=== PATIENT | male | born 1985 | race African-American/Black ===

== ENCOUNTER 2017-05-02 17:33 | Inpatient (IN) | payer BC, OTHER ==
--- NOTE | 2017-05-02 18:07 | PDOC ---
History of Present Illness - History of Present Illness Initial Comments: 05/02/17 19:04 Patient is a 31 year old male with significant medical hx of RA who is presenting to the ED with headache since 3 PM today. The patient complains of constant headache described as a pressure that's localized to the top of his head and is non-radiating. Patient rates his pain 8/10 in severity. He endorses some mild associated blurry vision and notes that his blood pressure was unusually high today but denies any history of high blood pressure. Denies any nausea, vomiting, diarrhea, abdominal pain, weakness, or dizziness. <Annie Nichols - Last Filed: 05/02/17 21:06> <Tray Ritter - Last Filed: 05/03/17 01:46> - General Chief Complaint: Blood Pressure Problem Stated Complaint: Blood Pressure Problem Time Seen by Provider: 05/02/17 18:05 Past History <Annie Nichols - Last Filed: 05/02/17 21:06> - Past Medical History Anemia: Yes Asthma: No Cancer: No Cardiac Disorders: No CVA: No COPD: No CHF: No Dementia: No Diabetes: No GI Disorders: No Disorders: No HTN: No Hypercholesterolemia: No Liver Disease: No Suicide Attempt (Hx): No Seizures: No Thyroid Disease: No Other medical history: RHEM ARTHRITIS - Surgical History Orthopedic Surgery: Yes - Psycho/Social/Smoking Cessation Hx Anxiety: No Suicidal Ideation: No Smoking Status: No Smoking History: Never smoked Have you smoked in the past 12 months: No Number of Cigarettes Smoked Daily: 0 Cigars Per Day: 0 Hx Alcohol Use: No Drug/Substance Use Hx: No Substance Use Type: None Hx Substance Use Treatment: No <Tray Ritter - Last Filed: 05/03/17 01:46> - Past Medical History Allergies/Adverse Reactions: Allergies Allergy/AdvReac Type Severity Reaction Status Date / Time No Known Allergies Allergy Verified 05/02/17 17:40 Home Medications: Ambulatory Orders Acetaminophen [Tylenol] 1,000 mg PO BID 05/02/17 Prednisone [Deltasone -] 5 mg PO BID 05/02/17 Review of Systems - Review of Systems Comments:: 05/02/17 19:19 CONSTITUTIONAL: No fever, no chills, no fatigue EYES: Mild blurry vision ENT: No ear pain, no sore throat CARDIOVASCULAR: High blood pressure. No chest pain, no palpitations RESPIRATORY: No cough, no SOB GI: No abdominal pain, no nausea, no vomiting, no constipation, no diarrhea GENITOURINARY: No dysuria, no frequency, no hematuria MUSKULOSKELETAL: No backpain, no joint pain, no myalgias SKIN: No rash NEURO: Headache <Annie Nichols - Last Filed: 05/02/17 21:06> *Physical Exam - Vital Signs Last Vital Signs Temp Pulse Resp BP Pulse Ox 98.1 F 96 H 20 165/119 98 05/02/17 17:37 05/02/17 17:37 05/02/17 17:37 05/02/17 18:22 05/02/17 17:37 <Annie Nichols - Last Filed: 05/02/17 21:06> - Vital Signs Last Vital Signs Temp Pulse Resp BP Pulse Ox 98.1 F 96 H 20 168/123 98 05/02/17 17:37 05/02/17 17:37 05/02/17 17:37 05/02/17 17:37 05/02/17 17:37 - Physical Exam Comments: 05/02/17 19:10 EXAMINATION CONSTITUTIONAL: Awake and alert; well-nourished; in no apparent distress HEAD: Normocephalic; atraumatic EYES: PERRL; EOM intact; no photophobia; no nystagmus; ENMT: External appears normal; normal oropharynx NECK: Supple; non-tender; no cervical lymphadenopathy; no carotid bruits CARD: Normal S1, S2; no murmurs, rubs, or gallops RESP: Normal chest excursion with respiration; breath sounds clear and equal bilaterally; no wheezes, rhonchi, or rales ABD: Soft, non-distended; non-tender; no palpable organomegaly, no palpable hernias EXT: Normal ROM in all four extremities; + ulnar deviation and flexion is noted at the wrist joints bilaterally as well as MCP joints bilaterally; non-tender to palpation; distal pulses intact SKIN: Warm, dry, no rash NEURO: Cranial nerves II through XII are grossly intact; motor is 5 of 54; ( left hand labeling specialist is weaker than the right; abduction of digits of the left hand is also noted to be weaker than the right); gait is stable. <Tray Ritter - Last Filed: 05/03/17 01:46> Heart Score/ECG Review #1 05/02/17 21:10 Normal sinus rhythm at 79 bpm with sinus arrhythmia Normal ECG <Annie Nichols - Last Filed: 05/02/17 21:06> ED Treatment Course - LABORATORY CBC & Chemistry Diagram: 05/02/17 19:02 05/02/17 19:02 - RADIOLOGY Radiograph Interpretation: 05/02/17 21:[address] Impression: No CT evidence of acute intracranial pathology. Findings are noted involving the partially imaged upper cervical spine as discussed. Cervical spine CT evaluation is suggested. Reported By: Joel Bullard MD <Annie Nichols - Last Filed: 05/02/17 21:06> - LABORATORY CBC & Chemistry Diagram: 05/02/17 19:02 05/02/17 19:02 <Tray Ritter - Last Filed: 05/03/17 01:46> Medical Decision Making - Medical Decision Making 05/02/17 19:12 Patient is a 31-year-old male with history of rheumatoid arthritis, on prednisone presents to the ER with atraumatic apical headache and significantly elevated blood pressure. On initial evaluation, no meningeal signs are noted. Patient has notable weakness of the left hand labeling specialist which reports is chronic in nature. I suspect hypertensive emergency at this time. Will obtain CT head to rule out intracerebral hemorrhage. We will administer IV labetalol. Likely admission. 05/02/17 19:24 after administration of 20 and then 40 mg of labetalol, patient's blood pressure remains 170/130. We'll administer 80 mg of labetalol IV push. If no significant improvement in the blood pressure, will initiate labetalol drip. 05/02/17 21:25 CT of head shows no evidence of acute intracranial pathology. Accidentally noted is the atlantoaxial subluxation with basilar invagination with cervical canal narrowing. Patient's blood pressure has not responded to boluses of labetalol. 200 mg of labetalol was administered by mouth. Will initiate a labetalol drip at 2 mg an hour. I do not suspect subarachnoid hemorrhage at this time given the a CT obtained within the 6 hours of presentation (CT has sensitivity approaching 100% subarachnoid blood when obtained within 6 hours of onset of pain) 05/02/17 21:57 Patient reassessed. Patient reports improvement in level of her his headache. On repeat evaluation, no meningeal signs are noted again. Blood pressure is noted to be 148/98. Will continue with a labetalol drip at this point. 05/02/17 22:59 Patient's symptom-free. Blood pressure is noted to be 138/88. Will decrease labetalol drip to 1 mg/m. Will admit to telemetry for hypertensive emergency. 05/03/17 01:46 Patient's blood pressure has stabilized off labetalol drip. Last measurement is noted to be 123/86. Patient's drug screen is noted to be positive for opioids and MDMA. Will continue with telemetry admission is planned. <Tray Ritter - Last Filed: 05/03/17 01:46> *DC/Admit/Observation/Transfer - Attestations Scribe Attestion: 05/02/17 19:22 Documentation prepared by Annie Nichols, acting as medical certification specialist for Tray Ritter MD. <Annie Nichols - Last Filed: 05/02/17 21:06> - Discharge Dispostion Admit: Yes <Tray Ritter - Last Filed: 05/03/17 01:46> Diagnosis at time of Disposition: Hypertensive emergency Headache Qualifiers: Headache type: unspecified Headache chronicity pattern: acute headache Intractability: not intractable Qualified Code(s): R51 - Headache - Referrals
[2017-05-02] MEDS ORDERED: METOCLOPRAMIDE HCL INJECTION 10 MG/2 ML VIAL IVPB ONE (18:22)
[2017-05-02] MEDS ORDERED: LABETALOL HCL 5 MG/1 ML (100MG/20 ML VIAL) IVPUSH ONE ×3 (18:23→20:10)
[2017-05-02] MEDS ORDERED: METOCLOPRAMIDE HCL INJECTION 10 MG/2 ML VIAL ONE (18:52)
[2017-05-02] MEDS ORDERED: LABETALOL HCL 5 MG/1 ML (200MG/40ML VIAL) IVPB ONE (18:52)
[2017-05-02 19:11] LABS: MCHC 32.4 g/dl (32.0-35.9); MEAN CELL VOLUME 67.9 fl (80-96); MEAN PLT VOLUME 8.6 fl (7.5-11.1); RDW 24.1 % (11.9-15.9)
[2017-05-02 19:57] LABS: INR 1.06 (0.82-1.09); PROTHROMBIN TIME (PATIENT) 11.7 SEC (9.98-11.88)
[2017-05-02 19:58] LABS: ALBUMIN 3.5 g/dl (3.4-5.0); ANION GAP 8 (8-16); CALCIUM 8.8 mg/dL (8.5-10.1); CO2 24 mmol/L (21-32); CREATININE 0.9 mg/dL (0.7-1.3); GLUCOSE,RANDOM 84 mg/dL (74-106); SGOT/AST 44 U/L (15-37); SGPT/ALT 31 U/L (12-78)
[2017-05-02 20:02] LABS: ALK PHOS 74 U/L (45-117); BILIRUBIN,TOTAL 0.7 mg/dL (0.2-1.0); TOT PROT 8.3 g/dl (6.4-8.2); TROPONIN I < 0.02 ng/ml (0.00-0.05)
[2017-05-02] MEDS ORDERED: LABETALOL HCL 200 MG TABLET (FP) PO ONE (20:10)
[2017-05-02] MEDS ORDERED: LABETALOL HCL 100 MG TABLET (FP) ONE (20:11)
[2017-05-02] MEDS ORDERED: LABETALOL HCL INJECTION 1,000 MG in DEXTROSE 5%-WATER - 800 ML IV SCH (20:30)
[2017-05-02] MEDS ORDERED: morphine CARPU-JECT 4 MG/1 ML DISP.SYRIN IVPUSH ONE (20:33)
[2017-05-02] MEDS ORDERED: morphine CARPU-JECT 4 MG/1 ML DISP.SYRIN ONE (20:41)
[2017-05-02 20:53] LABS: PLATELET COUNT 189 K/MM3 (134-434)
[2017-05-02 20:55] LABS: HYPOCHROMIA 1+; PLATELET ESTIMATE ADEQUATE (NORMAL)
[2017-05-02 20:56] LABS: ANISOCYTOSIS 3+; MICROCYTOSIS 1+; POIKILOCYTOSIS 2+; TARGET CELLS 2+; TEAR DROP CELLS 1+
[2017-05-03 00:58] LABS: URINE APPEARANCE CLEAR; URINE BILIRUBIN NEGATIVE (NEGATIVE); URINE BLOOD 1+ (NEGATIVE); URINE COLOR LTYELLOW; URINE GLUCOSE (UA) NEGATIVE (NEGATIVE); URINE KETONE NEGATIVE (NEGATIVE); URINE LEUK ESTERASE NEGATIVE (NEGATIVE); URINE NITRITE NEGATIVE (NEGATIVE); URINE UROBILINOGEN NEGATIVE mg/dL (0.2-1.0)
[2017-05-03 01:09] LABS: URINE MARIJUANA THC NEGATIVE ng/ml (CUTOFF=50)
[2017-05-03 01:32] LABS: URINE PROTEIN 2+ (NEGATIVE)
[2017-05-03 01:35] LABS: URINE RBC <1 /hpf (0-3); URINE WBC 1 /hpf (3-5)
[2017-05-03 03:02] VITALS: BMI 29.9
[2017-05-03 06:07] LABS: BASOPHIL 0.9 % (0-2.0); MCH 22.4 pg (25.7-33.7); MCHC 32.9 g/dl (32.0-35.9); MEAN CELL VOLUME 68.1 fl (80-96); MEAN PLT VOLUME 8.6 fl (7.5-11.1); NEUTROPHILS 63.7 % (42.8-82.8); PLATELET COUNT 138 K/MM3 (134-434); RDW 23.6 % (11.9-15.9); WHITE BLOOD COUNT 6.7 K/mm3 (4.0-10.0)
[2017-05-03 06:40] LABS: ALBUMIN 2.9 g/dl (3.4-5.0); ANION GAP 7 (8-16); CALCIUM 8.1 mg/dL (8.5-10.1); CO2 27 mmol/L (21-32); GLUCOSE,RANDOM 81 mg/dL (74-106)
[2017-05-03 06:44] LABS: ALK PHOS 55 U/L (45-117); BILIRUBIN,TOTAL 0.8 mg/dL (0.2-1.0); CHOLESTEROL 216 mg/dL (50-200); CREATININE 0.8 mg/dL (0.7-1.3); LDL CHOLESTEROL (ONLY SJRH) 102 mg/dL (5-100); SGOT/AST 32 U/L (15-37); SGPT/ALT 24 U/L (12-78); TROPONIN I < 0.02 ng/ml (0.00-0.05)
--- NOTE | 2017-05-03 09:20 | PN ---
Progress Note (short form) - Note Progress Note: NEUROSURGERY CONSULT DICTATED Pt with long-standing RA and basilar impression presented to ED with headache and dizziness yesterday afternoon. "Pressure" on the top of his head and is non- radiating. Patient rates his pain 8/10. He endorses some mild associated blurry vision and notes that his blood pressure was in the 160s's but denies history of Htn. No diplopia, sz. Chronic (over 5 year) B hand weakness L > R. Denies any neck pain or Lhermitte's sign. NO ataxia or bowel/bladder control issues. H/ o MRSA L upper arm wound previously. 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
[2017-05-03] MEDS: predniSONE 20 MG TABLET (UD) PO SCH (09:43)
[2017-05-03] MEDS: HEPARIN NA (PORCINE) 5,000 UNITS/ML 1ML VIAL SQ SCH ×2 (09:43→22:57)
--- NOTE | 2017-05-03 11:40 | HP ---
Admitting History and Physical - Primary Care Physician PCP: Mateus Lopez - Admission Chief Complaint: headaches History of Present Illness: Patient is a 31 year old male with significant medical hx of RA who is presented to the ED with headache since 3 PM yesterday. He explains it as the worst headache of his life and it was a constant headache described as a pressure that's localized to the top of his head and is non-radiating. Patient rated his pain 8/10 in severity. His associated symptoms were some mild associated blurry vision and blood pressure was unusually high today but denies any history of high blood pressure. Denies any nausea, vomiting, diarrhea, abdominal pain, weakness, or dizziness. History Source: Patient Limitations to Obtaining History: No Limitations - Advance Directives Advance Directives: Yes: Health Care Proxy - Smoking History Smoking history: Never smoked Have you smoked in the past 12 months: No Aproximately how many cigarettes per day: 0 - Alcohol/Substance Use Hx Alcohol Use: No Home Medications - Allergies Allergies/Adverse Reactions: Allergies Allergy/AdvReac Type Severity Reaction Status Date / Time No Known Allergies Allergy Verified 05/02/17 17:40 - Home Medications Home Medications: Ambulatory Orders Acetaminophen [Tylenol] 1,000 mg PO BID 05/02/17 Prednisone [Deltasone -] 5 mg PO BID 05/02/17 Review of Systems - Review of Systems Constitutional: reports: Malaise Eyes: reports: No Symptoms HENT: reports: No Symptoms Neck: reports: Decreased ROM, Stiffness Cardiovascular: reports: No Symptoms Respiratory: reports: No Symptoms Gastrointestinal: reports: No Symptoms Genitourinary: reports: No Symptoms Breasts: reports: No Symptoms Reported Musculoskeletal: reports: No Symptoms Integumentary: reports: No Symptoms Neurological: reports: Headache Endocrine: reports: No Symptoms Hematology/Lymphatic: reports: No Symptoms Psychiatric: reports: No Symptoms Physical Examination Vital Signs: Vital Signs Temperature 97.8 F 05/03/17 10:00 Pulse Rate 70 05/03/17 10:00 Respiratory Rate 18 05/03/17 10:00 Blood Pressure 118/79 05/03/17 10:00 O2 Sat by Pulse Oximetry (%) 100 05/03/17 08:00 Constitutional: Yes: Well Nourished, No Distress, Calm Cardiovascular: Yes: Regular Rate and Rhythm Respiratory: Yes: Regular Gastrointestinal: Yes: Normal Bowel Sounds Edema: No Peripheral Pulses WNL: Yes Neurological: Yes: Alert, Oriented, Other (no complains of headache at this time ) Psychiatric: Yes: Alert, Oriented Labs: CBC, BMP 05/03/17 05:05 05/03/17 05:05 Imaging - Results Cat Scan: Report Reviewed Problem List - Problems (1) Headache Assessment/Plan: -CT head was negative for any acute pathology -CT cervical spine showed craniocervical junction spinal canal stenosis. -seen by Neurosurgery -prednisone increased to 20 mg, he usually take 5 mg po daily for RA Code(s): R51 - HEADACHE Qualifiers: Headache type: unspecified Headache chronicity pattern: acute headache Intractability: not intractable Qualified Code(s): R51 - Headache (2) Hypertensive emergency Assessment/Plan: -better now -to be seen by cardiology -likely secondary to acute pain Code(s): I16.1 - HYPERTENSIVE EMERGENCY (3) Arthritis, rheumatoid Assessment/Plan: chronic, sees Dr Moffett outpatient Code(s): M06.9 - RHEUMATOID ARTHRITIS, UNSPECIFIED (4) Positive urine drug screen Assessment/Plan: Although patient denies use of any illicit drugs, his urine toxicology was positive for opiates and ecstacy. -would repeat urine toxicology -psych consult Code(s): R82.5 - ELEVATED URINE LEVELS OF DRUG/MEDS/BIOL SUBST Assessment/Plan -Neurosurgery consult -pain management -increased steroids -repeat urine toxicology to confirm,patient denies any usage of illicit drugs -cardiology consult -psych consult
--- NOTE | 2017-05-03 15:13 | CON.CARD ---
Consult Consult Specialty:: cardiology Referred by:: michelle Reason for Consultation:: htn - History of Present Illness Chief Complaint: htn History of Present Illness: 31 year old male with h/o RA s/p knee and hip surgery in past who presents with htn and headache/lightheaded. As per patient, was at work when felt lightheaded and vision felt off/mild blurriness with a headache. Checked bp and elevated 160s so came to ER. Required multiple doses of labetalol IV and than IV drip to come down but has been normal off drip now. Symptoms resolved. Denies ever having these symptoms prior. No chest pain, sob, or palpitations. Good exercise level as per patient. Reports bp was elevated at last doctor's visit but unclear range. Also started on new RA medicine last month. No n/v/d. No fevers. No sweats. No weight loss. - History Source History Provided By: Patient, Medical Record - Alcohol/Substance Use Hx Alcohol Use: No - Smoking History Smoking history: Never smoked Have you smoked in the past 12 months: No Aproximately how many cigarettes per day: 0 Home Medications - Allergies Allergies/Adverse Reactions: Allergies Allergy/AdvReac Type Severity Reaction Status Date / Time No Known Allergies Allergy Verified 05/02/17 17:40 - Home Medications Home Medications: Ambulatory Orders Acetaminophen [Tylenol] 1,000 mg PO BID 05/02/17 Prednisone [Deltasone -] 5 mg PO BID 05/02/17 Vital Signs: Vital Signs Temperature 97.8 F 05/03/17 14:00 Pulse Rate 82 05/03/17 14:00 Respiratory Rate 16 05/03/17 14:00 Blood Pressure 123/85 05/03/17 14:00 O2 Sat by Pulse Oximetry (%) 100 05/03/17 08:00 Constitutional: Yes: No Distress Neck: Yes: Supple Respiratory: Yes: CTA Bilaterally Gastrointestinal: Yes: Normal Bowel Sounds, Soft Cardiovascular: Yes: Regular Rate and Rhythm JVD: No Carotid Bruit: No Heart Sounds: Yes: S1, S2 Murmur: No: Systolic Murmur Edema: No - Other Data Labs, Other Data: CBC, BMP 05/03/17 05:05 05/03/17 05:05 INR, PTT INR 1.06 (0.82-1.09) 05/02/17 19:02 Troponin, BNP 05/03/17 05:05 Troponin I < 0.02 Troponin, BNP 05/03/17 05:05 Troponin I < 0.02 Imaging - Results Chest X-ray: Report Reviewed EKG: Image Reviewed Problem List - Problems (1) Hypertensive emergency Code(s): I16.1 - HYPERTENSIVE EMERGENCY Assessment/Plan 31 year old male with h/o RA s/p knee and hip surgery in past who presents with htn and headache/lightheaded. As per patient, was at work when felt lightheaded and vision felt off/mild blurriness with a headache. Checked bp and elevated 160s so came to ER. Required multiple doses of labetalol IV and than IV drip to come down but has been normal off drip now. Symptoms resolved. Denies ever having these symptoms prior. No chest pain, sob, or palpitations. Good exercise level as per patient. Reports bp was elevated at last doctor's visit but unclear range. Also started on new RA medicine last month. No n/v/d. No fevers. No sweats. No weight loss. 1) HTN Likely with underlying htn as reports his bp was elevated at his rheumatologists office and also on echocardiogram with mild LVH. EKG with lateral T wave changes. LVEF normal on echo with no significant valve disease. -BP has been normal today off labetalol drip. Would continue to monitor on tele and bp for 24 hours. Trend labs Find out what other RA medication was that was new and if causes htn. Patients Urine tox came back as MDMA which can cause htn and these symptoms but patient swears never drinks or does any drugs. 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 Will continue to monitor
--- NOTE | 2017-05-03 16:30 | EKG ---
Test Reason : Blood Pressure : / mmHG Vent. Rate : 080 BPM Atrial Rate : 080 BPM P-R Int : 134 ms QRS Dur : 086 ms QT Int : 362 ms P-R-T Axes : 054 024 -12 degrees QTc Int : 417 ms NORMAL SINUS RHYTHM T WAVE ABNORMALITY, CONSIDER LATERAL ISCHEMIA ABNORMAL ECG WHEN COMPARED WITH ECG OF 02-MAY-2017 18:23, NO SIGNIFICANT CHANGE WAS FOUND Confirmed by DIVYA BOX, STORM ([id number]) on 05/03/2017 4:30:22 PM Referred By: ANNEMARIE CROWLEY Confirmed By:STORM STOKES MD
--- NOTE | 2017-05-03 16:33 | EKG ---
Test Reason : Blood Pressure : / mmHG Vent. Rate : 079 BPM Atrial Rate : 079 BPM P-R Int : 140 ms QRS Dur : 082 ms QT Int : 360 ms P-R-T Axes : 052 012 -07 degrees QTc Int : 412 ms NORMAL SINUS RHYTHM WITH SINUS ARRHYTHMIA NORMAL ECG WHEN COMPARED WITH ECG OF 13-JUN-2013 09:07, NON-SPECIFIC CHANGE IN ST SEGMENT IN INFERIOR LEADS Confirmed by DIVYA BOX, STORM ([id number]) on 05/03/2017 4:32:54 PM Referred By: Confirmed By:STORM STOKES MD
--- NOTE | 2017-05-03 18:18 | CONS ---
DATE OF CONSULTATION: 05/03/2017 CHIEF COMPLAINT: Hypertension and headache/dizziness. HISTORY OF PRESENT ILLNESS: The patient is a 31-year-old right hand male with a history of rheumatoid arthritis diagnosed several years ago, who had complained yesterday afternoon of dizziness and headache. He had felt some pressure on the top of his head which was nonradiating. Pain was rated 8 on a 1-10 scale. He had some blurry vision which is no longer present. He had blood pressure initially in the 160s, which is higher than the usual blood pressure. He denies any diplopia, ataxia, neck pain, or bowel/bladder dysfunction. He has had chronic bilateral hand weakness for many years, left greater than right. He had MRI of the cervical spine back in 2012, at which point basilar impression was noted. PAST MEDICAL HISTORY: Significant for rheumatoid arthritis, left arm skin infection with MRSA. CURRENT MEDICATIONS: Include prednisone, Deltasone 20 mg daily. ALLERGIES: No known drug allergies. FAMILY HISTORY: Noncontributory. SOCIAL HISTORY: He only drinks alcohol socially. He does not smoke. He lives at home. REVIEW OF SYSTEMS: Otherwise negative for other cardiovascular, pulmonary, gastrointestinal, genitourinary, endocrinologic, neurologic, or psychological problems except for the above. PHYSICAL EXAMINATION: Vital signs: Temperature is 97.9, blood pressure 123/86. 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 Upon emergency room evaluation, his systolic blood pressure is in the 160s and diastolic was 120s. O2 saturation 100% on room air. HEENT: Normocephalic, atraumatic, anicteric. Neck: Supple. Cervical spine flexion is 45 degrees and extension is 40 degrees , lateral rotation is 50 degrees in each direction. There is no neck tenderness or nuchal rigidity. Coronary: Regular rhythm. Lungs: Clear bilaterally. Abdomen: Benign. Extremities: Healed left upper arm scar from prior infection, but there are no signs of current infection. Neurologic: He is awake, alert, oriented x4. Cranial nerves examination intact 2-12. There is no nystagmus. Motor examination shows 5/5 strength except the right hand, which is 3 to 4 minus, and left hand which is 2 to 3, weakness is predominantly involving intrinsic muscles of the hand. Proximal upper extremity strength is 4 +. Left proximal lower extremity is 4+/5. Deep tendon reflexes are hyporeflexive throughout. Sensory examination is intact to light touch, vibratory sensation, and proprioception. LABORATORY EXAMINATION: Shows a white blood cell count of 6700, hemoglobin 11.1, and platelet count is 138,000. INR is 1.06. Serum sodium is 139, potassium 3.8 , BUN and creatinine are 12 and 0.8, respectively. Troponin is less than 0.02. Toxicology is positive for opiates and MDMA. Repeat screening is pending. CT scan of the head showed no hydrocephalus or bleed. There is no fracture. There is no acute stroke. There is basilar impression of the dens extending into the cranial fossa. There is moderate to mild compromise of craniocervical junction. CT scan of the cervical spine demonstrated basilar impression, likely secondary to rheumatoid arthritis. The odontoid process is hypoplastic, and there is fusion of the atlantooccipital joint as well as atlantoaxial joints. This has not changed since the neck CT scan from May 2013. The MRI from 2012 was also reviewed of the cervical spine. There is basilar impression and moderate spinal stenosis. There is no edema of the spinal cord at the time. IMPRESSION: 1. 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 2. Chronic cervical myelopathy likely secondary to cranial cervical stenosis, but no clinical progression over these past 5 years. 3. Hypertension. RECOMMENDATION: The patient presents with hypertensive episodes. His blood pressure is better this morning. He has minimal headache and has minimal dizziness. His upper extremity deficit in the hands are mostly chronic, as he has no ataxia or sphincter dysfunction. He has had craniocervical junction stenosis for many years. His neurological symptoms have not progressed at all. The value of the posterior cranial cervical decompression and possible fusion with instrumentation was discussed with the patient. It will be an extensive procedure with significant surgical and medical risks. The pros and cons of treatment approaches including observation was discussed, and the patient feels that since his condition has not changed at all , he does not want to consider any surgical intervention. That is a reasonable decision. Unfortunately, steroid use for his osteoarthritis can potentially exacerbate his hypertension and cause other medical issues such as cardiac problems, diabetes, and osteoporosis. His current hypertensive episode may be related to other pharmacological use, and those issues should be investigated and remedied per the medical team. I reviewed the above with the patient at bedside today. All questions are answered. No neurosurgical intervention is recommended at this time given the above. GISELLA LYNCH M.D. ANGIE/[id number] MTDD
[2017-05-03] MEDS: ACETAMINOPHEN 325 MG TABLET (FP) PO PRN (22:58)
--- NOTE | 2017-05-04 07:03 | PN ---
Progress Note (short form) - Note Progress Note: NEUROSURGERY No H/A. No neck pain or Lhermitte's sign. No ataxia or bowel/bladder control issues. H/o MRSA L upper arm wound previously. PE: AF, VSS, BP 146/95; mildly hypertensive Sitting up in bed HEENT- NC/AT; Neck- supple; flexion 45 degrees, extension 40 degrees; Cor- RR; Lungs- CTA B; Abd- benign; Ext- no sign of DVT NEURO- A/A/Ox4 CN- intact II- XII; Motor- L hand 2-3, R hand 3-4-; prox L LE 4+; Sensation- intact LT/vibration/proprioception; DTR- hyporeflexic, no LTS Head CT- craniocervical misalignment, no bleed, stroke or fx noted C spine CT- basilar impression with moderate canal stenosis at cranio-cervical junction, not much changed considering old MRI from 2013; autofusion at craniocervical junction and C1-2 Tox screen result d/w pt; pt reminded that some recreational drugs such as cocaine and others could cause htn and other significant medical problems RA with basilar impression and chronic stable chronic myelopathy Pt's neurological condition has remained the same for at least 5 years Pros and cons of treatment approaches discussed previously; all questions answered Can consider posterior cranio-cervical decompression and fusion with instrumentation but benefit is unclear given chronic stable symptomatology, and potential surgery and anesthetic risks are high Pt not interested in surgery presently
[2017-05-04 08:07] LABS: ECSTACY (MDMA) Negative (Cutoff=500)
[2017-05-04] MEDS: HEPARIN NA (PORCINE) 5,000 UNITS/ML 1ML VIAL SQ SCH ×2 (10:07→22:23)
[2017-05-04] MEDS: predniSONE 20 MG TABLET (UD) PO SCH (10:08)
--- NOTE | 2017-05-04 11:53 | PN ---
Progress Note, Physician Chief Complaint: awake alert cristin headache - Current Medication List Current Medications: Active Medications Acetaminophen (Tylenol -) 650 mg PO Q4H PRN PRN Reason: FEVER OR PAIN Last Admin: 05/03/17 22:58 Dose: 650 mg Heparin Sodium (Porcine) (Heparin -) 5,000 unit SQ BID [facility] Last Admin: 05/04/17 10:07 Dose: 5,000 unit Prednisone (Deltasone -) 20 mg PO DAILY [facility] Last Admin: 05/04/17 10:08 Dose: 20 mg - Objective Vital Signs: Vital Signs Temperature 98.1 F 05/04/17 06:00 Pulse Rate 58 L 05/04/17 06:00 Respiratory Rate 18 05/04/17 06:00 Blood Pressure 146/95 05/04/17 06:00 O2 Sat by Pulse Oximetry (%) 100 05/03/17 21:00 Constitutional: Yes: Mild Distress Eyes: Yes: WNL HENT: Yes: WNL Neck: Yes: WNL Cardiovascular: Yes: WNL Respiratory: Yes: WNL Gastrointestinal: Yes: WNL Genitourinary: Yes: WNL Musculoskeletal: Yes: WNL Extremities: Yes: WNL Edema: No Peripheral Pulses WNL: Yes Integumentary: Yes: WNL Wound/Incision: Yes: Clean/Dry Neurological: Yes: WNL ...Motor Strength: WNL Psychiatric: Yes: WNL Labs: CBC, BMP 05/03/17 05:05 05/03/17 05:05 INR, PTT INR 1.06 (0.82-1.09) 05/02/17 19:02 Problem List - Problems (1) Headache Code(s): R51 - HEADACHE Qualifiers: Headache type: unspecified Headache chronicity pattern: acute headache Intractability: not intractable Qualified Code(s): R51 - Headache (2) Hypertensive emergency Code(s): I16.1 - HYPERTENSIVE EMERGENCY (3) Positive urine drug screen Code(s): R82.5 - ELEVATED URINE LEVELS OF DRUG/MEDS/BIOL SUBST (4) Arthritis, rheumatoid Code(s): M06.9 - RHEUMATOID ARTHRITIS, UNSPECIFIED Assessment/Plan norvasc 2.5mg now decrease bp slowly substance abuse discussed, to avoid illicit drugs neuro surgery and cardiology eval appreciated
[2017-05-04] MEDS ORDERED: amLODIPine BESYLATE 2.5 MG TABLET (FP) PO SCH (12:00)
--- NOTE | 2017-05-04 13:59 | PN ---
Progress Note, Physician Chief Complaint: Patient with no complaints Tele: sinus with no events History of Present Illness: 31 year old male with h/o RA s/p knee and hip surgery in past who presents with htn and headache/lightheaded. As per patient, was at work when felt lightheaded and vision felt off/mild blurriness with a headache. Checked bp and elevated 160s so came to ER. Required multiple doses of labetalol IV and than IV drip to come down but has been normal off drip now. Symptoms resolved. Denies ever having these symptoms prior. No chest pain, sob, or palpitations. Good exercise level as per patient. Reports bp was elevated at last doctor's visit but unclear range. Also started on new RA medicine last month. No n/v/d. No fevers. No sweats. No weight loss. - Current Medication List Current Medications: Active Medications Acetaminophen (Tylenol -) 650 mg PO Q4H PRN PRN Reason: FEVER OR PAIN Last Admin: 05/03/17 22:58 Dose: 650 mg Amlodipine Besylate (Norvasc -) 2.5 mg PO DAILY [facility] Heparin Sodium (Porcine) (Heparin -) 5,000 unit SQ BID [facility] Last Admin: 05/04/17 10:07 Dose: 5,000 unit Prednisone (Deltasone -) 20 mg PO DAILY [facility] Last Admin: 05/04/17 10:08 Dose: 20 mg - Objective Vital Signs: Vital Signs Temperature 97.8 F 05/04/17 10:00 Pulse Rate 82 05/04/17 10:00 Respiratory Rate 18 05/04/17 10:00 Blood Pressure 139/94 05/04/17 10:00 O2 Sat by Pulse Oximetry (%) 100 05/03/17 21:00 Constitutional: Yes: No Distress Neck: Yes: Supple Cardiovascular: Yes: Regular Rate and Rhythm, S1, S2. No: JVD, Murmur Respiratory: Yes: CTA Bilaterally Gastrointestinal: Yes: Normal Bowel Sounds, Soft Edema: No Labs: CBC, BMP 05/03/17 05:05 05/03/17 05:05 INR, PTT INR 1.06 (0.82-1.09) 05/02/17 19:02 Problem List - Problems (1) Hypertensive emergency Code(s): I16.1 - HYPERTENSIVE EMERGENCY Assessment/Plan 31 year old male with h/o RA s/p knee and hip surgery in past who presents with htn and headache/lightheaded. As per patient, was at work when felt lightheaded and vision felt off/mild blurriness with a headache. Checked bp and elevated 160s so came to ER. Required multiple doses of labetalol IV and than IV drip to come down but has been normal off drip now. Symptoms resolved. Denies ever having these symptoms prior. No chest pain, sob, or palpitations. Good exercise level as per patient. Reports bp was elevated at last doctor's visit but unclear range. Also started on new RA medicine last month. No n/v/d. No fevers. No sweats. No weight loss. 1) HTN Likely with underlying htn as reports his bp was elevated at his rheumatologists office and also on echocardiogram with mild LVH. Diastolic pressures have been in 90s. Agree with starting amlodipine and uptitrating as needed EKG with lateral T wave changes. LVEF normal on echo with no significant valve disease. -Repeat urine toxicology negative for mdma. -Would have patient follow up as an outpatient with cardiology. 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 [phone]. No cardiac symptoms on exertion but given lateral T wave changes on one of his ekg would consider outpatient exercise treadmill stress echocardiogram. Discussed at length dietary changes to make and some lifestyle changes. 2) HLD Discussed dietary changes Follow up as outpatient Will sign off at this time. Please call back with any questions or clinical changes.
[2017-05-04] MEDS: ACETAMINOPHEN 325 MG TABLET (FP) PO PRN (22:22)
--- NOTE | 2017-05-05 09:30 | PN ---
Progress Note (short form) - Note Progress Note: NEUROSURGERY No H/A. No neck pain, or bowel/bladder control issues. 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
--- NOTE | 2017-05-05 09:50 | DS ---
Physical Examination Vital Signs: Vital Signs Temperature 97.9 F 05/05/17 05:00 Pulse Rate 67 05/05/17 05:00 Respiratory Rate 18 05/05/17 05:00 Blood Pressure 155/98 05/05/17 05:00 O2 Sat by Pulse Oximetry (%) 98 05/04/17 21:00 Cardiovascular: Yes: Regular Rate and Rhythm Respiratory: Yes: Regular, CTA Bilaterally Gastrointestinal: Yes: Normal Bowel Sounds, Soft Discharge Summary Reason For Visit: HYPERTENSIVE EMERGENCY Current Active Problems Headache (Acute) Hypertensive emergency (Acute) Positive urine drug screen (Acute) Hospital Course: Patient is a 31 year old male with significant medical hx of RA who is presented to the ED with headache since 3 PM yesterday. He explains it as the worst headache of his life and it was a constant headache described as a pressure that's localized to the top of his head and is non-radiating. Patient rated his pain 8/10 in severity. His associated symptoms were some mild associated blurry vision and blood pressure was unusually high today but denies any history of high blood pressure. Denies any nausea, vomiting, diarrhea, abdominal pain, weakness, or dizziness. - Problems (1) Headache Assessment/Plan: -CT head was negative for any acute pathology -CT cervical spine showed craniocervical junction spinal canal stenosis. -seen by Neurosurgery-NO SURGICAL INTERVENTION -prednisone increased to 20 mg, he usually take 5 mg po daily for RA Code(s): R51 - HEADACHE Qualifiers: Headache type: unspecified Headache chronicity pattern: acute headache Intractability: not intractable Qualified Code(s): R51 - Headache (2) Hypertensive emergency Assessment/Plan: -better now -seen by cardiology -likely secondary to acute pain Code(s): I16.1 - HYPERTENSIVE EMERGENCY (3) Arthritis, rheumatoid Assessment/Plan: chronic, sees Dr Estrada outpatient Code(s): M06.9 - RHEUMATOID ARTHRITIS, UNSPECIFIED (4) Positive urine drug screen Assessment/Plan: Although patient denies use of any illicit drugs, his urine toxicology was positive for opiates and ecstacy. 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 and C1-2 RA with basilar impression and chronic stable chronic myelopathy Pt's neurological condition has remained the same for at least 5 years Pros and cons of treatment approaches for basilar impression discussed and pt opts for observation BP control regimen Will sign off from neurosurgical standpoint, reconsult PRN Condition: Improved - Instructions Referrals: Deacon Zavala MD [Primary Care Provider] - 1 Week Disposition: HOME - Home Medications Comprehensive Discharge Medication List: Ambulatory Orders Acetaminophen [Tylenol] 1,000 mg PO BID 05/02/17 Prednisone [Deltasone -] 5 mg PO BID 05/02/17 Amlodipine Besylate [Norvasc -] 5 mg PO DAILY #30 tablet 05/05/17 Metoprolol Tartrate [Lopressor -] 25 mg PO DAILY #30 tablet 05/05/17
[2017-05-05] MEDS ORDERED: amLODIPine BESYLATE 2.5 MG TABLET (FP) PO SCH ×2 (10:00→17:33)
[2017-05-05 10:14] LABS: BASOPHIL 2.7 % (0-2.0); MCH 22.7 pg (25.7-33.7); MCHC 33.5 g/dl (32.0-35.9); MEAN CELL VOLUME 67.7 fl (80-96); MEAN PLT VOLUME 8.4 fl (7.5-11.1); NEUTROPHILS 42.3 % (42.8-82.8); PLATELET COUNT 156 K/MM3 (134-434); RDW 23.4 % (11.9-15.9); WHITE BLOOD COUNT 4.7 K/mm3 (4.0-10.0)
[2017-05-05 10:15] LABS: ALBUMIN 3.2 g/dl (3.4-5.0); ANION GAP 6 (8-16); BILIRUBIN,TOTAL 0.7 mg/dL (0.2-1.0); CALCIUM 8.7 mg/dL (8.5-10.1); CO2 27 mmol/L (21-32); CREATININE 0.9 mg/dL (0.7-1.3); GLUCOSE,RANDOM 81 mg/dL (74-106); SGOT/AST 32 U/L (15-37); SGPT/ALT 29 U/L (12-78); TOT PROT 7.9 g/dl (6.4-8.2)
[2017-05-05] MEDS: predniSONE 20 MG TABLET (UD) PO SCH (10:32)
[2017-05-05] MEDS: HEPARIN NA (PORCINE) 5,000 UNITS/ML 1ML VIAL SQ SCH ×2 (10:32→21:24)
[2017-05-05 10:33] LABS: MICROCYTOSIS 1+
[2017-05-05] MEDS: METOPROLOL TARTRATE 25 MG TABLET (FP) PO SCH (10:33)
[2017-05-05 10:34] LABS: ANISOCYTOSIS 2+
[2017-05-05 10:36] LABS: ALK PHOS 61 U/L (45-117)
[2017-05-05 10:37] LABS: FREE T4 0.93 ng/dl (0.76-1.16)
[2017-05-05 10:41] LABS: FERRITIN 861.7 ng/ml (16.4-293.9)
[2017-05-05] MEDS ORDERED: amLODIPine BESYLATE 5 MG TABLET (FP) PO ONE (17:33)
[2017-05-06 07:12] LABS: SERUM IRON 74 ug/dL (38-169); TOTAL IRON BINDING CAPACITY 295 ug/dL (250-450); UIBC 221 ug/dL (111-343)
--- NOTE | 2017-05-06 09:54 | DS ---
Physical Examination Vital Signs: Vital Signs Temperature 98.0 F 05/06/17 06:00 Pulse Rate 62 05/06/17 06:00 Respiratory Rate 18 05/06/17 06:00 Blood Pressure 132/82 05/06/17 06:00 O2 Sat by Pulse Oximetry (%) 98 05/05/17 21:00 Findings/Remarks: no cp or sob no headche Cardiovascular: Yes: Regular Rate and Rhythm Respiratory: Yes: Regular, CTA Bilaterally Labs: CBC, BMP 05/05/17 09:25 05/05/17 09:25 Discharge Summary Reason For Visit: HYPERTENSIVE EMERGENCY Current Active Problems Headache (Acute) Hypertensive emergency (Acute) Positive urine drug screen (Acute) Hospital Course: Patient is a 31 year old male with significant medical hx of RA who is presented to the ED with headache since 3 PM yesterday. He explains it as the worst headache of his life and it was a constant headache described as a pressure that's localized to the top of his head and is non-radiating. Patient rated his pain 8/10 in severity. His associated symptoms were some mild associated blurry vision and blood pressure was unusually high today but denies any history of high blood pressure. Denies any nausea, vomiting, diarrhea, abdominal pain, weakness, or dizziness. - Problems (1) Headache Assessment/Plan: -CT head was negative for any acute pathology -CT cervical spine showed craniocervical junction spinal canal stenosis. -seen by Neurosurgery-NO SURGICAL INTERVENTION -prednisone increased to 20 mg, he usually take 5 mg po daily for RA Code(s): R51 - HEADACHE Qualifiers: Headache type: unspecified Headache chronicity pattern: acute headache Intractability: not intractable Qualified Code(s): R51 - Headache (2) Hypertensive emergency Assessment/Plan: -better now -seen by cardiology -likely secondary to acute pain Code(s): I16.1 - HYPERTENSIVE EMERGENCY (3) Arthritis, rheumatoid Assessment/Plan: chronic, sees Dr Estrada outpatient Code(s): M06.9 - RHEUMATOID ARTHRITIS, UNSPECIFIED (4) Positive urine drug screen Assessment/Plan: Although patient denies use of any illicit drugs, his urine toxicology was positive for opiates and ecstacy. 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 and C1-2 RA with basilar impression and chronic stable chronic myelopathy Pt's neurological condition has remained the same for at least 5 years Pros and cons of treatment approaches for basilar impression discussed and pt opts for observation BP control regimen Will sign off from neurosurgical standpoint, reconsult PRN Condition: Improved Condition: Improved - Instructions Referrals: Deacon Zavala MD [Primary Care Provider] - 1 Week Disposition: HOME - Home Medications Comprehensive Discharge Medication List: Ambulatory Orders Acetaminophen [Tylenol] 1,000 mg PO BID 05/02/17 Prednisone [Deltasone -] 5 mg PO BID 05/02/17 Metoprolol Tartrate [Lopressor -] 25 mg PO DAILY #30 tablet 05/05/17 Amlodipine Besylate [Norvasc -] 10 mg PO DAILY #30 tablet 05/06/17
[2017-05-06] MEDS: METOPROLOL TARTRATE 25 MG TABLET (FP) PO SCH (10:06)
[2017-05-06] MEDS: predniSONE 20 MG TABLET (UD) PO SCH (10:07)
[2017-05-06] MEDS: HEPARIN NA (PORCINE) 5,000 UNITS/ML 1ML VIAL SQ SCH (10:07)
[2017-05-06 12:18] VITALS: BP 145/99; PULSE 65; TEMP 98.7
== END 2017-05-06 12:38 | disposition home or self-care (01) | DRG 305 ==
LOC: JER 17:33 → JERBED 23:37 → J2W 05-03 02:19 → J4S 05-03 20:35
PROVIDERS: ADMIT Family Medicine; ATTEND Family Medicine
DX: I16.1 Hypertensive emergency (principal); G95.9 Disease of spinal cord, unspecified; I10 Essential (primary) hypertension; M06.9 Rheumatoid arthritis, unspecified; R82.5 Elevated urine levels of drugs, medicaments and biological substances; D64.9 Anemia, unspecified; M48.02 Spinal stenosis, cervical region; H53.8 Other visual disturbances
CPT/HCPCS: 36415; 70450-TC; 71010-TC; 72125-TC; 80053; 80061; 80307; 81003; 81015; 82550; 82553; 82607; 82728; 83540; 83550; 83721; 84439; 84443; 84484; 85025; 85610; 93005; 93010; 93306-TC; 99283-25; J1644

== ENCOUNTER 2017-08-04 12:37 | Emergency (ER) | payer BC ==
[2017-08-04 12:46] VITALS: BMI 29.6
[2017-08-04] MEDS ORDERED: traMADol HCL 50 MG TABLET PO ONE (12:51)
[2017-08-04] MEDS ORDERED: KETOROLAC TROMETHAMINE 60 MG/2 ML VIAL IM ONE (12:51)
--- NOTE | 2017-08-04 12:58 | PDOC ---
History of Present Illness - General Chief Complaint: Pain, Acute Stated Complaint: KNEE PAIN Time Seen by Provider: 08/04/17 12:47 History Source: Patient - History of Present Illness Occurred: reports: this morning Lower Extremity Pain Location: right: knee Past History - Past Medical History Allergies/Adverse Reactions: Allergies Allergy/AdvReac Type Severity Reaction Status Date / Time No Known Allergies Allergy Verified 05/02/17 17:40 Home Medications: Ambulatory Orders Acetaminophen [Tylenol] 1,000 mg PO BID 05/02/17 Prednisone [Deltasone -] 5 mg PO BID 05/02/17 Metoprolol Tartrate [Lopressor -] 25 mg PO DAILY #30 tablet 05/05/17 Amlodipine Besylate [Norvasc -] 10 mg PO DAILY #30 tablet 05/06/17 Oxycodone HCl/Acetaminophen [Percocet 5-325 mg Tablet] 1 tab PO Q4H #20 tablet MDD 6mg 08/04/17 Anemia: Yes Asthma: No Cancer: No Cardiac Disorders: No CVA: No COPD: No CHF: No Dementia: No Diabetes: No GI Disorders: No Disorders: No HTN: Yes Hypercholesterolemia: No Liver Disease: No Seizures: No Thyroid Disease: No - Surgical History Orthopedic Surgery: Yes (bilateral total knee replacements, bilateral total hip replacements) - Suicide/Smoking/Psychosocial Hx Smoking Status: No Smoking History: Never smoked Have you smoked in the past 12 months: No Number of Cigarettes Smoked Daily: 0 Cigars Per Day: 0 Information on smoking cessation initiated: No Hx Alcohol Use: No Drug/Substance Use Hx: No Substance Use Type: None Hx Substance Use Treatment: No Review of Systems - Review of Systems Constitutional: No: Chills, Fever Musculoskeletal: Yes: Joint Pain. No: Joint Swelling Integumentary: No: Erythema *Physical Exam - Vital Signs Last Vital Signs Temp Pulse Resp BP Pulse Ox 98.5 F 82 18 177/126 99 08/04/17 12:42 08/04/17 12:42 08/04/17 12:42 08/04/17 12:42 08/04/17 12:42 - Physical Exam Comments: 08/04/17 12:56 Patient lying on stretcher w/ knee in slightly flexed position General Appearance: Yes: Appropriately Dressed. No: Apparent Distress HEENT: positive: Normal Voice Neck: positive: Supple Respiratory/Chest: negative: Respiratory Distress Extremity: positive: Other (lying w/ R knee in slightly flexed position w/ diffuse ttp, no swelling, erythema or warmth, increased pain w/ ROM which is limited) Integumentary: positive: Dry, Warm Neurologic: positive: Fully Oriented, Alert, Normal Mood/Affect ED Treatment Course - RADIOLOGY Radiology Studies Ordered: Category Date Time Status KNEE 2 POS-RIGHT [RAD] Stat Radiology 08/04/17 12:51 Ordered Medical Decision Making - Medical Decision Making 08/04/17 12:53 Patient is a 31-year-old male with significant history of RA on prednisone and tylenol, status post bilateral total knee replacement, here with right knee pain. Patient states while getting up from a sitting position this morning he felt right knee "lock up" on him. Since then has been unable to bend or extend his knee without significant pain. Has not been able to bear weight. No recent trauma. States since his surgery and prior to this, he has not had any knee issues. Denies any joint swelling, redness, fever or chills. No history of septic joint in the past See exam Atraumatic R knee pain S/p TKR remotely w/ no issues since H/o RA on steroids No h/o septic joint Exam remarkable for diffuse ttp to anterior knee w/ no sig swelling and no red, hot joint -pain control -XR check hardware 08/04/17 14:32 XR negative for acute pathology. Patient better with meds and able to put more weight on right lower extremity. Dash applied in ED and patient discharged with set of crutches and pain control. To follow-up with his family medicine chair and orthopedist 08/04/17 14:43 *DC/Admit/Observation/Transfer Diagnosis at time of Disposition: Knee pain, right Qualifiers: Chronicity: acute Qualified Code(s): M25.561 - Pain in right knee - Discharge Dispostion Disposition: HOME Condition at time of disposition: Improved - Prescriptions Prescriptions: Oxycodone HCl/Acetaminophen [Percocet 5-325 mg Tablet] 1 tab PO Q4H #20 tablet MDD 6mg - Referrals Referrals: Deacon Zavala MD [Primary Care Provider] - - Patient Instructions Printed Discharge Instructions: DI for Knee Pain Additional Instructions: Take medication as directed and follow up with your family medicine chair and your orthopedist
[2017-08-04] MEDS ORDERED: traMADol HCL 50 MG TABLET ONE (13:07)
[2017-08-04] MEDS ORDERED: KETOROLAC TROMETHAMINE 60 MG/2 ML VIAL ONE (13:07)
[2017-08-04] MEDS ORDERED: morphine CARPU-JECT 4 MG/1 ML DISP.SYRIN IM ONE (14:07)
[2017-08-04] MEDS ORDERED: morphine CARPU-JECT 2 MG/1 ML DISP.SYRIN ONE (14:12)
[2017-08-04 14:46] VITALS: BP 152/102; PULSE 84; TEMP 98.7
== END 2017-08-04 15:12 | disposition home or self-care (01) ==
LOC: JER 12:37
PROC: 3E0233Z Introduction of Anti-inflammatory into Muscle, Percutaneous Approach (ICD-10-PCS; principal; 2017-08-04)
PROC: 3E023NZ Introduction of Analgesics, Hypnotics, Sedatives into Muscle, Percutaneous Approach (ICD-10-PCS; 2017-08-04)
DX: M25.561 Pain in right knee (principal); I10 Essential (primary) hypertension; M06.9 Rheumatoid arthritis, unspecified; Z96.653 Presence of artificial knee joint, bilateral; Z96.643 Presence of artificial hip joint, bilateral
CPT/HCPCS: 73560-TC-RT; 99283-25

== ENCOUNTER 2018-03-02 11:55 | Emergency (ER) | payer BC, OTHER ==
[2018-03-02 12:00] VITALS: PULSE 98; TEMP 98.8; BMI 31.0
--- NOTE | 2018-03-02 12:14 | PDOC ---
History of Present Illness - History of Present Illness Initial Comments: 03/02/18 13:00 32 yo M with h/o HTN, RA and BL total knee replacement who p/w abdominal pain. Patient reports dull, intermittent, crampy lower abdominal pain beginnning yesterday evening ( 1200) after PO intake of "soup." No identifiable triggers or alleviators. One episode of non biliary, non bloody emesis this AM following PO intake of water ( 0700) AM. Normal stool this AM. No BPR. PO Prednisone and Tylenol this AM for RA complaints. Robitussin yesterday evening for cough. Denies F/C, N/V, CP, SOB, diarrhea, constipation, urinary complaints, hematuria, weakness, lightheadedness, sensory changes. PMHx: as noted above. HTN on Metoprolol. Denies h/o abdominal procedures, or abdominal trauma. Denies h/o endoscopy or colonoscopy. ROS: as noted above SHx: Denies tobacco, Etoh, or IVDA. Denies recent traveling, sick contacts, or new pets. Allergies: NKDA <Lavelle Thornton - Last Filed: 03/02/18 14:31> <Ashley Florentino - Last Filed: 03/02/18 15:27> - General Chief Complaint: Pain Stated Complaint: ABDOMINAL PAIN Time Seen by Provider: 03/02/18 12:12 Past History - Past Medical History Anemia: Yes Asthma: No Cancer: No Cardiac Disorders: No CVA: No COPD: No CHF: No Dementia: No Diabetes: No GI Disorders: No Disorders: No HTN: Yes Hypercholesterolemia: No Liver Disease: No Seizures: No Thyroid Disease: No Other medical history: rheumatiod arthritis - Surgical History Orthopedic Surgery: Yes (bilateral total knee replacements, bilateral total hip replacements) - Suicide/Smoking/Psychosocial Hx Smoking Status: No Smoking History: Never smoked Have you smoked in the past 12 months: No Number of Cigarettes Smoked Daily: 0 Cigars Per Day: 0 Hx Alcohol Use: No Drug/Substance Use Hx: No Substance Use Type: None Hx Substance Use Treatment: No <Lavelle Thornton - Last Filed: 03/02/18 14:31> <Ashley Florentino - Last Filed: 03/02/18 15:27> - Past Medical History Allergies/Adverse Reactions: Allergies Allergy/AdvReac Type Severity Reaction Status Date / Time No Known Allergies Allergy Verified 03/02/18 11:59 Home Medications: Ambulatory Orders Acetaminophen [Tylenol] 500 mg PO BID 05/02/17 predniSONE [Deltasone -] 5 mg PO BID 05/02/17 Metoprolol Tartrate [Lopressor -] 25 mg PO DAILY #30 tablet 05/05/17 Amlodipine Besylate [Norvasc -] 10 mg PO DAILY #30 tablet 05/06/17 Review of Systems - Review of Systems Comments:: 03/02/18 12:14 GENERAL/CONSTITUTIONAL: No fever or chills. No weakness. HEAD, EYES, EARS, NOSE AND THROAT: No change in vision. No ear pain or discharge. No sore throat. CARDIOVASCULAR: No chest pain or shortness of breath RESPIRATORY: No cough, wheezing, or hemoptysis. GASTROINTESTINAL: + nausea, vomiting, and abdominal pain. No diarrhea or constipation. GENITOURINARY: No dysuria, frequency, or change in urination. MUSCULOSKELETAL: + joint and muscle swelling or pain. No neck or back pain. SKIN: No rash NEUROLOGIC: No headache, vertigo, loss of consciousness, or change in strength/ sensation. ENDOCRINE: No increased thirst. No abnormal weight change HEMATOLOGIC/LYMPHATIC: No anemia, easy bleeding, or history of blood clots. ALLERGIC/IMMUNOLOGIC: No hives or skin allergy. <Lavelle Thornton - Last Filed: 03/02/18 14:31> *Physical Exam - Vital Signs Last Vital Signs Temp Pulse Resp BP Pulse Ox 98.8 F 98 H 18 154/111 100 03/02/18 11:57 03/02/18 11:57 03/02/18 11:57 03/02/18 11:57 03/02/18 11:57 - Physical Exam Comments: 03/02/18 12:14 GENERAL: Awake, alert, and fully oriented, in no acute distress HEAD: No signs of trauma, normocephalic, atraumatic EYES: PERRLA, EOMI, sclera anicteric, conjunctiva clear ENT: Hearing grossly normal, nares patent, oropharynx clear without exudates. Moist mucosa NECK: Normal ROM, supple, no lymphadenopathy, JVD, or masses LUNGS: No distress, speaks full sentences, clear to auscultation bilaterally HEART: Regular rate and rhythm, normal S1 and S2, no murmurs, rubs or gallops, peripheral pulses normal and equal bilaterally. ABDOMEN: Soft, nontender, normoactive bowel sounds. No guarding, no rebound. No masses. Neg CVA ttp. EXTREMITIES : Normal inspection, Normal range of motion, no edema. No clubbing or cyanosis. SKIN: Warm, Dry, normal turgor, no rashes or lesions noted <Paul Thorntonson - Last Filed: 03/02/18 14:31> - Vital Signs Last Vital Signs Temp Pulse Resp BP Pulse Ox 98.8 F 98 H 18 145/109 100 03/02/18 11:57 03/02/18 11:57 03/02/18 11:57 03/02/18 12:52 03/02/18 11:57 <Ashley Florentino - Last Filed: 03/02/18 15:27> Procedures - Bedside Ultrasound Other: renal ultrasound see att note for impression <Ashley Florentino - Last Filed: 03/02/18 15:27> ED Treatment Course - LABORATORY CBC & Chemistry Diagram: 03/02/18 13:10 03/02/18 13:10 <Paul Thorntonson - Last Filed: 03/02/18 14:31> - LABORATORY CBC & Chemistry Diagram: 03/02/18 13:10 03/02/18 13:10 - ADDITIONAL ORDERS Additional order review: Laboratory Results 03/02/18 03/02/18 03/02/18 13:27 13:10 13:10 Sodium 138 Potassium 3.6 Chloride 106 Carbon Dioxide 27 Anion Gap 5 L BUN 15 Creatinine 1.0 Creat Clearance w eGFR > 60 Random Glucose 90 Calcium 8.2 L Total Bilirubin 0.5 D AST 31 ALT 24 Alkaline Phosphatase 57 Total Protein 7.8 Albumin 2.9 L Lipase 96 Cancelled Urine Color Ltyellow Urine Appearance Clear Urine pH 6.0 Ur Specific Wells 1.008 Urine Protein 3+ H Urine Glucose (UA) Negative Urine Ketones Negative Urine Blood Negative Urine Nitrite Negative Urine Bilirubin Negative Urine Urobilinogen Negative Ur Leukocyte Esterase Negative Urine WBC (Auto) 1 Urine RBC (Auto) 3 03/02/18 13:10 RBC 5.26 MCV 66.3 L MCHC 33.9 RDW 22.5 H MPV 8.3 Neutrophils % 79.0 D Lymphocytes % 7.4 L D Monocytes % 12.4 H Eosinophils % 0.3 Basophils % 0.9 - Medications Given in the ED: ED Medications Discontinued Medications Generic Name Dose Route Start Last Admin Trade Name Hailey PRN Reason Stop Dose Admin Al Hydroxide/Mg Hydroxide 30 ml 03/02/18 13:23 03/02/18 13:40 Mylanta Oral Suspension - PO 03/02/18 13:24 30 ml ONCE ONE Administration Amlodipine Besylate 10 mg 03/02/18 13:28 03/02/18 13:40 Norvasc - PO 03/02/18 13:29 10 mg ONCE ONE Administration Metoprolol Succinate 25 mg 03/02/18 13:28 03/02/18 13:40 Toprol Xl - PO 03/02/18 13:29 25 mg ONCE ONE Administration Ondansetron HCl 4 mg 03/02/18 13:23 03/02/18 13:40 Zofran - PO 03/02/18 13:24 4 mg ONCE ONE Administration Ranitidine HCl 150 mg 03/02/18 13:23 03/02/18 13:40 Zantac - PO 03/02/18 13:24 150 mg ONCE ONE Administration <Ashley Florentino - Last Filed: 03/02/18 15:27> Medical Decision Making - Medical Decision Making 03/02/18 13:26 32 yo M with h/o HTN, RA and BL total knee replacement who p/w abdominal pain, and vomiting. VSS, AF, A&Ox3. Will consider cystitis, gastroenteritis, and nephrolithiasis. No abdominal ttp on PE. Low suspicion of diverticulitis, appendicitis, colitis. ED Course: CBC, CMP, UA, Urine Cx. Maloox, Pepcid, Zofran Amlodipine 10 mg , Metoprolol 25 mg 03/02/18 13:52 UA: Negative CBC,CMP: Unremarkable 03/02/18 14:01 Patient tolerating PO medication and fluid intake. Currently with no complaints. Stable for d/c with return precautions. Advised to f/u with PMD. 03/02/18 14:31 Bedside U/S with no evidence of hydro, obx., stones. <Lavelle Thornton - Last Filed: 03/02/18 14:31> *DC/Admit/Observation/Transfer - Attestations Physician Attestion: 05/19/18 12:14 I attest to the information provided in this note. <Lavelle Thornton - Last Filed: 03/02/18 14:31> <Ashley Florentino - Last Filed: 03/02/18 15:27> Diagnosis at time of Disposition: Abdominal pain Qualifiers: Abdominal location: generalized Qualified Code(s): R10.84 - Generalized abdominal pain - Discharge Dispostion Condition at time of disposition: Stable - Referrals Referrals: Deacon Zavala MD [Primary Care Provider] - Mark Pringle MD [Staff Physician] - - Patient Instructions Printed Discharge Instructions: DI for Abdominal Pain-Adult Additional Instructions: Please return to the emergency department with any new or worsening symptoms or concerns. Please follow up with your primary care physician within 72 hours. Please follow up with GI within one week. - Post Discharge Activity
[2018-03-02 13:15] VITALS: BP 145/109
[2018-03-02] MEDS ORDERED: ONDANSETRON 4 MG TABLET PO ONE (13:23)
[2018-03-02] MEDS ORDERED: RANITIDINE HCL 150 MG TABLET (FP) PO ONE (13:23)
[2018-03-02] MEDS ORDERED: MAG HYDROX/AL HYDROX/SIMETH 30 ML UNIT-DOSE CUP PO ONE (13:23)
[2018-03-02 13:24] LABS: BASO % 0.9 % (0-2.0); EOS % 0.3 % (0-4.5); HEMATOCRIT 34.9 % (35.4-49); HEMOGLOBIN 11.8 GM/dL (11.7-16.9); LYMPH % 7.4 % (8-40); MCH 22.5 pg (25.7-33.7); MCHC 33.9 g/dl (32.0-35.9); MEAN CELL VOLUME 66.3 fl (80-96); MEAN PLT VOLUME 8.3 fl (7.5-11.1); MONO % 12.4 % (3.8-10.2); PLATELET COUNT 263 K/MM3 (134-434); RBC 5.26 M/mm3 (4.00-5.60); RDW 22.5 % (11.9-15.9); WHITE BLOOD COUNT 9.5 K/mm3 (4.0-10.0)
[2018-03-02] MEDS ORDERED: metoPROLOL SUCCINATE 25 MG TAB.SR.24H (FP) PO ONE (13:28)
[2018-03-02] MEDS ORDERED: amLODIPine BESYLATE 10 MG TABLET (FP) PO ONE (13:28)
[2018-03-02] MEDS ORDERED: RANITIDINE HCL 150 MG TABLET (FP) ONE (13:31)
[2018-03-02] MEDS ORDERED: ONDANSETRON *ODT* 4 MG TABLET ONE (13:32)
[2018-03-02] MEDS ORDERED: MAG HYDROX/AL HYDROX/SIMETH 30 ML UNIT-DOSE CUP ONE (13:32)
[2018-03-02] MEDS ORDERED: amLODIPine BESYLATE 5 MG TABLET (FP) ONE (13:32)
[2018-03-02 13:39] LABS: URINE APPEARANCE CLEAR; URINE BILIRUBIN NEGATIVE (<2.0 mg/dL); URINE COLOR LTYELLOW; URINE GLUCOSE (UA) NEGATIVE (NEGATIVE); URINE KETONE NEGATIVE (NEGATIVE); URINE LEUK ESTERASE NEGATIVE (NEGATIVE); URINE NITRITE NEGATIVE (NEGATIVE); URINE UROBILINOGEN NEGATIVE mg/dL (0.2-1.0)
[2018-03-02 13:40] LABS: URINE PROTEIN 3+ (NEGATIVE)
[2018-03-02 13:41] LABS: ADD RBC MORPHOLOGY YES
[2018-03-02 13:52] LABS: ALBUMIN 2.9 g/dl (3.4-5.0); ANION GAP 5 (8-16); BILIRUBIN,TOTAL 0.5 mg/dL (0.2-1.0); BLOOD UREA NITROGEN 15 mg/dL (7-18); CALCIUM 8.2 mg/dL (8.5-10.1); CHLORIDE 106 mmol/L (98-107); CO2 27 mmol/L (21-32); GLUCOSE,RANDOM 90 mg/dL (74-106); POTASSIUM 3.6 mmol/L (3.5-5.1); SODIUM 138 mmol/L (136-145)
[2018-03-02 13:54] LABS: ALK PHOS 57 U/L (45-117); SGOT/AST 31 U/L (15-37); SGPT/ALT 24 U/L (12-78); TOT PROT 7.8 g/dl (6.4-8.2)
[2018-03-02 14:07] LABS: LIPASE 96 U/L (73-393)
--- NOTE | 2018-03-02 14:35 | PDOC ---
Attending Attestation - Resident Resident Name: Lavelle Thornton - HPI HPI: 03/02/18 14:37 The patient is a 32 year old male, with a significant past medical history of HTN, RA and BL total knee replacement, who presents to the emergency department complaining of abdominal pain and cough. He describes her abdominal pain as intermittent in nature, ranging from mild to moderate, without radiation or modifying factors. He notes having normal bowel movements. He also notes taking Prednisone and Tylenol this morning, as well as Robitussin yesterday for a cough. The patient denies chest pain, shortness of breath, headache or dizziness. Denies fever, chills, nausea, vomiting, diarrhea and constipation. Denies dysuria, frequency, urgency and hematuria. Allergies: None Past surgical history: bilateral total knee replacements, bilateral total hip replacements Social History: Denies tobacco, Etoh, or IVDA. Denies recent traveling, sick contacts, or new pets. - Physicial Exam PE: 03/02/18 14:37 GENERAL: Awake, alert, and fully oriented, in no acute distress HEAD: No signs of trauma EYES: PERRLA, EOMI, sclera anicteric, conjunctiva clear ENT: Auricles normal inspection, nares patent. Moist mucosa NECK: Normal ROM, supple, no JVD, or masses LUNGS: Breath sounds equal, clear to auscultation bilaterally. No wheezes, and no crackles HEART: Regular rate and rhythm, normal S1 and S2, no murmurs, rubs or gallops ABDOMEN: Soft, nontender, normoactive bowel sounds. No guarding, no rebound. No masses EXTREMITIES: Normal range of motion, no edema. No clubbing or cyanosis. No cords, erythema, or tenderness NEUROLOGICAL: Alert and oriented x 3. Moves all extremities. Face is symmetric. SKIN: Warm, Dry, normal turgor, no rashes or lesions noted. <Carlos Hoyos - Last Filed: 03/02/18 14:51> - ED Attending Attestation I have performed the following: I have examined & evaluated the patient, The case was reviewed & discussed with the resident, I agree w/resident's findings & plan, Exceptions are as noted - Medical Decision Making 03/02/18 15:28 differential renal colic, uti pyelo, constipation. abd exam nontender. plan bedside renal us. focused Renal indication abd pain bilateral kidneys scanned in two planes saggital and transvers. no hydronephrosis noted. bladder nondistended. impression: normal renal us. pt exam nontender. states no longer having pain. ua negative. labs unremarkable. dc home. recommend gi followup told to retur for recurrent or worsening sxs. <Ashley Florentino - Last Filed: 03/02/18 15:30>
[2018-03-02 15:03] LABS: ANISOCYTOSIS 3+; TARGET CELLS 1+
[2018-03-02 15:04] LABS: PLATELET ESTIMATE ADEQUATE
== END 2018-03-02 14:54 | disposition home or self-care (01) ==
LOC: JER 11:55
DX: R10.84 Generalized abdominal pain (principal); I10 Essential (primary) hypertension; M06.9 Rheumatoid arthritis, unspecified; Z86.2 Personal history of diseases of the blood and blood-forming organs and certain disorders involving the immune mechanism; Z96.653 Presence of artificial knee joint, bilateral
CPT/HCPCS: 36415; 80053; 81003; 81015; 83690; 85025; 87086; 99282-25

== ENCOUNTER 2020-07-09 06:14 | Inpatient (IN) | payer BC, OTHER ==
[2020-07-09] MEDS ORDERED: ACETAMINOPHEN 325 MG TABLET (FP) PO ONE (06:49)
[2020-07-09] MEDS ORDERED: amLODIPine BESYLATE 10 MG TABLET (FP) PO ONE (06:49)
[2020-07-09] MEDS ORDERED: METOPROLOL TARTRATE 25 MG TABLET (FP) PO ONE (06:49)
[2020-07-09] MEDS ORDERED: METOPROLOL TARTRATE 25 MG TABLET (FP) ONE (06:51)
[2020-07-09] MEDS ORDERED: ACETAMINOPHEN 325 MG TABLET (FP) ONE (06:51)
[2020-07-09] MEDS ORDERED: amLODIPine BESYLATE 5 MG TABLET (FP) ONE (06:52)
--- NOTE | 2020-07-09 07:33 | PDOC ---
History of Present Illness - General Chief Complaint: Pain, Acute Stated Complaint: PAIN Time Seen by Provider: 07/09/20 07:15 History Source: Patient Exam Limitations: No Limitations - History of Present Illness Initial Comments: 07/09/20 07:50 34 y.o. M PMHx HTN (not taking home meds), RA (5mg prednisone BID), b/l total knee replacement presenting due to b/l flank pain. Patient stated he was getting into bed around 1am when he began to experience a a sharp stabbing pain in his b/l flanks 10/10 intensity and radiating to the hips. Patient also admits to upper abdominal pain. He has not taken anything to relieve the symptoms. Patient denies headache, fever, chills, SOB, chest pain, N/V/D, dysuria or foul smelling urine. PCP: Sally PMHx: HTN, RA Meds: In Chart Allergies: NKDA Dispo: Admission to ICU due to Hypertensive Emergency 07/09/20 15:47 Is this a multiple visit Asthma Patient?: No Timing/Duration: 4-6 hours Severity: moderate Associated Symptoms: reports: other (flank pain) Aspirin Received prior to arrival: Yes: no aspirin today Beta Ngoc Contraindications(Core Measure): Yes: Not Prescribed Beta Ngoc Given by EMS(Core Measure): No Beta Ngoc Taken at Home(Core Measure): No Beta Ngoc Not Indicated at this Time(Core Measure): No Past History - Travel History Traveled outside of the country in the last 30 days: No Close contact w/someone who was outside of country & ill: No - Medical History Allergies/Adverse Reactions: Allergies Allergy/AdvReac Type Severity Reaction Status Date / Time No Known Allergies Allergy Verified 07/09/20 06:37 Home Medications: Ambulatory Orders Acetaminophen [Tylenol] 500 mg PO BID 05/02/17 predniSONE [Deltasone -] 5 mg PO BID 05/02/17 Amlodipine Besylate [Norvasc -] 10 mg PO DAILY #30 tablet 05/06/17 Metoprolol Succinate 25 mg PO DAILY 07/09/20 Anemia: Yes Asthma: No Cancer: No Cardiac Disorders: No CVA: No COPD: No CHF: No Dementia: No Diabetes: No GI Disorders: No Disorders: No HTN: Yes Hypercholesterolemia: No Liver Disease: No Seizures: No Thyroid Disease: No - Surgical History Orthopedic Surgery: Yes (bilateral total knee replacements, bilateral total hip replacements) - Psycho-Social/Smoking History Smoking Status: No Smoking History: Never smoked Have you smoked in the past 12 months: No Number of Cigarettes Smoked Daily: 0 Cigars Per Day: 0 Information on smoking cessation initiated: No - Substance Abuse Hx (Audit-C & DAST Scrn) How often the patient has a drink containing alcohol: Never Score: In Men: 4 or > Positive; In Women: 3 or > Positive: 0 Screen Result (Pos requires Nsg. Audit-10AR): Negative In the last yr the pt used illegal drug/Rx for NonMed reason: No Score: Yes response is considered Positive: 0 Screen Result (Positive result requires Nsg. DAST-10): Negative Review of Systems - Review of Systems Able to Perform ROS?: Yes Is the patient limited [place] proficient: No Constitutional: No: Chills, Fever HEENTM: No: Blurred Vision, Double Vision Respiratory: No: Cough, Shortness of Breath Cardiac (ROS): No: Chest Pain, Lightheadedness ABD/GI: No: Constipated, Diarrhea, Nausea, Vomiting : Yes: Flank Pain (b/l). No: Burning, Dysuria Musculoskeletal: Yes: Back Pain. No: Joint Pain, Muscle Pain, Muscle Weakness Neurological: No: Headache, Numbness, Dizziness Hematologic/Lymphatic: No: Easy Bleeding, Easy Bruising *Physical Exam - Vital Signs Last Vital Signs Temp Pulse Resp BP Pulse Ox 98.2 F 109 H 20 189/133 H 100 07/09/20 06:37 07/09/20 06:37 07/09/20 06:37 07/09/20 06:37 07/09/20 06:37 - Physical Exam General Appearance: Yes: Nourished, Appropriately Dressed, Apparent Distress Respiratory/Chest: positive: Normal Breath Sounds, Wheezing. negative: Chest Tender, Accessory Muscle Use, Crackles, Dullness Cardiovascular: positive: Regular Rhythm, Regular Rate. negative: JVD, Murmur, Tachycardia Gastrointestinal/Abdominal: positive: Normal Bowel Sounds, Tender (RUQ, LUQ), Soft, Distended, Tenderness. negative: Rebound, Mass Musculoskeletal: positive: CVA Tenderness, CVA Tenderness (R), CVA Tenderness (L) Extremity: positive: Pedal Edema, Swelling. negative: Tender, Calf Tenderness Integumentary: positive: Normal Color, Dry, Warm Neurologic: positive: Fully Oriented, Alert, Normal Mood/Affect, Normal Response. negative: Facial Droop ED Treatment Course - LABORATORY CBC & Chemistry Diagram: 07/09/20 07:52 07/09/20 07:52 - Medications Given in the ED: ED Medications Discontinued Medications Generic Name Dose Route Start Last Admin Trade Name Hailey PRN Reason Stop Dose Admin Acetaminophen 975 mg 07/09/20 06:49 07/09/20 06:55 Tylenol - PO 07/09/20 06:50 975 mg ONCE ONE Administration Amlodipine Besylate 10 mg 07/09/20 06:49 07/09/20 06:55 Norvasc - PO 07/09/20 06:50 10 mg ONCE ONE Administration Metoprolol Tartrate 25 mg 07/09/20 06:49 07/09/20 06:55 Lopressor - PO 07/09/20 06:50 25 mg ONCE ONE Administration Medical Decision Making - Medical Decision Making 07/09/20 07:58 34 y.o. M PMHx HTN , RA b/l total knee replacement presenting due to b/l flank pain. DDx: Hypertensive urgency/emergency, UTI, Pyelonephritis, nephrolithiasis, biliary colic, cholecystitis, SBO, Lumbar vertebral fracture Labs: WBC 13.2, Hgb 11.4, Hct 33.5, MCV 67.3, Trops 0.13, Cr 1.6, BNP 3000 UA: 4+ Protein EKG: Sinus tachy, Qtc 444ms, LVH, Possible inf lateral ischemia CXR: Lungs clear, heart enlarged, no acute chest pathology Consult: Dr. Hernandez (recommends continuation of home meds and 0.25mg/min labetalol drip) Given 10mg Amlodipine, 25mg Metoprolol, 975 mg tylenol, 324mg aspirin, Morphine 4mg, 0.25 mg/min labetalol drip started in ED CT w/ contrast: Aware patients Cr 1.6, aware of necessary precautions and risks associated, patient will be hydrated after procedure. Dispo: Admission to ICU due to Hypertensive Emergency 07/09/20 10:42 Discharge - Discharge Information Problems reviewed: Yes Clinical Impression/Diagnosis: Elevated troponin Hypertension Qualifiers: Hypertension type: unspecified Qualified Code(s): I10 - Essential (primary) hypertension Condition: Stable - Admission Yes - Follow up/Referral - Patient Discharge Instructions - Post Discharge Activity
[2020-07-09 08:16] LABS: BASO % 0.3 % (0-2.0); EOS % 0.3 % (0-4.5); HEMATOCRIT 33.5 % (35.4-49); HEMOGLOBIN 11.4 GM/dL (11.7-16.9); LYMPH % 3.4 % (8-40); MCH 22.8 pg (25.7-33.7); MEAN CELL VOLUME 67.3 fl (80-96); MEAN PLT VOLUME 8.4 fl (7.5-11.1); MONO % 25.4 % (3.8-10.2); NEUT % 70.6 % (42.8-82.8); PLATELET COUNT 218 K/MM3 (134-434); RBC 4.98 M/mm3 (4.00-5.60); RDW 23.3 % (11.9-15.9); WHITE BLOOD COUNT 13.1 K/mm3 (4.0-10.0)
[2020-07-09 08:17] LABS: EPI CELLS 17 /uL (0-25.1); HYALINE CASTS 3 /uL (0-3.1); URINE APPEARANCE CLEAR; URINE BACTERIA 4 /uL (0-1359); URINE BILIRUBIN NEGATIVE (NEGATIVE); URINE COLOR YELLOW; URINE GLUCOSE (UA) NEGATIVE (NEGATIVE); URINE KETONE NEGATIVE (NEGATIVE); URINE LEUK ESTERASE NEGATIVE (NEGATIVE); URINE NITRITE NEGATIVE (NEGATIVE); URINE PROTEIN 4+ (NEGATIVE); URINE RBC 37 /uL (0-23.9); URINE UROBILINOGEN 0.2 mg/dL (0.2-1.0); URINE WBC 14 /uL (0-25.8)
[2020-07-09 08:20] LABS: INR 0.96 (0.83-1.09); PROTHROMBIN TIME (PATIENT) 11.3 SEC (9.7-13.0)
[2020-07-09] MEDS ORDERED: ASPIRIN 81 MG CHEWABLE TABLETS PO ONE (09:03)
[2020-07-09] MEDS ORDERED: LABETALOL HCL 5 MG/1 ML (100MG/20 ML VIAL) IVPUSH ONE (09:06)
[2020-07-09 09:08] LABS: BILIRUBIN,TOTAL 0.5 mg/dL (0.2-1); BLOOD UREA NITROGEN 28.2 mg/dL (7-18); CALCIUM 8.5 mg/dL (8.5-10.1); CREATININE 1.6 mg/dL (0.55-1.3); N-TERMINAL BNP 3900.4 pg/ml (5-125); POTASSIUM 4.2 mmol/L (3.5-5.1); TOT PROT 7.1 g/dl (6.4-8.2)
[2020-07-09] MEDS ORDERED: LABETALOL HCL 5 MG/1 ML (200MG/40ML VIAL) IVPB ONE (09:13)
[2020-07-09] MEDS ORDERED: ASPIRIN 81 MG CHEWABLE TABLETS ONE (09:13)
--- NOTE | 2020-07-09 09:15 | PDOC ---
Attending Attestation - Resident Resident Name: Joel Guerrier - ED Attending Attestation I have performed the following: I have examined & evaluated the patient, The case was reviewed & discussed with the resident, I agree w/resident's findings & plan, Exceptions are as noted - HPI HPI: 07/09/20 09:09 34 yo M PMHx HTN (not taking home meds), RA (5mg prednisone BID), b/l total knee replacement p/w back pain since overnight when he was trying to go to bed. States pain is bilateral. No numbness or weakness in extremities. Denies any preceding trauma. Also states LEs have been more swollen than usual. Denies urinary/fecal retention or incontinence. Initially stated he was short of breath but then clarified that sometimes when he takes a deep breath he gets the back pain and upper abdominal pain but that he doesn't really have SOB. - Physicial Exam PE: 07/09/20 09:12 General: non-toxic appearing Chest: CTAB, good air entry, no wheezes rales or rhonchi CVS: + s1 s2, RRR Back: no midline tenderness Extremities: 2+ LE pitting edema, warm and well perfused, dorsiflexion/plantarflexion 5/5 b/l - Medical Decision Making 07/09/20 09:15 34 yo M with back pain, neurologically intact and no midline tenderness to suggest clinically significant fracture however as patient is on prednisone will get xray L+S spine to r/o compression fx. Also very hypertensive with increased LE swelling, possible CHF exacerbation. EKG with new TWIs I and aVL with significantly elevated BP despite being given home BP meds. Plan: -labs -cxr -cardiology consult for EKG changes and possible CHF -xray L+S spine -pain control as needed -admit tele This clinical encounter is taking place during a federal and state health care emergency attributable to the novel [place] Virus pandemic. The [employer] of the Department of Health and Human Services has declared, pursuant to the Public Health Service Act 319F-3 (42 U.S.C. 247d-6d), that a covered persons activities related to medical countermeasures against COVID-19 will be immune from liability under Federal and State law. 07/09/20 10:06 Pt. seen by cardiology. Recommends labetolol drip and CTA r/o dissection and admission to ICU. Discharge - Discharge Information Problems reviewed: Yes Clinical Impression/Diagnosis: Elevated troponin Hypertension Qualifiers: Hypertension type: unspecified Qualified Code(s): I10 - Essential (primary) hypertension - Follow up/Referral - Patient Discharge Instructions - Post Discharge Activity
[2020-07-09] MEDS ORDERED: morphine CARPU-JECT 4 MG/1 ML DISP.SYRIN IVPUSH ONE (09:20)
[2020-07-09] MEDS ORDERED: morphine SULFATE 4 MG/ML VIAL ONE ×2 (09:22→14:20)
[2020-07-09] MEDS ORDERED: LABETALOL HCL INJECTION 1,000 MG in SODIUM CHLORIDE 800 ML IV SCH (10:00)
--- NOTE | 2020-07-09 10:01 | CON.CARD ---
Consult Consult Specialty:: Cardiology Referred by:: Dr. Valente Reason for Consultation:: HTN - History of Present Illness Chief Complaint: Uncontrolled HTN, chest and back pain History of Present Illness: 34 M PMH RA and chronic HTN, noncompliant with BP meds presents to ER with sudden onset of mid back and chest pain this AM getting out of bed. In ER, BP found to be markedly elevated. He describes the pain as "10/10". No SOB, palps, edema. Denies smoking, prior cardiac hx. ECG: NSR with LVH and secondary nonspecific T wave changes in I, avL, V5 and V5 may be secondary to repol. In ER, he is alert and oriented. BP at bedside 170/130 - History Source History Provided By: Patient Limitations to Obtaining History: No Limitations - Past Medical History [employer]: No: Alzheimer's, CVA, Dementia, Migraine, Multiple Sclerosis, Peripheral Neuropathy, Parkinson's, Seizure, Syncope, TIA, Vertigo, Other Cardio/Vascular: Yes: HTN Gastrointestinal: No: Ascites, Cancer, Constipation, Crohn's Disease, Diverticulitis, Diverticulosis, Esophageal Varices, Gastritis, GERD, GI Bleed, Hemorrhoids, Hiatal Hernia, Inflamatory Bowel Disease, Irritable Bowel Disease, Pancreatitis, Peptic Ulcer Disease, Ulcerative Colitis, Other Hepatobiliary: No: Cirrhosis, Cholelithiasis, Cholecystitis, Choledocholithiasis, Hepatitis A, Hepatitis B, Hepatitis C, Other Renal/: No: Renal Failure, Renal Inusuff, BPH, Cancer, Hematuria, Hemodia lysis, Neurogenic Bladder, Renal Calculi, UTI, Other Heme/Onc: No: Anemia, B12 Deficiency, Bleeding Disorder, Cancer, Current Chemotherapy, Current Radiation Therapy, Hemochromatosis, Hypercoaguable State, Myeloproliferative Synd, Sickle Cell Disease, Sickle Cell Trait, Thro mbocytopenia, Other Infectious Disease: No: AIDS, C-Diff, Herpes Zoster, HIV, MRSA, STD's, Tuberculosis, VREF, Other Psych: No: Addictions, Anxiety, Bipolar, Depression, Panic, Psychosis, Schizophrenia, Other Musculoskeletal: No: Bursitis, Chronic low back pain, Hemiparesis, Hemiplegia, Osteoarthritis, Paraplegia, Other Rheumatology: Yes: Rheumatoid Arthritis ENT: No: Allergic Rhinitis, Sinusitis, Other Endocrine: No: [place]'s Disease, [place]'s Disease, Diabetes Insipidus, Diabetes Mellitus, Hyperparathyroidism, Hyperthyroidism, Hypothyroidism, Osteopenia, SIADH, Other Dermatology: No: Basal Cell, Cellulitis, Eczema, Melanoma, Psoriasis, Squamous Cell, Other - Alcohol/Substance Use Hx Alcohol Use: No History of Substance Use: reports: None - Smoking History Smoking history: Never smoked Have you smoked in the past 12 months: No Aproximately how many cigarettes per day: 0 - Social History History of Recent Travel: No Home Medications - Allergies Allergies/Adverse Reactions: Allergies Allergy/AdvReac Type Severity Reaction Status Date / Time No Known Allergies Allergy Verified 07/09/20 06:37 - Home Medications Home Medications: Ambulatory Orders Acetaminophen [Tylenol] 500 mg PO BID 05/02/17 predniSONE [Deltasone -] 5 mg PO BID 05/02/17 Metoprolol Tartrate [Lopressor -] 25 mg PO DAILY #30 tablet 05/05/17 Amlodipine Besylate [Norvasc -] 10 mg PO DAILY #30 tablet 05/06/17 Family Medical History Family History: Unremarkable (denies early hx CAD or SCD; no hx of aortic aneurysm or dissection) Review of Systems Findings/Remarks: see HPI - Review of Systems Constitutional: reports: No Symptoms Eyes: reports: No Symptoms HENT: reports: No Symptoms Neck: reports: No Symptoms Cardiovascular: reports: Chest Pain Respiratory: reports: No Symptoms Gastrointestinal: reports: No Symptoms Genitourinary: reports: No Symptoms Breasts: reports: No Symptoms Reported Musculoskeletal: reports: Back Pain Integumentary: reports: No Symptoms Neurological: reports: No Symptoms Endocrine: reports: No Symptoms Hematology/Lymphatic: reports: No Symptoms Psychiatric: reports: No Symptoms - Risk Factors Known Risk Factors: Yes: Hypertension Vital Signs: Vital Signs Temperature 98.2 F 07/09/20 06:37 Pulse Rate 109 H 07/09/20 06:37 Respiratory Rate 20 07/09/20 06:37 Blood Pressure 189/133 H 07/09/20 06:37 O2 Sat by Pulse Oximetry (%) 100 07/09/20 06:37 Constitutional: Yes: No Distress, Calm Eyes: Yes: Conjunctiva Clear, EOM Intact HENT: Yes: Atraumatic, Normocephalic Neck: Yes: Supple, Trachea Midline Respiratory: Yes: CTA Bilaterally (no rales or wheezing) Gastrointestinal: Yes: Soft (mildly distended. No tenderness. Prominent aortic pulsation.) Cardiovascular: Yes: Regular Rate and Rhythm JVD: No Carotid Bruit: No PMI: Non-Displaced Heart Sounds: Yes: S1, S2 (rrr, no murmurs/rubs), S4 Edema: No Peripheral Pulses WNL: Yes Integumentary: Yes: WNL Neurological: Yes: WNL, Alert, Oriented ...Motor Strength: WNL Psychiatric: Yes: WNL - Other Data Labs, Other Data: CBC, BMP 07/09/20 07:52 07/09/20 07:52 INR, PTT INR 0.96 (0.83-1.09) 07/09/20 07:52 Troponin, BNP 07/09/20 07/09/20 07:52 07:52 Troponin I 0.13 H B-Natriuretic Peptide 3900.4 H Troponin, BNP 07/09/20 07/09/20 07:52 07:52 Troponin I 0.13 H B-Natriuretic Peptide 3900.4 H Laboratory Tests 07/09/20 07/09/20 07/09/20 07:52 07:52 07:52 WBC 13.1 H Hgb 11.4 L Plt Count 218 INR 0.96 Sodium Potassium BUN Creatinine Creatine Kinase 102 Troponin I 0.13 H B-Natriuretic Peptide Urine Color Urine Appearance Urine pH Urine Protein Urine Glucose (UA) Urine Ketones Urine Blood Urine Nitrite Urine Bilirubin Urine Urobilinogen Ur Leukocyte Esterase Urine Casts (Auto) U Epithel Cells (Auto) Urine Bacteria (Auto) 07/09/20 07/09/20 07:52 07:52 WBC Hgb Plt Count INR Sodium 140 Potassium 4.2 BUN 28.2 H Creatinine 1.6 H Creatine Kinase Troponin I B-Natriuretic Peptide 3900.4 H Urine Color Yellow Urine Appearance Clear Urine pH 6.0 Urine Protein 4+ H Urine Glucose (UA) Negative Urine Ketones Negative Urine Blood Trace Urine Nitrite Negative Urine Bilirubin Negative Urine Urobilinogen 0.2 Ur Leukocyte Esterase Negative Urine Casts (Auto) 3 U Epithel Cells (Auto) 17 Urine Bacteria (Auto) 4 Echo: Pending Ejection Fraction %: LVEF > or = 40 % Imaging - Results Chest X-ray: Image Reviewed EKG: Image Reviewed Assessment/Plan IMP/PLAN: Hypertensive urgency, 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 Pt seen urgently and examined in ER after being called for uncontrolled HTN. Given sudden onset of back and chest pain, in setting of severe uncontrolled HTN, I have recommended starting a Labetalol drip and have discussed parameters of blood pressure lowering with ER attending and resident. 2. Have recommended a stat CTA C/A/P to r/o dissection. Benefits of diagnosing acute aortic pathology in this setting far outweigh the small risk of renal insufficiency. 3. Admit to ICU 4. Suspect the low level equivocal TnI is due to demand ischemia in setting of increased afterload. Prior ECGs are similar. Would cycle cardiac enzymes q4H and monitor patient on tele in ICU. Echo after CT scan. Labetalol gtts, as above.
--- NOTE | 2020-07-09 10:34 | EKG ---
Test Reason : Blood Pressure : / mmHG Vent. Rate : 104 BPM Atrial Rate : 104 BPM P-R Int : 128 ms QRS Dur : 074 ms QT Int : 338 ms P-R-T Axes : 045 011 165 degrees QTc Int : 444 ms SINUS TACHYCARDIA VOLTAGE CRITERIA FOR LEFT VENTRICULAR HYPERTROPHY NONSPECIFIC ST AND T WAVE ABNORMALITY ABNORMAL ECG Confirmed by DELVIS MOURA MD ([id number]) on 07/09/2020 10:34:11 AM Referred By: Confirmed By:DELVIS MOURA MD
[2020-07-09 10:57] LABS: ANISOCYTOSIS 2+; MACROCYTOSIS 0; PLATELET ESTIMATE NORMAL; TARGET CELLS 3+; TEAR DROP CELLS 1+
[2020-07-09] MEDS ORDERED: LACTATED RINGERS SOLUTION 1000 ML INFUS.BAG IV ONE (11:21)
[2020-07-09 12:22] LABS: METHADONE, UR NEGATIVE ng/ml (CUTOFF=300); PHENCYCLIDINE,URINE NEGATIVE ng/ml (CUTOFF=25)
[2020-07-09 12:23] LABS: COCAINE, UR NEGATIVE ng/ml (CUTOFF=300); OPIATES, URI NEGATIVE ng/ml (CUTOFF=300); URINE AMPHETAMINES NEGATIVE ng/ml (CUTOFF=500); URINE BARBITURATES NEGATIVE ng/ml (CUTOFF=200); URINE BENZODIAZEPINES NEGATIVE ng/ml (CUTOFF=200)
--- NOTE | 2020-07-09 13:00 | CONSULT ---
Consultation: REQUESTING PROVIDER: CONSULT REQUEST: We have been asked to medically evaluate this patient for (specify). HISTORY OF PRESENT ILLNESS: 34 yo male with PMH of HTN and RA (prednisone) presents with back pain. Pt state the pain started today, 07/24, radiates to the flanks, worse with inspiration, non-exertional . He was found to be hypertensive in the ED at 200s/100s. He is intermittently compliant with his BP meds and has not taken them recently. He denies fevers, chills, cp, sob, nvd, dysuria, hematuria, frequency. No recent illnesses. No recent hospitalization. REVIEW OF SYSTEMS: CONSTITUTIONAL: Absent: fever, chills, diaphoresis, generalized weakness, malaise, loss of appetite, weight change HEENT: Absent: rhinorrhea, nasal congestion, throat pain, throat swelling, difficulty swallowing, mouth swelling, ear pain, eye pain, visual changes CARDIOVASCULAR: Absent: chest pain, syncope, palpitations, irregular heart rate, lightheadedness, peripheral edema RESPIRATORY: Absent: cough, shortness of breath, dyspnea with exertion, orthopnea, wheezing, stridor, hemoptysis GASTROINTESTINAL: abdominal pain Absent: , abdominal distension, nausea, vomiting, diarrhea, constipation, melena, hematochezia GENITOURINARY: Absent: dysuria, frequency, urgency, hesitancy, hematuria, flank pain, genital pain MUSCULOSKELETAL: back pain, joint paint Absent: myalgia, arthralgia, joint swelling, neck pain SKIN: Absent: rash, itching, pallor HEMATOLOGIC/IMMUNOLOGIC: Absent: easy bleeding, easy bruising, lymphadenopathy, frequent infections ENDOCRINE: Absent: unexplained weight gain, unexplained weight loss, heat intolerance, cold intolerance NEUROLOGIC: Absent: headache, focal weakness or paresthesias, dizziness, unsteady gait, seizure, mental status changes, bladder or bowel incontinence PSYCHIATRIC: Absent: anxiety, depression, suicidal or homicidal ideation, hallucinations. PHYSICAL EXAMINATION Vital Signs - 24 hr 07/09/20 07/09/20 07/09/20 06:37 10:11 12:01 Temperature 98.2 F 98.9 F Pulse Rate 109 H 92 H Pulse Rate [ 98 H Apical] Respiratory 20 19 Rate Blood Pressure 189/133 H 170/118 H Blood Pressure 178/112 H [Right Arm] O2 Sat by Pulse 100 100 Oximetry (%) 07/09/20 07/09/20 12:09 12:33 Temperature 98.8 F Pulse Rate 92 H 94 H Pulse Rate [ Apical] Respiratory 14 14 Rate Blood Pressure 170/118 H 175/113 H Blood Pressure [Right Arm] O2 Sat by Pulse 99 99 Oximetry (%) GENERAL: Awake, alert, and fully oriented, in acute distress. HEAD: Normal with no signs of trauma. EYES: Pupils equal, round and reactive to light, extraocular movements intact, sclera anicteric, conjunctiva clear. No lid lag. EARS, NOSE, THROAT: Ears normal, nares patent, oropharynx clear without exudates. Moist mucous membranes. NECK: Normal range of motion, supple without lymphadenopathy, JVD, or masses. LUNGS: Breath sounds equal, clear to auscultation bilaterally. No wheezes, and no crackles. No accessory muscle use. HEART: Regular rate and rhythm, normal S1 and S2 without murmur, rub or gallop. ABDOMEN: Soft, nontender, not distended, normoactive bowel sounds, no guarding, no rebound, no masses. No hepatomegaly or splenomegaly. MUSCULOSKELETAL: Pain with back flexion/extension and rotation. No bony deformi ties or tenderness. No CVA tenderness. UPPER EXTREMITIES: 2+ pulses, warm, well-perfused. No cyanosis. No clubbing. Cap refill <2 seconds. No peripheral edema. LOWER EXTREMITIES: 2+ pulses, warm, well-perfused. No calf tenderness. No peripheral edema. NEUROLOGICAL: Cranial nerves II-XII intact. Normal speech. Normal gait. PSYCHIATRIC: Cooperative. Good eye contact. Appropriate mood and affect. SKIN: Warm, dry, normal turgor, no rashes or lesions noted. Laboratory Results - last 24 hr 07/09/20 07/09/20 07/09/20 07:52 07:52 07:52 WBC 13.1 H RBC 4.98 Hgb 11.4 L Hct 33.5 L MCV 67.3 L MCH 22.8 L MCHC 34.0 RDW 23.3 H Plt Count 218 MPV 8.4 Absolute Neuts (auto) 9.2 H Neutrophils % 70.6 Neutrophils % (Manual) 84.6 H Band Neutrophils % 1.1 Lymphocytes % 3.4 L D Lymphocytes % (Manual) 3.3 L Monocytes % 25.4 H D Monocytes % (Manual) 9 Eosinophils % 0.3 Eosinophils % (Manual) 0.0 Basophils % 0.3 Basophils % (Manual) 1.1 Myelocytes % (Man) 0 Promyelocytes % (Man) 0 Blast Cells % (Manual) 0 Nucleated RBC % 4 H Metamyelocytes 0 Hypochromia 2+ Platelet Estimate Normal Polychromasia 1+ Poikilocytosis 2+ Anisocytosis 2+ Microcytosis 1+ Macrocytosis 0 Spherocytes 2+ Target Cells 3+ Tear Drop Cells 1+ PT with INR 11.30 INR 0.96 PTT (Actin FS) 30.0 Sodium Potassium Chloride Carbon Dioxide Anion Gap BUN Creatinine Est GFR (CKD-EPI)AfAm Est GFR (CKD-EPI)NonAf Random Glucose Calcium Total Bilirubin AST ALT Alkaline Phosphatase Creatine Kinase 102 Troponin I 0.13 H B-Natriuretic Peptide Total Protein Albumin Lipase Urine Color Urine Appearance Urine pH Ur Specific [place]elf[place] Urine Protein Urine Glucose (UA) Urine Ketones Urine Blood Urine Nitrite Urine Bilirubin Urine Urobilinogen Ur Leukocyte Esterase Urine WBC (Auto) Urine RBC (Auto) Urine Casts (Auto) U Epithel Cells (Auto) Urine Bacteria (Auto) Opiates Screen Methadone Screen Barbiturate Screen Phencyclidine Screen Ur Amphetamines Screen MDMA (Ecstasy) Screen Benzodiazepines Screen Cocaine Screen U Marijuana (THC) Screen 07/09/20 07/09/20 07/09/20 07:52 07:52 12:00 WBC RBC Hgb Hct MCV MCH MCHC RDW Plt Count MPV Absolute Neuts (auto) Neutrophils % Neutrophils % (Manual) Band Neutrophils % Lymphocytes % Lymphocytes % (Manual) Monocytes % Monocytes % (Manual) Eosinophils % Eosinophils % (Manual) Basophils % Basophils % (Manual) Myelocytes % (Man) Promyelocytes % (Man) Blast Cells % (Manual) Nucleated RBC % Metamyelocytes Hypochromia Platelet Estimate Polychromasia Poikilocytosis Anisocytosis Microcytosis Macrocytosis Spherocytes Target Cells Tear Drop Cells PT with INR INR PTT (Actin FS) Sodium 140 Potassium 4.2 Chloride 108 H Carbon Dioxide 25 Anion Gap 8 BUN 28.2 H Creatinine 1.6 H Est GFR (CKD-EPI)AfAm 63.30 Est GFR (CKD-EPI)NonAf 54.61 Random Glucose 128 H Calcium 8.5 Total Bilirubin 0.5 AST 29 ALT 36 Alkaline Phosphatase 100 Creatine Kinase Troponin I B-Natriuretic Peptide 3900.4 H Total Protein 7.1 Albumin 3.0 L Lipase 159 Urine Color Yellow Urine Appearance Clear Urine pH 6.0 Ur Specific [place] 1.015 Urine Protein 4+ H Urine Glucose (UA) Negative Urine Ketones Negative Urine Blood Trace Urine Nitrite Negative Urine Bilirubin Negative Urine Urobilinogen 0.2 Ur Leukocyte Esterase Negative Urine WBC (Auto) 14 Urine RBC (Auto) 37 Urine Casts (Auto) 3 U Epithel Cells (Auto) 17 Urine Bacteria (Auto) 4 Opiates Screen Negative Methadone Screen Negative Barbiturate Screen Negative Phencyclidine Screen Negative Ur Amphetamines Screen Negative MDMA (Ecstasy) Screen Negative Benzodiazepines Screen Negative Cocaine Screen Negative U Marijuana (THC) Screen Negative Active Medications Generic Name Dose Route Start Last Admin Trade Name Freq PRN Reason Stop Dose Admin Amlodipine Besylate 10 mg 07/10/20 10:00 Norvasc - PO DAILY [facility] Chlorhexidine Gluconate 1 applic 07/09/20 22:00 Hibiclens For Decolonization - TP HS [facility] Heparin Sodium (Porcine) 5,000 unit 07/09/20 12:15 Heparin - SQ Q8H-IV [facility] Labetalol HCl 1,000 mg/ Sodium 1,000 mls @ 15 mls/hr 07/09/20 10:00 07/09/20 12:01 Chloride IV 0.25 mg/min TITR [facility] 15 mls/hr Administration 0.25 MG/MIN Metoprolol Succinate 25 mg 07/10/20 10:00 Toprol Xl - PO DAILY [facility] Mupirocin 1 applic 07/09/20 12:15 Bactroban Ointment (For Decolonization) - NS 07/14/20 12:14 BID [facility] Prednisone 5 mg 07/09/20 22:00 Deltasone - PO BID [facility] ASSESSMENT/PLAN: 34 yo male with PMH of RA presents with back pain and hypertension and put on a Labetolol drip #Neuro - Back Pain -Tylenol 1000mg PO Q6H PRN -Lidoderm patch TP Q12H on/off -Morphine 4mg IV Q6H PRN #CV -Hx of HTN - HTN Emergency - BRADLEY - Troponin #1 (0.13), #2 (0.15) #3 (0.14) - EKG: T wave inversion - Aspirin 324 - Elevated BNP -Goal BP- 150s - Metoprolol XR 25mg PO daily (home dose) - Amlodipine 10mg PO daily (home dose) - Labetalol (Discussed with Dr. Hernandez) -CTA CAP neg for aortic aneurysm/dissection -Utox w/o evidence of sympathomimetic use -Elevated BNP (EF 50-55%) #PULM -COVID swab pending -R basilar atelectasis noted on CT w/o infiltrate #GI -Sodium limited Diet -Docusate 100mg PO BID -Pepcid 20mg BID -Cholelithiasis noted on CTA -Pt w/o RUQ pain, no transaminitis Fat containing ventral incisional and RIH noted # - BRADLEY (Cre 1.6) - 2L Fluid #HEME - Fever (101, resolved) - WBC 13.1, repeat 7.6 - Hb 11.1, repeat 10.0 - Noted, no indication for transfusion at this time #DVT Ppx -Heparin 5000u SQ TID #MSK RA -Continue home Prednisone 5mg PO BID Dispo -Pt to be admitted to ICU for HTN Emergency Visit type - Emergency Visit Emergency Visit: Yes ED Registration Date: 07/09/20 Care time: The patient presented to the Emergency Department on the above date and was hospitalized for further evaluation of their emergent condition. - New Patient This patient is new to me today: Yes Date on this admission: 07/10/20 - Critical Care Critical Care patient: No ATTENDING PHYSICIAN STATEMENT I saw and evaluated the patient. I reviewed the resident's note and discussed the case with the resident. I agree with the resident's findings and plan as documented. SUBJECTIVE: OBJECTIVE: ASSESSMENT AND PLAN:
--- NOTE | 2020-07-09 13:18 | PN ---
Teaching Attending Note Name of Resident: Tyrone Carrillo ATTENDING PHYSICIAN STATEMENT I saw and evaluated the patient. I reviewed the resident's note and discussed the case with the resident. I agree with the resident's findings and plan as documented. SUBJECTIVE: 34 M, RA and chronic HTN. Noncompliant with BP meds. Admitted via the ER due to sudden onset of mid back and chest pain this AM when he was getting out of bed. In ER, BP found to be markedly elevated: 200/110. Started on IV Labetolol drip with improvement in BP. He describes the pain as 10/10. No travel history or sick contacts. No known exposure to COVID19. Intake & Output 07/06/20 07/07/20 07/08/20 07/09/20 23:59 23:59 23:59 23:59 Weight 205 lb 7.533 oz Last Vital Signs Temp Pulse Resp BP Pulse Ox 98.8 F 96 H 14 173/120 H 99 07/09/20 12:09 07/09/20 13:07 07/09/20 12:33 07/09/20 13:07 07/09/20 12:33 Active Medications Amlodipine Besylate (Norvasc -) 10 mg PO DAILY [facility] Chlorhexidine Gluconate (Hibiclens For Decolonization -) 1 applic TP HS [facility] Heparin Sodium (Porcine) (Heparin -) 5,000 unit SQ Q8H-IV [facility] Labetalol HCl 1,000 mg/ Sodium (Chloride) 1,000 mls @ 15 mls/hr IV TITR [facility] Last Infusion: 07/09/20 13:07 Dose: 0.5 mg/min, 30 mls/hr Documented by: Metoprolol Succinate (Toprol Xl -) 25 mg PO DAILY [facility] Mupirocin (Bactroban Ointment (For Decolonization) -) 1 applic NS BID [facility] Stop: 07/14/20 12:14 Prednisone (Deltasone -) 5 mg PO BID [facility] Constitutional: Yes: No Distress, Calm Eyes: Yes: Conjunctiva Clear, EOM Intact HENT: Yes: Atraumatic, Normocephalic Neck: Yes: Supple, Trachea Midline Respiratory: Yes: CTA Bilaterally Gastrointestinal: Yes: Soft (mildly distended. No tenderness) Cardiovascular: Yes: Regular Rate and Rhythm JVD: No Carotid Bruit: No PMI: Non-Displaced Heart Sounds: Yes: S1, S2 (rrr, no murmurs/rubs), S4 Edema: No Peripheral Pulses WNL: Yes Integumentary: Yes: WNL Neurological: Yes: WNL, Alert, Oriented ...Motor Strength: WNL Psychiatric: Yes: WNL - Other Data Labs, Other Data: CBC, BMP 07/09/20 07:52 07/09/20 07:52 INR, PTT INR 0.96 (0.83-1.09) 07/09/20 07:52 Troponin, BNP 07/09/20 07/09/20 07:52 07:52 Troponin I 0.13 H B-Natriuretic Peptide 3900.4 H Troponin, BNP 07/09/20 07/09/20 07:52 07:52 Troponin I 0.13 H B-Natriuretic Peptide 3900.4 H Laboratory Tests 07/09/20 07/09/20 07/09/20 07:52 07:52 07:52 WBC 13.1 H Hgb 11.4 L Plt Count 218 INR 0.96 Sodium Potassium BUN Creatinine Creatine Kinase 102 Troponin I 0.13 H B-Natriuretic Peptide Urine Color Urine Appearance Urine pH Urine Protein Urine Glucose (UA) Urine Ketones Urine Blood Urine Nitrite Urine Bilirubin Urine Urobilinogen Ur Leukocyte Esterase Urine Casts (Auto) U Epithel Cells (Auto) Urine Bacteria (Auto) 07/09/20 07/09/20 07:52 07:52 WBC Hgb Plt Count INR Sodium 140 Potassium 4.2 BUN 28.2 H Creatinine 1.6 H Creatine Kinase Troponin I B-Natriuretic Peptide 3900.4 H Urine Color Yellow Urine Appearance Clear Urine pH 6.0 Urine Protein 4+ H Urine Glucose (UA) Negative Urine Ketones Negative Urine Blood Trace Urine Nitrite Negative Urine Bilirubin Negative Urine Urobilinogen 0.2 Ur Leukocyte Esterase Negative Urine Casts (Auto) 3 U Epithel Cells (Auto) 17 Urine Bacteria (Auto) 4 Imaging - Results Chest X-ray: Image Reviewed EKG: Image Reviewed Assessment/Plan IMP/PLAN: Hypertensive urgency Hypertensive heart disease secondary to chronic hypertension Aortic dissection ruled out by CT Rheumatoid arthritis, chronic Non-compliance R/O OSAS IV Labetalol drip has been initiated. Restart home anti-hypertensive agents Follow I & O Cardiology evaluation noted Follow CE VTE prophylaxis No smoking Requires ICU monitoring for IV Labetalol monitoring Dr Lopez Critical care time spent in reviewing chart, evaluating patient and formulating plan - 36 minutes.
--- NOTE | 2020-07-09 13:37 | ECHO ---
Version: 1 Name: OSCAR DONAHUE Exam: Adult Echocardiogram Study Date: 07/09/2020, 12:40 PM Age: 34 Years MMode/2D Measurements & Calculations IVSd: 1.68 cm LVIDs: 3.4 cm LVIDd: 4.7 cm LVPWd: 1.59 cm LAV (MOD-bp): 98.0 ml ACS: 2.00 cm Ao root diam: 4.2 cm LVOT diam: 2.02 cm LA dimension: 3.2 cm Doppler Measurements & Calculations MV E max kamar: 131.4 cm/sec Med E/e': 16.2 MV A max kamar: 71.8 cm/sec Med Peak E' Kamar: 8.1 cm/sec MV E/A: 1.83 Lat E/e': 16.2 Lat Peak E' Kamar: 8.1 cm/sec MR max P.0 mmHg Ao max P.6 mmHg WILY(I,D): 3.2 cm Ao mean P.7 mmHg LV V1 mean: 88.3 cm/sec Ao V2 max: 128.6 cm/sec LV V1 mean P.4 mmHg AI P1/2t: 321.9 msec PI end-d kamar: 153.4 cm/sec TR max kamar: 240.3 cm/sec TR max P.2 mmHg Left Ventricle There is moderate concentric left ventricular hypertrophy. Left ventricular systolic function is low normal. Ejection Fraction = 50-55%. The transmitral spectral Doppler flow pattern is suggestive of pseudonormalization. Right Ventricle The right ventricle is normal in size and function. Atria The left atrium is borderline dilated. Right atrial size is normal. Mitral Valve The mitral valve is normal in structure and function. There is no mitral valve stenosis. There is mi ld mitral regurgitation. Tricuspid Valve The tricuspid valve is normal in structure and function. There is mild tricuspid regurgitation. Righ t ventricular systolic pressure is normal. Aortic Valve The aortic valve opens well. Aortic valve leaflet morphology not well seen. No hemodynamically signi ficant valvular aortic stenosis. Moderate aortic regurgitation. Pulmonic Valve The pulmonic valve is not well seen, but is grossly normal. There is no pulmonic valvular stenosis. Trace pulmonic valvular regurgitation. Great Vessels The aortic root is normal size. Normal aortic arch, descending and ascending aorta. Pericardium/Pleura There is no pericardial effusion. Summary Statements There is moderate concentric left ventricular hypertrophy. Left ventricular systolic function is low normal. Ejection Fraction = 50-55%. The right ventricle is normal in size and function. There is mild mitral regurgitation. There is mild tricuspid regurgitation. Right ventricular systolic pressure is normal. Moderate aortic regurgitation. The aortic root is normal size. There is no pericardial effusion. MD Elizabeth *Mary 07/09/2020, 1:36 PM Ordering Physician: Glenn Moura Referring Physician: GLENN MOURA Performed By: Sivan Medrano
[2020-07-09] MEDS ORDERED: predniSONE 5 MG TABLET (UD) PO ONE ×2 (14:00→15:30)
[2020-07-09] MEDS ORDERED: morphine CARPU-JECT 4 MG/1 ML DISP.SYRIN IVPUSH PRN (14:04)
[2020-07-09] MEDS ORDERED: IBUPROFEN 400 MG TABLET (FP) PO PRN (14:04)
[2020-07-09] MEDS ORDERED: LIDOCAINE 5% TOPICAL PATCH TP ONE (14:17)
[2020-07-09] MEDS: HEPARIN NA (PORCINE) 5,000 UNITS/ML 1ML VIAL SQ SCH ×2 (14:22→18:29)
[2020-07-09] MEDS: FAMOTIDINE 20 MG TABLET PO SCH (15:19)
[2020-07-09] MEDS: ACETAMINOPHEN 500 MG TABLET (FP) PO PRN (15:19)
[2020-07-09] MEDS ORDERED: CYCLOBENZAPRINE HCL 10 MG TABLET (FP) PO ONE (16:24)
[2020-07-09] MEDS: oxyCODONE HCL 5 MG TABLET PO PRN (16:51)
[2020-07-09] MEDS: MUPIROCIN 2% TOPICAL OINTMENT FOR DECOLONIZATION NS SCH ×2 (16:56→22:59)
[2020-07-09] MEDS: morphine SULFATE 4 MG/ML VIAL IVPUSH PRN (22:00)
[2020-07-09] MEDS ORDERED: ACETAMINOPHEN 1000 MG/100 ML VIAL (NON FORMULARY) IVPB ONE (22:13)
[2020-07-09] MEDS ORDERED: HALOPERIDOL LACTATE 5 MG/ML ONE (22:35)
[2020-07-09] MEDS ORDERED: SODIUM CHLORIDE 1,000 ML IV STA (22:42)
[2020-07-09] MEDS: LIDOCAINE PATCH REMOVAL MC SCH (23:00)
[2020-07-09] MEDS: predniSONE 5 MG TABLET (UD) PO SCH (23:00)
[2020-07-09] MEDS: CHLORHEXIDINE GLUCONATE 4% CLEANSER FOR DECOLONIZATION TP SCH (23:00)
[2020-07-09 23:48] LABS: HEMATOCRIT 29.7 % (35.4-49); MCHC 33.7 g/dl (32.0-35.9); MEAN CELL VOLUME 68.2 fl (80-96); MEAN PLT VOLUME 8.3 fl (7.5-11.1); PLATELET COUNT 124 K/MM3 (134-434); RBC 4.35 M/mm3 (4.00-5.60); RDW 23.1 % (11.9-15.9); WHITE BLOOD COUNT 7.6 K/mm3 (4.0-10.0)
[2020-07-10 00:30] LABS: ERYTHROCYTE SEDIMENTATION RATE 24 mm/hr (0-10)
[2020-07-10 00:34] LABS: ALBUMIN 2.4 g/dl (3.4-5.0); BILIRUBIN,TOTAL 0.6 mg/dL (0.2-1); BLOOD UREA NITROGEN 24.2 mg/dL (7-18); CALCIUM 7.9 mg/dL (8.5-10.1); CREATININE 1.3 mg/dL (0.55-1.3); POTASSIUM 4.3 mmol/L (3.5-5.1); TOT PROT 5.9 g/dl (6.4-8.2)
[2020-07-10] MEDS ORDERED: RAPID SEQUENCE INTUBATION KIT NR ONE (00:42)
[2020-07-10] MEDS: morphine SULFATE 4 MG/ML VIAL IVPUSH PRN ×2 (03:45→13:19)
[2020-07-10] MEDS: HEPARIN NA (PORCINE) 5,000 UNITS/ML 1ML VIAL SQ SCH ×3 (03:46→17:22)
[2020-07-10] MEDS ORDERED: methylPREDNISolone NA SUCC 1000 MG/8 ML VIAL IVPB ONE (04:00)
[2020-07-10] MEDS ORDERED: PT OWN MED DRAWER 7, Y5N ONE ×2 (06:17→21:28)
[2020-07-10 06:35] LABS: HEMATOCRIT 30.5 % (35.4-49); HEMOGLOBIN 10.1 GM/dL (11.7-16.9); MCH 22.3 pg (25.7-33.7); MCHC 33.1 g/dl (32.0-35.9); MEAN CELL VOLUME 67.3 fl (80-96); MEAN PLT VOLUME 8.2 fl (7.5-11.1); PLATELET COUNT 99 K/MM3 (134-434); RBC 4.52 M/mm3 (4.00-5.60); WHITE BLOOD COUNT 10.5 K/mm3 (4.0-10.0)
--- NOTE | 2020-07-10 06:37 | PN ---
Progress Note, Physician Chief Complaint: FEBRILE overnight Cultured TELE: sinus tach Patient reports improved back pain. Denies CP/SOB/palps Platelet count down Creatinine improved. History of Present Illness: 34 M PMH RA and chronic HTN, noncompliant with BP meds presented to ER with sudden onset of mid back and chest pain yest AM getting out of bed. In ER, BP found to be markedly elevated. He described the pain as "10/10". No SOB, palps, edema. Denies smoking, prior cardiac hx. CTA c/a/p negative for dissection, atelectasis noted. Overnight spike fever. Was cultured. Remains in ICU. COVID NEGATIVE x1 BP much improved with Labetalol gtts, now being transitioned to PO by Critical Care team - Current Medication List Current Medications: Active Medications Acetaminophen (Tylenol -) 1,000 mg PO Q6H PRN PRN Reason: PAIN LEVEL 1-5 Last Admin: 07/09/20 15:19 Dose: 1,000 mg Documented by: Amlodipine Besylate (Norvasc -) 10 mg PO DAILY [facility] Chlorhexidine Gluconate (Hibiclens For Decolonization -) 1 applic TP HS [facility] Last Admin: 07/09/20 23:00 Dose: 1 applic Documented by: Docusate Sodium (Colace -) 100 mg PO BID PRN PRN Reason: CONSTIPATION Famotidine (Pepcid -) 20 mg PO DAILY [facility] Last Admin: 07/09/20 15:19 Dose: 20 mg Documented by: Heparin Sodium (Porcine) (Heparin -) 5,000 unit SQ Q8H-IV [facility] Last Admin: 07/10/20 03:46 Dose: 5,000 unit Documented by: Labetalol HCl 1,000 mg/ Sodium (Chloride) 1,000 mls @ 15 mls/hr IV TITR [facility] Last Infusion: 07/09/20 13:07 Dose: 0.5 mg/min, 30 mls/hr Documented by: Metoprolol Succinate (Toprol Xl -) 25 mg PO DAILY [facility] Miscellaneous (Lidoderm Patch Removal) 1 each MC DAILY@2200 [facility] Last Admin: 07/09/20 23:00 Dose: 1 each Documented by: Morphine Sulfate (Morphine Sulfate) 4 mg IVPUSH Q4H PRN PRN Reason: PAIN LEVEL 6-10 Mupirocin (Bactroban Ointment (For Decolonization) -) 1 applic NS BID [facility] Stop: 07/14/20 13:59 Last Admin: 07/09/20 22:59 Dose: 1 applic Documented by: Oxycodone HCl (Roxicodone -) 5 mg PO Q6H PRN PRN Reason: PAIN LEVEL 6-10 Last Admin: 07/09/20 16:51 Dose: 5 mg Documented by: Prednisone (Deltasone -) 5 mg PO BID [facility] Last Admin: 07/09/20 23:00 Dose: Not Given Documented by: - Objective Vital Signs: Vital Signs Temperature 99.5 F 07/10/20 01:00 Pulse Rate 113 H 07/10/20 03:00 Respiratory Rate 33 H 07/10/20 03:00 Blood Pressure 155/107 H 07/10/20 03:00 O2 Sat by Pulse Oximetry (%) 95 07/10/20 01:00 Constitutional: Yes: No Distress Eyes: Yes: Conjunctiva Clear, EOM Intact HENT: Yes: Atraumatic Neck: Yes: Trachea Midline Cardiovascular: Yes: Regular Rate and Rhythm Respiratory: Yes: Other (clear anteriorly and laterally, no rales or wheezing.) Gastrointestinal: Yes: Soft (No rebound or guarding) Edema: No Peripheral Pulses WNL: Yes Neurological: Yes: Alert, Oriented ...Motor Strength: WNL Psychiatric: Yes: WNL Labs: INR, PTT INR 0.96 (0.83-1.09) 07/09/20 07:52 Microbiology 07/09/20 07:52 Urine - Urine Clean Catch Urine Culture - Final NO GROWTH OBTAINED Laboratory Tests 07/09/20 07/09/20 07/10/20 09:36 12:00 06:10 WBC 10.5 H Hgb 10.1 L Plt Count 99 L D Opiates Screen Negative Methadone Screen Negative Barbiturate Screen Negative Phencyclidine Screen Negative Ur Amphetamines Screen Negative MDMA (Ecstasy) Screen Negative Benzodiazepines Screen Negative Cocaine Screen Negative U Marijuana (THC) Screen Negative COVID-19 (PRANEETH) Not detected Laboratory Tests 07/09/20 07/09/20 07/09/20 07:52 15:00 20:00 WBC Hgb Plt Count 218 Sodium Potassium BUN Creatinine Calcium Phosphorus Magnesium Total Bilirubin AST ALT Alkaline Phosphatase Troponin I 0.15 H 0.14 H C-Reactive Protein Total Protein Albumin 07/09/20 07/09/20 07/10/20 23:20 23:20 06:10 WBC 10.5 H Hgb 10.1 L Plt Count 124 L D 99 L D Sodium Potassium BUN 24.2 H Creatinine 1.3 Calcium Phosphorus Magnesium Total Bilirubin AST ALT Alkaline Phosphatase Troponin I 0.14 H C-Reactive Protein 5.5 H Total Protein Albumin 07/10/20 06:10 WBC Hgb Plt Count Sodium 138 Potassium 4.7 BUN 25.2 H Creatinine 1.5 H Calcium 7.9 L Phosphorus 3.7 Magnesium 1.5 L Total Bilirubin 0.9 AST 63 H ALT 39 Alkaline Phosphatase 235 H Troponin I C-Reactive Protein Total Protein 6.2 L Albumin 2.4 L Assessment/Plan IMP/PLAN: Hypertensive urgency, hypertensive heart disease secondary to chronic hypertension Sudden onset of severe back pain and upper chest pain, CTA C/A/P Negative for aortic dissection Rheumatoid arthritis, chronic Fever Thrombocytopenia Equivocal TnIs CKD Elevated BNP 1. Hypertensive urgency: -BP improved with Labetalol gtts, now with new fever and BP down to low 100s this AM -D/C Labetalol drip -PO meds started by Critical care team: hold for SBP < 100mmHg 2. Sudden back pain/chest pain: -CTA negative for dissection -Seems improved this AM 3. Fever: unclear source -Cultured last night -?CAP (atelectasis seen on CT) vs COVID PNA (initial swab negative) -Defer empiric abx to Critical Care Team -?RA flare? -BP running low 100s recently, d/c Labetalol gtts for now and trend BP -Continue ICU monitoring 4. Thrombocytopenia: may be seen in early sepsis -Cultures/ possible empiric abx, as per Critical care -May also be seen in flares of autoimmune diseases 5. Equivocal TnIs: -flat trend, not c/w ACS -Likely demand ischemia in setting of hypertensive urgency -Continue telemetry -Echo 07/09 with LVH, EF 50-55% and moderate AR 6. CKD: -Creatinine improved from admission. 7. Elevated BNP: -Possible acute on chronic diastolic CHF in setting of hypertension and extra volume received -CXR with increased vascular/interstitial markings may represent volume vs atypical or viral infection -decision to diurese is now complicated by new fever/ softer BPs -Would suppl O2/ avoid additional IVF fluid unless needed for BP support -May require diuresis if BP allows. -Continue ICU monitoring Critical Care Time: 44 minutes spent in review chart/tele/labs/exam and formulating assessment and plan
[2020-07-10] MEDS: ACETAMINOPHEN 500 MG TABLET (FP) PO PRN ×2 (06:45→21:55)
[2020-07-10 07:35] LABS: ALBUMIN 2.4 g/dl (3.4-5.0); BILIRUBIN,TOTAL 0.9 mg/dL (0.2-1); BLOOD UREA NITROGEN 25.2 mg/dL (7-18); CALCIUM 7.9 mg/dL (8.5-10.1); CREATININE 1.5 mg/dL (0.55-1.3); MAGNESIUM 1.5 mg/dL (1.8-2.4); N-TERMINAL BNP 4335.1 pg/ml (5-125); PHOSPHOROUS 3.7 mg/dL (2.5-4.9); POTASSIUM 4.7 mmol/L (3.5-5.1); TOT PROT 6.2 g/dl (6.4-8.2)
[2020-07-10] MEDS ORDERED: SODIUM CHLORIDE 500 ML IV STA (07:35)
[2020-07-10] MEDS ORDERED: MAGNESIUM SULF 50% (8.12 MEQ/2 ML-1 GM VIAL) IVPB ONE ×2 (07:55→08:23)
[2020-07-10] MEDS ORDERED: MAGNESIUM 1GM/D5W - 1 GM/100 ML IVPB IVPB ONE ×2 (08:15→08:30)
--- NOTE | 2020-07-10 08:36 | HP ---
Admitting History and Physical - Primary Care Physician PCP: Deacon Zavala - Admission Chief Complaint: Bilateral lower back pain History of Present Illness: Patient is a 34 y/o male with past medical history of HTN, RA, and bilateral knee surgery. He presented to [facility] ER with complaints of acute onset lower back pain. The pain woke him up from his sleep and described as sharp and 8/10. Incidentally in ER noted with BP 200s/100s. Patient was evaluated by Cardiology and admitted to ICU for Hypertensive Emergency. Chest/Abdominal CTA neg for dissection. He was started on Labetolol drip for BP control. 07/10/20 on exam noted to be febrile tmax 103.2F, received Tylenol IVPB. Tachypneic, but denies chest pain, SOB, palpitations. Urine collected for UA/CS, blood cultures collected, and CXR done with results pending. Noted with Leukocytosis WBC 10.5. BP on exam controlled with tachycardia HR 110s. 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: No: Alzheimer's, CVA, Dementia, Migraine, Multiple Sclerosis, Peripheral Neuropathy, Parkinson's, Seizure, Syncope, TIA, Vertigo, Other Cardiovascular: Yes: HTN Gastrointestinal: No: Ascites, Cancer, Constipation, Crohn's Disease, Diverticulitis, Diverticulosis, Esophageal Varices, Gastritis, GERD, GI Bleed, Hemorrhoids, Hiatal Hernia, Inflamatory Bowel Disease, Irritable Bowel Disease, Pancreatitis, Peptic Ulcer Disease, Ulcerative Colitis, Other Hepatobiliary: No: Cirrhosis, Cholelithiasis, Cholecystitis, Choledocholithiasis, Hepatitis A, Hepatitis B, Hepatitis C, Other Renal/: No: Renal Failure, Renal Inusuff, BPH, Cancer, Hematuria, Hemo dialysis, Neurogenic Bladder, Renal Calculi, UTI, Other Heme/Onc: No: Anemia, B12 Deficiency, Bleeding Disorder, Cancer, Current Chemotherapy, Current Radiation Therapy, Hemochromatosis, Hypercoaguable State, Myeloproliferative Synd, Sickle Cell Disease, Sickle Cell Trait, T hrombocytopenia, Other Infectious Disease: No: AIDS, C-Diff, Herpes Zoster, HIV, MRSA, STD's, Tuberculosis, VREF, Other Psych: No: Addictions, Anxiety, Bipolar, Depression, Panic, Psychosis, Schizophrenia, Other Musculoskeletal: No: Bursitis, Chronic low back pain, Hemiparesis, Hemiplegia, Osteoarthritis, Paraplegia, Other Rheumatology: Yes: Rheumatoid Arthritis ENT: No: Allergic Rhinitis, Sinusitis, Other Endocrine: No: Newdale's Disease, Giselle's Disease, Diabetes Insipidus, Diabetes Mellitus, Hyperparathyroidism, Hyperthyroidism, Hypothyroidism, Osteopenia, SIADH, Other Dermatology: No: Basal Cell, Cellulitis, Eczema, Melanoma, Psoriasis, Squamous Cell, Other - Smoking History Smoking history: Never smoked Have you smoked in the past 12 months: No Aproximately how many cigarettes per day: 0 - Alcohol/Substance Use Hx Alcohol Use: No History of Substance Use: reports: None - Social History Usual Living Arrangement: Yes: With Spouse History of Recent Travel: No Home Medications - Allergies Allergies/Adverse Reactions: Allergies Allergy/AdvReac Type Severity Reaction Status Date / Time No Known Allergies Allergy Verified 07/09/20 06:37 - Home Medications Home Medications: Ambulatory Orders Acetaminophen [Tylenol] 500 mg PO BID 05/02/17 predniSONE [Deltasone -] 5 mg PO BID 05/02/17 Amlodipine Besylate [Norvasc -] 10 mg PO DAILY #30 tablet 05/06/17 Metoprolol Succinate 25 mg PO DAILY 07/09/20 Family Medical History Family History: Unremarkable (denies early hx CAD or SCD; no hx of aortic aneurysm or dissection) Review of Systems - Review of Systems Constitutional: reports: Fever Eyes: reports: No Symptoms HENT: reports: No Symptoms Neck: reports: No Symptoms Cardiovascular: reports: No Symptoms Respiratory: reports: No Symptoms Gastrointestinal: reports: No Symptoms Genitourinary: reports: No Symptoms Breasts: reports: No Symptoms Reported Musculoskeletal: reports: No Symptoms Integumentary: reports: No Symptoms Neurological: reports: No Symptoms Endocrine: reports: No Symptoms Hematology/Lymphatic: reports: No Symptoms Physical Examination Vital Signs: Vital Signs Temperature 103.2 F H 07/10/20 06:00 Pulse Rate 120 H 07/10/20 07:00 Respiratory Rate 42 H 07/10/20 07:00 Blood Pressure 130/90 07/10/20 07:00 O2 Sat by Pulse Oximetry (%) 92 L 07/10/20 07:00 Constitutional: Yes: Well Nourished, Mild Distress Eyes: Yes: Conjunctiva Clear HENT: Yes: Atraumatic Cardiovascular: Yes: Tachycardia Respiratory: Yes: CTA Bilaterally, On Nasal O2, Tachypnea Gastrointestinal: Yes: Normal Bowel Sounds, Soft Musculoskeletal: Yes: Muscle Weakness Extremities: Yes: WNL Edema: No Integumentary: Yes: WNL Neurological: Yes: Alert, Oriented Psychiatric: Yes: Alert, Oriented Labs: CBC, BMP 07/10/20 06:10 07/10/20 06:10 Problem List - Problems (1) Elevated troponin Assessment/Plan: Cardiology on board Trop 0.13, 0.15, 0.14, 0.14 Cardiac monitoring Echo shows EF 50-55%, LV systolic function low normal, moderate concentric LVH Code(s): R79.89 - OTHER SPECIFIED ABNORMAL FINDINGS OF BLOOD CHEMISTRY (2) Arthritis, rheumatoid Assessment/Plan: Prednisone 5mg BID Pain control as ordered Code(s): M06.9 - RHEUMATOID ARTHRITIS, UNSPECIFIED (3) Hypertensive emergency Assessment/Plan: Cardiology on board Labetolol drip Troponin elevated-likely to demand ischemia Chest/Abdomen CTA shows no dissection Code(s): I16.1 - HYPERTENSIVE EMERGENCY (4) Fever Assessment/Plan: Tylenol prn for temp >100F ID consult placed UA/CS, Blood cultures, CXR ordered to r/o fever source Code(s): R50.9 - FEVER, UNSPECIFIED Assessment/Plan see problem list DVT ppx
[2020-07-10 08:50] LABS: ALLENS TEST POSITIVE; ARTERIAL BLD GAS O2 SATURATION 94.8 mmHg (95-98); ARTERIAL BLOOD GAS BASE EXCESS -2.3 mmol/L (-2-2); ARTERIAL BLOOD GAS PO2 73.6 mmHg (80-100); ARTERIAL BLOOD GAS pH 7.392 (7.350-7.450)
--- NOTE | 2020-07-10 09:20 | PN ---
Physical Exam: SUBJECTIVE: Patient seen and examined at bedside. Pt found to be febrile overnight at 103. Per nurse, found to be tachypneic, then falls asleep. Remains tachycardic. He is arousable upon verbal stimuli and cooperative. Pt endorses no complaints, back pain improved. OBJECTIVE: Vital Signs Period Temp Pulse Resp BP Sys/Mcgraw Pulse Ox Last 24 Hr 98.6 F-103.2 F 88-124 2-42 109-178/71-121 92-100 GENERAL: Awake and alert. Oriented to person. (Confused with time and place) HEENT: AT/NC. EOMI. MMM. NECK: Supple. No nuchal rigidity. LUNGS: CTA B/L. No wheezes/rales noted. Tachpneic. HEART: Tachycardic. No murmurs noted. ABDOMEN: Soft, NT/ND. Neg Fuentes's sign. Normoactive BS. EXTREMITIES: 2+ pulses, warm, well-perfused, no edema. NEUROLOGICAL: Follows commands. Neg Kernig/Brudzinski sign. MSK: Multiple joint abnormalities seen on b/l fingers, no pain to palpation/redness. Good passive ROM throughout b/l u/l extremities. SKIN: Warm, dry, normal turgor, no rashes or lesions noted. Well-healed vertical surgical scars on b/l knees. CBCD WBC 10.5 K/mm3 (4.0-10.0) H 07/10/20 06:10 RBC 4.52 M/mm3 (4.00-5.60) 07/10/20 06:10 Hgb 10.1 GM/dL (11.7-16.9) L 07/10/20 06:10 Hct 30.5 % (35.4-49) L 07/10/20 06:10 MCV 67.3 fl (80-96) L 07/10/20 06:10 MCHC 33.1 g/dl (32.0-35.9) 07/10/20 06:10 RDW 23.0 % (11.9-15.9) H 07/10/20 06:10 Plt Count 99 K/MM3 (134-434) L D 07/10/20 06:10 MPV 8.2 fl (7.5-11.1) 07/10/20 06:10 CMP Sodium 138 mmol/L (136-145) 07/10/20 06:10 Potassium 4.7 mmol/L (3.5-5.1) 07/10/20 06:10 Chloride 109 mmol/L (98-107) H 07/10/20 06:10 Carbon Dioxide 21 mmol/L (21-32) 07/10/20 06:10 Anion Gap 8 MMOL/L (8-16) 07/10/20 06:10 BUN 25.2 mg/dL (7-18) H 07/10/20 06:10 Creatinine 1.5 mg/dL (0.55-1.3) H 07/10/20 06:10 Calcium 7.9 mg/dL (8.5-10.1) L 07/10/20 06:10 Total Bilirubin 0.9 mg/dL (0.2-1) 07/10/20 06:10 AST 63 U/L (15-37) H 07/10/20 06:10 ALT 39 U/L (13-61) 07/10/20 06:10 Alkaline Phosphatase 235 U/L (45-117) H 07/10/20 06:10 Total Protein 6.2 g/dl (6.4-8.2) L 07/10/20 06:10 Albumin 2.4 g/dl (3.4-5.0) L 07/10/20 06:10 Active Medications Generic Name Dose Route Start Last Admin Trade Name Freq PRN Reason Stop Dose Admin Acetaminophen 1,000 mg 07/09/20 14:04 07/10/20 06:45 Tylenol - PO 1,000 mg Q6H PRN Administration PAIN LEVEL 1-5 Amlodipine Besylate 10 mg 07/10/20 10:00 Norvasc - PO DAILY [facility] Chlorhexidine Gluconate 1 applic 07/09/20 22:00 07/09/20 23:00 Hibiclens For Decolonization - TP 1 applic HS [facility] Administration Docusate Sodium 100 mg 07/09/20 14:50 Colace - PO BID PRN CONSTIPATION Famotidine 20 mg 07/09/20 14:15 07/09/20 15:19 Pepcid - PO 20 mg DAILY [facility] Administration Heparin Sodium (Porcine) 5,000 unit 07/09/20 12:15 07/10/20 03:46 Heparin - SQ 5,000 unit Q8H-IV [facility] Administration Labetalol HCl 1,000 mg/ Sodium 1,000 mls @ 15 mls/hr 07/09/20 10:00 07/10/20 09:03 Chloride IV 0.2 mg/min TITR [facility] 12 mls/hr Infusion 0.25 MG/MIN Magnesium Sulfate/Dextrose 1 gm in 100 mls @ 100 mls/hr 07/10/20 08:15 07/10/20 09:07 Magnesium 1gm/D5w - IVPB 07/10/20 09:14 100 mls/hr ONCE ONE Administration Metoprolol Succinate 25 mg 07/10/20 10:00 Toprol Xl - PO DAILY [facility] Miscellaneous 1 each 07/09/20 22:00 07/09/20 23:00 Lidoderm Patch Removal MC 1 each DAILY@2200 [facility] Administration Morphine Sulfate 4 mg 07/09/20 14:31 07/10/20 03:45 Morphine Sulfate IVPUSH 4 mg Q4H PRN Administration PAIN LEVEL 6-10 Mupirocin 1 applic 07/09/20 14:00 07/09/20 22:59 Bactroban Ointment (For Decolonization) - NS 07/14/20 13:59 1 applic BID [facility] Administration Oxycodone HCl 5 mg 07/09/20 16:24 07/09/20 16:51 Roxicodone - PO 5 mg Q6H PRN Administration PAIN LEVEL 6-10 Prednisone 5 mg 07/09/20 22:00 07/09/20 23:00 Deltasone - PO Not Given BID [facility]: * CTA C/A/P: No evid of gastric or AAA or dissection. R basilar atelectasis, no acute chest pathology. Cholelithiasis. Fat-containing umbilical and R inguinal hernia. No acute pathology within abd/pel. * Echo: Mod LVH, LVSF low nl, EF 50-55%, mild MR/TR, RVSP nl, mod AR, no pericardial effusion. ASSESSMENT/PLAN: 34 yo male with PMH of RA presents with back pain and hypertension admitted for hypertensive urgency, currently on Labetolol gtt. Neuro #Lower back pain; Pain controlled. -Tylenol 1000mg PO Q6H PRN -Lidoderm patch TP Q12H -Morphine 4mg IV Q4H PRN CV #Hypertensive Urgency #Hypertensive heart disease secondary to chronic hypertension #R/O Aortic dissection; negative per CTA chest. #Elevated Troponins; peaked. -ECG: NSR with LVH and secondary nonspecific T wave changes in I, avL, V5 and V5 may be secondary to repol. -Goal BP- 150s -Cardiology following; per recs, titrate Labetalol gtt. Goal BP systolic <150. -CTA C/A/P neg for aortic aneurysm/dissection -Utox w/o evidence of sympathomimetic use -Elevated BNP (EF 50-55%) Cont home meds: Metoprolol XR 25mg PO daily, Amlodipine 10mg PO daily (home dose) PULM #Hypoxia #R/O CATRACHITO -R basilar atelectasis noted on CT w/o infiltrate -COVID neg -Pt is hypoxic on RA requiring 3L to maintain SpO2 >92% GI #Elevated AST/Alk Phos #Cholelithiasis, +on CT -Clinically, pt has no abdominal complaints. -Docusate 100mg PO BID -Pepcid 20mg BID -Given elevated AST and increasing Alk Phos, will order abdominal u/s to r/o out abd source of infection ID #Fever, unknown origin. Temp 103.2 -Clinically, patient has no symptomatic complaints to suggest possible source of infection. No meningeal signs, no skin lesions, no pain. CTA C/A/P neg, CXR today neg. WBC mildly increased although pt was given steroids during admission. -BCx pending; UA/UCx neg -ID consulted -Will hold off on IV abx for now and wait for cultures & abd u/s Nephro #BRADLEY; likely 2/2 hypertensive nephropathy in setting of uncontrolled HTN -Cr 1.5 today -cont IV hydration Rheum #Rheumatoid Arthritis -Pt was given Methylprednisolone 1 gm x1 dose due to concern for flare since he was found to be febrile overnight Continue home med: Prednisone 5 mg PO BID Prophylaxis DVT: SQH GI: Pepcid FEN -IVf -recheck lytes in AM (Mg repleted today) -Sodium-controlled diet Dispo -ICU monitoring; pt still on labetolol gtt Visit type - Emergency Visit Emergency Visit: Yes ED Registration Date: 07/09/20 Care time: The patient presented to the Emergency Department on the above date and was hospitalized for further evaluation of their emergent condition. - New Patient This patient is new to me today: Yes Date on this admission: 07/10/20 - Critical Care Critical Care patient: Yes Total Critical Care Time (in minutes): 36 Critical Care Statement: The care of this patient involved high complexity decision making to prevent further life threatening deterioration of the patient's condition and/or to evaluate & treat vital organ system(s) failure or risk of failure. - Discharge Referral Referred to [facility] No ATTENDING PHYSICIAN STATEMENT I saw and evaluated the patient. I reviewed the resident's note and discussed the case with the resident. I agree with the resident's findings and plan as documented. SUBJECTIVE: OBJECTIVE: ASSESSMENT AND PLAN:
[2020-07-10] MEDS: FAMOTIDINE 20 MG TABLET PO SCH (09:43)
[2020-07-10] MEDS: metoPROLOL SUCCINATE 25 MG TAB.SR.24H (FP) PO SCH (09:43)
[2020-07-10] MEDS: MUPIROCIN 2% TOPICAL OINTMENT FOR DECOLONIZATION NS SCH ×2 (10:00→21:32)
[2020-07-10] MEDS: predniSONE 5 MG TABLET (UD) PO SCH ×2 (10:10→21:33)
--- NOTE | 2020-07-10 10:33 | PN ---
Teaching Attending Note Name of Resident: Steffany Greco ATTENDING PHYSICIAN STATEMENT I saw and evaluated the patient. I reviewed the resident's note and discussed the case with the resident. I agree with the resident's findings and plan as documented. SUBJECTIVE: Pt seen and examined in the ICU. Remains on labetalol gtt. Hypoxic on room air, febrile to 103.2 overnight. Tachypneic but denies shortness of breath. OBJECTIVE: Vital Signs Period Temp Pulse Resp BP Sys/Mcgraw Pulse Ox Last 24 Hr 98.6 F-103.2 F 88-124 2-42 109-175/71-121 92-99 Intake & Output 07/07/20 07/08/20 07/09/20 07/10/20 23:59 23:59 23:59 23:59 Intake Total 2135 690 Output Total 1600 940 Balance 535 -250 Weight 93.2 kg Gen: tachypneic at rest Heart: tachycardic, regular, split S2 Lung: decreased breath sounds at the bases Abd: soft, nontender Ext: no edema CBC, BMP 07/10/20 06:10 07/10/20 06:10 Active Medications Acetaminophen (Tylenol -) 1,000 mg PO Q6H PRN PRN Reason: PAIN LEVEL 1-5 Last Admin: 07/10/20 06:45 Dose: 1,000 mg Documented by: Amlodipine Besylate (Norvasc -) 10 mg PO DAILY [facility] Chlorhexidine Gluconate (Hibiclens For Decolonization -) 1 applic TP HS [facility] Last Admin: 07/09/20 23:00 Dose: 1 applic Documented by: Docusate Sodium (Colace -) 100 mg PO BID PRN PRN Reason: CONSTIPATION Famotidine (Pepcid -) 20 mg PO DAILY [facility] Last Admin: 07/10/20 09:43 Dose: 20 mg Documented by: Heparin Sodium (Porcine) (Heparin -) 5,000 unit SQ Q8H-IV [facility] Last Admin: 07/10/20 09:43 Dose: 5,000 unit Documented by: Metoprolol Succinate (Toprol Xl -) 25 mg PO DAILY [facility] Last Admin: 07/10/20 09:43 Dose: 25 mg Documented by: Miscellaneous (Lidoderm Patch Removal) 1 each MC DAILY@2200 [facility] Last Admin: 07/09/20 23:00 Dose: 1 each Documented by: Morphine Sulfate (Morphine Sulfate) 4 mg IVPUSH Q4H PRN PRN Reason: PAIN LEVEL 6-10 Last Admin: 07/10/20 03:45 Dose: 4 mg Documented by: Mupirocin (Bactroban Ointment (For Decolonization) -) 1 applic NS BID [facility] Stop: 07/14/20 13:59 Last Admin: 07/09/20 22:59 Dose: 1 applic Documented by: Oxycodone HCl (Roxicodone -) 5 mg PO Q6H PRN PRN Reason: PAIN LEVEL 6-10 Last Admin: 07/09/20 16:51 Dose: 5 mg Documented by: Prednisone (Deltasone -) 5 mg PO BID [facility] Last Admin: 07/09/20 23:00 Dose: Not Given Documented by: ASSESSMENT AND PLAN: Hypertensive Urgency Fever of unclear etiology Sepsis Acute Kidney Injury +Troponins likely Demand Ischemia Thrombocytopenia Rheumatoid Arthritis Anemia - BP control, titrate off labetalol gtt - f/u cultures - abdominal ultrasound - O2 to keep SpO2 >90% - monitor urine output, creatinine - continue ICU monitoring
[2020-07-10] MEDS: amLODIPine BESYLATE 10 MG TABLET (FP) PO SCH (11:01)
--- NOTE | 2020-07-10 12:11 | PN ---
Progress Note (short form) - Note Progress Note: ID CONSULT DICTATED HYPERTENSIVE CRISIS HIGH GRADE FEVER ? SOURCE ? VASCULITIC FLARE ? SEPSIS AWAIT C/S EMPIRIC CEFTRIAXONE/VANCOMYCIN RHEUMATOLOLOGY EVALUATION
[2020-07-10] MEDS ORDERED: DEXTROSE 5%-WATER 100 ML IVPB ONE (12:32)
[2020-07-10] MEDS: CEFTRIAXONE 2 GM in DEXTROSE 5%-WATER 100 ML IVPB SCH (12:35)
[2020-07-10] MEDS: VANCOMYCIN 1 GRAM (PRE-DOCKED) 1,000 MG/250 ML BAG IVPB SCH (12:39)
[2020-07-10] MEDS ORDERED: METOPROLOL TARTRATE 5 MG/5 ML VIAL ONE (14:56)
[2020-07-10] MEDS ORDERED: METOPROLOL TARTRATE 5 MG/5 ML VIAL IVPUSH ONE (15:00)
[2020-07-10] MEDS ORDERED: LABETALOL HCL INJECTION 1,000 MG in SODIUM CHLORIDE 800 ML IV SCH (15:30)
--- NOTE | 2020-07-10 18:24 | CONS ---
INFECTIOUS DISEASE CONSULTATION DATE OF CONSULTATION: DATE OF DICTATION: 07/10/2020 The patient is a 34-year-old male with a history of rheumatoid arthritis on prednisone 10 mg daily, who is evaluated for high-grade fever. He was admitted to the hospital with bilateral flank and back pain. In the emergency room, he was noted to be in hypertensive crisis with a markedly elevated blood pressure. He was admitted to the intensive care unit. His course was complicated by fever to 103.2. The patient at the present time has no focal complaints. He denies any recent febrile illness. Denies any ill contacts. Has been living at home. No contact with any patients with coronavirus. He is COVID-19 PCR negative. He denies any chest pain, shortness of breath, cough, or sputum production and no vomiting or diarrhea. No dysuria or hematuria. Patient has a long history of rheumatoid arthritis affecting mainly his hands, knees, and hips. He had been under the care of Dr. Alexandre. He reports that he has been on prednisone 10 mg daily and has not been on anti-TNF inhibitors. PAST MEDICAL HISTORY: Positive for rheumatoid arthritis, hypertension. PAST SURGICAL HISTORY: Status post bilateral total knee replacements. ALLERGIES: No known allergies. MEDICATIONS: Include cyclobenzaprine, heparin, amlodipine, labetalol, metoprolol, Tylenol, aspirin, oxycodone, prednisone. SOCIAL HISTORY: He resides in the community. He is a nonsmoker, nondrinker. SYSTEMS REVIEW: Neurologic: No loss of consciousness, seizure activity, focal weakness. Cardiac: Negative chest pain or palpitations. Respiratory: Negative cough or sputum production. Gastrointestinal: Negative vomiting or diarrhea. Genitourinary: Negative for urinary tract infection. LABORATORY DATA: White count 10.5; neutrophils 84, bands 1, lymphocytes 3, monocytes 24; hematocrit 30.5; platelet count 99. Creatinine 1.5. Urinalysis: White cells 14. COVID-19 PCR negative. Cultures pending. CAT scan of the chest shows right lower lobe atelectasis and cholelithiasis. Chest x-ray shows some increased markings bilaterally. PHYSICAL EXAMINATION: General: He is awake and alert. He is not acutely toxic appearing. Vital Signs: Temperature 100.4, T-max 103.2; blood pressure 125/93; pulse 103, regular; respirations per minute. HEENT: Sclerae are anicteric. Heart: Sounds S1, S2. Lungs: Clear. Abdomen: Soft and nontender. Extremities: Negative for edema. There is some deformity present of the hands bilaterally. No knee or hip swelling present. IMPRESSION: 1. Hypertensive crisis. 2. High-grade fever, unclear source. 3. Thrombocytopenia. 4. Rheumatoid arthritis. Source of high-grade fever not clear. May represent vasculitic flare. Sepsis possibility, though less likely. Await culture results. Empiric antibiotic coverage with vancomycin and ceftriaxone. Rheumatology evaluation. Thank you for the kind referral. DELVIS JONES M.D. [id number]
[2020-07-10] MEDS: LIDOCAINE PATCH REMOVAL MC SCH (21:33)
[2020-07-10] MEDS: CHLORHEXIDINE GLUCONATE 4% CLEANSER FOR DECOLONIZATION TP SCH (21:33)
[2020-07-11] MEDS: VANCOMYCIN 1 GRAM (PRE-DOCKED) 1,000 MG/250 ML BAG IVPB SCH ×2 (01:55→13:00)
[2020-07-11] MEDS: HEPARIN NA (PORCINE) 5,000 UNITS/ML 1ML VIAL SQ SCH ×3 (02:00→17:23)
[2020-07-11 06:55] LABS: BASO % 0.4 % (0-2.0); EOS % 0.3 % (0-4.5); HEMATOCRIT 29.3 % (35.4-49); HEMOGLOBIN 9.7 GM/dL (11.7-16.9); LYMPH % 1.6 % (8-40); MCH 22.2 pg (25.7-33.7); MCHC 33.2 g/dl (32.0-35.9); MEAN CELL VOLUME 66.8 fl (80-96); MEAN PLT VOLUME 8.5 fl (7.5-11.1); MONO % 7.9 % (3.8-10.2); NEUT % 89.8 % (42.8-82.8); PLATELET COUNT 95 K/MM3 (134-434); RBC 4.39 M/mm3 (4.00-5.60); RDW 23.5 % (11.9-15.9); WHITE BLOOD COUNT 14.1 K/mm3 (4.0-10.0)
--- NOTE | 2020-07-11 07:07 | PN ---
Progress Note, Physician Chief Complaint: still febrile intermittently TELE: Sinus, sinus tach Denies CP/SOB/palps/headache/cough More alert this morning. Head CT no acute pathology. History of Present Illness: 34 M PMH RA and chronic HTN, noncompliant with BP meds presented to ER with sudden onset of mid back and chest pain yest AM getting out of bed. In ER, BP found to be markedly elevated. He described the pain as "10/10". CTA c/a/p negative for dissection, atelectasis noted. Course c/b by high fevers. Was cultured, seen by ID and started on abx Rheum consulted Remains in ICU. COVID NEGATIVE Blood cultures remain NGTD - Current Medication List Current Medications: Active Medications Acetaminophen (Tylenol -) 1,000 mg PO Q6H PRN PRN Reason: PAIN LEVEL 1-5 Last Admin: 07/10/20 21:55 Dose: 1,000 mg Documented by: Amlodipine Besylate (Norvasc -) 10 mg PO DAILY [facility] Last Admin: 07/10/20 11:01 Dose: 10 mg Documented by: Chlorhexidine Gluconate (Hibiclens For Decolonization -) 1 applic TP HS [facility] Last Admin: 07/10/20 21:33 Dose: 1 applic Documented by: Docusate Sodium (Colace -) 100 mg PO BID PRN PRN Reason: CONSTIPATION Famotidine (Pepcid -) 20 mg PO DAILY [facility] Last Admin: 07/10/20 09:43 Dose: 20 mg Documented by: Heparin Sodium (Porcine) (Heparin -) 5,000 unit SQ Q8H-IV [facility] Last Admin: 07/11/20 02:00 Dose: 5,000 unit Documented by: Ceftriaxone Sodium 2 gm/ (Dextrose) 100 mls @ 200 mls/hr IVPB DAILY [facility]; Protocol Last Admin: 07/10/20 12:35 Dose: 200 mls/hr Documented by: Vancomycin HCl (Vancomycin (Pre-Docked)) 1,000 mg in 250 mls @ 166.667 mls/hr IVPB BID@0100,1300 [facility]; Protocol Last Admin: 07/11/20 01:55 Dose: 166.667 mls/hr Documented by: Labetalol HCl 1,000 mg/ Sodium (Chloride) 1,000 mls @ 30 mls/hr IV TITR [facility]; Protocol Last Titration: 07/11/20 03:30 Dose: 0.5 mg/min, 30 mls/hr Documented by: Metoprolol Succinate (Toprol Xl -) 25 mg PO DAILY [facility] Last Admin: 07/10/20 09:43 Dose: 25 mg Documented by: Miscellaneous (Lidoderm Patch Removal) 1 each MC DAILY@2200 [facility] Last Admin: 07/10/20 21:33 Dose: 1 each Documented by: Morphine Sulfate (Morphine Sulfate) 4 mg IVPUSH Q4H PRN PRN Reason: PAIN LEVEL 6-10 Last Admin: 07/10/20 13:19 Dose: 4 mg Documented by: Mupirocin (Bactroban Ointment (For Decolonization) -) 1 applic NS BID [facility] Stop: 07/14/20 13:59 Last Admin: 07/10/20 21:32 Dose: 1 applic Documented by: Oxycodone HCl (Roxicodone -) 5 mg PO Q6H PRN PRN Reason: PAIN LEVEL 6-10 Last Admin: 07/09/20 16:51 Dose: 5 mg Documented by: Prednisone (Deltasone -) 5 mg PO BID [facility] Last Admin: 07/10/20 21:33 Dose: 5 mg Documented by: - Objective Vital Signs: Vital Signs Temperature 98.4 F 07/11/20 04:00 Pulse Rate 85 07/11/20 05:00 Respiratory Rate 23 H 07/11/20 05:00 Blood Pressure 142/100 07/11/20 05:00 O2 Sat by Pulse Oximetry (%) 100 07/11/20 05:00 Constitutional: Yes: No Distress, Calm Eyes: Yes: Conjunctiva Clear, EOM Intact HENT: Yes: Atraumatic, Normocephalic Neck: Yes: Supple, Trachea Midline Cardiovascular: Yes: Regular Rate and Rhythm Respiratory: Yes: CTA Bilaterally Gastrointestinal: Yes: Soft (nt) Edema: No Peripheral Pulses WNL: Yes Neurological: Yes: Alert, Oriented ...Motor Strength: WNL Labs: CBC, BMP 07/11/20 06:05 INR, PTT INR 0.96 (0.83-1.09) 07/09/20 07:52 Microbiology 07/09/20 07:52 Urine - Urine Clean Catch Urine Culture - Final NO GROWTH OBTAINED 07/09/20 23:20 Blood - Peripheral Venous Blood Culture - Preliminary NO GROWTH OBTAINED AFTER 24 HOURS, INCUBATION TO CONTINUE FOR 4 DAYS. 07/09/20 23:20 Blood - Peripheral Venous Blood Culture - Preliminary NO GROWTH OBTAINED AFTER 24 HOURS, INCUBATION TO CONTINUE FOR 4 DAYS. Laboratory Tests 07/11/20 07/11/20 06:05 06:05 WBC 14.1 H Hgb 9.7 L Hct 29.3 L Plt Count 95 L Sodium 140 Potassium 4.2 BUN 28.9 H Creatinine 1.6 H Calcium 8.3 L Phosphorus 5.1 H AST 43 H ALT 33 Alkaline Phosphatase 206 H - ....Imaging Cat Scan: Report Reviewed Ultrasound: Report Reviewed EKG: Image Reviewed Assessment/Plan IMP/PLAN: Hypertensive urgency, hypertensive heart disease secondary to chronic hypertension Sudden onset of severe back pain and upper chest pain, CTA C/A/P Negative for aortic dissection Rheumatoid arthritis, chronic Fever Thrombocytopenia Equivocal TnIs CKD Elevated BNP 1. Hypertensive urgency: -Was taken off Labetalol gtts yesterday AM for relative hypotension but required it again as developed severe spike in BP later in day -PO meds started by Critical care team: hold for SBP < 100mmHg 2. Sudden back pain/chest pain: -CTA negative for dissection -resolved. 3. Fever: unclear source -Cultures remain NGTD -?CAP (atelectasis seen on CT) vs COVID PNA (initial swab negative) -started on empiric abx by ID -?RA flare? -Rheum consulted -Continue ICU monitoring 4. Thrombocytopenia: may be seen in early sepsis and also be seen in flares of autoimmune diseases -Follow CBC -Rheum consulted. 5. Equivocal TnIs: -flat trend, not c/w ACS -Likely demand ischemia in setting of hypertensive urgency -Continue telemetry -Echo 07/09 with LVH, EF 50-55% and moderate AR 6. CKD: -Creatinine remains at baseline from admission with initial improvement and now back to 1.6 -Daily BMP 7. Elevated BNP: -Possible acute on chronic diastolic CHF in setting of hypertension and extra volume received -CXR with increased vascular/interstitial markings may represent volume vs atypical or viral infection -decision to diurese is now complicated by new fevers and possible sepsis picture -Would suppl O2/ avoid additional IVF fluid unless needed for BP support -May require diuresis if BP allows. -Continue ICU monitoring
[2020-07-11 07:16] LABS: ALBUMIN 2.1 g/dl (3.4-5.0); BILIRUBIN,TOTAL 0.5 mg/dL (0.2-1); BLOOD UREA NITROGEN 28.9 mg/dL (7-18); CALCIUM 8.3 mg/dL (8.5-10.1); CREATININE 1.6 mg/dL (0.55-1.3); MAGNESIUM 2.4 mg/dL (1.8-2.4); PHOSPHOROUS 5.1 mg/dL (2.5-4.9); POTASSIUM 4.2 mmol/L (3.5-5.1)
--- NOTE | 2020-07-11 08:05 | PN ---
Progress Note, Physician Chief Complaint: Hypertensive Emergency RA History of Present Illness: Previous notes and events reviewed awake and alert NAD patient denies any complaints of back pain HR controlled as per RN patient has period of confusion last night-patiently currently at baseline a&ox3 Labetolol drip for BP control afebrile-BC neg, UC, neg - Current Medication List Current Medications: Active Medications Acetaminophen (Tylenol -) 1,000 mg PO Q6H PRN PRN Reason: PAIN LEVEL 1-5 Last Admin: 07/10/20 21:55 Dose: 1,000 mg Documented by: Amlodipine Besylate (Norvasc -) 10 mg PO DAILY [facility] Last Admin: 07/10/20 11:01 Dose: 10 mg Documented by: Chlorhexidine Gluconate (Hibiclens For Decolonization -) 1 applic TP HS [facility] Last Admin: 07/10/20 21:33 Dose: 1 applic Documented by: Docusate Sodium (Colace -) 100 mg PO BID PRN PRN Reason: CONSTIPATION Famotidine (Pepcid -) 20 mg PO DAILY [facility] Last Admin: 07/10/20 09:43 Dose: 20 mg Documented by: Heparin Sodium (Porcine) (Heparin -) 5,000 unit SQ Q8H-IV [facility] Last Admin: 07/11/20 02:00 Dose: 5,000 unit Documented by: Ceftriaxone Sodium 2 gm/ (Dextrose) 100 mls @ 200 mls/hr IVPB DAILY [facility]; Protocol Last Admin: 07/10/20 12:35 Dose: 200 mls/hr Documented by: Vancomycin HCl (Vancomycin (Pre-Docked)) 1,000 mg in 250 mls @ 166.667 mls/hr IVPB BID@0100,1300 [facility]; Protocol Last Admin: 07/11/20 01:55 Dose: 166.667 mls/hr Documented by: Labetalol HCl 1,000 mg/ Sodium (Chloride) 1,000 mls @ 30 mls/hr IV TITR [facility]; Protocol Last Titration: 07/11/20 03:30 Dose: 0.5 mg/min, 30 mls/hr Documented by: Metoprolol Succinate (Toprol Xl -) 25 mg PO DAILY [facility] Last Admin: 07/10/20 09:43 Dose: 25 mg Documented by: Miscellaneous (Lidoderm Patch Removal) 1 each MC DAILY@2200 [facility] Last Admin: 07/10/20 21:33 Dose: 1 each Documented by: Morphine Sulfate (Morphine Sulfate) 4 mg IVPUSH Q4H PRN PRN Reason: PAIN LEVEL 6-10 Last Admin: 07/10/20 13:19 Dose: 4 mg Documented by: Mupirocin (Bactroban Ointment (For Decolonization) -) 1 applic NS BID [facility] Stop: 07/14/20 13:59 Last Admin: 07/10/20 21:32 Dose: 1 applic Documented by: Oxycodone HCl (Roxicodone -) 5 mg PO Q6H PRN PRN Reason: PAIN LEVEL 6-10 Last Admin: 07/09/20 16:51 Dose: 5 mg Documented by: Prednisone (Deltasone -) 5 mg PO BID [facility] Last Admin: 07/10/20 21:33 Dose: 5 mg Documented by: - Objective Vital Signs: Vital Signs Temperature 98.4 F 07/11/20 07:00 Pulse Rate 84 07/11/20 07:00 Respiratory Rate 26 H 07/11/20 07:00 Blood Pressure 140/100 07/11/20 07:00 O2 Sat by Pulse Oximetry (%) 95 07/11/20 07:00 Constitutional: Yes: No Distress, Calm Eyes: Yes: Conjunctiva Clear HENT: Yes: Atraumatic Cardiovascular: Yes: Regular Rate and Rhythm Respiratory: Yes: Regular, Diminished, On Nasal O2 Gastrointestinal: Yes: Normal Bowel Sounds, Soft, Other (nontender) Musculoskeletal: Yes: Muscle Weakness Extremities: Yes: WNL Edema: No Neurological: Yes: Alert, Oriented Psychiatric: Yes: Alert, Oriented Labs: CBC, BMP 07/11/20 06:05 07/11/20 06:05 INR, PTT INR 0.96 (0.83-1.09) 07/09/20 07:52 Microbiology 07/09/20 23:20 Blood - Peripheral Venous Blood Culture - Preliminary NO GROWTH OBTAINED AFTER 24 HOURS, INCUBATION TO CONTINUE FOR 4 DAYS. 07/09/20 23:20 Blood - Peripheral Venous Blood Culture - Preliminary NO GROWTH OBTAINED AFTER 24 HOURS, INCUBATION TO CONTINUE FOR 4 DAYS. 07/10/20 13:00 Urine For Antigen Detection Legionella Antigen - Final 07/10/20 13:00 Urine For Antigen Detection Streptococcus pneumoniae Antigen (M - Final 07/09/20 07:52 Urine - Urine Clean Catch Urine Culture - Final NO GROWTH OBTAINED Problem List - Problems (1) Elevated troponin Assessment/Plan: Cardiology on board Trop 0.13, 0.15, 0.14, 0.14 Cardiac monitoring Echo shows EF 50-55%, LV systolic function low normal, moderate concentric LVH Code(s): R79.89 - OTHER SPECIFIED ABNORMAL FINDINGS OF BLOOD CHEMISTRY (2) Arthritis, rheumatoid Assessment/Plan: Prednisone 5mg BID Pain control as ordered Rheumatology consult Code(s): M06.9 - RHEUMATOID ARTHRITIS, UNSPECIFIED (3) Hypertensive emergency Assessment/Plan: Cardiology on board Labetolol drip Troponin elevated-likely to demand ischemia Chest/Abdomen CTA shows no dissection Code(s): I16.1 - HYPERTENSIVE EMERGENCY (4) Fever Assessment/Plan: Tylenol prn for temp >100F ID on board UC neg BC neg Legionella neg CXR shows large heart, no acute disease Ceftriaxone, Vancomycin currently afebrile Code(s): R50.9 - FEVER, UNSPECIFIED (5) Confusion Assessment/Plan: Head CT scan Neurology consult neuro checks q6h Code(s): R41.0 - DISORIENTATION, UNSPECIFIED Assessment/Plan see problem list SCDs
[2020-07-11 09:33] LABS: ANISOCYTOSIS 3+; MACROCYTOSIS 0; PLATELET ESTIMATE DECREASED; TARGET CELLS 2+
--- NOTE | 2020-07-11 09:39 | PN ---
Teaching Attending Note Name of Resident: Bobby Armendariz ATTENDING PHYSICIAN STATEMENT I saw and evaluated the patient. I reviewed the resident's note and discussed the case with the resident. I agree with the resident's findings and plan as documented. SUBJECTIVE: Pt seen and examined in the ICU. Remains on labetalol gtt. Fever curve trending down. OBJECTIVE: Vital Signs Period Temp Pulse Resp BP Sys/Mcgraw Pulse Ox Last 24 Hr 98.2 F-100.4 F 84-130 23-40 125-170/92-120 92-100 Intake & Output 07/08/20 07/09/20 07/10/20 07/11/20 23:59 23:59 23:59 23:59 Intake Total 2135 1945 776 Output Total 1600 1990 650 Balance 535 -45 126 Weight 93.2 kg Gen: less tachypneic at rest Heart: tachycardic, regular, split S2 Lung: decreased breath sounds at the bases Abd: soft, nontender Ext: no edema CBC, BMP 07/11/20 06:05 07/11/20 06:05 Active Medications Acetaminophen (Tylenol -) 1,000 mg PO Q6H PRN PRN Reason: PAIN LEVEL 1-5 Last Admin: 07/10/20 21:55 Dose: 1,000 mg Documented by: Amlodipine Besylate (Norvasc -) 10 mg PO DAILY [facility] Last Admin: 07/10/20 11:01 Dose: 10 mg Documented by: Chlorhexidine Gluconate (Hibiclens For Decolonization -) 1 applic TP HS [facility] Last Admin: 07/10/20 21:33 Dose: 1 applic Documented by: Docusate Sodium (Colace -) 100 mg PO BID PRN PRN Reason: CONSTIPATION Famotidine (Pepcid -) 20 mg PO DAILY [facility] Last Admin: 07/10/20 09:43 Dose: 20 mg Documented by: Heparin Sodium (Porcine) (Heparin -) 5,000 unit SQ Q8H-IV [facility] Last Admin: 07/11/20 02:00 Dose: 5,000 unit Documented by: Ceftriaxone Sodium 2 gm/ (Dextrose) 100 mls @ 200 mls/hr IVPB DAILY [facility]; Protocol Last Admin: 07/10/20 12:35 Dose: 200 mls/hr Documented by: Vancomycin HCl (Vancomycin (Pre-Docked)) 1,000 mg in 250 mls @ 166.667 mls/hr IVPB BID@0100,1300 [facility]; Protocol Last Admin: 07/11/20 01:55 Dose: 166.667 mls/hr Documented by: Labetalol HCl 1,000 mg/ Sodium (Chloride) 1,000 mls @ 30 mls/hr IV TITR [facility]; Protocol Last Titration: 07/11/20 07:00 Dose: 0.5 mg/min, 30 mls/hr Documented by: Metoprolol Succinate (Toprol Xl -) 25 mg PO DAILY [facility] Last Admin: 07/10/20 09:43 Dose: 25 mg Documented by: Miscellaneous (Lidoderm Patch Removal) 1 each MC DAILY@2200 [facility] Last Admin: 07/10/20 21:33 Dose: 1 each Documented by: Morphine Sulfate (Morphine Sulfate) 4 mg IVPUSH Q4H PRN PRN Reason: PAIN LEVEL 6-10 Last Admin: 07/10/20 13:19 Dose: 4 mg Documented by: Mupirocin (Bactroban Ointment (For Decolonization) -) 1 applic NS BID [facility] Stop: 07/14/20 13:59 Last Admin: 07/10/20 21:32 Dose: 1 applic Documented by: Oxycodone HCl (Roxicodone -) 5 mg PO Q6H PRN PRN Reason: PAIN LEVEL 6-10 Last Admin: 07/09/20 16:51 Dose: 5 mg Documented by: Prednisone (Deltasone -) 5 mg PO BID [facility] Last Admin: 07/10/20 21:33 Dose: 5 mg Documented by: ASSESSMENT AND PLAN: Hypertensive Urgency Fever of unclear etiology Sepsis Acute Kidney Injury +Troponins likely Demand Ischemia Thrombocytopenia Rheumatoid Arthritis Anemia - continue empiric antibiotics - f/u cultures - titrate up PO BP meds - titrate off labetalol gtt - check EN, ESR, CRP - O2 to keep SpO2 >90% - monitor urine output, creatinine - can monitor on telemetry once off labetalol gtt
[2020-07-11] MEDS ORDERED: PT OWN MED DRAWER 7, Y5N ONE ×2 (09:49→20:53)
[2020-07-11] MEDS ORDERED: DEXTROSE 5%-WATER 100 ML IVPB ONE ×2 (09:50→09:51)
[2020-07-11] MEDS: CEFTRIAXONE 2 GM in DEXTROSE 5%-WATER 100 ML IVPB SCH (09:53)
[2020-07-11] MEDS: metoPROLOL SUCCINATE 25 MG TAB.SR.24H (FP) PO SCH (09:54)
[2020-07-11] MEDS: FAMOTIDINE 20 MG TABLET PO SCH (09:54)
[2020-07-11] MEDS: predniSONE 5 MG TABLET (UD) PO SCH ×2 (09:54→21:14)
--- NOTE | 2020-07-11 10:11 | PN ---
Physical Exam: SUBJECTIVE: Pt seen and examined in bed. He is no longer febrile, temp this am is 98.1F. Bp is stable. 120/81mmHg at time of exam. Labetalol IV stopped, now on 200mg PO tid Vital Signs Period Temp Pulse Resp BP Sys/Mcgraw Pulse Ox Last 24 Hr 98.2 F-100.1 F 84-130 23-40 125-170/93-120 92-100 REVIEW OF SYSTEMS CONSTITUTIONAL: Absent: fever, chills, diaphoresis HEENT: Absent: rhinorrhea, nasal congestion, throat pain CARDIOVASCULAR: Absent: chest pain, palpitations, irregular heart rate, peripheral edema RESPIRATORY: Absent: cough, shortness of breath GASTROINTESTINAL: Absent: abdominal pain, abdominal distension, nausea, vomiting, diarrhea, constipation, melena, hematochezia GENITOURINARY: Absent: dysuria, frequency, urgency, hematuria, MUSCULOSKELETAL: Absent: myalgia, arthralgia, joint swelling, back pain, neck pain SKIN: Absent: rash, itching, pallor HEMATOLOGIC/IMMUNOLOGIC: Absent: easy bleeding, easy bruising, lymphadenopathy, frequent infections NEUROLOGIC: Absent: headache, focal weakness or paresthesia PSYCHIATRIC: Absent: depression, suicidal or homicidal ideation, hallucinations. GENERAL: The patient is awake, alert, and fully oriented, in no acute distress. On O2 by nasal canula HEAD: Normal with no signs of trauma. EYES: PERRL, extraocular movements intact, sclera anicteric, conjunctiva clear. No ptosis. ENT: Ears normal, nares patent, oropharynx clear without exudates, moist mucous membranes. NECK: Trachea midline, full range of motion, supple. LUNGS: Mild decrease in BS at lung bases, clear to auscultation bilaterally, no wheezes, no crackles, no accessory muscle use. HEART: Regular rate and rhythm, S1, S2 without murmur, rub or gallop. Mild tachypneic HR: 91/m ABDOMEN: Soft, nontender, nondistended, normoactive bowel sounds, no guarding, no rebound, no hepatosplenomegaly, no masses. EXTREMITIES: 2+ pulses, warm, well-perfused, no edema. NEUROLOGICAL: AAOX3, Normal speech, PSYCH: Normal mood, normal affect. SKIN: Warm, dry, normal turgor, no rashes or lesions noted Laboratory Results - last 24 hr 07/11/20 07/11/20 06:05 06:05 WBC 14.1 H RBC 4.39 Hgb 9.7 L Hct 29.3 L MCV 66.8 L MCH 22.2 L MCHC 33.2 RDW 23.5 H Plt Count 95 L MPV 8.5 Absolute Neuts (auto) 12.7 H Neutrophils % 89.8 H D Neutrophils % (Manual) 93.9 H Band Neutrophils % 0.0 Lymphocytes % 1.6 L D Lymphocytes % (Manual) 2.0 L D Monocytes % 7.9 Monocytes % (Manual) 4 Eosinophils % 0.3 Eosinophils % (Manual) 0.0 Basophils % 0.4 Basophils % (Manual) 0.0 Myelocytes % (Man) 0 Promyelocytes % (Man) 0 Blast Cells % (Manual) 0 Nucleated RBC % 8 H Metamyelocytes 0 Hypochromia 0 Platelet Estimate Decreased Polychromasia 0 Poikilocytosis 2+ Anisocytosis 3+ Microcytosis 3+ Macrocytosis 0 Target Cells 2+ Sodium 140 Potassium 4.2 Chloride 109 H Carbon Dioxide 22 Anion Gap 8 BUN 28.9 H Creatinine 1.6 H Est GFR (CKD-EPI)AfAm 63.30 Est GFR (CKD-EPI)NonAf 54.61 Random Glucose 149 H Calcium 8.3 L Phosphorus 5.1 H Magnesium 2.4 Total Bilirubin 0.5 AST 43 H ALT 33 Alkaline Phosphatase 206 H Total Protein 6.0 L Albumin 2.1 L Active Medications Generic Name Dose Route Start Last Admin Trade Name Freq PRN Reason Stop Dose Admin Acetaminophen 1,000 mg 07/09/20 14:04 07/10/20 21:55 Tylenol - PO 1,000 mg Q6H PRN Administration PAIN LEVEL 1-5 Amlodipine Besylate 10 mg 07/10/20 10:00 07/10/20 11:01 Norvasc - PO 10 mg DAILY TANMAY Administration Chlorhexidine Gluconate 1 applic 07/09/20 22:00 07/10/20 21:33 Hibiclens For Decolonization - TP 1 applic HS TANMAY Administration Docusate Sodium 100 mg 07/09/20 14:50 Colace - PO BID PRN CONSTIPATION Famotidine 20 mg 07/09/20 14:15 07/11/20 09:54 Pepcid - PO 20 mg DAILY TANMAY Administration Heparin Sodium (Porcine) 5,000 unit 07/09/20 12:15 07/11/20 09:54 Heparin - SQ 5,000 unit Q8H-IV TANMAY Administration Ceftriaxone Sodium 2 gm/ 100 mls @ 200 mls/hr 07/10/20 12:15 07/11/20 09:53 Dextrose IVPB 200 mls/hr DAILY TANMAY Administration Protocol Vancomycin HCl 1,000 mg in 250 mls @ 166.667 mls/hr 07/10/20 13:00 07/11/20 01:55 Vancomycin (Pre-Docked) IVPB 166.667 mls/hr BID@0100,1300 TANMAY Administration Protocol Labetalol HCl 1,000 mg/ Sodium 1,000 mls @ 30 mls/hr 07/10/20 15:30 07/11/20 07:00 Chloride IV 0.5 mg/min TITR TANMAY 30 mls/hr Titration Protocol 0.5 MG/MIN Labetalol HCl 200 mg 07/11/20 10:00 Normodyne - PO TID [facility] Miscellaneous 1 each 07/09/20 22:00 07/10/20 21:33 Lidoderm Patch Removal MC 1 each DAILY@2200 TANMAY Administration Morphine Sulfate 4 mg 07/09/20 14:31 07/10/20 13:19 Morphine Sulfate IVPUSH 4 mg Q4H PRN Administration PAIN LEVEL 6-10 Mupirocin 1 applic 07/09/20 14:00 07/10/20 21:32 Bactroban Ointment (For Decolonization) - NS 07/14/20 13:59 1 applic BID TANMAY Administration Oxycodone HCl 5 mg 07/09/20 16:24 07/09/20 16:51 Roxicodone - PO 5 mg Q6H PRN Administration PAIN LEVEL 6-10 Prednisone 5 mg 07/09/20 22:00 07/11/20 09:54 Deltasone - PO 5 mg BID TANMAY Administration ASSESSMENT/PLAN: Neuro: AAOX3 RENAL: BRADLEY on CKD likely 2/2 HTN emergency or contrast induced or shelter Rheumatoid arthritis -Proteinuria likely 2/2 hypertension -Patient has been noncompliance with BP meds, worsening HTN effect on kidneys -BUN/Cr 28.9/1.6 -Ca 8.3. PO4 5.1. Urine pr 203. Pr/Cr: 4.1 -Nephrology consulted and recommendations below made. -Agree with plan to switch from iv to po labetalol -Continued monitoring of renal function urine protein and creat, urine sodium -Recommends Hep panel -Might need kidney biopsy to R/O membranous or focal segmental glomerulosclerosis -Avoid nephrotoxins and further drops in BP for now. Cardio HTNsive emergency with BRADLEY HTNsive resolved with transion from labetalol drip to labetalol PO Trop I: likely 2/2 demand ischaemia EKG: suggest SINUS TACHYCARDIA VOLTAGE CRITERIA FOR LEFT VENTRICULAR HYPERTROPHY NONSPECIFIC ST AND T WAVE ABNORMALITY Heme: #Anemia: 2/2 CKD -Hgb/Hct 07/11/2020: 9.7/29.3 -Thrombocytopenia ID -Fever of unknown origin resolving, temp now 98.1 -COVID negative -Ceftriaxone 1 gram -Repeat CBC Q8H: next ordered, F/U result -Continue empiric antibiotic Pulm -No complaints -Mild reduction in BS B/L -Keep SpO2 >90% GI No complaint. Patient on pepcid 20mg daily Immunology: Rheumatoid Arthritis on Rx: Prednisone 5mg bid Check EN, ESR, CRP, RF: Ordered. f/u pending result DVT PPX -Heparin 5000iu Q8H FEN: Monitor lytes and replete prn NPO DISPO Labetalol switched to 200mg PO tid Downgrade to Tele and continue to monitor BP Visit type - Emergency Visit Emergency Visit: No - New Patient This patient is new to me today: Yes Date on this admission: 07/11/20 - Critical Care Critical Care patient: Yes Total Critical Care Time (in minutes): 40 Critical Care Statement: The care of this patient involved high complexity decision making to prevent further life threatening deterioration of the patient's condition and/or to evaluate & treat vital organ system(s) failure or risk of failure. ATTENDING PHYSICIAN STATEMENT I saw and evaluated the patient. I reviewed the resident's note and discussed the case with the resident. I agree with the resident's findings and plan as documented. SUBJECTIVE: OBJECTIVE: ASSESSMENT AND PLAN:
--- NOTE | 2020-07-11 10:13 | CON.NEP ---
Consult Consult Specialty:: nephrology Reason for Consultation:: bradley - History of Present Illness History of Present Illness: Patient is a 34 y/o male with past medical history of HTN, RA, and bilateral knee surgery and hip surgery. he does not take nsaids but does take chronic p rednisone. He presented to [facility] ER with complaints of acute onset lower back pain. The pain woke him up from his sleep and described as sharp and 8/10. Also had some pleuritic chest pain. Incidentally in ER noted with BP 200s/100s. Patient was evaluated by Cardiology and admitted to ICU for Hypertensive Emergency. Chest/Abdominal CTA neg for dissection. He was started on Labetolol drip for BP control. Dr power is his primary but he has not seen him in over a year - Past Medical History BAKER BREAD: No: Alzheimer's, CVA, Dementia, Migraine, Multiple Sclerosis, Peripheral Neuropathy, Parkinson's, Seizure, Syncope, TIA, Vertigo, Other Cardio/Vascular: Yes: HTN Gastrointestinal: No: Ascites, Cancer, Constipation, Crohn's Disease, Diverticulitis, Diverticulosis, Esophageal Varices, Gastritis, GERD, GI Bleed, Hemorrhoids, Hiatal Hernia, Inflamatory Bowel Disease, Irritable Bowel Disease, Pancreatitis, Peptic Ulcer Disease, Ulcerative Colitis, Other Hepatobiliary: No: Cirrhosis, Cholelithiasis, Cholecystitis, Choledocholithiasis, Hepatitis A, Hepatitis B, Hepatitis C, Other Renal/: No: Renal Failure, Renal Inusuff, BPH, Cancer, Hematuria, Hemodialys is, Neurogenic Bladder, Renal Calculi, UTI, Other Infectious Disease: No: AIDS, C-Diff, Herpes Zoster, HIV, MRSA, STD's, Tuberculosis, VREF, Other Psych: No: Addictions, Anxiety, Bipolar, Depression, Panic, Psychosis, Schizophrenia, Other Musculoskeletal: No: Bursitis, Chronic low back pain, Hemiparesis, Hemiplegia, Osteoarthritis, Paraplegia, Other Rheumatology: Yes: Rheumatoid Arthritis ENT: No: Allergic Rhinitis, Sinusitis, Other Endocrine: No: Trevin's Disease, Giselle's Disease, Diabetes Insipidus, Diabetes Mellitus, Hyperparathyroidism, Hyperthyroidism, Hypothyroidism, Osteopenia, SIADH, Other Dermatology: No: Basal Cell, Cellulitis, Eczema, Melanoma, Psoriasis, Squamous Cell, Other - Past Surgical History Past Surgical History: Yes: Joint Replacement - Alcohol/Substance Use Hx Alcohol Use: No History of Substance Use: reports: None - Smoking History Smoking history: Never smoked Have you smoked in the past 12 months: No Aproximately how many cigarettes per day: 0 - Social History History of Recent Travel: No Home Medications - Allergies Allergies/Adverse Reactions: Allergies Allergy/AdvReac Type Severity Reaction Status Date / Time No Known Allergies Allergy Verified 07/09/20 06:37 - Home Medications Home Medications: Ambulatory Orders Acetaminophen [Tylenol] 500 mg PO BID 05/02/17 predniSONE [Deltasone -] 5 mg PO BID 05/02/17 Amlodipine Besylate [Norvasc -] 10 mg PO DAILY #30 tablet 05/06/17 Metoprolol Succinate 25 mg PO DAILY 07/09/20 Family Medical History Family History: Unremarkable (denies early hx CAD or SCD; no hx of aortic aneurysm or dissection) Review of Systems - Review of Systems Constitutional: reports: No Symptoms Eyes: reports: No Symptoms HENT: reports: No Symptoms Neck: reports: No Symptoms Cardiovascular: reports: Chest Pain Respiratory: reports: SOB Gastrointestinal: reports: No Symptoms Genitourinary: reports: No Symptoms Breasts: reports: No Symptoms Reported Musculoskeletal: reports: Joint Pain, Joint Swelling Integumentary: reports: No Symptoms Neurological: reports: No Symptoms Endocrine: reports: No Symptoms Hematology/Lymphatic: reports: No Symptoms Psychiatric: reports: No Symptoms Nephrology Consult - Height Height: 5 ft 8 in - Weight Weight: 205 lb 7.533 oz - BMI Body Mass Index (BMI): 31.2 - Lab Results CBC,BMP: CBC, BMP 07/11/20 06:05 07/11/20 06:05 Anion Gap: Anion Gap Anion Gap 8 MMOL/L (8-16) 07/11/20 06:05 - Imaging X-ray: Report Reviewed Cat Scan: Report Reviewed - Physical Examination Vital Signs: Vital Signs Temperature 98.4 F 07/11/20 07:00 Pulse Rate 85 07/11/20 08:00 Respiratory Rate 25 H 07/11/20 08:00 Blood Pressure 141/98 07/11/20 08:00 O2 Sat by Pulse Oximetry (%) 98 07/11/20 08:16 Constitutional: Yes: Well Nourished, No Distress, Calm Eyes: Yes: Conjunctiva Clear, EOM Intact HENT: Yes: Atraumatic, Normocephalic Neck: Yes: Supple, Trachea Midline Cardiovascular: Yes: Regular Rate and Rhythm Respiratory: Yes: Regular, CTA Bilaterally Gastrointestinal: Yes: Normal Bowel Sounds Musculoskeletal: Yes: WNL Extremities: Yes: Other (has thickening of his fingers and lateral displacement) Edema: No Integumentary: Yes: WNL Wound/Incision: Yes: Clean/Dry Neurological: Yes: Alert, Oriented Psychiatric: Yes: Alert, Oriented Assessment/Plan IMPRESSION BRADLEY on CKD- BRADLEY maybe from contrast, from lowering of BP or from uncontrolled BP itself Hypertensive emergency rheumatoid arthritis proteinuria may be due to hypertension vs meds for RA noncompliance with hypertension management PLAN agree with trying to switch from iv to po labetalol monitor renal function urine protein and creat urine sodium hep panel might need kidney biopsy- r/o membranous or fsgs avoid nephrotoxins and further drops in BP for now MV
[2020-07-11] MEDS: amLODIPine BESYLATE 10 MG TABLET (FP) PO SCH (10:29)
[2020-07-11] MEDS: MUPIROCIN 2% TOPICAL OINTMENT FOR DECOLONIZATION NS SCH ×2 (10:30→21:14)
[2020-07-11] MEDS: LABETALOL HCL 200 MG TABLET (FP) PO SCH ×3 (10:30→21:14)
--- NOTE | 2020-07-11 10:31 | CONSULT ---
Consult - text type - Consultation Consultation Note: Neurology - Admission Chief Complaint: Bilateral lower back pain History of Present Illness: Patient is a 34 y/o male with past medical history of HTN, RA, and bilateral knee surgery. He presented to [facility] ER with complaints of acute onset lower back pain on day of admission. The pain woke him up from his sleep and described as sharp and 8/10. Incidentally in ER noted with BP 200s/100s. Patient was evaluated by Cardiology and admitted to ICU for Hypertensive Emergency. Chest/Abdominal CTA indicated neg for dissection He was started on Labetolol drip for BP control. 07/10/20 on exam noted to be febrile tmax 103.2F, received Tylenol IVPB. Tachypneic, but denies chest pain, SOB, palpitations. Urine collected for UA/CS, blood cultures collected, and CXR done with results pending. Noted with Leukocytosis WBC 10.5. BP on exam controlled with tachycardia HR 110s. Echocardiogram indicates moderate concentric left ventircular hypertrophy, EF 50-55%; moderate aoritic regurgitation, no pericardia effusion. Head CT indicates no evidence of acute intracranial pathology. Lumbar/sacral CT shows intact vertebral bodies iwth patient SI joints, bilateral hip replacements, soft tissue calcifications and vertebral wedging seen in the lower thoracic spice. Discussed with SWITCH ENGINEER and patient BP improving and with improved mental status. Now able to tell me he's in the hospital, month, and year. Fatigued appearing. AMS possibly 2/2 hypertensive encephalopathy which is being treated with Labetolol drip in ICU. 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: Alzheimer's, CVA, Dementia, Migraine, Multiple Sclerosis, Peripheral Neuropathy, Parkinson's, Seizure, Syncope, TIA, Vertigo, Other Cardiovascular: Yes: HTN Gastrointestinal: No: Ascites, Cancer, Constipation, Crohn's Disease, Diverticulitis, Diverticulosis, Esophageal Varices, Gastritis, GERD, GI Bleed, Hemorrhoids, Hiatal Hernia, Inflamatory Bowel Disease, Irritable Bowel Disease, Pancreatitis, Peptic Ulcer Disease, Ulcerative Colitis, Other Hepatobiliary: No: Cirrhosis, Cholelithiasis, Cholecystitis, Choledocho lithiasis, Hepatitis A, Hepatitis B, Hepatitis C, Other Renal/: No: Renal Failure, Renal Inusuff, BPH, Cancer, Hematuria, Hemodialysis, Neurogenic Bladder, Renal Calculi, UTI, Other Heme/Onc: No: Anemia, B12 Deficiency, Bleeding Disorder, Cancer, Current Chemotherapy, Current Radiation Therapy, Hemochromatosis, Hypercoaguable State, Myeloproliferative Synd, Sickle Cell Disease, Sickle Cell Trait, Thrombocytopenia, Other Infectious Disease: No: AIDS, C-Diff, Herpes Zoster, HIV, MRSA, STD's, Tuberculosis, VREF, Other Psych: No: Addictions, Anxiety, Bipolar, Depression, Panic, Psychosis, Schizophrenia, Other Musculoskeletal: No: Bursitis, Chronic low back pain, Hemiparesis, Hemiplegia, Osteoarthritis, Paraplegia, Other Rheumatology: Yes: Rheumatoid Arthritis ENT: No: Allergic Rhinitis, Sinusitis, Other Endocrine: No: Trevin's Disease, Giselle's Disease, Diabetes Insipidus, Diabetes Mellitus, Hyperparathyroidism, Hyperthyroidism, Hypothyroidism, Osteopenia, SIADH, Other Dermatology: No: Basal Cell, Cellulitis, Eczema, Melanoma, Psoriasis, Squamous Cell, Other - Smoking History Smoking history: Never smoked Have you smoked in the past 12 months: No Aproximately how many cigarettes per day: 0 - Alcohol/Substance Use Hx Alcohol Use: No History of Substance Use: reports: None - Social History Usual Living Arrangement: Yes: With Spouse History of Recent Travel: No Family Medical History Family History: Unremarkable (denies early hx CAD or SCD; no hx of aortic aneurysm or dissection) Allergies Allergy/AdvReac Type Severity Reaction Status Date / Time No Known Allergies Allergy Verified 07/09/20 06:37 Ambulatory Orders Acetaminophen [Tylenol] 500 mg PO BID 05/02/17 predniSONE [Deltasone -] 5 mg PO BID 05/02/17 Amlodipine Besylate [Norvasc -] 10 mg PO DAILY #30 tablet 05/06/17 Metoprolol Succinate 25 mg PO DAILY 07/09/20 Active Medications Acetaminophen (Tylenol -) 1,000 mg PO Q6H PRN PRN Reason: PAIN LEVEL 1-5 Last Admin: 07/10/20 21:55 Dose: 1,000 mg Documented by: Amlodipine Besylate (Norvasc -) 10 mg PO DAILY [facility] Last Admin: 07/11/20 10:29 Dose: 10 mg Documented by: Chlorhexidine Gluconate (Hibiclens For Decolonization -) 1 applic TP HS [facility] Last Admin: 07/10/20 21:33 Dose: 1 applic Documented by: Docusate Sodium (Colace -) 100 mg PO BID PRN PRN Reason: CONSTIPATION Famotidine (Pepcid -) 20 mg PO DAILY [facility] Last Admin: 07/11/20 09:54 Dose: 20 mg Documented by: Heparin Sodium (Porcine) (Heparin -) 5,000 unit SQ Q8H-IV [facility] Last Admin: 07/11/20 09:54 Dose: 5,000 unit Documented by: Ceftriaxone Sodium 2 gm/ (Dextrose) 100 mls @ 200 mls/hr IVPB DAILY [facility]; Protoc ol Last Admin: 07/11/20 09:53 Dose: 200 mls/hr Documented by: Vancomycin HCl (Vancomycin (Pre-Docked)) 1,000 mg in 250 mls @ 166.667 mls/hr IVPB BID@0100,1300 [facility]; Protocol Last Admin: 07/11/20 01:55 Dose: 166.667 mls/hr Documented by: Labetalol HCl 1,000 mg/ Sodium (Chloride) 1,000 mls @ 30 mls/hr IV TITR [facility]; Protocol Last Titration: 07/11/20 10:00 Dose: 0 mg/min, 0 mls/hr Documented by: Labetalol HCl (Normodyne -) 200 mg PO TID [facility] Last Admin: 07/11/20 10:30 Dose: 200 mg Documented by: Miscellaneous (Lidoderm Patch Removal) 1 each MC DAILY@2200 [facility] Last Admin: 07/10/20 21:33 Dose: 1 each Documented by: Morphine Sulfate (Morphine Sulfate) 4 mg IVPUSH Q4H PRN PRN Reason: PAIN LEVEL 6-10 Last Admin: 07/10/20 13:19 Dose: 4 mg Documented by: Mupirocin (Bactroban Ointment (For Decolonization) -) 1 applic NS BID [facility] Stop: 07/14/20 13:59 Last Admin: 07/11/20 10:30 Dose: 1 applic Documented by: Oxycodone HCl (Roxicodone -) 5 mg PO Q6H PRN PRN Reason: PAIN LEVEL 6-10 Last Admin: 07/09/20 16:51 Dose: 5 mg Documented by: Prednisone (Deltasone -) 5 mg PO BID [facility] Last Admin: 07/11/20 09:54 Dose: 5 mg Documented by: REVIEW OF SYSTEMS: CONSTITUTIONAL: Absent: fever, chills, diaphoresis, generalized weakness, malaise, loss of appetite, weight change HEENT: Absent: rhinorrhea, nasal congestion, throat pain, throat swelling, difficulty swallowing, mouth swelling, ear pain, eye pain, visual changes CARDIOVASCULAR: Absent: chest pain, syncope, palpitations, irregular heart rate, lightheadedness, peripheral edema RESPIRATORY: Absent: cough, shortness of breath, dyspnea with exertion, orthopnea, wheezing, stridor, hemoptysis GASTROINTESTINAL: abdominal pain Absent: , abdominal distension, nausea, vomiting, diarrhea, constipation, melena, hematochezia GENITOURINARY: Absent: dysuria, frequency, urgency, hesitancy, hematuria, flank pain, genital pain MUSCULOSKELETAL: back pain, joint paint Absent: myalgia, arthralgia, joint swelling, neck pain SKIN: Absent: rash, itching, pallor HEMATOLOGIC/IMMUNOLOGIC: Absent: easy bleeding, easy bruising, lymphadenopathy, frequent infections ENDOCRINE: Absent: unexplained weight gain, unexplained weight loss, heat intolerance, cold intolerance NEUROLOGIC: Absent: headache, focal weakness or paresthesias, dizziness, unsteady gait, seizure, mental status changes, bladder or bowel incontinence PSYCHIATRIC: Absent: anxiety, depression, suicidal or homicidal ideation, hallucinations. PHYSICAL EXAMINATION Vital Signs Period Temp Pulse Resp BP Sys/Mcgraw Pulse Ox Last 24 Hr 98.2 F-100.1 F 84-130 23-40 125-170/93-120 92-100 GENERAL: Awake, alert, and fully oriented, in acute distress. HEAD: Normal with no signs of trauma. EYES: Pupils equal, round and reactive to light, extraocular movements intact, sclera anicteric, conjunctiva clear. No lid lag. EARS, NOSE, THROAT: Ears normal, nares patent, oropharynx clear without exudates. Moist mucous membranes. NECK: Normal range of motion, supple without lymphadenopathy, JVD, or masses. LUNGS: Breath sounds equal, clear to auscultation bilaterally. No wheezes, and no crackles. No accessory muscle use. HEART: Regular rate and rhythm, normal S1 and S2 without murmur, rub or gallop. ABDOMEN: Soft, nontender, not distended, normoactive bowel sounds, no guarding, no rebound, no masses. No hepatomegaly or splenomegaly. MUSCULOSKELETAL: Pain with back flexion/extension and rotation. No bony deformities or tenderness. No CVA tenderness. UPPER EXTREMITIES: 2+ pulses, warm, well-perfused. No cyanosis. No clubbing. Cap refill <2 seconds. No peripheral edema. LOWER EXTREMITIES: 2+ pulses, warm, well-perfused. No calf tenderness. No periph eral edema. NEUROLOGICAL: Cranial nerves II-XII intact. Normal speech. Normal gait. PSYCHIATRIC: Cooperative. Good eye contact. Appropriate mood and affect. SKIN: Warm, dry, normal turgor, no rashes or lesions noted. CBCD WBC 14.1 K/mm3 (4.0-10.0) H 07/11/20 06:05 RBC 4.39 M/mm3 (4.00-5.60) 07/11/20 06:05 Hgb 9.7 GM/dL (11.7-16.9) L 07/11/20 06:05 Hct 29.3 % (35.4-49) L 07/11/20 06:05 MCV 66.8 fl (80-96) L 07/11/20 06:05 MCHC 33.2 g/dl (32.0-35.9) 07/11/20 06:05 RDW 23.5 % (11.9-15.9) H 07/11/20 06:05 Plt Count 95 K/MM3 (134-434) L 07/11/20 06:05 MPV 8.5 fl (7.5-11.1) 07/11/20 06:05 CMP Sodium 140 mmol/L (136-145) 07/11/20 06:05 Potassium 4.2 mmol/L (3.5-5.1) 07/11/20 06:05 Chloride 109 mmol/L (98-107) H 07/11/20 06:05 Carbon Dioxide 22 mmol/L (21-32) 07/11/20 06:05 Anion Gap 8 MMOL/L (8-16) 07/11/20 06:05 BUN 28.9 mg/dL (7-18) H 07/11/20 06:05 Creatinine 1.6 mg/dL (0.55-1.3) H 07/11/20 06:05 Random Glucose 149 mg/dL (74-106) H 07/11/20 06:05 Calcium 8.3 mg/dL (8.5-10.1) L 07/11/20 06:05 Total Bilirubin 0.5 mg/dL (0.2-1) 07/11/20 06:05 AST 43 U/L (15-37) H 07/11/20 06:05 ALT 33 U/L (13-61) 07/11/20 06:05 Alkaline Phosphatase 206 U/L (45-117) H 07/11/20 06:05 Total Protein 6.0 g/dl (6.4-8.2) L 07/11/20 06:05 Albumin 2.1 g/dl (3.4-5.0) L 07/11/20 06:05 CARDIAC ENZYMES Creatine Kinase 102 U/L (26-308) 07/09/20 07:52 Troponin I 0.14 ng/ml (0.00-0.05) H 07/09/20 23:20 Plan/Assessment: Patient is a 34 y/o male with past medical history of HTN, RA, and bilateral knee surgery. He presented to [facility] ER with complaints of acute onset lower back pain on day of admission. The pain woke him up from his sleep and described as sharp and 8/10. Incidentally in ER noted with BP 200s/100s. Patient was evaluated by Cardiology and admitted to ICU for Hypertensive Emergency. Chest/Abdominal CTA indicated neg for dissection He was started on Labetolol drip for BP control. 07/10/20 on exam noted to be febrile tmax 103.2F, received Tylenol IVPB. Tachypneic, but denies chest pain, SOB, palpitations. Urine collected for UA/CS, blood cultures collected, and CXR done with results pending. Noted with Leukocytosis WBC 10.5. BP on exam controlled with tachycardia HR 110s. Echocardiogram indicates moderate concentric left ventircular hypertrophy, EF 50-55%; moderate aoritic regurgitation, no pericardia effusion. Head CT indicates no evidence of acute intracranial pathology. Lumbar/sacral CT shows intact vertebral bodies iwth patient SI joints, bilateral hip replacements, soft tissue calcifications and vertebral wedging seen in the lower thoracic spice. Discussed with SWITCH ENGINEER and patient BP improving and with improved mental status. Now able to tell me he's in the hospital, month, and year. Fatigued appearing. AMS possibly 2/2 hypertensive encephalopathy which is being treated with Labetolol drip in ICU. Conitinue to monitor mental status, gradual reductions in BP. Frequuent reorientation. Continued close monitoring in ICU. Critical care time 40 mins.
[2020-07-11 11:21] VITALS: BMI 31.1
[2020-07-11] MEDS: DOCUSATE SODIUM 100 MG CAPSULE (FP) PO PRN (19:10)
[2020-07-11] MEDS: CHLORHEXIDINE GLUCONATE 4% CLEANSER FOR DECOLONIZATION TP SCH (21:14)
[2020-07-11] MEDS: morphine SULFATE 4 MG/ML VIAL IVPUSH PRN (22:01)
--- NOTE | 2020-07-12 01:12 | CONSULT ---
Consult Consult Specialty:: Rheumatology - History of Present Illness History of Present Illness: 34 y/o male with past medical history of RA, craniocervical junction stenosis, HTN with previous episodes of uncontrolled BP, fci history of proteinuria and bilateral knee surgery, admitted with pleuritic chest pain radiated to the back and uncontrolled hypertension. HPI. The patient reports he woke up with severe pleuritic chest pain and shortness of breath. In the ER he was found to have a BP of 168/119 and was admitted to the ICU for management. Chest/Abdominal CTA was negative for diss ection. . He was started on Labetolol drip for BP control. On admission creatinine was 1.3 and today 1.6. Urinalysis with protein 4+. CT: right basal atelectasis, no acute pathology. RA. Seropositive rheumatoid arthritis since 1999. The patient has not been compliant with follow up outpatient and with medications. He was treated initially with Methotrexate and Humira for 1 year. I saw as hospital consult in 2012 and in my office in 2017. On the last visit I prescribed Leflunomide which he discontinued after a short period of time. 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 At the present time he is only on Prednisone 5 mg/d and Acetaminophen. He reports he has only mild joint pain in hands and no morning stiffness. Laboratory work-up from 04/23/17 revealed EN, rheumatoid factor and CCP positive at high levels. 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 On this admission Rheumatoid factor 584. X rays of hands (03/22/17) revealed both wrists with multiple erosions and narrowing of joints spaces with collapse of carpus. In the left hand all MCPs were subluxed and erosion in 2nd MCP. Narrowing of PIPs and DIPs with no erosions. In summary, the patient has severe joint damage related to rheumatoid arthritis. - History Source History Provided By: Patient, Medical Record - Past Medical History BUSINESS JOB TITLES: No: Alzheimer's, CVA, Dementia, Migraine, Multiple Sclerosis, Peripheral Neuropathy, Parkinson's, Seizure, Syncope, TIA, Vertigo, Other Cardio/Vascular: Yes: HTN Gastrointestinal: No: Ascites, Cancer, Constipation, Crohn's Disease, Diverticulitis, Diverticulosis, Esophageal Varices, Gastritis, GERD, GI Bleed, Hemorrhoids, Hiatal Hernia, Inflamatory Bowel Disease, Irritable Bowel Disease, Pancreatitis, Peptic Ulcer Disease, Ulcerative Colitis, Other Hepatobiliary: No: Cirrhosis, Cholelithiasis, Cholecystitis, Choledocholithiasis, Hepatitis A, Hepatitis B, Hepatitis C, Other Renal/: No: Renal Failure, Renal Inusuff, BPH, Cancer, Hematuria, Hemodialysi s, Neurogenic Bladder, Renal Calculi, UTI, Other Infectious Disease: No: AIDS, C-Diff, Herpes Zoster, HIV, MRSA, STD's, Tuberculosis, VREF, Other Psych: No: Addictions, Anxiety, Bipolar, Depression, Panic, Psychosis, Schizophrenia, Other Musculoskeletal: No: Bursitis, Chronic low back pain, Hemiparesis, Hemiplegia, Osteoarthritis, Paraplegia, Other Rheumatology: Yes: Rheumatoid Arthritis ENT: No: Allergic Rhinitis, Sinusitis, Other Endocrine: No: Trevin's Disease, [place]'s Disease, Diabetes Insipidus, Diabetes Mellitus, Hyperparathyroidism, Hyperthyroidism, Hypothyroidism, Osteopenia, SIADH, Other Dermatology: No: Basal Cell, Cellulitis, Eczema, Melanoma, Psoriasis, Squamous Cell, Other - Past Surgical History Past Surgical History: Yes: Joint Replacement - Alcohol/Substance Use Hx Alcohol Use: No History of Substance Use: reports: None - Smoking History Smoking history: Never smoked Have you smoked in the past 12 months: No Aproximately how many cigarettes per day: 0 - Social History History of Recent Travel: No Home Medications - Allergies Allergies/Adverse Reactions: Allergies Allergy/AdvReac Type Severity Reaction Status Date / Time No Known Allergies Allergy Verified 07/09/20 06:37 - Home Medications Home Medications: Ambulatory Orders Acetaminophen [Tylenol] 500 mg PO BID 05/02/17 predniSONE [Deltasone -] 5 mg PO BID 05/02/17 Amlodipine Besylate [Norvasc -] 10 mg PO DAILY #30 tablet 05/06/17 Metoprolol Succinate 25 mg PO DAILY 07/09/20 Family Medical History Family History: Unremarkable (denies early hx CAD or SCD; no hx of aortic aneurysm or dissection) Physical Exam Vital Signs: Vital Signs Temperature 99.3 F 07/11/20 20:00 Pulse Rate 99 H 07/11/20 20:00 Respiratory Rate 28 H 07/11/20 21:00 Blood Pressure 144/100 07/11/20 20:00 O2 Sat by Pulse Oximetry (%) 96 07/11/20 21:00 Constitutional: Yes: Mild Distress Eyes: Yes: WNL HENT: Yes: WNL Neck: Yes: WNL Cardiovascular: Yes: WNL Respiratory: Yes: WNL Musculoskeletal: Yes: Other (Swelling of wrist, MCP's and PIP's in both hands.) Labs: CBC, BMP 07/11/20 06:05 07/11/20 06:05 Problem List - Problems (1) Hypertension Assessment/Plan: Uncontrolled hypertension. Proteinuria and elevated creatinine probably secondary to hypertension. Code(s): I10 - ESSENTIAL (PRIMARY) HYPERTENSION Qualifiers: Hypertension type: unspecified Qualified Code(s): I10 - Essential (primary) hypertension (2) Arthritis, rheumatoid Assessment/Plan: Seropositive rheumatoid arthritis, very active with severe damage in multiple zay ints. The patient has not been compliant with medications and medical follow up for many years. I emphasized to the patient and his the importance of adequate treatment. He should be follow as outpatient. Code(s): M06.9 - RHEUMATOID ARTHRITIS, UNSPECIFIED
[2020-07-12] MEDS: VANCOMYCIN 1 GRAM (PRE-DOCKED) 1,000 MG/250 ML BAG IVPB SCH ×2 (02:07→14:13)
[2020-07-12] MEDS: HEPARIN NA (PORCINE) 5,000 UNITS/ML 1ML VIAL SQ SCH ×3 (02:08→17:58)
[2020-07-12] MEDS: LABETALOL HCL 200 MG TABLET (FP) PO SCH ×3 (06:36→21:41)
[2020-07-12 06:41] LABS: HEMATOCRIT 28.3 % (35.4-49); HEMOGLOBIN 9.3 GM/dL (11.7-16.9); MEAN CELL VOLUME 66.6 fl (80-96); MEAN PLT VOLUME 8.5 fl (7.5-11.1); PLATELET COUNT 117 K/MM3 (134-434); RBC 4.25 M/mm3 (4.00-5.60); RDW 23.5 % (11.9-15.9); WHITE BLOOD COUNT 13.8 K/mm3 (4.0-10.0)
[2020-07-12] MEDS ORDERED: MECLIZINE HCL 25 MG TABLET (FP) PO ONE (07:00)
[2020-07-12 07:15] LABS: ALBUMIN 2.1 g/dl (3.4-5.0); BILIRUBIN,TOTAL 0.6 mg/dL (0.2-1); BLOOD UREA NITROGEN 36.6 mg/dL (7-18); CALCIUM 8.6 mg/dL (8.5-10.1); CREATININE 1.6 mg/dL (0.55-1.3); POTASSIUM 4.9 mmol/L (3.5-5.1); TOT PROT 6.1 g/dl (6.4-8.2)
[2020-07-12] MEDS ORDERED: ONDANSETRON 4 MG/2 ML VIAL IVPUSH ONE (08:58)
[2020-07-12] MEDS ORDERED: LABETALOL HCL 5 MG/1 ML (100MG/20 ML VIAL) IVPUSH ONE (09:00)
--- NOTE | 2020-07-12 09:00 | PN ---
Progress Note (short form) - Note Progress Note: Neurology - Admission Chief Complaint: Bilateral lower back pain History of Present Illness: Patient is a 34 y/o male with past medical history of HTN, RA, and bilateral knee surgery. He presented to [facility] ER with complaints of acute onset lower back pain on day of admission. The pain woke him up from his sleep and described as sharp and 8/10. Incidentally in ER noted with BP 200s/100s. Patient was evaluated by Cardiology and admitted to ICU for Hypertensive Emergency. Chest/Abdominal CTA indicated neg for dissection He was started on Labetolol drip for BP control. 07/10/20 on exam noted to be febrile tmax 103.2F, received Tylenol IVPB. Tachypneic, but denies chest pain, SOB, palpitations. Urine collected for UA/CS, blood cultures collected, and CXR done with results pen ding. Noted with Leukocytosis WBC 10.5. BP on exam controlled with tachycardia HR 110s. Echocardiogram indicates moderate concentric left ventircular hypertrophy, EF 50-55%; moderate aoritic regurgitation, no pericardia effusion. Head CT indicates no evidence of acute intracranial pathology. Lumbar/sacral CT shows intact vertebral bodies iwth patient SI joints, bilateral hip replacements, soft tissue calcifications and vertebral wedging seen in the lower thoracic spice. AMS possibly 2/2 hypertensive encephalopathy which is being treated with Labetolol drip in ICU. This Am, atient seen with nurse at bedside and he is nauseous and vomiting along with dizziness, reportedly overnight with confusion. Advised ICU residents to obtain repeat noncontrast head CT confirm no significant structural abnormalities. His blood pressure was in the normotensive range. Active Medications Acetaminophen (Tylenol -) 1,000 mg PO Q6H PRN PRN Reason: PAIN LEVEL 1-5 Last Admin: 07/10/20 21:55 Dose: 1,000 mg Documented by: Amlodipine Besylate (Norvasc -) 10 mg PO DAILY [facility] Last Admin: 07/11/20 10:29 Dose: 10 mg Documented by: Chlorhexidine Gluconate (Hibiclens For Decolonization -) 1 applic TP HS [facility] Last Admin: 07/11/20 21:14 Dose: 1 applic Documented by: Docusate Sodium (Colace -) 100 mg PO BID PRN PRN Reason: CONSTIPATION Last Admin: 07/11/20 19:10 Dose: 100 mg Documented by: Famotidine (Pepcid -) 20 mg PO DAILY [facility] Last Admin: 07/11/20 09:54 Dose: 20 mg Documented by: Heparin Sodium (Porcine) (Heparin -) 5,000 unit SQ Q8H-IV [facility] Last Admin: 07/12/20 02:08 Dose: 5,000 unit Documented by: Ceftriaxone Sodium 2 gm/ (Dextrose) 100 mls @ 200 mls/hr IVPB DAILY [facility]; Protocol Last Admin: 07/11/20 09:53 Dose: 200 mls/hr Documented by: Vancomycin HCl (Vancomycin (Pre-Docked)) 1,000 mg in 250 mls @ 166.667 mls/hr IVPB BID@0100,1300 [facility]; Protocol Last Admin: 07/12/20 02:07 Dose: 166.667 mls/hr Documented by: Labetalol HCl (Normodyne -) 200 mg PO TID [facility] Last Admin: 07/12/20 06:36 Dose: 200 mg Documented by: Morphine Sulfate (Morphine Sulfate) 4 mg IVPUSH Q4H PRN PRN Reason: PAIN LEVEL 6-10 Last Admin: 07/11/20 22:01 Dose: 4 mg Documented by: Mupirocin (Bactroban Ointment (For Decolonization) -) 1 applic NS BID [facility] Stop: 07/14/20 13:59 Last Admin: 07/11/20 21:14 Dose: 1 applic Documented by: Ondansetron HCl (Zofran Injection) 4 mg IVPUSH ONCE ONE Stop: 07/12/20 08:59 Oxycodone HCl (Roxicodone -) 5 mg PO Q6H PRN PRN Reason: PAIN LEVEL 6-10 Last Admin: 07/09/20 16:51 Dose: 5 mg Documented by: Prednisone (Deltasone -) 5 mg PO BID [facility] Last Admin: 07/11/20 21:14 Dose: 5 mg Documented by: PHYSICAL EXAMINATION Vital Signs Period Temp Pulse Resp BP Sys/Mcgraw Pulse Ox Last 24 Hr 98.1 F-100 F 80-885 19-35 130-185/90-166 94-100 GENERAL: Awake, alert, and fully oriented, in acute distress. HEAD: Normal with no signs of trauma. EYES: Pupils equal, round and reactive to light, extraocular movements intact, sclera anicteric, conjunctiva clear. No lid lag. EARS, NOSE, THROAT: Ears normal, nares patent, oropharynx clear without exudates. Moist mucous membranes. NECK: Normal range of motion, supple without lymphadenopathy, JVD, or masses. LUNGS: Breath sounds equal, clear to auscultation bilaterally. No wheezes, and no crackles. No accessory muscle use. HEART: Regular rate and rhythm, normal S1 and S2 without murmur, rub or gallop. ABDOMEN: Soft, nontender, not distended, normoactive bowel sounds, no guarding, no rebound, no masses. No hepatomegaly or splenomegaly. MUSCULOSKELETAL: Pain with back flexion/extension and rotation. No bony deformities or tenderness. No CVA tenderness. UPPER EXTREMITIES: 2+ pulses, warm, well-perfused. No cyanosis. No clubbing. Cap refill <2 seconds. No peripheral edema. LOWER EXTREMITIES: 2+ pulses, warm, well-perfused. No calf tenderness. No peripheral edema. NEUROLOGICAL: Cranial nerves II-XII intact. Normal speech. Normal gait. PSYCHIATRIC: Cooperative. Good eye contact. Appropriate mood and affect. SKIN: Warm, dry, normal turgor, no rashes or lesions noted. CBCD WBC 13.8 K/mm3 (4.0-10.0) H 07/12/20 05:40 RBC 4.25 M/mm3 (4.00-5.60) 07/12/20 05:40 Hgb 9.3 GM/dL (11.7-16.9) L 07/12/20 05:40 Hct 28.3 % (35.4-49) L 07/12/20 05:40 MCV 66.6 fl (80-96) L 07/12/20 05:40 MCHC 33.0 g/dl (32.0-35.9) 07/12/20 05:40 RDW 23.5 % (11.9-15.9) H 07/12/20 05:40 Plt Count 117 K/MM3 (134-434) L D 07/12/20 05:40 MPV 8.5 fl (7.5-11.1) 07/12/20 05:40 CMP Sodium 139 mmol/L (136-145) 07/12/20 05:40 Potassium 4.9 mmol/L (3.5-5.1) 07/12/20 05:40 Chloride 110 mmol/L (98-107) H 07/12/20 05:40 Carbon Dioxide 23 mmol/L (21-32) 07/12/20 05:40 Anion Gap 7 MMOL/L (8-16) L 07/12/20 05:40 BUN 36.6 mg/dL (7-18) H 07/12/20 05:40 Creatinine 1.6 mg/dL (0.55-1.3) H 07/12/20 05:40 Random Glucose 101 mg/dL (74-106) 07/12/20 05:40 Calcium 8.6 mg/dL (8.5-10.1) 07/12/20 05:40 Total Bilirubin 0.6 mg/dL (0.2-1) 07/12/20 05:40 AST 27 U/L (15-37) 07/12/20 05:40 ALT 27 U/L (13-61) 07/12/20 05:40 Alkaline Phosphatase 166 U/L (45-117) H 07/12/20 05:40 Total Protein 6.1 g/dl (6.4-8.2) L 07/12/20 05:40 Albumin 2.1 g/dl (3.4-5.0) L 07/12/20 05:40 CARDIAC ENZYMES Creatine Kinase 102 U/L (26-308) 07/09/20 07:52 Troponin I 0.14 ng/ml (0.00-0.05) H 07/09/20 23:20 Plan/Assessment: Patient is a 34 y/o male with past medical history of HTN, RA, and bilateral knee surgery. He presented to [facility] ER with complaints of acute onset lower back pain on day of admission. The pain woke him up from his sleep and described as sharp and 8/10. Incidentally in ER noted with BP 200s/100s. Patient was evaluated by Cardiology and admitted to ICU for Hypertensive Emergency. Chest/Abdominal CTA indicated neg for dissection He was started on Labetolol drip for BP control. 07/10/20 on exam noted to be febrile tmax 103.2F, received Tylenol IVPB. Tachypneic, but denies chest pain, SOB, palpitations. Urine collected for UA/CS, blood cultures collected, and CXR done with results pending. Noted with Leukocytosis WBC 10.5. BP on exam controlled with tachycardia HR 110s. Echocardiogram indicates moderate concentric left ventircular hypertrophy, EF 50-55%; moderate aoritic regurgitation, no pericardia effusion. Head CT indicates no evidence of acute intracranial pathology. Lumbar/sacral CT shows intact vertebral bodies iwth patient SI joints, bilateral hip replacements, soft tissue calcifications and vertebral wedging seen in the lower thoracic spice. Discussed with TOLL SERVICE OBSERVER and patient BP improving and with improved mental status. Now able to tell me he's in the hospital, month, and year. Fatigued appearing still. AMS possibly 2/2 hypertensive encephalopathy which is being treated with Labetolol drip in ICU. This Am, atient seen with nurse at bedside and he is nauseous and vomiting along with dizziness, reportedly overnight with confusion. Advised ICU residents to obtain repeat noncontrast head CT confirm no significant structural abnormalities. His blood pressure was in the normotensive range. Conitinue to monitor mental status, gradual reductions in BP. Frequuent reorientation. Continue Meclezine. Continued close monitoring in ICU. Critical care time 35 mins.
[2020-07-12] MEDS ORDERED: DEXTROSE 5%-WATER 100 ML IVPB ONE (09:57)
[2020-07-12] MEDS ORDERED: PT OWN MED DRAWER 7, Y5N ONE ×2 (09:57→21:24)
[2020-07-12] MEDS: FAMOTIDINE 20 MG TABLET PO SCH (10:33)
[2020-07-12] MEDS: CEFTRIAXONE 2 GM in DEXTROSE 5%-WATER 100 ML IVPB SCH (10:33)
[2020-07-12] MEDS: MUPIROCIN 2% TOPICAL OINTMENT FOR DECOLONIZATION NS SCH ×2 (10:34→21:41)
[2020-07-12] MEDS: amLODIPine BESYLATE 10 MG TABLET (FP) PO SCH (10:34)
[2020-07-12] MEDS: predniSONE 5 MG TABLET (UD) PO SCH ×2 (10:34→21:41)
--- NOTE | 2020-07-12 10:52 | PN ---
Progress Note (short form) - Note Progress Note: NEUROSURGERY CONSULT DICTATED Chart reviewed Prior C spine MRI and recent head CT's reviewed H/o HTN, RA with basilar invagination, and hip/bilateral knee surgery. Came to [facility] ER with acute onset sharp lower back pain 05/24. Noted with BP 200s/100s and temp of 103. Non-compliant with meds and not on biologics by report. PE: AF, BP elevated most recently 134/92 Lethargic HEENT- NC/AT; Neck- supple; Cor- RR; lungs- CTA B; Abd- benign; Ext- no sign of DVT CN- grossly intact; Motor- at least 3/5 B UE/LE; Sensation- grossly intact LT; DTR- 2+, no LTS Covid negative WBC 13.8, CRP 15- to 8,5; ESR 69 Blood culture negative to date; urine culture negative Head CT (2): no acute bleed or fx, no large territorial infarcts, calcified dens retropulsed into canal with craniocervical junction stenosis Prior MRI C spine(2013): RA with small panus, retropulsed dens, mild stenosis cranio-cervical junction Prior CT C spine (2017): predentine interval of 6-7 mm, calcified dens; fused cranio-cervical junction and atlanto-axial junction Lumbar x-rays- no acute fx lumbar spine, mildly depressed vertebral heights lower T spine RA with documented basilar invagination Hypertensive encephalopathy Denies neck pain or extremity weakness/numbness nor B/B dysfunction Fever of unknown origin- defervesced since iv abx Given initial complaint of fever and LBP, and h/o RA would consider lumbar MRI with kenan to r/o inflammatory or infectious etiology D/w Dr Brown
--- NOTE | 2020-07-12 10:53 | PN ---
Teaching Attending Note Name of Resident: Andrew Bowles ATTENDING PHYSICIAN STATEMENT I saw and evaluated the patient. I reviewed the resident's note and discussed the case with the resident. I agree with the resident's findings and plan as documented. SUBJECTIVE: Pt seen and examined in the ICU. Off labetalol gtt. No further fevers. OBJECTIVE: Vital Signs Period Temp Pulse Resp BP Sys/Mcgraw Pulse Ox Last 24 Hr 98.1 F-99.3 F 73-885 19-35 130-185/90-166 94-100 Intake & Output 07/09/20 07/10/20 07/11/20 07/12/20 23:59 23:59 23:59 23:59 Intake Total 2135 1945 1196 450 Output Total 1600 1989 1150 1300 Balance 535 -45 46 -850 Weight 93.2 kg 92.986 kg Gen: less tachypneic at rest Heart: tachycardic, regular, split S2 Lung: decreased breath sounds at the bases Abd: soft, nontender Ext: no edema CBC, BMP 07/12/20 05:40 07/12/20 05:40 Active Medications Acetaminophen (Tylenol -) 1,000 mg PO Q6H PRN PRN Reason: PAIN LEVEL 1-5 Last Admin: 07/10/20 21:55 Dose: 1,000 mg Documented by: Amlodipine Besylate (Norvasc -) 10 mg PO DAILY [facility] Last Admin: 07/12/20 10:34 Dose: 10 mg Documented by: Chlorhexidine Gluconate (Hibiclens For Decolonization -) 1 applic TP HS [facility] Last Admin: 07/11/20 21:14 Dose: 1 applic Documented by: Docusate Sodium (Colace -) 100 mg PO BID PRN PRN Reason: CONSTIPATION Last Admin: 07/11/20 19:10 Dose: 100 mg Documented by: Famotidine (Pepcid -) 20 mg PO DAILY [facility] Last Admin: 07/12/20 10:33 Dose: 20 mg Documented by: Heparin Sodium (Porcine) (Heparin -) 5,000 unit SQ Q8H-IV [facility] Last Admin: 07/12/20 10:33 Dose: 5,000 unit Documented by: Ceftriaxone Sodium 2 gm/ (Dextrose) 100 mls @ 200 mls/hr IVPB DAILY [facility]; Pro tocol Last Admin: 09/28/20 10:33 Dose: 200 mls/hr Documented by: Vancomycin HCl (Vancomycin (Pre-Docked)) 1,000 mg in 250 mls @ 166.667 mls/hr IVPB BID@0100,1300 [facility]; Protocol Last Admin: 07/12/20 02:07 Dose: 166.667 mls/hr Documented by: Labetalol HCl (Normodyne -) 200 mg PO TID [facility] Last Admin: 07/12/20 06:36 Dose: 200 mg Documented by: Morphine Sulfate (Morphine Sulfate) 4 mg IVPUSH Q4H PRN PRN Reason: PAIN LEVEL 6-10 Last Admin: 07/11/20 22:01 Dose: 4 mg Documented by: Mupirocin (Bactroban Ointment (For Decolonization) -) 1 applic NS BID [facility] Stop: 07/14/20 13:59 Last Admin: 07/12/20 10:34 Dose: 1 applic Documented by: Oxycodone HCl (Roxicodone -) 5 mg PO Q6H PRN PRN Reason: PAIN LEVEL 6-10 Last Admin: 07/09/20 16:51 Dose: 5 mg Documented by: Prednisone (Deltasone -) 5 mg PO BID [facility] Last Admin: 07/12/20 10:34 Dose: 5 mg Documented by: ASSESSMENT AND PLAN: Hypertensive Urgency Fever of unclear etiology Sepsis Acute Kidney Injury +Troponins likely Demand Ischemia Thrombocytopenia Rheumatoid Arthritis Anemia - continue empiric antibiotics - f/u cultures - titrate PO BP meds - O2 to keep SpO2 >90% - monitor urine output, creatinine - DVT prophylaxis - can monitor on floor
--- NOTE | 2020-07-12 11:01 | PN ---
Progress Note (short form) - Note Progress Note: Chief Complaint: htn, cp History of Present Illness: 34 M PMH RA and chronic HTN, noncompliant with BP meds presented to ER with sudden onset of mid back and chest pain yest AM getting out of bed. In ER, BP found to be markedly elevated. He described the pain as "10/10". s: lethargic this AM, repeat Head CT no acute pathology. Current Medications Generic Name Dose Route Start Last Admin Trade Name Hailey PRN Reason Stop Dose Admin Acetaminophen 1,000 mg 07/09/20 14:04 07/10/20 21:55 Tylenol - PO 1,000 mg Q6H PRN Administration PAIN LEVEL 1-5 Amlodipine Besylate 10 mg 07/10/20 10:00 07/12/20 10:34 Norvasc - PO 10 mg DAILY [facility] Administration Chlorhexidine Gluconate 1 applic 07/09/20 22:00 07/11/20 21:14 Hibiclens For Decolonization - TP 1 applic HS [facility] Administration Docusate Sodium 100 mg 07/09/20 14:50 07/11/20 19:10 Colace - PO 100 mg BID PRN Administration CONSTIPATION Famotidine 20 mg 07/09/20 14:15 07/12/20 10:33 Pepcid - PO 20 mg DAILY [facility] Administration Heparin Sodium (Porcine) 5,000 unit 07/09/20 12:15 07/12/20 10:33 Heparin - SQ 5,000 unit Q8H-IV [facility] Administration Ceftriaxone Sodium 2 gm/ 100 mls @ 200 mls/hr 07/10/20 12:15 07/12/20 10:33 Dextrose IVPB 200 mls/hr DAILY [facility] Administration Protocol Vancomycin HCl 1,000 mg in 250 mls @ 166.667 mls/hr 07/10/20 13:00 07/12/20 02:07 Vancomycin (Pre-Docked) IVPB 166.667 mls/hr BID@0100,1300 [facility] Administration Protocol Labetalol HCl 200 mg 07/11/20 10:15 07/12/20 06:36 Normodyne - PO 200 mg TID [facility] Administration Morphine Sulfate 4 mg 07/09/20 14:31 07/11/20 22:01 Morphine Sulfate IVPUSH 4 mg Q4H PRN Administration PAIN LEVEL 6-10 Mupirocin 1 applic 07/09/20 14:00 07/12/20 10:34 Bactroban Ointment (For Decolonization) - NS 07/14/20 13:59 1 applic BID [facility] Administration Oxycodone HCl 5 mg 07/09/20 16:24 07/09/20 16:51 Roxicodone - PO 5 mg Q6H PRN Administration PAIN LEVEL 6-10 Prednisone 5 mg 07/09/20 22:00 07/12/20 10:34 Deltasone - PO 5 mg BID [facility] Administration Vital Signs Period Temp Pulse Resp BP Sys/Mcgraw Pulse Ox Last 24 Hr 98.1 F-99.3 F 72-885 19-35 130-185/90-166 94-100 Constitutional: Yes: No Distress, Calm Neck: Yes: Supple, Trachea Midline Cardiovascular: Yes: Regular Rate and Rhythm Respiratory: Yes: CTA Bilaterally Gastrointestinal: Yes: Soft (nt) Edema: No Peripheral Pulses WNL: Yes Neurological: Yes: lethargic no jaundice diaphoresis Labs: CBC, BMP 07/12/20 05:40 07/12/20 05:40 - ....Imaging Cat Scan: Report Reviewed Ultrasound: Report Reviewed EKG: Image Reviewed Assessment/Plan IMP/PLAN: Hypertensive urgency, hypertensive heart disease secondary to chronic hypertension Sudden onset of severe back pain and upper chest pain, CTA C/A/P Negative for aortic dissection Rheumatoid arthritis, chronic Fever Thrombocytopenia Equivocal TnIs CKD Elevated BNP 1. Hypertensive urgency: -improved, on po meds now 2. Sudden back pain/chest pain: -CTA negative for dissection -resolved. 3. Fever: unclear source -Cultures remain NGTD -?CAP (atelectasis seen on CT) vs COVID PNA (initial swab negative) -started on empiric abx by ID -?RA flare? -Rheum consulted 4. Thrombocytopenia: may be seen in early sepsis and also be seen in flares of autoimmune diseases -Follow CBC -Rheum consulted. 5. Equivocal TnIs: -flat trend, not c/w ACS -Likely demand ischemia in setting of hypertensive urgency -Continue telemetry -Echo 07/09 with LVH, EF 50-55% and moderate AR 6. CKD: -Creatinine remains at baseline from admission with initial improvement and now back to 1.6 -Daily BMP 7. Elevated BNP: -Possible acute on chronic diastolic CHF in setting of hypertension and extra volume received -CXR with increased vascular/interstitial markings may represent volume vs atypical or viral infection -decision to diurese is now complicated by new fevers and possible sepsis picture -Would suppl O2/ avoid additional IVF fluid unless needed for BP support
[2020-07-12] MEDS ORDERED: LACTATED RINGERS SOLUTION 1,000 ML/1,000 ML INFUS.BAG IV SCH (11:30)
--- NOTE | 2020-07-12 11:40 | PN ---
Progress Note, Physician Chief Complaint: Low back pain FUO Hypertensive emergency History of Present Illness: 34 yo male came in to [facility] ER with acute onset sharp lower back pain 05/24. Noted with BP 200s/100s and temp of 103. Non-compliant with meds and not on biologics by report. 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, seen by Rheumatology Originally on Labetolol drip converted to PO now On Vanco + Rocephin IV for FUO- Fevers resolved now, cultres so far negative Echo :07/09/20- moderate conc LVH, LVEF 50-55%, mild mitral and tricuspid regurg, moderate aortic regurg Seen by Cardiology - Current Medication List Current Medications: Active Medications Acetaminophen (Tylenol -) 1,000 mg PO Q6H PRN PRN Reason: PAIN LEVEL 1-5 Last Admin: 07/10/20 21:55 Dose: 1,000 mg Documented by: Amlodipine Besylate (Norvasc -) 10 mg PO DAILY [facility] Last Admin: 07/12/20 10:34 Dose: 10 mg Documented by: Chlorhexidine Gluconate (Hibiclens For Decolonization -) 1 applic TP HS [facility] Last Admin: 07/11/20 21:14 Dose: 1 applic Documented by: Docusate Sodium (Colace -) 100 mg PO BID PRN PRN Reason: CONSTIPATION Last Admin: 07/11/20 19:10 Dose: 100 mg Documented by: Famotidine (Pepcid -) 20 mg PO DAILY [facility] Last Admin: 07/12/20 10:33 Dose: 20 mg Documented by: Heparin Sodium (Porcine) (Heparin -) 5,000 unit SQ Q8H-IV [facility] Last Admin: 07/12/20 10:33 Dose: 5,000 unit Documented by: Ceftriaxone Sodium 2 gm/ (Dextrose) 100 mls @ 200 mls/hr IVPB DAILY [facility]; Protocol Last Admin: 07/12/20 10:33 Dose: 200 mls/hr Documented by: Vancomycin HCl (Vancomycin (Pre-Docked)) 1,000 mg in 250 mls @ 166.667 mls/hr IVPB BID@0100,1300 [facility]; Protocol Last Admin: 07/12/20 02:07 Dose: 166.667 mls/hr Documented by: Lactated Ringer's (Lactated Ringers Solution) 1,000 ml in 1,000 mls @ 100 mls/hr IV ASDIR [facility] Labetalol HCl (Normodyne -) 300 mg PO TID [facility] Morphine Sulfate (Morphine Sulfate) 4 mg IVPUSH Q4H PRN PRN Reason: PAIN LEVEL 6-10 Last Admin: 07/11/20 22:01 Dose: 4 mg Documented by: Mupirocin (Bactroban Ointment (For Decolonization) -) 1 applic NS BID [facility] Stop: 07/14/20 13:59 Last Admin: 07/12/20 10:34 Dose: 1 applic Documented by: Oxycodone HCl (Roxicodone -) 5 mg PO Q6H PRN PRN Reason: PAIN LEVEL 6-10 Last Admin: 07/09/20 16:51 Dose: 5 mg Documented by: Prednisone (Deltasone -) 5 mg PO BID [facility] Last Admin: 07/12/20 10:34 Dose: 5 mg Documented by: - Objective Vital Signs: Vital Signs Temperature 98.5 F 07/12/20 10:00 Pulse Rate 69 07/12/20 10:59 Respiratory Rate 23 H 07/12/20 10:59 Blood Pressure 134/92 07/12/20 10:59 O2 Sat by Pulse Oximetry (%) 100 07/12/20 10:59 Labs: CBC, BMP 07/12/20 05:40 07/12/20 05:40 INR, PTT INR 0.96 (0.83-1.09) 07/09/20 07:52 Problem List - Problems (1) FUO (fever of unknown origin) Assessment/Plan: -Cultures: Microbiology 07/09/20 23:20 Blood - Peripheral Venous Blood Culture - Preliminary NO GROWTH OBTAINED AFTER 48 HOURS, INCUBATION TO CONTINUE FOR 3 DAYS. 07/09/20 23:20 Blood - Peripheral Venous Blood Culture - Preliminary NO GROWTH OBTAINED AFTER 48 HOURS, INCUBATION TO CONTINUE FOR 3 DAYS. 07/10/20 13:00 Urine For Antigen Detection Legionella Antigen - Final 07/10/20 13:00 Urine For Antigen Detection Streptococcus pneumoniae Antigen (M - Final 07/09/20 07:52 Urine - Urine Clean Catch Urine Culture - Final NO GROWTH OBTAINED -IV rocephin + Vanco -ID consult -Echo: 07/09/20- moderate conc LVH, LVEF 50-55%, mild mitral and tricuspid regurg, moderate aortic regurg -COVID PCR negative -CTA abd/pel/chest: unremarkable Problems reviewed: Yes Code(s): R50.9 - FEVER, UNSPECIFIED (2) Confusion Assessment/Plan: -Head CT (2): no acute bleed or fx, no large territorial infarcts, calcified dens retropulsed into canal with craniocervical junction stenosis -Prior MRI C spine(2012): RA with small panus, retropulsed dens, mild stenosis cranio-cervical junction -Prior CT C spine (2016): predentine interval of 6-7 mm, calcified dens; fused cranio-cervical junction and atlanto-axial junction -Lumbar x-rays- no acute fx lumbar spine, mildly depressed vertebral heights lower T spine -Hypertensive encephlopathy Problems reviewed: Yes Code(s): R41.0 - DISORIENTATION, UNSPECIFIED (3) Arthritis, rheumatoid Assessment/Plan: -Rheumatology consult appreciated -Continue prednisone 5 mg po BID -Biologics outpatient -[id number], ESR 69, CRP 15>8.5 Problems reviewed: Yes Code(s): M06.9 - RHEUMATOID ARTHRITIS, UNSPECIFIED (4) Hypertensive emergency Assessment/Plan: -Resolved -Cardiology consult appreciated -Continue Labetalol 300 mg po TID -Continue amlodipine 10 mg po daily Problems reviewed: Yes Code(s): I16.1 - HYPERTENSIVE EMERGENCY Assessment/Plan See problem list
[2020-07-12] MEDS: DOCUSATE SODIUM 100 MG CAPSULE (FP) PO PRN ×2 (14:14→21:42)
--- NOTE | 2020-07-12 14:50 | PN ---
Physical Exam: SUBJECTIVE: Patient seen and examined. Overnight, he was confused and complained of vertigo, which was managed with meclizine. OBJECTIVE: Vital Signs Period Temp Pulse Resp BP Sys/Mcgraw Pulse Ox Last 24 Hr 98.5 F-99.3 F 69-885 19-32 130-185/91-166 94-100 GENERAL: The patient is awake, alert. Oriented to person and place. HEENT: NC, AT. No ptosis. MMM. LUNGS: Breath sounds equal, clear to auscultation bilaterally, no wheezes, no crackles, no accessory muscle use. HEART: increased rate. regular rhythm, S1, S2 without murmur, rub or gallop. ABDOMEN: Soft, nontender, nondistended, normoactive bowel sounds, no guarding, no rebound. EXTREMITIES: 2+ pulses, warm, well-perfused, no edema. Multiple joint abnormalities seen on b/l fingers. Well-healed vertical surgical scars on b/l knees. NEUROLOGICAL: Normal speech, gait not observed. PSYCH: Normal mood, normal affect. SKIN: Warm, dry, normal turgor, no rashes or lesions noted Laboratory Results - last 24 hr 07/12/20 07/12/20 07/12/20 05:40 05:40 05:40 WBC 13.8 H RBC 4.25 Hgb 9.3 L Hct 28.3 L MCV 66.6 L MCH 22.0 L MCHC 33.0 RDW 23.5 H Plt Count 117 L D MPV 8.5 ESR Sodium 139 Potassium 4.9 Chloride 110 H Carbon Dioxide 23 Anion Gap 7 L BUN 36.6 H Creatinine 1.6 H Est GFR (CKD-EPI)AfAm 63.30 Est GFR (CKD-EPI)NonAf 54.61 Random Glucose 101 Calcium 8.6 Iron 63 TIBC 176 L Iron Saturation 35 Unsaturated IBC 113 L Ferritin 5487.7 H Total Bilirubin 0.6 AST 27 ALT 27 Alkaline Phosphatase 166 H C-Reactive Protein 8.5 H Total Protein 6.1 L Albumin 2.1 L 07/12/20 05:40 WBC RBC Hgb Hct MCV MCH MCHC RDW Plt Count MPV ESR 69 H Sodium Potassium Chloride Carbon Dioxide Anion Gap BUN Creatinine Est GFR (CKD-EPI)AfAm Est GFR (CKD-EPI)NonAf Random Glucose Calcium Iron TIBC Iron Saturation Unsaturated IBC Ferritin Total Bilirubin AST ALT Alkaline Phosphatase C-Reactive Protein Total Protein Albumin Active Medications Generic Name Dose Route Start Last Admin Trade Name Freq PRN Reason Stop Dose Admin Acetaminophen 1,000 mg 07/09/20 14:04 07/10/20 21:55 Tylenol - PO 1,000 mg Q6H PRN Administration PAIN LEVEL 1-5 Amlodipine Besylate 10 mg 07/10/20 10:00 07/12/20 10:34 Norvasc - PO 10 mg DAILY [facility]ANMA[facility] Administration Chlorhexidine Gluconate 1 applic 07/09/20 22:00 07/11/20 21:14 Hibiclens For Decolonization - TP 1 applic HS [facility]ANMAY Administration Docusate Sodium 100 mg 07/09/20 14:50 07/12/20 14:14 Colace - PO 100 mg BID PRN Administration CONSTIPATION Famotidine 20 mg 07/09/20 14:15 07/12/20 10:33 Pepcid - PO 20 mg DAILY [facility] Administration Heparin Sodium (Porcine) 5,000 unit 07/09/20 12:15 07/12/20 10:33 Heparin - SQ 5,000 unit Q8H-IV [facility] Administration Ceftriaxone Sodium 2 gm/ 100 mls @ 200 mls/hr 07/10/20 12:15 07/12/20 10:33 Dextrose IVPB 200 mls/hr DAILY [facility] Administration Protocol Vancomycin HCl 1,000 mg in 250 mls @ 166.667 mls/hr 07/10/20 13:00 07/12/20 14:13 Vancomycin (Pre-Docked) IVPB 166.667 mls/hr BID@0100,1300 [facility] Administration Protocol Lactated Ringer's 1,000 ml in 1,000 mls @ 100 mls/hr 07/12/20 11:30 07/12/20 12:00 Lactated Ringers Solution IV 100 mls/hr ASDIR [facility]AN[facility] Administration Labetalol HCl 300 mg 07/12/20 11:14 07/12/20 14:13 Normodyne - PO 300 mg TID [facility]AN[facility] Administration Morphine Sulfate 4 mg 07/09/20 14:31 07/11/20 22:01 Morphine Sulfate IVPUSH 4 mg Q4H PRN Administration PAIN LEVEL 6-10 Mupirocin 1 applic 07/09/20 14:00 07/12/20 10:34 Bactroban Ointment (For Decolonization) - NS 07/14/20 13:59 1 applic BID [facility]AN[facility]Y Administration Oxycodone HCl 5 mg 07/09/20 16:24 07/09/20 16:51 Roxicodone - PO 5 mg Q6H PRN Administration PAIN LEVEL 6-10 Prednisone 5 mg 07/09/20 22:00 07/12/20 10:34 Deltasone - PO 5 mg BID [facility] Administration IMAGING: * CTA C/A/P: No evid of gastric or AAA or dissection. R basilar atelectasis, no acute chest pathology. Cholelithiasis. Fat-containing umbilical and R inguinal hernia. No acute pathology within abd/pel. * Echo: Mod LVH, LVSF low nl, EF 50-55%, mild MR/TR, RVSP nl, mod AR, no pericardial effusion. ASSESSMENT/PLAN: 34 yo male with PMH of RA presents with back pain and hypertension presented with hypertensive urgency. Admitted to ICU for Labetolol gtt. Now, off labetalol drip. Neuro #Low back pain -Pain controlled with Tylenol 1000mg PO Q6H PRN, -Morphine 4mg IV Q4H PRN, - oxycodone 5 mg PO Q6H PRN -CT head: stenosis at foramen magnum -neurosurgery consult appreciated. f/u lumbar MRI with kenan to r/o inflammatory or infectious etiology CV #Hypertensive Urgency -CTA chest negative for aortic dissection -off labetalol drip -labetalol 200 mg PO TID -Cont home dose: Amlodipine 10mg PO daily -Goal BP: 150s #Elevated Troponins; peaked. -ECG: NSR with LVH and secondary nonspecific T wave changes in I, avL, V5 and V5 may be secondary to repol. -Utox w/o evidence of sympathomimetic use -Elevated BNP (EF 50-55%) PULM -R basilar atelectasis noted on CTA Chest GI #Cholelithiasis + on CT & ultrasound -Docusate 100mg PO BID -Pepcid 20mg BID -Ultrasound: Cholelithiasis, hepatosplenomegaly, diffuse fatty infiltration of liver ID -afebrile -BCx/ UCx neg, legionella negative -WBC trending down from 14.1 to 13.8 -Ultrasound: Cholelithiasis, hepatosplenomegaly, diffuse fatty infiltration of liver -c/w vanc 1 gm BID & ceftriaxone 2 gm daily Nephro #BRADLEY likely 2/2 hypertensive nephropathy -BUN/Cr 36.6/1.6 -cont IV hydration Rheum #Rheumatoid Arthritis -Rh 584 -Continue home med: Prednisone 5 mg PO BID DVT Prophylaxis heparin sq TID FEN -LR@ 100 ml/hr -monitor lytes -Sodium-controlled diet Dispo tele ATTENDING PHYSICIAN STATEMENT I saw and evaluated the patient. I reviewed the resident's note and discussed the case with the resident. I agree with the resident's findings and plan as documented. SUBJECTIVE: OBJECTIVE: ASSESSMENT AND PLAN:
--- NOTE | 2020-07-12 16:10 | PN ---
Progress Note, Physician History of Present Illness: Pt seen and examined at bedside. He is awake and alert. He denies shortness of breath. - Current Medication List Current Medications: Active Medications Acetaminophen (Tylenol -) 1,000 mg PO Q6H PRN PRN Reason: PAIN LEVEL 1-5 Last Admin: 07/10/20 21:55 Dose: 1,000 mg Documented by: Amlodipine Besylate (Norvasc -) 10 mg PO DAILY [facility]ANMAY Last Admin: 07/12/20 10:34 Dose: 10 mg Documented by: Chlorhexidine Gluconate (Hibiclens For Decolonization -) 1 applic TP HS TANMAY Last Admin: 07/11/20 21:14 Dose: 1 applic Documented by: Docusate Sodium (Colace -) 100 mg PO BID PRN PRN Reason: CONSTIPATION Last Admin: 07/12/20 14:14 Dose: 100 mg Documented by: Famotidine (Pepcid -) 20 mg PO DAILY [facility] Last Admin: 07/12/20 10:33 Dose: 20 mg Documented by: Heparin Sodium (Porcine) (Heparin -) 5,000 unit SQ Q8H-IV [facility] Last Admin: 07/12/20 10:33 Dose: 5,000 unit Documented by: Ceftriaxone Sodium 2 gm/ (Dextrose) 100 mls @ 200 mls/hr IVPB DAILY [facility]; Protocol Last Admin: 07/12/20 10:33 Dose: 200 mls/hr Documented by: Vancomycin HCl (Vancomycin (Pre-Docked)) 1,000 mg in 250 mls @ 166.667 mls/hr IVPB BID@0100,1300 [facility]; Protocol Last Admin: 07/12/20 14:13 Dose: 166.667 mls/hr Documented by: Lactated Ringer's (Lactated Ringers Solution) 1,000 ml in 1,000 mls @ 100 mls/hr IV ASDIR TANMAY Last Admin: 07/12/20 12:00 Dose: 100 mls/hr Documented by: Labetalol HCl (Normodyne -) 300 mg PO TID [facility]ANMAY Last Admin: 07/12/20 14:13 Dose: 300 mg Documented by: Morphine Sulfate (Morphine Sulfate) 4 mg IVPUSH Q4H PRN PRN Reason: PAIN LEVEL 6-10 Last Admin: 07/11/20 22:01 Dose: 4 mg Documented by: Mupirocin (Bactroban Ointment (For Decolonization) -) 1 applic NS BID [facility] Stop: 07/14/20 13:59 Last Admin: 07/12/20 10:34 Dose: 1 applic Documented by: Oxycodone HCl (Roxicodone -) 5 mg PO Q6H PRN PRN Reason: PAIN LEVEL 6-10 Last Admin: 07/09/20 16:51 Dose: 5 mg Documented by: Prednisone (Deltasone -) 5 mg PO BID [facility] Last Admin: 07/12/20 10:34 Dose: 5 mg Documented by: - Objective Vital Signs: Vital Signs Temperature 99.1 F 07/12/20 14:00 Pulse Rate 82 07/12/20 14:00 Respiratory Rate 24 H 07/12/20 14:00 Blood Pressure 128/89 07/12/20 14:00 O2 Sat by Pulse Oximetry (%) 100 07/12/20 12:00 Constitutional: Yes: Calm Eyes: Yes: Conjunctiva Clear HENT: Yes: Atraumatic Cardiovascular: Yes: S1, S2 Respiratory: Yes: CTA Bilaterally Gastrointestinal: Yes: Soft Genitourinary: Yes: WNL Musculoskeletal: Yes: Joint Stiffness Edema: No Neurological: Yes: Oriented Psychiatric: Yes: Oriented Labs: CBC, BMP 07/12/20 05:40 07/12/20 05:40 INR, PTT INR 0.96 (0.83-1.09) 07/09/20 07:52 Assessment/Plan Current Medications Generic Name Dose Route Start Last Admin Trade Name Freq PRN Reason Stop Dose Admin Acetaminophen 1,000 mg 07/09/20 14:04 07/10/20 21:55 Tylenol - PO 1,000 mg Q6H PRN Administration PAIN LEVEL 1-5 Amlodipine Besylate 10 mg 07/10/20 10:00 07/12/20 10:34 Norvasc - PO 10 mg DAILY [facility] Administration Chlorhexidine Gluconate 1 applic 07/09/20 22:00 07/11/20 21:14 Hibiclens For Decolonization - TP 1 applic HS [facility] Administration Docusate Sodium 100 mg 07/09/20 14:50 07/12/20 14:14 Colace - PO 100 mg BID PRN Administration CONSTIPATION Famotidine 20 mg 07/09/20 14:15 07/12/20 10:33 Pepcid - PO 20 mg DAILY [facility] Administration Heparin Sodium (Porcine) 5,000 unit 07/09/20 12:15 07/12/20 10:33 Heparin - SQ 5,000 unit Q8H-IV [facility] Administration Ceftriaxone Sodium 2 gm/ 100 mls @ 200 mls/hr 07/10/20 12:15 07/12/20 10:33 Dextrose IVPB 200 mls/hr DAILY [facility] Administration Protocol Vancomycin HCl 1,000 mg in 250 mls @ 166.667 mls/hr 07/10/20 13:00 07/12/20 14:13 Vancomycin (Pre-Docked) IVPB 166.667 mls/hr BID@0100,1300 [facility] Administration Protocol Lactated Ringer's 1,000 ml in 1,000 mls @ 100 mls/hr 07/12/20 11:30 07/12/20 12:00 Lactated Ringers Solution IV 100 mls/hr ASDIR TANMAY Administration Labetalol HCl 300 mg 07/12/20 11:14 07/12/20 14:13 Normodyne - PO 300 mg TID [facility]ANMAY Administration Morphine Sulfate 4 mg 07/09/20 14:31 07/11/20 22:01 Morphine Sulfate IVPUSH 4 mg Q4H PRN Administration PAIN LEVEL 6-10 Mupirocin 1 applic 07/09/20 14:00 07/12/20 10:34 Bactroban Ointment (For Decolonization) - NS 07/14/20 13:59 1 applic BID [facility]ANMAY Administration Oxycodone HCl 5 mg 07/09/20 16:24 07/09/20 16:51 Roxicodone - PO 5 mg Q6H PRN Administration PAIN LEVEL 6-10 Prednisone 5 mg 07/09/20 22:00 07/12/20 10:34 Deltasone - PO 5 mg BID TANMAY Administration Impression 1. CKD 2. BRADLEY 3. HTN 4. RA 5. hx of positive imfx in the past 6. altered mental status 7. proteinuria 8. non compliance Plan - check urine prt to rehab therapy manager ratio - check spep and infx - neurology follow up - monitor bp - can stat to decrease rate of fluids - rheum input appreciated
--- NOTE | 2020-07-12 16:16 | CONS ---
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 HISTORY OF PRESENT ILLNESS: Patient is a 34-year-old right-handed male with history of known hypertension, noncompliant with medication, rheumatoid arthritis with basilar invagination and hip/knee surgery, who complains of acute onset lower back pain 3 to 4 days ago just prior to admission. He was also found to have hypertension with blood pressure in the 200s over 100s at a time as well as temperature of 103. He has been generally noncompliant with his blood pressure medications and he denied being on biologic treatment for his rheumatoid arthritis recently. He denies any recent infection and has no cough. He was found to have altered mental status and CT scan of the head was performed which was reported as negative. PAST MEDICAL HISTORY: Significant for rheumatoid arthritis, hip/knee surgeries and hypertension. CURRENT MEDICATIONS: Include Deltasone, ceftriaxone, vancomycin, subcutaneous heparin, Normodyne, Colace, Norvasc, Pepcid, morphine and Roxicodone. ALLERGIES: There is no known drug allergy. FAMILY HISTORY: Noncontributory. SOCIAL HISTORY: He does not smoke or drink any alcohol. He lives at home. REVIEW OF SYSTEMS: Otherwise negative for major constitutional, head and neck, cardiovascular, pulmonary, gastrointestinal, genitourinary, endocrinological, neurological or psychological problems except for the above. Of note is he is known to have rheumatoid arthritis for many years and he has imaging study stemming back almost 10 years showing him to have rheumatoid arthritis involvement of the upper cervical spine and craniocervical junction with upper cervical spinal stenosis. PHYSICAL EXAMINATION: Vital Signs: Temperature is 98.5. Blood pressure is 134/92. His pulse rate is 69. His O2 saturation is 100% with 2 L nasal cannula. HEENT: Normocephalic, atraumatic, anicteric. Neck: Supple. Coronary: Regular rhythm. Lungs: Clear. Abdomen: Benign. Extremities: No obvious signs of DVT. Neurologic: He is lethargic, but opening his eyes and follows simple commands. He cannot keep his eyes open. Cranial nerve examination is grossly intact II through XII. Motor examination shows at least 3/5 strength in the upper and lower extremities without increased tone. Sensory examination is intact to light touch. Deep tendon reflexes are 1 to 2+ and symmetric. There is no pathologic long tract sign. Cerebellar exam in general demonstrated no resting tremor. LABORATORY EXAMINATION: White blood cell count of 7.6 initially and he had elevated to 14.1 and it is now 13.8. ESR initially was 24 and is now 69. INR is 0.96 and his PTT is 30. Serum sodium is 139. Potassium is 4.9. BUN is 36.6 and creatinine 1.6. C-reactive protein was 15 initially yesterday and 8.5 today. Blood cultures are negative x3 days and urine culture is negative. COVID-[address] scan of the head from today was compared to the scan from yesterday. There is no fracture, hemorrhagic lesion or large infarction. There is no mass lesion. There is evidence of a calcified skull-based lesion likely a calcified pannus more on the right than the left with craniocervical junction stenosis. A CT scan of the cervical spine from 2017 and an MRI of the cervical spine from 2012 were reviewed which demonstrated a rheumatoid pattern with pre-dentate interval of 6 to 7 mm. There is no marked spinal cord compression on the MRI of the cervical spine back in 2013 and the pre-dentate interval increase appears similar on a CT scan in 2017. IMPRESSION: 1. Rheumatoid arthritis with basilar invagination. 2. Hypertension with hypertensive encephalopathy. 3. Chronic renal insufficiency with mildly elevated creatinine, but glomerular filtration rate above 50. 4. Fever, unknown origin. 5. Lower back pain. RECOMMENDATIONS: Patient presents with acute onset lower back pain and fever. He had altered mental status which is likely hypertension related. His examination shows him to be lethargic, but nonfocal. CT scan of the head is unremarkable except for a calcified dens on the right side with possible mild spinal cord impingement. He is known to have rheumatoid arthritis with basilar invagination and this is a common phenomenon. There is widened pre-dentate interval about 6 to 7 mm. However, there is ossification of craniocervical junction as well as atlantoaxial joint. Therefore, he most likely has fused in that position. Because of his increasing lower back pain and fever, MRI of the lumbar spine with and without gadolinium is recommended. He does have a somewhat elevated creatinine and has a mild renal insufficiency. He should be well hydrated around the time of the gadolinium injection. He does have elevated white blood cell count, ESR and C-reactive protein and the source of infection is not known at this time even though he is covered on wide-spectrum antibiotic already. Given his history of rheumatoid arthritis, he may have a depressed immunological status and an underlying infection may not be unexpected. He does also have prior multiple orthopedic surgeries which could potentially increase his risk of localized infection in those areas as well. The above was discussed with the patient and his ICU team. No acute neurosurgical intervention is recommended for his basilar invagination at this time given his overall medical conditions. Further imaging studies including flexion-extension x-ray and repeat MRI and CT scan of the cervical spine could be helpful when the patient is medically more stable to assess his basilar invagination and cranio- cervical stenosis. PAUL LYNCH M.D. ANGIE/[id number] MTDD
[2020-07-12 20:57] LABS: EPI CELLS 6 /uL (0-25.1); HYALINE CASTS 1 /uL (0-3.1); URINE APPEARANCE CLEAR; URINE BACTERIA 2 /uL (0-1359); URINE BILIRUBIN NEGATIVE (NEGATIVE); URINE COLOR YELLOW; URINE GLUCOSE (UA) NEGATIVE (NEGATIVE); URINE KETONE NEGATIVE (NEGATIVE); URINE LEUK ESTERASE NEGATIVE (NEGATIVE); URINE NITRITE NEGATIVE (NEGATIVE); URINE PROTEIN 2+ (NEGATIVE); URINE RBC 31 /uL (0-23.9); URINE UROBILINOGEN 0.2 mg/dL (0.2-1.0); URINE WBC 5 /uL (0-25.8)
[2020-07-12] MEDS: CHLORHEXIDINE GLUCONATE 4% CLEANSER FOR DECOLONIZATION TP SCH (21:41)
--- NOTE | 2020-07-12 21:50 | PN ---
Progress Note, Physician Chief Complaint: AWAKE, ALERT OOB NO COMPLAINTS TEMPS DOWN AFEBRILE WBC SL ELEVATED BC NO GROWTH - Current Medication List Current Medications: Active Medications Acetaminophen (Tylenol -) 1,000 mg PO Q6H PRN PRN Reason: PAIN LEVEL 1-5 Last Admin: 07/10/20 21:55 Dose: 1,000 mg Documented by: Amlodipine Besylate (Norvasc -) 10 mg PO DAILY [facility] Last Admin: 07/12/20 10:34 Dose: 10 mg Documented by: Chlorhexidine Gluconate (Hibiclens For Decolonization -) 1 applic TP HS [facility]Y Last Admin: 07/12/20 21:41 Dose: 1 applic Documented by: Docusate Sodium (Colace -) 100 mg PO BID PRN PRN Reason: CONSTIPATION Last Admin: 07/12/20 21:42 Dose: 100 mg Documented by: Famotidine (Pepcid -) 20 mg PO DAILY [facility] Last Admin: 07/12/20 10:33 Dose: 20 mg Documented by: Heparin Sodium (Porcine) (Heparin -) 5,000 unit SQ Q8H-IV [facility]MAY Last Admin: 07/12/20 17:58 Dose: 5,000 unit Documented by: Ceftriaxone Sodium 2 gm/ (Dextrose) 100 mls @ 200 mls/hr IVPB DAILY [facility]; Protocol Last Admin: 07/12/20 10:33 Dose: 200 mls/hr Documented by: Vancomycin HCl (Vancomycin (Pre-Docked)) 1,000 mg in 250 mls @ 166.667 mls/hr IVPB BID@0100,1300 [facility]; Protocol Last Admin: 07/12/20 14:13 Dose: 166.667 mls/hr Documented by: Lactated Ringer's (Lactated Ringers Solution) 1,000 ml in 1,000 mls @ 100 mls/hr IV ASDIR TANMAY Last Admin: 07/12/20 12:00 Dose: 100 mls/hr Documented by: Labetalol HCl (Normodyne -) 300 mg PO TID [facility]AN[facility] Last Admin: 07/12/20 21:41 Dose: 300 mg Documented by: Morphine Sulfate (Morphine Sulfate) 4 mg IVPUSH Q4H PRN PRN Reason: PAIN LEVEL 6-10 Last Admin: 07/11/20 22:01 Dose: 4 mg Documented by: Mupirocin (Bactroban Ointment (For Decolonization) -) 1 applic NS BID [facility] Stop: 07/14/20 13:59 Last Admin: 07/12/20 21:41 Dose: 1 applic Documented by: Oxycodone HCl (Roxicodone -) 5 mg PO Q6H PRN PRN Reason: PAIN LEVEL 6-10 Last Admin: 07/09/20 16:51 Dose: 5 mg Documented by: Prednisone (Deltasone -) 5 mg PO BID [facility] Last Admin: 07/12/20 21:41 Dose: 5 mg Documented by: - Objective Vital Signs: Vital Signs Temperature 98.8 F 07/12/20 18:00 Pulse Rate 80 07/12/20 18:00 Respiratory Rate 24 H 07/12/20 18:00 Blood Pressure 133/96 07/12/20 18:00 O2 Sat by Pulse Oximetry (%) 94 L 07/12/20 18:00 Constitutional: Yes: No Distress Eyes: Yes: Conjunctiva Clear Cardiovascular: Yes: Regular Rate and Rhythm, S1, S2 Respiratory: Yes: CTA Bilaterally Gastrointestinal: Yes: Normal Bowel Sounds, Soft, Tenderness Edema: No Labs: CBC, BMP 07/12/20 05:40 07/12/20 05:40 INR, PTT INR 0.96 (0.83-1.09) 07/09/20 07:52 Assessment/Plan FEVER/ LEUKOCYTOSIS IMPROVED ? VASCULITIC FLARE ? SEPSIS AZOTEMIA S/P HYPERTENSIVE CRISIS CONTINUE CEFTRIAXONE
[2020-07-12] MEDS: oxyCODONE HCL 5 MG TABLET PO PRN (21:53)
[2020-07-13] MEDS: HEPARIN NA (PORCINE) 5,000 UNITS/ML 1ML VIAL SQ SCH ×3 (01:02→17:49)
[2020-07-13] MEDS: LABETALOL HCL 200 MG TABLET (FP) PO SCH ×3 (05:15→21:28)
[2020-07-13 06:32] LABS: HEMATOCRIT 28.2 % (35.4-49); HEMOGLOBIN 9.4 GM/dL (11.7-16.9); MCHC 33.2 g/dl (32.0-35.9); MEAN CELL VOLUME 66.2 fl (80-96); MEAN PLT VOLUME 8.5 fl (7.5-11.1); PLATELET COUNT 124 K/MM3 (134-434); RBC 4.26 M/mm3 (4.00-5.60); RDW 23.5 % (11.9-15.9); WHITE BLOOD COUNT 12.5 K/mm3 (4.0-10.0)
[2020-07-13 07:00] LABS: ALBUMIN 2.3 g/dl (3.4-5.0); BILIRUBIN,TOTAL 1.1 mg/dL (0.2-1); BLOOD UREA NITROGEN 34.6 mg/dL (7-18); CALCIUM 8.6 mg/dL (8.5-10.1); CREATININE 1.5 mg/dL (0.55-1.3); MAGNESIUM 2.4 mg/dL (1.8-2.4); POTASSIUM 4.8 mmol/L (3.5-5.1); TOT PROT 6.2 g/dl (6.4-8.2)
--- NOTE | 2020-07-13 07:26 | PN ---
Progress Note (short form) - Note Progress Note: NEUROSURGERY H/o HTN, RA with basilar invagination, and hip/bilateral knee surgery. Acute onset sharp lower back pain 8/10. Noted with BP 200s/100s and temp of 103. Non-compliant with BP meds and not on biologics by report. PE: AF, BP still elevated Still lethargic HEENT- NC/AT; Neck- supple; Cor- RR; lungs- CTA B; Abd- benign; Ext- no sign of DVT CN- grossly intact; Motor- at least 3/5 B UE/LE; Sensation- grossly intact LT; DTR- 2+, no LTS Covid negative Blood culture negative to date; urine culture negative Head CT (2): no acute bleed or fx, no large territorial infarcts, calcified dens retropulsed into canal with craniocervical junction stenosis Prior MRI C spine(2013): RA with small panus, retropulsed dens, mild stenosis cranio-cervical junction Prior CT C spine (2017): predentine interval of 6-7 mm, calcified dens; fused cranio-cervical junction and atlanto-axial junction Lumbar x-rays- no acute fx lumbar spine, mildly depressed vertebral heights lower T spine RA with documented basilar invagination Hypertensive encephalopathy Denies neck pain or extremity weakness/numbness nor B/B dysfunction Fever - defervesced since iv abx Given initial complaint of fever and LBP, and h/o RA with altered immune status would consider lumbar MRI with/without kenan to r/o inflammatory or infectious etiology Keep well hydrated given mildly elevated Cr care d/w ICU team
--- NOTE | 2020-07-13 08:35 | PN ---
Progress Note (short form) - Note Progress Note: Neurology - Admission Chief Complaint: Bilateral lower back pain History of Present Illness: Patient is a 34 y/o male with past medical history of HTN, RA, and bilateral knee surgery. He presented to [facility] ER with complaints of acute onset lower back pain on day of admission. The pain woke him up from his sleep and described as sharp and 8/10. Incidentally in ER noted with BP 200s/100s. Patient was evaluated by Cardiology and admitted to ICU for Hypertensive Emergency. Chest/Abdominal CTA indicated neg for dissection He was started on Labetolol drip for BP control. 07/10/20 on exam noted to be febrile tmax 103.2F, received Tylenol IVPB. Tachypneic, but denies chest pain, SOB, palpitations. Urine collected for UA/CS, blood cultures collected, and CXR done with results pen ding. Noted with Leukocytosis WBC 10.5. BP on exam controlled with tachycardia HR 110s. Echocardiogram indicates moderate concentric left ventircular hypertrophy, EF 50-55%; moderate aoritic regurgitation, no pericardia effusion. Head CT indicates no evidence of acute intracranial pathology. Lumbar/sacral CT shows intact vertebral bodies iwth patient SI joints, bilateral hip replacements, soft tissue calcifications and vertebral wedging seen in the lower thoracic spice. AMS possibly 2/2 hypertensive encephalopathy which is being treated with Labetolol drip in ICU. This Am, atient seen with nurse at bedside and he is nauseous and vomiting along with dizziness, reportedly overnight with confusion. Advised ICU residents to obtain repeat noncontrast head CT confirm no significant structural abnormalities. His blood pressure was in the normotensive range. Active Medications Acetaminophen (Tylenol -) 1,000 mg PO Q6H PRN PRN Reason: PAIN LEVEL 1-5 Last Admin: 07/10/20 21:55 Dose: 1,000 mg Documented by: Amlodipine Besylate (Norvasc -) 10 mg PO DAILY [facility] Last Admin: 07/12/20 10:34 Dose: 10 mg Documented by: Chlorhexidine Gluconate (Hibiclens For Decolonization -) 1 applic TP HS [facility] Last Admin: 07/12/20 21:41 Dose: 1 applic Documented by: Docusate Sodium (Colace -) 100 mg PO BID PRN PRN Reason: CONSTIPATION Last Admin: 07/12/20 21:42 Dose: 100 mg Documented by: Famotidine (Pepcid -) 20 mg PO DAILY [facility] Last Admin: 07/12/20 10:33 Dose: 20 mg Documented by: Heparin Sodium (Porcine) (Heparin -) 5,000 unit SQ Q8H-IV [facility] Last Admin: 07/13/20 01:02 Dose: 5,000 unit Documented by: Ceftriaxone Sodium 2 gm/ (Dextrose) 100 mls @ 200 mls/hr IVPB DAILY [facility]; Protocol Last Admin: 07/12/20 10:33 Dose: 200 mls/hr Documented by: Lactated Ringer's (Lactated Ringers Solution) 1,000 ml in 1,000 mls @ 100 mls/hr IV ASDIR [facility] Last Admin: 07/12/20 12:00 Dose: 100 mls/hr Documented by: Labetalol HCl (Normodyne -) 300 mg PO TID [facility] Last Admin: 07/13/20 05:15 Dose: 300 mg Documented by: Morphine Sulfate (Morphine Sulfate) 4 mg IVPUSH Q4H PRN PRN Reason: PAIN LEVEL 6-10 Last Admin: 07/11/20 22:01 Dose: 4 mg Documented by: Mupirocin (Bactroban Ointment (For Decolonization) -) 1 applic NS BID [facility] Stop: 07/14/20 13:59 Last Admin: 07/12/20 21:41 Dose: 1 applic Documented by: Oxycodone HCl (Roxicodone -) 5 mg PO Q6H PRN PRN Reason: PAIN LEVEL 6-10 Last Admin: 07/12/20 21:53 Dose: 5 mg Documented by: Prednisone (Deltasone -) 5 mg PO BID [facility] Last Admin: 07/12/20 21:41 Dose: 5 mg Documented by: PHYSICAL EXAMINATION Vital Signs Period Temp Pulse Resp BP Sys/Mcgraw Pulse Ox Last 24 Hr 98.5 F-99.1 F 69-89 20-31 123-151/82-109 81-100 GENERAL: Awake, alert, and fully oriented, in acute distress. HEAD: Normal with no signs of trauma. EYES: Pupils equal, round and reactive to light, extraocular movements intact, sclera anicteric, conjunctiva clear. No lid lag. EARS, NOSE, THROAT: Ears normal, nares patent, oropharynx clear without exudates. Moist mucous membranes. NECK: Normal range of motion, supple without lymphadenopathy, JVD, or masses. LUNGS: Breath sounds equal, clear to auscultation bilaterally. No wheezes, and no crackles. No accessory muscle use. HEART: Regular rate and rhythm, normal S1 and S2 without murmur, rub or gallop. ABDOMEN: Soft, nontender, not distended, normoactive bowel sounds, no guarding, no rebound, no masses. No hepatomegaly or splenomegaly. MUSCULOSKELETAL: Pain with back flexion/extension and rotation. No bony deformities or tenderness. No CVA tenderness. UPPER EXTREMITIES: 2+ pulses, warm, well-perfused. No cyanosis. No clubbing. Cap refill <2 seconds. No peripheral edema. LOWER EXTREMITIES: 2+ pulses, warm, well-perfused. No calf tenderness. No peripheral edema. NEUROLOGICAL: Cranial nerves II-XII intact. Normal speech. Normal gait. PSYCHIATRIC: Cooperative. Good eye contact. Appropriate mood and affect. SKIN: Warm, dry, normal turgor, no rashes or lesions noted. CBCD WBC 12.5 K/mm3 (4.0-10.0) H 07/13/20 05:30 RBC 4.26 M/mm3 (4.00-5.60) 07/13/20 05:30 Hgb 9.4 GM/dL (11.7-16.9) L 07/13/20 05:30 Hct 28.2 % (35.4-49) L 07/13/20 05:30 MCV 66.2 fl (80-96) L 07/13/20 05:30 MCHC 33.2 g/dl (32.0-35.9) 07/13/20 05:30 RDW 23.5 % (11.9-15.9) H 07/13/20 05:30 Plt Count 124 K/MM3 (134-434) L 07/13/20 05:30 MPV 8.5 fl (7.5-11.1) 07/13/20 05:30 CMP Sodium 138 mmol/L (136-145) 07/13/20 05:30 Potassium 4.8 mmol/L (3.5-5.1) 07/13/20 05:30 Chloride 108 mmol/L (98-107) H 07/13/20 05:30 Carbon Dioxide 11 mmol/L (21-32) L 07/13/20 05:30 Anion Gap 20 MMOL/L (8-16) H 07/13/20 05:30 BUN 34.6 mg/dL (7-18) H 07/13/20 05:30 Creatinine 1.5 mg/dL (0.55-1.3) H 07/13/20 05:30 Random Glucose 85 mg/dL (74-106) 07/13/20 05:30 Calcium 8.6 mg/dL (8.5-10.1) 07/13/20 05:30 Total Bilirubin 1.1 mg/dL (0.2-1) H 07/13/20 05:30 AST 22 U/L (15-37) 07/13/20 05:30 ALT 24 U/L (13-61) 07/13/20 05:30 Alkaline Phosphatase 141 U/L (45-117) H 07/13/20 05:30 Total Protein 6.2 g/dl (6.4-8.2) L 07/13/20 05:30 Albumin 2.3 g/dl (3.4-5.0) L 07/13/20 05:30 CARDIAC ENZYMES Creatine Kinase 102 U/L (26-308) 07/09/20 07:52 Troponin I 0.14 ng/ml (0.00-0.05) H 07/09/20 23:20 Plan/Assessment: Patient is a 34 y/o male with past medical history of HTN, RA, and bilateral knee surgery. He presented to [facility] ER with complaints of acute onset lower back pain on day of admission. The pain woke him up from his sleep and described as sharp and 8/10. Incidentally in ER noted with BP 200s/100s. Patient was evaluated by Cardiology and admitted to ICU for Hypertensive Emergency. Chest/Abdominal CTA indicated neg for dissection He was started on Labetolol drip for BP control. 07/10/20 on exam noted to be febrile tmax 103.2F, received Tylenol IVPB. Tachypneic, but denies chest pain, SOB, palpitations. Urine collected for UA/CS, blood cultures collected, and CXR done with results pending. Noted with Leukocytosis WBC 10.5. BP on exam controlled with tachycardia HR 110s. Echocardiogram indicates moderate concentric left ventircular hypertrophy, EF 50-55%; moderate aoritic regurgitation, no pericardia effusion. Head CT indicates no evidence of acute intracranial pathology. Lumbar/sacral CT shows intact vertebral bodies iwth patient SI joints, bilateral hip replacements, soft tissue calcifications and vertebral wedging seen in the lower thoracic spice. Discussed with ART LIBRARIAN and patient BP improving and with improved mental status. Now able to tell me he's in the hospital, month, and year. Fatigued appearing still. AMS possibly 2/2 hypertensive encephalopathy which is being treated with Labetolol drip in ICU. This Am, atient seen with nurse at bedside and he is nauseous and vomiting along with dizziness, reportedly overnight with confusion. Advised ICU residents to obtain repeat noncontrast head CT confirm no significant structural abnormalities. His blood pressure was in the normotensive range. Conitinue to monitor mental status, gradual reductions in BP. Frequuent reo rientation. Continue Meclezine. Continued close monitoring in ICU. Critical care time 35 mins.
--- NOTE | 2020-07-13 08:44 | PN ---
Progress Note (short form) - Note Progress Note: Neurology - Admission Chief Complaint: Bilateral lower back pain History of Present Illness: Patient is a 34 y/o male with past medical history of HTN, RA, and bilateral knee surgery. He presented to [facility] ER with complaints of acute onset lower back pain on day of admission. The pain woke him up from his sleep and described as sharp and 8/10. Incidentally in ER noted with BP 200s/100s. Patient was evaluated by Cardiology and admitted to ICU for Hypertensive Emergency. Chest/Abdominal CTA indicated neg for dissection He was started on Labetolol drip for BP control. 07/10/20 on exam noted to be febrile tmax 103.2F, received Tylenol IVPB. Tachypneic, but denies chest pain, SOB, palpitations. Urine collected for UA/CS, blood cultures collected, and CXR done with results pen ding. Noted with Leukocytosis WBC 10.5. BP on exam controlled with tachycardia HR 110s. Echocardiogram indicates moderate concentric left ventircular hypertrophy, EF 50-55%; moderate aoritic regurgitation, no pericardia effusion. Head CT indicates no evidence of acute intracranial pathology. Lumbar/sacral CT shows intact vertebral bodies iwth patient SI joints, bilateral hip replacements, soft tissue calcifications and vertebral wedging seen in the lower thoracic spice. AMS possibly 2/2 hypertensive encephalopathy which is being treated with Labetolol drip in ICU. Neurologically, patient more awake and alert, but minimally conversive. His blood pressure was in the normotensive range. Repeated Head CT showed no acute intracranial pathology. NSGY notes reviewed and MRI of lumbar spine completed and demonstrated R. L4-L5 facet joint probably on basis of septic arthritis/osteomyelitis. Mild edema in posterior paraspinal musculature b/l at level T12-S1. Also, possible mild edema within L. psoas muscles at L2-L4. Evaluation was limited due to persistent motion artifact. Patient on Ceftriaxone. Active Medications Acetaminophen (Tylenol -) 1,000 mg PO Q6H PRN PRN Reason: PAIN LEVEL 1-5 Last Admin: 07/10/20 21:55 Dose: 1,000 mg Documented by: Amlodipine Besylate (Norvasc -) 10 mg PO DAILY [facility] Last Admin: 07/12/20 10:34 Dose: 10 mg Documented by: Chlorhexidine Gluconate (Hibiclens For Decolonization -) 1 applic TP HS [facility] Last Admin: 07/12/20 21:41 Dose: 1 applic Documented by: Docusate Sodium (Colace -) 100 mg PO BID PRN PRN Reason: CONSTIPATION Last Admin: 07/12/20 21:42 Dose: 100 mg Documented by: Famotidine (Pepcid -) 20 mg PO DAILY [facility] Last Admin: 07/12/20 10:33 Dose: 20 mg Documented by: Heparin Sodium (Porcine) (Heparin -) 5,000 unit SQ Q8H-IV [facility] Last Admin: 07/13/20 01:02 Dose: 5,000 unit Documented by: Ceftriaxone Sodium 2 gm/ (Dextrose) 100 mls @ 200 mls/hr IVPB DAILY [facility]; Protocol Last Admin: 07/12/20 10:33 Dose: 200 mls/hr Documented by: Lactated Ringer's (Lactated Ringers Solution) 1,000 ml in 1,000 mls @ 100 mls/hr IV ASDIR [facility] Last Admin: 07/12/20 12:00 Dose: 100 mls/hr Documented by: Labetalol HCl (Normodyne -) 300 mg PO TID [facility] Last Admin: 07/13/20 05:15 Dose: 300 mg Documented by: Morphine Sulfate (Morphine Sulfate) 4 mg IVPUSH Q4H PRN PRN Reason: PAIN LEVEL 6-10 Last Admin: 07/11/20 22:01 Dose: 4 mg Documented by: Mupirocin (Bactroban Ointment (For Decolonization) -) 1 applic NS BID [facility] Stop: 07/14/20 13:59 Last Admin: 07/12/20 21:41 Dose: 1 applic Documented by: Oxycodone HCl (Roxicodone -) 5 mg PO Q6H PRN PRN Reason: PAIN LEVEL 6-10 Last Admin: 07/12/20 21:53 Dose: 5 mg Documented by: Prednisone (Deltasone -) 5 mg PO BID [facility] Last Admin: 07/12/20 21:41 Dose: 5 mg Documented by: PHYSICAL EXAMINATION Vital Signs Period Temp Pulse Resp BP Sys/Mcgraw Pulse Ox Last 24 Hr 98.5 F-99.1 F 69-89 20-31 123-151/82-109 81-100 GENERAL: Awake, alert, and fully oriented, in acute distress. HEAD: Normal with no signs of trauma. EYES: Pupils equal, round and reactive to light, extraocular movements intact, sclera anicteric, conjunctiva clear. No lid lag. EARS, NOSE, THROAT: Ears normal, nares patent, oropharynx clear without exudates. Moist mucous membranes. NECK: Normal range of motion, supple without lymphadenopathy, JVD, or masses. LUNGS: Breath sounds equal, clear to auscultation bilaterally. No wheezes, and no crackles. No accessory muscle use. HEART: Regular rate and rhythm, normal S1 and S2 without murmur, rub or gallop. ABDOMEN: Soft, nontender, not distended, normoactive bowel sounds, no guarding, no rebound, no masses. No hepatomegaly or splenomegaly. MUSCULOSKELETAL: Pain with back flexion/extension and rotation. No bony deformities or tenderness. No CVA tenderness. UPPER EXTREMITIES: 2+ pulses, warm, well-perfused. No cyanosis. No clubbing. Cap refill <2 seconds. No peripheral edema. LOWER EXTREMITIES: 2+ pulses, warm, well-perfused. No calf tenderness. No peripheral edema. NEUROLOGICAL: Cranial nerves II-XII intact. Normal speech. Normal gait. PSYCHIATRIC: Cooperative. Good eye contact. Appropriate mood and affect. SKIN: Warm, dry, normal turgor, no rashes or lesions noted. CBCD WBC 12.5 K/mm3 (4.0-10.0) H 07/13/20 05:30 RBC 4.26 M/mm3 (4.00-5.60) 07/13/20 05:30 Hgb 9.4 GM/dL (11.7-16.9) L 07/13/20 05:30 Hct 28.2 % (35.4-49) L 07/13/20 05:30 MCV 66.2 fl (80-96) L 07/13/20 05:30 MCHC 33.2 g/dl (32.0-35.9) 07/13/20 05:30 RDW 23.5 % (11.9-15.9) H 07/13/20 05:30 Plt Count 124 K/MM3 (134-434) L 07/13/20 05:30 MPV 8.5 fl (7.5-11.1) 07/13/20 05:30 CMP Sodium 138 mmol/L (136-145) 07/13/20 05:30 Potassium 4.8 mmol/L (3.5-5.1) 07/13/20 05:30 Chloride 108 mmol/L (98-107) H 07/13/20 05:30 Carbon Dioxide 11 mmol/L (21-32) L 07/13/20 05:30 Anion Gap 20 MMOL/L (8-16) H 07/13/20 05:30 BUN 34.6 mg/dL (7-18) H 07/13/20 05:30 Creatinine 1.5 mg/dL (0.55-1.3) H 07/13/20 05:30 Random Glucose 85 mg/dL (74-106) 07/13/20 05:30 Calcium 8.6 mg/dL (8.5-10.1) 07/13/20 05:30 Total Bilirubin 1.1 mg/dL (0.2-1) H 07/13/20 05:30 AST 22 U/L (15-37) 07/13/20 05:30 ALT 24 U/L (13-61) 07/13/20 05:30 Alkaline Phosphatase 141 U/L (45-117) H 07/13/20 05:30 Total Protein 6.2 g/dl (6.4-8.2) L 07/13/20 05:30 Albumin 2.3 g/dl (3.4-5.0) L 07/13/20 05:30 CARDIAC ENZYMES Creatine Kinase 102 U/L (26-308) 07/09/20 07:52 Troponin I 0.14 ng/ml (0.00-0.05) H 07/09/20 23:20 Plan/Assessment: Patient is a 34 y/o male with past medical history of HTN, RA, and bilateral knee surgery. He presented to [facility] ER with complaints of acute onset lower back pain on day of admission. The pain woke him up from his sleep and described as sharp and 8/10. Incidentally in ER noted with BP 200s/100s. Patient was evaluated by Cardiology and admitted to ICU for Hypertensive Emergency. Chest/Abdominal CTA indicated neg for dissection He was started on Labetolol drip for BP control. 07/10/20 on exam noted to be febrile tmax 103.2F, received Tylenol IVPB. Tachypneic, but denies chest pain, SOB, palpitations. Urine collected for UA/CS, blood cultures collected, and CXR done with results pending. Noted with Leukocytosis WBC 10.5. BP on exam controlled with tachycardia HR 110s. Echocardiogram indicates moderate concentric left ventircular hypertrophy, EF 50-55%; moderate aoritic regurgitation, no pericardia effusion. Head CT indicates no evidence of acute intracranial pathology. Lumbar/sacral CT shows intact vertebral bodies iwth patient SI joints, bilateral hip replacements, soft tissue calcifications and vertebral wedging seen in the lower thoracic spice. Discussed with SIMULATION DEVELOPER and patient BP improving and with improved mental status. Now able to tell me he's in the hospital, month, and year. Fatigued appearing still. AMS possibly 2/2 hypertensive encephalopathy which is being treated with Labetolol drip in ICU. Neurologically, patient more awake and alert, but minimally conversive. His blood pressure was in the normotensive range. Repeated Head CT showed no acute intracranial pathology. NSGY notes reviewed and MRI of lumbar spine completed and demonstrated R. L4-L5 facet joint probably on basis of septic arthritis/osteomyelitis. Mild edema in posterior paraspinal musculature b/l at level T12-S1. Also, possible mild edema within L. psoas muscles at L2-L4. Evaluation was limited due to persistent motion artifact. Patient on Ceftriaxone. Conitinue to monitor mental status, gradual reductions in BP. Follow up possible Osteo, ID follow up, Abx as per primary/ID. Frequuent reorientation. Continue Meclezine. Continued close monitoring in ICU. Critical care time 35 mins.
[2020-07-13] MEDS ORDERED: PT OWN MED DRAWER 7, Y5N ONE ×2 (09:35→21:07)
[2020-07-13] MEDS ORDERED: DEXTROSE 5%-WATER 100 ML IVPB ONE (09:35)
[2020-07-13] MEDS: oxyCODONE HCL 5 MG TABLET PO PRN (09:40)
[2020-07-13] MEDS: ACETAMINOPHEN 500 MG TABLET (FP) PO PRN (09:42)
[2020-07-13] MEDS: predniSONE 5 MG TABLET (UD) PO SCH ×2 (09:42→21:29)
[2020-07-13] MEDS: MUPIROCIN 2% TOPICAL OINTMENT FOR DECOLONIZATION NS SCH ×2 (09:43→21:29)
[2020-07-13] MEDS: CEFTRIAXONE 2 GM in DEXTROSE 5%-WATER 100 ML IVPB SCH (09:43)
[2020-07-13] MEDS: FAMOTIDINE 20 MG TABLET PO SCH (09:43)
[2020-07-13] MEDS: amLODIPine BESYLATE 10 MG TABLET (FP) PO SCH (10:09)
--- NOTE | 2020-07-13 13:13 | PN ---
Progress Note (short form) - Note Progress Note: Chief Complaint: htn, cp s: no chest pain, palps, dizziness, dyspnea Current Medications Generic Name Dose Route Start Last Admin Trade Name Freq PRN Reason Stop Dose Admin Acetaminophen 1,000 mg 07/09/20 14:04 07/13/20 09:42 Tylenol - PO 1,000 mg Q6H PRN Administration PAIN LEVEL 1-5 Amlodipine Besylate 10 mg 07/10/20 10:00 07/13/20 10:09 Norvasc - PO 10 mg DAILY [facility] Administration Chlorhexidine Gluconate 1 applic 07/09/20 22:00 07/12/20 21:41 Hibiclens For Decolonization - TP 1 applic HS [facility] Administration Docusate Sodium 100 mg 07/09/20 14:50 07/12/20 21:42 Colace - PO 100 mg BID PRN Administration CONSTIPATION Famotidine 20 mg 07/09/20 14:15 07/13/20 09:43 Pepcid - PO 20 mg DAILY [facility] Administration Heparin Sodium (Porcine) 5,000 unit 07/09/20 12:15 07/13/20 09:42 Heparin - SQ 5,000 unit Q8H-IV [facility] Administration Ceftriaxone Sodium 2 gm/ 100 mls @ 200 mls/hr 07/10/20 12:15 07/13/20 09:43 Dextrose IVPB 200 mls/hr DAILY [facility] Administration Protocol Lactated Ringer's 1,000 ml in 1,000 mls @ 100 mls/hr 07/12/20 11:30 07/12/20 12:00 Lactated Ringers Solution IV 100 mls/hr ASDIR [facility] Administration Labetalol HCl 300 mg 07/12/20 11:14 07/13/20 05:15 Normodyne - PO 300 mg TID [facility] Administration Morphine Sulfate 4 mg 07/09/20 14:31 07/11/20 22:01 Morphine Sulfate IVPUSH 4 mg Q4H PRN Administration PAIN LEVEL 6-10 Mupirocin 1 applic 07/09/20 14:00 07/13/20 09:43 Bactroban Ointment (For Decolonization) - NS 07/14/20 13:59 1 applic BID [facility] Administration Oxycodone HCl 5 mg 07/09/20 16:24 07/13/20 09:40 Roxicodone - PO 5 mg Q6H PRN Administration PAIN LEVEL 6-10 Prednisone 5 mg 07/09/20 22:00 07/13/20 09:42 Deltasone - PO 5 mg BID [facility] Administration Vital Signs Period Temp Pulse Resp BP Sys/Mcgraw Pulse Ox Last 24 Hr 98.5 F-99.1 F 74-89 18-31 123-157/82-107 81-100 Constitutional: Yes: No Distress, Calm Neck: Yes: Supple, Trachea Midline Cardiovascular: Yes: Regular Rate and Rhythm Respiratory: Yes: CTA Bilaterally Gastrointestinal: Yes: Soft (nt) Edema: No Peripheral Pulses WNL: Yes Neurological: Yes: lethargic no jaundice diaphoresis tele: sinus - ....Imaging Cat Scan: Report Reviewed Ultrasound: Report Reviewed EKG: Image Reviewed Assessment/Plan IMP/PLAN: Hypertensive urgency, hypertensive heart disease secondary to chronic hypertension Sudden onset of severe back pain and upper chest pain, CTA C/A/P Negative for aortic dissection Rheumatoid arthritis, chronic Fever Thrombocytopenia Equivocal TnIs CKD Elevated BNP 1. Hypertensive urgency: -improved, on po meds now 2. Sudden back pain/chest pain: -CTA negative for dissection -resolved. 3. Fever: unclear source -Cultures remain NGTD -CAP (atelectasis seen on CT) vs COVID PNA (initial swab negative) -started on empiric abx by ID -Rheum consulted 4. Thrombocytopenia: may be seen in early sepsis and also be seen in flares of autoimmune diseases -Follow CBC -Rheum consulted. 5. Equivocal TnIs: -flat trend, not c/w ACS -Likely demand ischemia in setting of hypertensive urgency -Continue telemetry -Echo 07/09 with LVH, EF 50-55% and moderate AR 6. CKD: -Creatinine remains at baseline from admission with initial improvement and now back to 1.6 -Daily BMP 7. Elevated BNP: -Possible acute on chronic diastolic CHF in setting of hypertension and extra volume received -CXR with increased vascular/interstitial markings may represent volume vs atypical or viral infection -defer diuretics -avoid additional IVF unless needed for BP support
--- NOTE | 2020-07-13 13:59 | PN ---
Progress Note, Physician History of Present Illness: Pt seen and examined at bedside. He is awake and alert. he denies shortness of breath. - Current Medication List Current Medications: Active Medications Acetaminophen (Tylenol -) 1,000 mg PO Q6H PRN PRN Reason: PAIN LEVEL 1-5 Last Admin: 07/13/20 09:42 Dose: 1,000 mg Documented by: Amlodipine Besylate (Norvasc -) 10 mg PO DAILY [facility] Last Admin: 07/13/20 10:09 Dose: 10 mg Documented by: Chlorhexidine Gluconate (Hibiclens For Decolonization -) 1 applic TP HS [facility] Last Admin: 07/12/20 21:41 Dose: 1 applic Documented by: Docusate Sodium (Colace -) 100 mg PO BID PRN PRN Reason: CONSTIPATION Last Admin: 07/12/20 21:42 Dose: 100 mg Documented by: Famotidine (Pepcid -) 20 mg PO DAILY [facility] Last Admin: 07/13/20 09:43 Dose: 20 mg Documented by: Heparin Sodium (Porcine) (Heparin -) 5,000 unit SQ Q8H-IV [facility] Last Admin: 07/13/20 09:42 Dose: 5,000 unit Documented by: Ceftriaxone Sodium 2 gm/ (Dextrose) 100 mls @ 200 mls/hr IVPB DAILY [facility]; Protocol Last Admin: 07/13/20 09:43 Dose: 200 mls/hr Documented by: Lactated Ringer's (Lactated Ringers Solution) 1,000 ml in 1,000 mls @ 100 mls/hr IV ASDIR [facility] Last Admin: 07/12/20 12:00 Dose: 100 mls/hr Documented by: Labetalol HCl (Normodyne -) 300 mg PO TID [facility] Last Admin: 07/13/20 13:43 Dose: 300 mg Documented by: Morphine Sulfate (Morphine Sulfate) 4 mg IVPUSH Q4H PRN PRN Reason: PAIN LEVEL 6-10 Last Admin: 07/11/20 22:01 Dose: 4 mg Documented by: Mupirocin (Bactroban Ointment (For Decolonization) -) 1 applic NS BID [facility] Stop: 07/14/20 13:59 Last Admin: 07/13/20 09:43 Dose: 1 applic Documented by: Oxycodone HCl (Roxicodone -) 5 mg PO Q6H PRN PRN Reason: PAIN LEVEL 6-10 Last Admin: 07/13/20 09:40 Dose: 5 mg Documented by: Prednisone (Deltasone -) 5 mg PO BID [facility] Last Admin: 07/13/20 09:42 Dose: 5 mg Documented by: - Objective Vital Signs: Vital Signs Temperature 98.7 F 07/13/20 07:35 Pulse Rate 82 07/13/20 12:00 Respiratory Rate 18 07/13/20 12:00 Blood Pressure 126/88 07/13/20 13:49 O2 Sat by Pulse Oximetry (%) 100 07/13/20 10:00 Constitutional: Yes: Calm Eyes: Yes: Conjunctiva Clear HENT: Yes: Atraumatic Neck: Yes: Supple Cardiovascular: Yes: S1, S2 Respiratory: Yes: CTA Bilaterally Gastrointestinal: Yes: Soft Genitourinary: Yes: WNL Musculoskeletal: Yes: WNL Edema: No Neurological: Yes: Oriented Psychiatric: Yes: Oriented Labs: CBC, BMP 07/13/20 05:30 07/13/20 05:30 INR, PTT INR 0.96 (0.83-1.09) 07/09/20 07:52 Assessment/Plan Current Medications Generic Name Dose Route Start Last Admin Trade Name Freq PRN Reason Stop Dose Admin Acetaminophen 1,000 mg 07/09/20 14:04 07/13/20 09:42 Tylenol - PO 1,000 mg Q6H PRN Administration PAIN LEVEL 1-5 Amlodipine Besylate 10 mg 07/10/20 10:00 07/13/20 10:09 Norvasc - PO 10 mg DAILY [facility] Administration Chlorhexidine Gluconate 1 applic 07/09/20 22:00 07/12/20 21:41 Hibiclens For Decolonization - TP 1 applic HS [facility] Administration Docusate Sodium 100 mg 07/09/20 14:50 07/12/20 21:42 Colace - PO 100 mg BID PRN Administration CONSTIPATION Famotidine 20 mg 07/09/20 14:15 07/13/20 09:43 Pepcid - PO 20 mg DAILY [facility] Administration Heparin Sodium (Porcine) 5,000 unit 07/09/20 12:15 07/13/20 09:42 Heparin - SQ 5,000 unit Q8H-IV [facility] Administration Ceftriaxone Sodium 2 gm/ 100 mls @ 200 mls/hr 07/10/20 12:15 07/13/20 09:43 Dextrose IVPB 200 mls/hr DAILY [facility] Administration Protocol Lactated Ringer's 1,000 ml in 1,000 mls @ 100 mls/hr 07/12/20 11:30 07/12/20 12:00 Lactated Ringers Solution IV 100 mls/hr ASDIR [facility] Administration Labetalol HCl 300 mg 07/12/20 11:14 07/13/20 13:43 Normodyne - PO 300 mg TID [facility] Administration Morphine Sulfate 4 mg 07/09/20 14:31 07/11/20 22:01 Morphine Sulfate IVPUSH 4 mg Q4H PRN Administration PAIN LEVEL 6-10 Mupirocin 1 applic 07/09/20 14:00 07/13/20 09:43 Bactroban Ointment (For Decolonization) - NS 07/14/20 13:59 1 applic BID [facility] Administration Oxycodone HCl 5 mg 07/09/20 16:24 07/13/20 09:40 Roxicodone - PO 5 mg Q6H PRN Administration PAIN LEVEL 6-10 Prednisone 5 mg 07/09/20 22:00 07/13/20 09:42 Deltasone - PO 5 mg BID [facility] Administration Impression 1. CKD 2. BRADLEY 3. HTN 4. RA 5. hx of positive imfx in the past 6. altered mental status 7. proteinuria 8. non compliance Plan - repeat bmp to evaluate bicarb - can hold off fluids - repeat labs in am - pt with proteinuria - follow imfx - monitor bp - rheum input appreciated
[2020-07-13] MEDS: LACTATED RINGERS SOLUTION 1,000 ML/1,000 ML INFUS.BAG IV SCH (14:09)
--- NOTE | 2020-07-13 15:09 | PN ---
Progress Note, Physician Chief Complaint: AWAKE, ALERT OOB IN CHAIR NO COMPLAINTS TEMPS DOWN AFEBRILE WBC REMAINS SL ELEVATED BC NO GROWTH MRI SHOWS ? VERTEBRAL OM L4L5 EDEMA L PSOAS MUSCLE ? EARLY ABSCESS - Current Medication List Current Medications: Active Medications Acetaminophen (Tylenol -) 1,000 mg PO Q6H PRN PRN Reason: PAIN LEVEL 1-5 Last Admin: 07/13/20 09:42 Dose: 1,000 mg Documented by: Amlodipine Besylate (Norvasc -) 10 mg PO DAILY [facility] Last Admin: 07/13/20 10:09 Dose: 10 mg Documented by: Chlorhexidine Gluconate (Hibiclens For Decolonization -) 1 applic TP HS [facility] Last Admin: 07/12/20 21:41 Dose: 1 applic Documented by: Docusate Sodium (Colace -) 100 mg PO BID PRN PRN Reason: CONSTIPATION Last Admin: 07/12/20 21:42 Dose: 100 mg Documented by: Famotidine (Pepcid -) 20 mg PO DAILY [facility] Last Admin: 07/13/20 09:43 Dose: 20 mg Documented by: Heparin Sodium (Porcine) (Heparin -) 5,000 unit SQ Q8H-IV [facility] Last Admin: 07/13/20 09:42 Dose: 5,000 unit Documented by: Ceftriaxone Sodium 2 gm/ (Dextrose) 100 mls @ 200 mls/hr IVPB DAILY [facility]; Protocol Last Admin: 07/13/20 09:43 Dose: 200 mls/hr Documented by: Lactated Ringer's (Lactated Ringers Solution) 1,000 ml in 1,000 mls @ 40 mls/hr IV ASDIR [facility] Last Admin: 07/13/20 14:09 Dose: 40 mls/hr Documented by: Labetalol HCl (Normodyne -) 300 mg PO TID [facility] Last Admin: 07/13/20 13:43 Dose: 300 mg Documented by: Morphine Sulfate (Morphine Sulfate) 4 mg IVPUSH Q4H PRN PRN Reason: PAIN LEVEL 6-10 Last Admin: 07/11/20 22:01 Dose: 4 mg Documented by: Mupirocin (Bactroban Ointment (For Decolonization) -) 1 applic NS BID [facility] Stop: 07/14/20 13:59 Last Admin: 07/13/20 09:43 Dose: 1 applic Documented by: Oxycodone HCl (Roxicodone -) 5 mg PO Q6H PRN PRN Reason: PAIN LEVEL 6-10 Last Admin: 07/13/20 09:40 Dose: 5 mg Documented by: Prednisone (Deltasone -) 5 mg PO BID [facility] Last Admin: 07/13/20 09:42 Dose: 5 mg Documented by: - Objective Vital Signs: Vital Signs Temperature 98.7 F 07/13/20 07:35 Pulse Rate 86 07/13/20 14:44 Respiratory Rate 18 07/13/20 14:44 Blood Pressure 126/88 07/13/20 13:49 O2 Sat by Pulse Oximetry (%) 100 07/13/20 10:00 Constitutional: Yes: No Distress Eyes: Yes: Conjunctiva Clear Cardiovascular: Yes: Regular Rate and Rhythm, S1, S2 Respiratory: Yes: CTA Bilaterally Gastrointestinal: Yes: Normal Bowel Sounds, Soft. No: Tenderness Genitourinary: No: CVA Tenderness - Left, CVA Tenderness - Right Labs: CBC, BMP 07/13/20 05:30 INR, PTT INR 0.96 (0.83-1.09) 07/09/20 07:52 Assessment/Plan ? HEMATOGENOUS VERTEBRAL OM/ EARLY PSOAS MUSCLE FEVER/ LEUKOCYTOSIS IMPROVED S/P HYPERTENSIVE CRISIS REPEAT BC REPEAT MRI WITH CONTTRAST ? ASPIRATE L4/L5 FOR C/S CONTINUE CEFTRIAXONE/ VANCOMYCIN
[2020-07-13 15:10] LABS: BLOOD UREA NITROGEN 36.2 mg/dL (7-18); CALCIUM 8.5 mg/dL (8.5-10.1); CREATININE 1.6 mg/dL (0.55-1.3); POTASSIUM 4.8 mmol/L (3.5-5.1)
[2020-07-13] MEDS: VANCOMYCIN 1 GRAM (PRE-DOCKED) 1,000 MG/250 ML BAG IVPB SCH (16:19)
--- NOTE | 2020-07-13 16:23 | PN ---
Progress Note, Physician Chief Complaint: Low back pain FUO Hypertensive emergency History of Present Illness: 34 yo male came in to [facility] ER with acute onset sharp lower back pain 05/24. Noted with BP 200s/100s and temp of 103. Non-compliant with meds and not on biologics by report. 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 L4-L5 facet joint probably on basis of septic arthritis/osteomyelitis. Mild edema in posterior paraspinal musculature b/l at level T12-S1. Also, possible mild edema within L. psoas muscles at L2-L4. Evaluation was limited due to persistent motion artifact. Pt OOB to chair, mentation improved, On IV rocephin and Vanco, afebrile - Current Medication List Current Medications: Active Medications Acetaminophen (Tylenol -) 1,000 mg PO Q6H PRN PRN Reason: PAIN LEVEL 1-5 Last Admin: 07/13/20 09:42 Dose: 1,000 mg Documented by: Amlodipine Besylate (Norvasc -) 10 mg PO DAILY [facility] Last Admin: 07/13/20 10:09 Dose: 10 mg Documented by: Chlorhexidine Gluconate (Hibiclens For Decolonization -) 1 applic TP HS [facility] Last Admin: 07/12/20 21:41 Dose: 1 applic Documented by: Docusate Sodium (Colace -) 100 mg PO BID PRN PRN Reason: CONSTIPATION Last Admin: 07/12/20 21:42 Dose: 100 mg Documented by: Famotidine (Pepcid -) 20 mg PO DAILY [facility] Last Admin: 07/13/20 09:43 Dose: 20 mg Documented by: Heparin Sodium (Porcine) (Heparin -) 5,000 unit SQ Q8H-IV [facility] Last Admin: 07/13/20 09:42 Dose: 5,000 unit Documented by: Ceftriaxone Sodium 2 gm/ (Dextrose) 100 mls @ 200 mls/hr IVPB DAILY [facility]; Protocol Last Admin: 07/13/20 09:43 Dose: 200 mls/hr Documented by: Lactated Ringer's (Lactated Ringers Solution) 1,000 ml in 1,000 mls @ 40 mls/hr IV ASDIR [facility] Last Admin: 07/13/20 14:09 Dose: 40 mls/hr Documented by: Vancomycin HCl (Vancomycin (Pre-Docked)) 1,000 mg in 250 mls @ 166.667 mls/hr IVPB BID@0400,1600 [facility]; Protocol Last Admin: 07/13/20 16:19 Dose: 166.667 mls/hr Documented by: Labetalol HCl (Normodyne -) 300 mg PO TID [facility] Last Admin: 07/13/20 13:43 Dose: 300 mg Documented by: Mupirocin (Bactroban Ointment (For Decolonization) -) 1 applic NS BID [facility] Stop: 07/14/20 13:59 Last Admin: 07/13/20 09:43 Dose: 1 applic Documented by: Oxycodone HCl (Roxicodone -) 5 mg PO Q6H PRN PRN Reason: PAIN LEVEL 6-10 Last Admin: 07/13/20 09:40 Dose: 5 mg Documented by: Prednisone (Deltasone -) 5 mg PO BID [facility] Last Admin: 07/13/20 09:42 Dose: 5 mg Documented by: - Objective Vital Signs: Vital Signs Temperature 98.7 F 07/13/20 07:35 Pulse Rate 86 07/13/20 14:44 Respiratory Rate 18 07/13/20 14:44 Blood Pressure 126/88 07/13/20 13:49 O2 Sat by Pulse Oximetry (%) 100 07/13/20 10:00 Constitutional: Yes: Well Nourished, No Distress, Calm Cardiovascular: Yes: Regular Rate and Rhythm Respiratory: Yes: Regular, CTA Bilaterally Gastrointestinal: Yes: Normal Bowel Sounds, Soft Genitourinary: Yes: WNL Musculoskeletal: Yes: Muscle Weakness Extremities: Yes: WNL Edema: No Peripheral Pulses WNL: Yes Neurological: Yes: Alert, Oriented Psychiatric: Yes: Alert, Oriented Labs: CBC, BMP 07/13/20 05:30 07/13/20 14:28 INR, PTT INR 0.96 (0.83-1.09) 07/09/20 07:52 Problem List - Problems (1) FUO (fever of unknown origin) Assessment/Plan: -Cultures: Microbiology 07/09/20 23:20 Blood - Peripheral Venous Blood Culture - Preliminary NO GROWTH OBTAINED AFTER 48 HOURS, INCUBATION TO CONTINUE FOR 3 DAYS. 07/09/20 23:20 Blood - Peripheral Venous Blood Culture - Preliminary NO GROWTH OBTAINED AFTER 48 HOURS, INCUBATION TO CONTINUE FOR 3 DAYS. 07/10/20 13:00 Urine For Antigen Detection Legionella Antigen - Final 07/10/20 13:00 Urine For Antigen Detection Streptococcus pneumoniae Antigen (M - Final 07/09/20 07:52 Urine - Urine Clean Catch Urine Culture - Final NO GROWTH OBTAINED -IV rocephin + Vanco -ID consult -Echo: 07/09/20- moderate conc LVH, LVEF 50-55%, mild mitral and tricuspid regurg, moderate aortic regurg -COVID PCR negative -CTA abd/pel/chest: unremarkable -MRI L/S w/wo contrast: 07/12/20:R. L4-L5 facet joint probably on basis of septic arthritis/osteomyelitis. Mild edema in posterior paraspinal musculature b/l at level T12-S1. Also, possible mild edema within L. psoas muscles at L2-L4. Evaluation was limited due to persistent motion artifact. -OM biopsy?-as per NS recommendation Problems reviewed: Yes Code(s): R50.9 - FEVER, UNSPECIFIED (2) Confusion Assessment/Plan: -Head CT (2): no acute bleed or fx, no large territorial infarcts, calcified dens retropulsed into canal with craniocervical junction stenosis -Prior MRI C spine(2012): RA with small panus, retropulsed dens, mild stenosis cranio-cervical junction -Prior CT C spine (2017): predentine interval of 6-7 mm, calcified dens; fused cranio-cervical junction and atlanto-axial junction -Lumbar x-rays- no acute fx lumbar spine, mildly depressed vertebral heights lower T spine -Repeat MRI L/S as above -Hypertensive encephlopathy Problems reviewed: Yes Code(s): R41.0 - DISORIENTATION, UNSPECIFIED (3) Arthritis, rheumatoid Assessment/Plan: -Rheumatology consult appreciated -Continue prednisone 5 mg po BID -Biologics outpatient -[id number], ESR 69, CRP 15>8.5 Problems reviewed: Yes Code(s): M06.9 - RHEUMATOID ARTHRITIS, UNSPECIFIED (4) Hypertensive emergency Assessment/Plan: -Resolved -Cardiology consult appreciated -Continue Labetalol 300 mg po TID -Continue amlodipine 10 mg po daily Problems reviewed: Yes Code(s): I16.1 - HYPERTENSIVE EMERGENCY Assessment/Plan See problem list
[2020-07-13] MEDS: CHLORHEXIDINE GLUCONATE 4% CLEANSER FOR DECOLONIZATION TP SCH (21:29)
[2020-07-14] MEDS: HEPARIN NA (PORCINE) 5,000 UNITS/ML 1ML VIAL SQ SCH ×3 (01:14→17:52)
[2020-07-14] MEDS: VANCOMYCIN 1 GRAM (PRE-DOCKED) 1,000 MG/250 ML BAG IVPB SCH ×2 (03:12→17:52)
[2020-07-14] MEDS: LABETALOL HCL 200 MG TABLET (FP) PO SCH ×3 (06:32→22:19)
--- NOTE | 2020-07-14 08:33 | PN ---
Progress Note (short form) - Note Progress Note: Neurology - Admission Chief Complaint: Bilateral lower back pain History of Present Illness: Patient is a 34 y/o male with past medical history of HTN, RA, and bilateral knee surgery. He presented to [facility] ER with complaints of acute onset lower back pain on day of admission. The pain woke him up from his sleep and described as sharp and 8/10. Incidentally in ER noted with BP 200s/100s. Patient was evaluated by Cardiology and admitted to ICU for Hypertensive Emergency. Chest/Abdominal CTA indicated neg for dissection He was started on Labetolol drip for BP control. 07/10/20 on exam noted to be febrile tmax 103.2F, received Tylenol IVPB. Tachypneic, but denies chest pain, SOB, palpitations. Urine collected for UA/CS, blood cultures collected, and CXR done with results pen ding. Noted with Leukocytosis WBC 10.5. BP on exam controlled with tachycardia HR 110s. Echocardiogram indicates moderate concentric left ventircular hypertrophy, EF 50-55%; moderate aoritic regurgitation, no pericardia effusion. Head CT indicates no evidence of acute intracranial pathology. Lumbar/sacral CT shows intact vertebral bodies iwth patient SI joints, bilateral hip replacements, soft tissue calcifications and vertebral wedging seen in the lower thoracic spice. Neurologically, patient more awake and alert, but minimally conversive. His blood pressure was in the normotensive range. Repeated Head CT showed no acute intracranial pathology. NSGY notes reviewed and MRI of lumbar spine completed and demonstrated R. L4-L5 facet joint probably on basis of septic arthritis/osteomyelitis. Mild edema in posterior paraspinal musculature b/l at level T12-S1. Also, possible mild edema within L. psoas muscles at L2-L4. Evaluation was limited due to persistent motion artifact. Patient on Cef triaxone. Dr. Rosado note reviewed, consider IR CT guided aspiration of facet joint. MRI L spine with and without contrast should be considered. Active Medications Acetaminophen (Tylenol -) 1,000 mg PO Q6H PRN PRN Reason: PAIN LEVEL 1-5 Last Admin: 07/13/20 09:42 Dose: 1,000 mg Documented by: Amlodipine Besylate (Norvasc -) 10 mg PO DAILY [facility] Last Admin: 07/13/20 10:09 Dose: 10 mg Documented by: Chlorhexidine Gluconate (Hibiclens For Decolonization -) 1 applic TP HS [facility] Last Admin: 07/13/20 21:29 Dose: 1 applic Documented by: Docusate Sodium (Colace -) 100 mg PO BID PRN PRN Reason: CONSTIPATION Last Admin: 07/12/20 21:42 Dose: 100 mg Documented by: Famotidine (Pepcid -) 20 mg PO DAILY [facility] Last Admin: 07/13/20 09:43 Dose: 20 mg Documented by: Heparin Sodium (Porcine) (Heparin -) 5,000 unit SQ Q8H-IV [facility] Last Admin: 07/14/20 01:14 Dose: 5,000 unit Documented by: Ceftriaxone Sodium 2 gm/ (Dextrose) 100 mls @ 200 mls/hr IVPB DAILY [facility]; Protocol Last Admin: 07/13/20 09:43 Dose: 200 mls/hr Documented by: Lactated Ringer's (Lactated Ringers Solution) 1,000 ml in 1,000 mls @ 40 mls/hr IV ASDIR [facility] Last Admin: 07/13/20 14:09 Dose: 40 mls/hr Documented by: Vancomycin HCl (Vancomycin (Pre-Docked)) 1,000 mg in 250 mls @ 166.667 mls/hr IVPB BID@0400,1600 [facility]; Protocol Last Admin: 07/14/20 03:12 Dose: 166.667 mls/hr Documented by: Labetalol HCl (Normodyne -) 300 mg PO TID [facility] Last Admin: 07/14/20 06:32 Dose: 300 mg Documented by: Mupirocin (Bactroban Ointment (For Decolonization) -) 1 applic NS BID [facility] Stop: 07/14/20 13:59 Last Admin: 07/13/20 21:29 Dose: 1 applic Documented by: Oxycodone HCl (Roxicodone -) 5 mg PO Q6H PRN PRN Reason: PAIN LEVEL 6-10 Last Admin: 07/13/20 09:40 Dose: 5 mg Documented by: Prednisone (Deltasone -) 5 mg PO BID [facility] Last Admin: 07/13/20 21:29 Dose: 5 mg Documented by: PHYSICAL EXAMINATION Vital Signs Period Temp Pulse Resp BP Sys/Mcgraw Pulse Ox Last 24 Hr 98.4 F-98.7 F 72-89 17-22 125-157/88-107 95-100 GENERAL: Awake, alert, fatigued appearing HEAD: Normal with no signs of trauma. EYES: Pupils equal, round and reactive to light, extraocular movements intact, sclera anicteric, conjunctiva clear. No lid lag. EARS, NOSE, THROAT: Ears normal, nares patent, oropharynx clear without exudates. Moist mucous membranes. NECK: Normal range of motion, supple without lymphadenopathy, JVD, or masses. LUNGS: Breath sounds equal, clear to auscultation bilaterally. No wheezes, and no crackles. No accessory muscle use. HEART: Regular rate and rhythm, normal S1 and S2 without murmur, rub or gallop. ABDOMEN: Soft, nontender, not distended, normoactive bowel sounds, no guarding, no rebound, no masses. No hepatomegaly or splenomegaly. MUSCULOSKELETAL: Pain with back flexion/extension and rotation. No bony deformities or tenderness. No CVA tenderness. UPPER EXTREMITIES: 2+ pulses, warm, well-perfused. No cyanosis. No clubbing. Cap refill <2 seconds. No peripheral edema. LOWER EXTREMITIES: 2+ pulses, warm, well-perfused. No calf tenderness. No peripheral edema. NEUROLOGICAL: Cranial nerves II-XII intact. Normal speech. Normal gait. PSYCHIATRIC: Cooperative. Good eye contact. Appropriate mood and affect. SKIN: Warm, dry, normal turgor, no rashes or lesions noted. CBCD WBC 12.5 K/mm3 (4.0-10.0) H 07/13/20 05:30 RBC 4.26 M/mm3 (4.00-5.60) 07/13/20 05:30 Hgb 9.4 GM/dL (11.7-16.9) L 07/13/20 05:30 Hct 28.2 % (35.4-49) L 07/13/20 05:30 MCV 66.2 fl (80-96) L 07/13/20 05:30 MCHC 33.2 g/dl (32.0-35.9) 07/13/20 05:30 RDW 23.5 % (11.9-15.9) H 07/13/20 05:30 Plt Count 124 K/MM3 (134-434) L 07/13/20 05:30 MPV 8.5 fl (7.5-11.1) 07/13/20 05:30 CMP Sodium 138 mmol/L (136-145) 07/13/20 14:28 Potassium 4.8 mmol/L (3.5-5.1) 07/13/20 14:28 Chloride 106 mmol/L (98-107) 07/13/20 14:28 Carbon Dioxide 25 mmol/L (21-32) 07/13/20 14:28 Anion Gap 7 MMOL/L (8-16) L 07/13/20 14:28 BUN 36.2 mg/dL (7-18) H 07/13/20 14:28 Creatinine 1.6 mg/dL (0.55-1.3) H 07/13/20 14:28 Random Glucose 104 mg/dL (74-106) 07/13/20 14:28 Calcium 8.5 mg/dL (8.5-10.1) 07/13/20 14:28 Total Bilirubin 1.1 mg/dL (0.2-1) H 07/13/20 05:30 AST 22 U/L (15-37) 07/13/20 05:30 ALT 24 U/L (13-61) 07/13/20 05:30 Alkaline Phosphatase 141 U/L (45-117) H 07/13/20 05:30 Total Protein 6.2 g/dl (6.4-8.2) L 07/13/20 05:30 Albumin 2.3 g/dl (3.4-5.0) L 07/13/20 05:30 CARDIAC ENZYMES Creatine Kinase 102 U/L (26-308) 07/09/20 07:52 Troponin I 0.14 ng/ml (0.00-0.05) H 07/09/20 23:20 Plan/Assessment: Patient is a 34 y/o male with past medical history of HTN, RA, and bilateral knee surgery. He presented to [facility] ER with complaints of acute onset lower back pain on day of admission. The pain woke him up from his sleep and described as sharp and 8/10. Incidentally in ER noted with BP 200s/100s. Patient was evaluated by Cardiology and admitted to ICU for Hypertensive Emergency. Chest/Abdominal CTA indicated neg for dissection He was started on Labetolol drip for BP control. 07/10/20 on exam noted to be febrile tmax 103.2F, received Tylenol IVPB. Tachypneic, but denies chest pain, SOB, palpitations. Urine collected for UA/CS, blood cultures collected, and CXR done with results pending. Noted with Leukocytosis WBC 10.5. BP on exam controlled with tachycardia HR 110s. Echocardiogram indicates moderate concentric left ventircular hypertrophy, EF 50-55%; moderate aoritic regurgitation, no pericardia effusion. Head CT indicates no evidence of acute intracranial pathology. Lumbar/sacral CT shows intact vertebral bodies iwth patient SI joints, bilateral hip replacements, soft tissue calcifications and vertebral wedging seen in the lower thoracic spice. Discussed with FINGERPRINTER and patient BP improving and with improved mental status. Now able to tell me he's in the hospital, month, and year. Fatigued appearing still. Neurologically, patient more awake and alert, but minimally conversive. His blood pressure was in the normotensive range. Repeated Head CT showed no acute intracranial pathology. NSGY notes reviewed and MRI of lumbar spine completed and demonstrated R. L4-L5 facet joint probably on basis of septic arthritis/osteomyelitis. Mild edema in posterior paraspinal musculature b/l at level T12-S1. Also, possible mild edema within L. psoas muscles at L2-L4. Evaluation was limited due to persistent motion artifact. Patient on Ceftriaxone. Conitinue to monitor mental status, gradual reductions in BP. Follow up possible Osteo, ID follow up, Abx as per primary/ID. Dr. Rosado note reviewed, consider IR CT guided aspiration of facet joint. MRI L spine with and without contrast should be considered. Frequuent reorientation. Meclezine as needed. Continued close monitoring in ICU. Critical care time 35 mins.
--- NOTE | 2020-07-14 08:39 | PN ---
Progress Note (short form) - Note Progress Note: NEUROSURGERY H/o HTN, RA with basilar invagination, and hip/bilateral knee surgery. Acute onset sharp lower back pain 8/10. Noted with BP 200s/100s and temp of 103. Non-compliant with BP meds and not on biologics by report. PE: Tmax 98.7, AF, BP still elevated Still lethargic HEENT- NC/AT; Neck- supple; Cor- RR; lungs- CTA B; Abd- benign; Ext- no sign of DVT CN- grossly intact; Motor- at least 3/5 B UE/LE; Sensation- grossly intact LT; DTR- 2+, no LTS Covid negative Blood culture negative to date; urine culture negative Repeat culture pending Head CT (2): no acute bleed or fx, no large territorial infarcts, calcified dens retropulsed into canal with craniocervical junction stenosis Prior MRI C spine(2013): RA with small panus, retropulsed dens, mild stenosis cranio-cervical junction Prior CT C spine (2017): predentine interval of 6-7 mm, calcified dens; fused cranio-cervical junction and atlanto-axial junction Lumbar x-rays- no acute fx lumbar spine, mildly depressed vertebral heights lower T spine MRI LS spine- mild spondylosis and facet hypertrophy, R L4-5 facet joint effusion, mild enhancement, no epidural enhancement, no osteo of vertebral bodies RA with documented basilar invagination Hypertensive encephalopathy Denies neck pain or extremity weakness/numbness nor B/B dysfunction Fever - defervesced since iv abx Keep well hydrated given mildly elevated Cr Could consider IR CT guided aspiration/bx of R L4-5 facet joint even though the re is minimal fluid, and pt has been on broad spectrum iv abx, reducing the yield care d/w ICU team ID followup
[2020-07-14] MEDS ORDERED: DEXTROSE 5%-WATER 100 ML IVPB ONE (09:30)
[2020-07-14] MEDS: CEFTRIAXONE 2 GM in DEXTROSE 5%-WATER 100 ML IVPB SCH (09:50)
[2020-07-14] MEDS: FAMOTIDINE 20 MG TABLET PO SCH (09:53)
[2020-07-14] MEDS: MUPIROCIN 2% TOPICAL OINTMENT FOR DECOLONIZATION NS SCH (09:53)
[2020-07-14] MEDS: amLODIPine BESYLATE 10 MG TABLET (FP) PO SCH (09:56)
[2020-07-14] MEDS ORDERED: PT OWN MED DRAWER 7, Y5N ONE (10:09)
[2020-07-14] MEDS: oxyCODONE HCL 5 MG TABLET PO PRN (10:11)
[2020-07-14] MEDS: ACETAMINOPHEN 500 MG TABLET (FP) PO PRN ×2 (10:12→22:19)
[2020-07-14] MEDS: predniSONE 5 MG TABLET (UD) PO SCH ×2 (10:19→22:19)
--- NOTE | 2020-07-14 10:47 | PN ---
Progress Note, Physician Chief Complaint: Low back pain FUO Hypertensive emergency History of Present Illness: 34 yo male came in to [facility] ER with acute onset sharp lower back pain 05/24. Noted with BP 200s/100s and temp of 103. Non-compliant with meds and not on biologics by report. 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, seen by Rheumatology Originally on Labetolol drip converted to PO now On Vanco + Rocephin IV for FUO- Fevers resolved now, cultres so far negative Echo :07/09/20- moderate conc LVH, LVEF 50-55%, mild mitral and tricuspid regurg, moderate aortic regurg Seen by Cardiology 07/14/20: NAD, lethargic Seen by NS Recommended CT guided aspiration/bx of R L4-5 facet joint -OM by IR - Current Medication List Current Medications: Active Medications Acetaminophen (Tylenol -) 1,000 mg PO Q6H PRN PRN Reason: PAIN LEVEL 1-5 Last Admin: 07/14/20 10:12 Dose: 1,000 mg Documented by: Amlodipine Besylate (Norvasc -) 10 mg PO DAILY [facility] Last Admin: 07/14/20 09:56 Dose: 10 mg Documented by: Chlorhexidine Gluconate (Hibiclens For Decolonization -) 1 applic TP HS [facility] Last Admin: 07/13/20 21:29 Dose: 1 applic Documented by: Docusate Sodium (Colace -) 100 mg PO BID PRN PRN Reason: CONSTIPATION Last Admin: 07/12/20 21:42 Dose: 100 mg Documented by: Famotidine (Pepcid -) 20 mg PO DAILY [facility] Last Admin: 07/14/20 09:53 Dose: 20 mg Documented by: Heparin Sodium (Porcine) (Heparin -) 5,000 unit SQ Q8H-IV [facility] Last Admin: 07/14/20 09:52 Dose: 5,000 unit Documented by: Ceftriaxone Sodium 2 gm/ (Dextrose) 100 mls @ 200 mls/hr IVPB DAILY [facility]; Protocol Last Admin: 07/14/20 09:50 Dose: 200 mls/hr Documented by: Lactated Ringer's (Lactated Ringers Solution) 1,000 ml in 1,000 mls @ 40 mls/hr IV ASDIR [facility] Last Admin: 07/13/20 14:09 Dose: 40 mls/hr Documented by: Vancomycin HCl (Vancomycin (Pre-Docked)) 1,000 mg in 250 mls @ 166.667 mls/hr IVPB BID@0400,1600 [facility]; Protocol Last Admin: 07/14/20 03:12 Dose: 166.667 mls/hr Documented by: Labetalol HCl (Normodyne -) 300 mg PO TID [facility] Last Admin: 07/14/20 06:32 Dose: 300 mg Documented by: Mupirocin (Bactroban Ointment (For Decolonization) -) 1 applic NS BID [facility] Stop: 07/14/20 13:59 Last Admin: 07/14/20 09:53 Dose: 1 applic Documented by: Oxycodone HCl (Roxicodone -) 5 mg PO Q6H PRN PRN Reason: PAIN LEVEL 6-10 Last Admin: 07/14/20 10:11 Dose: 5 mg Documented by: Prednisone (Deltasone -) 5 mg PO BID [facility] Last Admin: 07/14/20 10:19 Dose: 5 mg Documented by: - Objective Vital Signs: Vital Signs Temperature 97.8 F 07/14/20 10:00 Pulse Rate 94 H 07/14/20 10:00 Respiratory Rate 19 07/14/20 10:00 Blood Pressure 118/88 07/14/20 10:00 O2 Sat by Pulse Oximetry (%) 100 07/14/20 10:00 Constitutional: Yes: Well Nourished, No Distress, Calm Cardiovascular: Yes: Regular Rate and Rhythm Respiratory: Yes: Regular, CTA Bilaterally Gastrointestinal: Yes: Normal Bowel Sounds, Soft Genitourinary: Yes: WNL Musculoskeletal: Yes: Muscle Weakness Edema: No Peripheral Pulses WNL: Yes Neurological: Yes: Alert, Oriented Psychiatric: Yes: Alert, Oriented Labs: CBC, BMP 07/13/20 05:30 07/13/20 14:28 INR, PTT INR 0.96 (0.83-1.09) 07/09/20 07:52 Problem List - Problems (1) FUO (fever of unknown origin) Assessment/Plan: -Cultures: Microbiology 07/09/20 23:20 Blood - Peripheral Venous Blood Culture - Preliminary NO GROWTH OBTAINED AFTER 96 HOURS, INCUBATION TO CONTINUE FOR 1 DAYS. 07/09/20 23:20 Blood - Peripheral Venous Blood Culture - Preliminary NO GROWTH OBTAINED AFTER 96 HOURS, INCUBATION TO CONTINUE FOR 1 DAYS. 07/10/20 13:00 Urine For Antigen Detection Legionella Antigen - Final 07/10/20 13:00 Urine For Antigen Detection Streptococcus pneumoniae Antigen (M - Final 07/09/20 07:52 Urine - Urine Clean Catch Urine Culture - Final NO GROWTH OBTAINED -IV rocephin + Vanco -ID consult -Echo: 07/09/20- moderate conc LVH, LVEF 50-55%, mild mitral and tricuspid regurg, moderate aortic regurg -COVID PCR negative -CTA abd/pel/chest: unremarkable -L4-5 bone bx via IR Problems reviewed: Yes Code(s): R50.9 - FEVER, UNSPECIFIED (2) Confusion Assessment/Plan: -resolved -Head CT (2): no acute bleed or fx, no large territorial infarcts, calcified dens retropulsed into canal with craniocervical junction stenosis -Prior MRI C spine(2013): RA with small panus, retropulsed dens, mild stenosis cranio-cervical junction -Prior CT C spine (2017): predentine interval of 6-7 mm, calcified dens; fused cranio-cervical junction and atlanto-axial junction -Lumbar x-rays- no acute fx lumbar spine, mildly depressed vertebral heights lower T spine -Hypertensive encephlopathy Problems reviewed: Yes Code(s): R41.0 - DISORIENTATION, UNSPECIFIED (3) Arthritis, rheumatoid Assessment/Plan: -Rheumatology consult appreciated -Continue prednisone 5 mg po BID -Biologics outpatient -[id number], ESR 69, CRP 15>8.5 Problems reviewed: Yes Code(s): M06.9 - RHEUMATOID ARTHRITIS, UNSPECIFIED (4) Hypertensive emergency Assessment/Plan: -Resolved -Cardiology consult appreciated -Continue Labetalol 300 mg po TID -Continue amlodipine 10 mg po daily -Low sodium diet Problems reviewed: Yes Code(s): I16.1 - HYPERTENSIVE EMERGENCY Assessment/Plan See problem list Physical therapy
--- NOTE | 2020-07-14 12:18 | PN ---
Progress Note (short form) - Note Progress Note: Chief Complaint: htn, cp s: no chest pain, palps, dizziness, dyspnea. complains of back pain Current Medications Generic Name Dose Route Start Last Admin Trade Name Freq PRN Reason Stop Dose Admin Acetaminophen 1,000 mg 07/09/20 14:04 07/14/20 10:12 Tylenol - PO 1,000 mg Q6H PRN Administration PAIN LEVEL 1-5 Amlodipine Besylate 10 mg 07/10/20 10:00 07/14/20 09:56 Norvasc - PO 10 mg DAILY [facility] Administration Chlorhexidine Gluconate 1 applic 07/09/20 22:00 07/13/20 21:29 Hibiclens For Decolonization - TP 1 applic HS [facility] Administration Docusate Sodium 100 mg 07/09/20 14:50 07/12/20 21:42 Colace - PO 100 mg BID PRN Administration CONSTIPATION Famotidine 20 mg 07/09/20 14:15 07/14/20 09:53 Pepcid - PO 20 mg DAILY [facility] Administration Heparin Sodium (Porcine) 5,000 unit 07/09/20 12:15 07/14/20 09:52 Heparin - SQ 5,000 unit Q8H-IV [facility] Administration Ceftriaxone Sodium 2 gm/ 100 mls @ 200 mls/hr 07/10/20 12:15 07/14/20 09:50 Dextrose IVPB 200 mls/hr DAILY [facility] Administration Protocol Lactated Ringer's 1,000 ml in 1,000 mls @ 40 mls/hr 07/13/20 13:59 07/13/20 14:09 Lactated Ringers Solution IV 40 mls/hr ASDIR [facility] Administration Vancomycin HCl 1,000 mg in 250 mls @ 166.667 mls/hr 07/13/20 16:00 07/14/20 03:12 Vancomycin (Pre-Docked) IVPB 166.667 mls/hr BID@0400,1600 [facility] Administration Protocol Labetalol HCl 300 mg 07/12/20 11:14 07/14/20 06:32 Normodyne - PO 300 mg TID [facility] Administration Mupirocin 1 applic 07/09/20 14:00 07/14/20 09:53 Bactroban Ointment (For Decolonization) - NS 07/14/20 13:59 1 applic BID [facility] Administration Oxycodone HCl 5 mg 07/09/20 16:24 07/14/20 10:11 Roxicodone - PO 5 mg Q6H PRN Administration PAIN LEVEL 6-10 Prednisone 5 mg 07/09/20 22:00 07/14/20 10:19 Deltasone - PO 5 mg BID [facility] Administration Vital Signs Period Temp Pulse Resp BP Sys/Mcgraw Pulse Ox Last 24 Hr 97.8 F-98.7 F 72-94 17-22 118-153/88-105 95-100 Constitutional: Yes: No Distress, Calm Neck: Yes: Supple, Trachea Midline Cardiovascular: Yes: Regular Rate and Rhythm Respiratory: Yes: CTA Bilaterally Gastrointestinal: Yes: Soft (nt) Edema: No Peripheral Pulses WNL: Yes Neurological: Yes: lethargic no jaundice diaphoresis tele: sinus - ....Imaging Cat Scan: Report Reviewed Ultrasound: Report Reviewed EKG: Image Reviewed Assessment/Plan IMP/PLAN: Hypertensive urgency, hypertensive heart disease secondary to chronic hypertension Sudden onset of severe back pain and upper chest pain, CTA C/A/P Negative for aortic dissection Rheumatoid arthritis, chronic Fever Thrombocytopenia Equivocal TnIs CKD Elevated BNP 1. Hypertensive urgency: -improved, cont current meds 2. Sudden upper back pain/chest pain: -CTA negative for dissection -resolved 3. Fever: unclear source -Cultures remain NGTD -CAP (atelectasis seen on CT) vs COVID PNA (initial swab negative) -started on empiric abx by ID -Rheum consulted 4. Thrombocytopenia: may be seen in early sepsis and also be seen in flares of autoimmune diseases -Follow CBC -Rheum consulted. 5. Equivocal TnIs: -flat trend, not c/w ACS -Likely demand ischemia in setting of hypertensive urgency -Continue telemetry -Echo 07/09 with LVH, EF 50-55% and moderate AR 6. CKD: -Creatinine remains at baseline from admission with initial improvement and now back to 1.6 -Daily BMP 7. Elevated BNP: -Possible acute on chronic diastolic CHF in setting of hypertension and extra volume received -CXR with increased vascular/interstitial markings may represent volume vs atypical or viral infection -defer diuretics -avoid additional IVF unless needed for BP support 8. lower back pain - L4-5 facet joint effusion - neurosurgery following
--- NOTE | 2020-07-14 13:01 | PN ---
Progress Note, Physician History of Present Illness: Pt seen and examined at bedside. He is awake and alert. he denies shortness of breath. - Current Medication List Current Medications: Active Medications Acetaminophen (Tylenol -) 1,000 mg PO Q6H PRN PRN Reason: PAIN LEVEL 1-5 Last Admin: 07/14/20 10:12 Dose: 1,000 mg Documented by: Amlodipine Besylate (Norvasc -) 10 mg PO DAILY [facility] Last Admin: 07/14/20 09:56 Dose: 10 mg Documented by: Chlorhexidine Gluconate (Hibiclens For Decolonization -) 1 applic TP HS [facility] Last Admin: 07/13/20 21:29 Dose: 1 applic Documented by: Docusate Sodium (Colace -) 100 mg PO BID PRN PRN Reason: CONSTIPATION Last Admin: 07/12/20 21:42 Dose: 100 mg Documented by: Famotidine (Pepcid -) 20 mg PO DAILY [facility] Last Admin: 07/14/20 09:53 Dose: 20 mg Documented by: Heparin Sodium (Porcine) (Heparin -) 5,000 unit SQ Q8H-IV [facility] Last Admin: 07/14/20 09:52 Dose: 5,000 unit Documented by: Ceftriaxone Sodium 2 gm/ (Dextrose) 100 mls @ 200 mls/hr IVPB DAILY [facility]; Protocol Last Admin: 07/14/20 09:50 Dose: 200 mls/hr Documented by: Lactated Ringer's (Lactated Ringers Solution) 1,000 ml in 1,000 mls @ 40 mls/hr IV ASDIR [facility] Last Admin: 07/13/20 14:09 Dose: 40 mls/hr Documented by: Vancomycin HCl (Vancomycin (Pre-Docked)) 1,000 mg in 250 mls @ 166.667 mls/hr IVPB BID@0400,1600 [facility]; Protocol Last Admin: 07/14/20 03:12 Dose: 166.667 mls/hr Documented by: Labetalol HCl (Normodyne -) 300 mg PO TID [facility] Last Admin: 07/14/20 06:32 Dose: 300 mg Documented by: Mupirocin (Bactroban Ointment (For Decolonization) -) 1 applic NS BID [facility] Stop: 07/14/20 13:59 Last Admin: 07/14/20 09:53 Dose: 1 applic Documented by: Oxycodone HCl (Roxicodone -) 5 mg PO Q6H PRN PRN Reason: PAIN LEVEL 6-10 Last Admin: 07/14/20 10:11 Dose: 5 mg Documented by: Prednisone (Deltasone -) 5 mg PO BID [facility] Last Admin: 07/14/20 10:19 Dose: 5 mg Documented by: - Objective Vital Signs: Vital Signs Temperature 97.8 F 07/14/20 10:00 Pulse Rate 72 07/14/20 12:00 Respiratory Rate 18 07/14/20 12:00 Blood Pressure 136/102 H 07/14/20 12:00 O2 Sat by Pulse Oximetry (%) 99 07/14/20 12:00 Constitutional: Yes: Calm Eyes: Yes: Conjunctiva Clear HENT: Yes: Atraumatic Cardiovascular: Yes: S1, S2 Respiratory: Yes: CTA Bilaterally Gastrointestinal: Yes: Soft Genitourinary: Yes: WNL Musculoskeletal: Yes: WNL Edema: No Neurological: Yes: Oriented Psychiatric: Yes: Oriented Labs: CBC, BMP 07/13/20 05:30 07/13/20 14:28 INR, PTT INR 0.96 (0.83-1.09) 07/09/20 07:52 Assessment/Plan Current Medications Generic Name Dose Route Start Last Admin Trade Name Ozzyq PRN Reason Stop Dose Admin Acetaminophen 1,000 mg 07/09/20 14:04 07/14/20 10:12 Tylenol - PO 1,000 mg Q6H PRN Administration PAIN LEVEL 1-5 Amlodipine Besylate 10 mg 07/10/20 10:00 07/14/20 09:56 Norvasc - PO 10 mg DAILY [facility] Administration Chlorhexidine Gluconate 1 applic 07/09/20 22:00 07/13/20 21:29 Hibiclens For Decolonization - TP 1 applic HS [facility] Administration Docusate Sodium 100 mg 07/09/20 14:50 07/12/20 21:42 Colace - PO 100 mg BID PRN Administration CONSTIPATION Famotidine 20 mg 07/09/20 14:15 07/14/20 09:53 Pepcid - PO 20 mg DAILY [facility] Administration Heparin Sodium (Porcine) 5,000 unit 07/09/20 12:15 07/14/20 09:52 Heparin - SQ 5,000 unit Q8H-IV [facility] Administration Ceftriaxone Sodium 2 gm/ 100 mls @ 200 mls/hr 07/10/20 12:15 07/14/20 09:50 Dextrose IVPB 200 mls/hr DAILY [facility] Administration Protocol Lactated Ringer's 1,000 ml in 1,000 mls @ 40 mls/hr 07/13/20 13:59 07/13/20 14:09 Lactated Ringers Solution IV 40 mls/hr ASDIR [facility] Administration Vancomycin HCl 1,000 mg in 250 mls @ 166.667 mls/hr 07/13/20 16:00 07/14/20 03:12 Vancomycin (Pre-Docked) IVPB 166.667 mls/hr BID@0400,1600 [facility] Administration Protocol Labetalol HCl 300 mg 07/12/20 11:14 07/14/20 06:32 Normodyne - PO 300 mg TID [facility] Administration Mupirocin 1 applic 07/09/20 14:00 07/14/20 09:53 Bactroban Ointment (For Decolonization) - NS 07/14/20 13:59 1 applic BID [facility] Administration Oxycodone HCl 5 mg 07/09/20 16:24 07/14/20 10:11 Roxicodone - PO 5 mg Q6H PRN Administration PAIN LEVEL 6-10 Prednisone 5 mg 07/09/20 22:00 07/14/20 10:19 Deltasone - PO 5 mg BID [facility] Administration Impression 1. CKD 2. BRADLEY 3. HTN 4. RA 5. hx of positive imfx in the past 6. altered mental status 7. proteinuria 8. non compliance Plan - repeat bicarb normal - cont current meds - cont to monitor bp - follow spep - follow imfx
[2020-07-14] MEDS: LACTATED RINGERS SOLUTION 1,000 ML/1,000 ML INFUS.BAG IV SCH (13:59)
[2020-07-14] MEDS ORDERED: DOCUSATE SODIUM 100 MG CAPSULE (FP) PO PRN (19:10)
[2020-07-15] MEDS: HEPARIN NA (PORCINE) 5,000 UNITS/ML 1ML VIAL SQ SCH ×3 (02:30→17:17)
[2020-07-15] MEDS: VANCOMYCIN 1 GRAM (PRE-DOCKED) 1,000 MG/250 ML BAG IVPB SCH ×2 (03:21→16:12)
[2020-07-15] MEDS: LABETALOL HCL 200 MG TABLET (FP) PO SCH ×3 (06:30→21:40)
[2020-07-15] MEDS ORDERED: DEXTROSE 5%-WATER 100 ML IVPB ONE (08:50)
--- NOTE | 2020-07-15 10:01 | PN ---
Progress Note, Physician Chief Complaint: awake alert events and notes reviewed denies fever or chills - Current Medication List Current Medications: Active Medications Acetaminophen (Tylenol -) 1,000 mg PO Q6H PRN PRN Reason: PAIN LEVEL 1-5 Last Admin: 07/14/20 22:19 Dose: 1,000 mg Documented by: Amlodipine Besylate (Norvasc -) 10 mg PO DAILY [facility] Docusate Sodium (Colace -) 100 mg PO BID PRN PRN Reason: CONSTIPATION Famotidine (Pepcid -) 20 mg PO DAILY [facility] Heparin Sodium (Porcine) (Heparin -) 5,000 unit SQ Q8H-IV [facility] Last Admin: 07/15/20 02:30 Dose: 5,000 unit Documented by: Lactated Ringer's (Lactated Ringers Solution) 1,000 ml in 1,000 mls @ 40 mls/hr IV ASDIR [facility] Last Admin: 07/14/20 13:59 Dose: Not Given Documented by: Vancomycin HCl (Vancomycin (Pre-Docked)) 1,000 mg in 250 mls @ 166.667 mls/hr IVPB BID@0400,1600 [facility]; Protocol Last Admin: 07/15/20 03:21 Dose: 166.667 mls/hr Documented by: Ceftriaxone Sodium 2 gm/ (Dextrose) 100 mls @ 200 mls/hr IVPB DAILY [facility]; Protocol Labetalol HCl (Normodyne -) 300 mg PO TID [facility] Last Admin: 07/15/20 06:30 Dose: 300 mg Documented by: Prednisone (Deltasone -) 5 mg PO BID [facility] Last Admin: 07/14/20 22:19 Dose: 5 mg Documented by: - Objective Vital Signs: Vital Signs Temperature 98.4 F 07/15/20 06:00 Pulse Rate 66 07/15/20 06:00 Respiratory Rate 18 07/15/20 06:00 Blood Pressure 148/87 07/15/20 06:00 O2 Sat by Pulse Oximetry (%) 96 07/15/20 06:00 Constitutional: Yes: Mild Distress Cardiovascular: Yes: Regular Rate and Rhythm Respiratory: Yes: WNL Gastrointestinal: Yes: Soft, Tenderness Genitourinary: Yes: Other Musculoskeletal: Yes: Joint Stiffness, Muscle Weakness Extremities: Yes: Deformity Integumentary: Yes: Other Neurological: Yes: Pre-Existing Deficit Labs: CBC, BMP 07/13/20 05:30 07/13/20 14:28 INR, PTT INR 0.96 (0.83-1.09) 07/09/20 07:52 Problem List - Problems (1) FUO (fever of unknown origin) Code(s): R50.9 - FEVER, UNSPECIFIED (2) Hypertension Code(s): I10 - ESSENTIAL (PRIMARY) HYPERTENSION Qualifiers: Hypertension type: unspecified Qualified Code(s): I10 - Essential (primary) hypertension (3) Abdominal pain Code(s): R10.9 - UNSPECIFIED ABDOMINAL PAIN Qualifiers: Abdominal location: generalized Qualified Code(s): R10.84 - Generalized abdominal pain (4) Arthritis, rheumatoid Code(s): M06.9 - RHEUMATOID ARTHRITIS, UNSPECIFIED (5) Hypertensive emergency Code(s): I16.1 - HYPERTENSIVE EMERGENCY Assessment/Plan iv abx per id dr Forrest for psoas abscess drainage iv fluids pain control dvt prophylaxis monitor renal function and electrolytes nephrology and neurosurgery evals appreciated htn emergency better controlled
[2020-07-15] MEDS: predniSONE 5 MG TABLET (UD) PO SCH ×2 (10:27→21:40)
[2020-07-15] MEDS: FAMOTIDINE 20 MG TABLET PO SCH (10:28)
[2020-07-15] MEDS: CEFTRIAXONE 2 GM in DEXTROSE 5%-WATER 100 ML IVPB SCH (10:28)
[2020-07-15] MEDS: amLODIPine BESYLATE 10 MG TABLET (FP) PO SCH (10:28)
--- NOTE | 2020-07-15 11:51 | PN ---
Progress Note (short form) - Note Progress Note: NEUROSURGERY IN telemetry Care d/w Dr Membreno PE: Tmax 98.6, AF, BP still elevated Still lethargic HEENT- NC/AT; Neck- supple; Cor- RR; lungs- CTA B; Abd- benign; Ext- no sign of DVT CN- grossly intact; Motor- at least 3/5 B UE/LE; Sensation- grossly intact LT; DTR- 2+, no LTS Covid negative Blood culture negative to date; urine culture negative Repeat culture pending Head CT (2): no acute bleed or fx, no large territorial infarcts, calcified dens retropulsed into canal with craniocervical junction stenosis Prior MRI C spine(2013): RA with small panus, retropulsed dens, mild stenosis cranio-cervical junction Prior CT C spine (2017): predentine interval of 6-7 mm, calcified dens; fused cranio-cervical junction and atlanto-axial junction Lumbar x-rays- no acute fx lumbar spine, mildly depressed vertebral heights lower T spine MRI LS spine- mild spondylosis and facet hypertrophy, R L4-5 facet joint effusion, mild enhancement, no epidural enhancement, no osteo of vertebral bodies RA with documented basilar invagination Hypertensive encephalopathy Denies neck pain or extremity weakness/numbness nor B/B dysfunction Fever - defervesced since iv abx Keep well hydrated given mildly elevated Cr For IR CT guided aspiration/bx of R L4-5 facet joint/psoas (d/w Dr Forrest, who agreed to try, despite low yield)
--- NOTE | 2020-07-15 11:52 | PN ---
Progress Note (short form) - Note Progress Note: Chief Complaint: htn, cp s: no cp sob palps dizzy Current Medications Generic Name Dose Route Start Last Admin Trade Name Freq PRN Reason Stop Dose Admin Acetaminophen 1,000 mg 07/14/20 19:10 07/14/20 22:19 Tylenol - PO 1,000 mg Q6H PRN Administration PAIN LEVEL 1-5 Amlodipine Besylate 10 mg 07/15/20 10:00 07/15/20 10:28 Norvasc - PO 10 mg DAILY [facility] Administration Docusate Sodium 100 mg 07/14/20 19:10 Colace - PO BID PRN [facility]ST[facility] Famotidine 20 mg 07/15/20 10:00 07/15/20 10:28 Pepcid - PO 20 mg DAILY [facility] Administration Heparin Sodium (Porcine) 5,000 unit 07/15/20 02:00 07/15/20 10:28 Heparin - SQ 5,000 unit Q8H-IV [facility] Administration Lactated Ringer's 1,000 ml in 1,000 mls @ 40 mls/hr 07/13/20 13:59 07/14/20 13:59 Lactated Ringers Solution IV Not Given ASDIR [facility] Vancomycin HCl 1,000 mg in 250 mls @ 166.667 mls/hr 07/13/20 16:00 07/15/20 03:21 Vancomycin (Pre-Docked) IVPB 166.667 mls/hr BID@0400,1600 [facility] Administration Protocol Ceftriaxone Sodium 2 gm/ 100 mls @ 200 mls/hr 07/15/20 10:00 07/15/20 10:28 Dextrose IVPB 200 mls/hr DAILY [facility] Administration Protocol Labetalol HCl 300 mg 07/12/20 11:14 07/15/20 06:30 Normodyne - PO 300 mg TID [facility] Administration Prednisone 5 mg 07/14/20 22:00 07/15/20 10:27 Deltasone - PO 5 mg BID [facility] Administration Vital Signs Period Temp Pulse Resp BP Sys/Mcgraw Pulse Ox Last 24 Hr 97.4 F-98.6 F 66-84 17-20 107-164/67-106 96-99 Constitutional: Yes: No Distress, Calm Neck: Yes: Supple, Trachea Midline Cardiovascular: Yes: Regular Rate and Rhythm Respiratory: Yes: CTA Bilaterally Gastrointestinal: Yes: Soft (nt) Edema: No Peripheral Pulses WNL: Yes Neurological: awake oriented no jaundice diaphoresis Labs: CBC, BMP 07/13/20 05:30 07/13/20 14:28 - ....Imaging Cat Scan: Report Reviewed Ultrasound: Report Reviewed EKG: Image Reviewed tele: sr Assessment/Plan IMP/PLAN: Hypertensive urgency, hypertensive heart disease secondary to chronic hypertension Sudden onset of severe back pain and upper chest pain, CTA C/A/P Negative for aortic dissection Rheumatoid arthritis, chronic Fever Thrombocytopenia Equivocal TnIs CKD Elevated BNP 1. Hypertensive urgency: -improved, cont current meds 2. Sudden upper back pain/chest pain: -CTA negative for dissection -resolved 3. Fever: unclear source -Cultures remain NGTD -CAP (atelectasis seen on CT) vs COVID PNA (initial swab negative) -started on empiric abx by ID -Rheum consulted 4. Thrombocytopenia: may be seen in early sepsis and also be seen in flares of autoimmune diseases -Follow CBC -Rheum consulted. 5. Equivocal TnIs: -flat trend, not c/w ACS -Likely demand ischemia in setting of hypertensive urgency -Echo 07/09 with LVH, EF 50-55% and moderate AR 6. CKD: -Creatinine remains at baseline from admission with initial improvement and now back to 1.6 -Daily BMP 7. Elevated BNP: -Possible acute on chronic diastolic CHF in setting of hypertension and extra volume received -CXR with increased vascular/interstitial markings may represent volume vs atypical or viral infection -defer diuretics -avoid additional IVF unless needed for BP support 8. lower back pain - L4-5 facet joint effusion - neurosurgery following
--- NOTE | 2020-07-15 14:31 | PN ---
Progress Note, Physician History of Present Illness: Pt seen and examined at bedside. He is awake and alert. He denies shortness of breath. - Current Medication List Current Medications: Active Medications Acetaminophen (Tylenol -) 1,000 mg PO Q6H PRN PRN Reason: PAIN LEVEL 1-5 Last Admin: 07/14/20 22:19 Dose: 1,000 mg Documented by: Amlodipine Besylate (Norvasc -) 10 mg PO DAILY [facility] Last Admin: 07/15/20 10:28 Dose: 10 mg Documented by: Docusate Sodium (Colace -) 100 mg PO BID PRN PRN Reason: CONSTIPATION Famotidine (Pepcid -) 20 mg PO DAILY [facility] Last Admin: 07/15/20 10:28 Dose: 20 mg Documented by: Heparin Sodium (Porcine) (Heparin -) 5,000 unit SQ Q8H-IV [facility] Last Admin: 07/15/20 10:28 Dose: 5,000 unit Documented by: Lactated Ringer's (Lactated Ringers Solution) 1,000 ml in 1,000 mls @ 40 mls/hr IV ASDIR [facility] Last Admin: 07/14/20 13:59 Dose: Not Given Documented by: Vancomycin HCl (Vancomycin (Pre-Docked)) 1,000 mg in 250 mls @ 166.667 mls/hr IVPB BID@0400,1600 [facility]; Protocol Last Admin: 07/15/20 03:21 Dose: 166.667 mls/hr Documented by: Ceftriaxone Sodium 2 gm/ (Dextrose) 100 mls @ 200 mls/hr IVPB DAILY [facility]; Protocol Last Admin: 07/15/20 10:28 Dose: 200 mls/hr Documented by: Labetalol HCl (Normodyne -) 300 mg PO TID [facility] Last Admin: 07/15/20 06:30 Dose: 300 mg Documented by: Prednisone (Deltasone -) 5 mg PO BID [facility] Last Admin: 07/15/20 10:27 Dose: 5 mg Documented by: - Objective Vital Signs: Vital Signs Temperature 98.6 F 07/15/20 10:00 Pulse Rate 82 07/15/20 10:00 Respiratory Rate 18 07/15/20 10:00 Blood Pressure 164/106 H 07/15/20 10:00 O2 Sat by Pulse Oximetry (%) 98 07/15/20 10:00 Constitutional: Yes: Calm Eyes: Yes: Conjunctiva Clear HENT: Yes: Atraumatic Neck: Yes: Supple Cardiovascular: Yes: S1, S2 Respiratory: Yes: CTA Bilaterally Gastrointestinal: Yes: Soft Musculoskeletal: Yes: Joint Stiffness Edema: No Neurological: Yes: Oriented Psychiatric: Yes: Oriented Labs: CBC, BMP 07/13/20 05:30 07/13/20 14:28 INR, PTT INR 0.96 (0.83-1.09) 07/09/20 07:52 Assessment/Plan Current Medications Generic Name Dose Route Start Last Admin Trade Name Freq PRN Reason Stop Dose Admin Acetaminophen 1,000 mg 07/14/20 19:10 07/14/20 22:19 Tylenol - PO 1,000 mg Q6H PRN Administration PAIN LEVEL 1-5 Amlodipine Besylate 10 mg 07/15/20 10:00 07/15/20 10:28 Norvasc - PO 10 mg DAILY [facility] Administration Docusate Sodium 100 mg 07/14/20 19:10 Colace - PO BID PRN CONSTIPATION Famotidine 20 mg 07/15/20 10:00 07/15/20 10:28 Pepcid - PO 20 mg DAILY [facility] Administration Heparin Sodium (Porcine) 5,000 unit 07/15/20 02:00 07/15/20 10:28 Heparin - SQ 5,000 unit Q8H-IV [facility] Administration Lactated Ringer's 1,000 ml in 1,000 mls @ 40 mls/hr 07/13/20 13:59 07/14/20 13:59 Lactated Ringers Solution IV Not Given ASDIR [facility] Vancomycin HCl 1,000 mg in 250 mls @ 166.667 mls/hr 07/13/20 16:00 07/15/20 03:21 Vancomycin (Pre-Docked) IVPB 166.667 mls/hr BID@0400,1600 [facility] Administration Protocol Ceftriaxone Sodium 2 gm/ 100 mls @ 200 mls/hr 07/15/20 10:00 07/15/20 10:28 Dextrose IVPB 200 mls/hr DAILY [facility] Administration Protocol Labetalol HCl 300 mg 07/12/20 11:14 07/15/20 06:30 Normodyne - PO 300 mg TID [facility] Administration Prednisone 5 mg 07/14/20 22:00 07/15/20 10:27 Deltasone - PO 5 mg BID [facility] Administration Impression 1. CKD 2. BRADLEY 3. HTN 4. RA 5. hx of positive imfx in the past 6. altered mental status 7. proteinuria 8. non compliance Plan - can d/c fluids - repeat bp - repeat labs in am - heme eval for spep - cont to monitor bp - will need outpt follow up - follow imfx
[2020-07-16] MEDS: VANCOMYCIN 1 GRAM (PRE-DOCKED) 1,000 MG/250 ML BAG IVPB SCH ×2 (03:59→15:28)
[2020-07-16] MEDS: HEPARIN NA (PORCINE) 5,000 UNITS/ML 1ML VIAL SQ SCH ×2 (03:59→09:36)
[2020-07-16] MEDS: LABETALOL HCL 200 MG TABLET (FP) PO SCH ×3 (05:56→21:31)
--- NOTE | 2020-07-16 06:19 | PN ---
Progress Note, Physician Chief Complaint: alert, denies Cp/SOB/palps TELE: NSR N surgery note reviewed. Discussed with PMD History of Present Illness: s/p htn urgency RA Fevers Non smoker - Current Medication List Current Medications: Active Medications Acetaminophen (Tylenol -) 1,000 mg PO Q6H PRN PRN Reason: PAIN LEVEL 1-5 Last Admin: 07/14/20 22:19 Dose: 1,000 mg Documented by: Amlodipine Besylate (Norvasc -) 10 mg PO DAILY [facility] Last Admin: 07/15/20 10:28 Dose: 10 mg Documented by: Docusate Sodium (Colace -) 100 mg PO BID PRN PRN Reason: CONSTIPATION Famotidine (Pepcid -) 20 mg PO DAILY [facility] Last Admin: 07/15/20 10:28 Dose: 20 mg Documented by: Heparin Sodium (Porcine) (Heparin -) 5,000 unit SQ Q8H-IV [facility] Last Admin: 07/16/20 03:59 Dose: 5,000 unit Documented by: Vancomycin HCl (Vancomycin (Pre-Docked)) 1,000 mg in 250 mls @ 166.667 mls/hr IVPB BID@0400,1600 [facility]; Protocol Last Admin: 07/16/20 03:59 Dose: 166.667 mls/hr Documented by: Ceftriaxone Sodium 2 gm/ (Dextrose) 100 mls @ 200 mls/hr IVPB DAILY [facility]; Protocol Last Admin: 07/15/20 10:28 Dose: 200 mls/hr Documented by: Labetalol HCl (Normodyne -) 300 mg PO TID [facility] Last Admin: 07/16/20 05:56 Dose: 300 mg Documented by: Prednisone (Deltasone -) 5 mg PO BID [facility] Last Admin: 07/15/20 21:40 Dose: 5 mg Documented by: - Objective Vital Signs: Vital Signs Temperature 99 F 07/15/20 22:00 Pulse Rate 80 07/15/20 22:00 Respiratory Rate 20 07/15/20 22:00 Blood Pressure 155/94 07/15/20 22:00 O2 Sat by Pulse Oximetry (%) 98 07/15/20 22:00 Constitutional: Yes: No Distress, Calm Eyes: Yes: Conjunctiva Clear Neck: Yes: Trachea Midline Cardiovascular: Yes: Regular Rate and Rhythm Respiratory: Yes: CTA Bilaterally Gastrointestinal: Yes: Soft (nt) Edema: No Peripheral Pulses WNL: Yes Neurological: Yes: Alert, Oriented ...Motor Strength: WNL Psychiatric: Yes: WNL Labs: CBC, BMP 07/13/20 05:30 07/13/20 14:28 INR, PTT INR 0.96 (0.83-1.09) 07/09/20 07:52 Laboratory Tests 07/16/20 07/16/20 05:54 05:54 WBC 9.5 Hgb 9.8 L Hct 28.8 L Plt Count 190 D Sodium 137 Potassium 4.6 BUN 25.0 H Creatinine 1.5 H Magnesium 1.8 Assessment/Plan IMP/PLAN: Hypertensive urgency, hypertensive heart disease secondary to chronic hypertension Sudden onset of severe back pain and upper chest pain, CTA C/A/P Negative for aortic dissection Rheumatoid arthritis, chronic Fever Thrombocytopenia Equivocal TnIs CKD Elevated BNP 1. Hypertensive urgency: -improved, cont current meds 2. Sudden upper back pain/chest pain: -CTA negative for dissection -resolved 3. Fever: unclear source, Vertebral osteo? -Cultures remain NGTD -CAP (atelectasis seen on CT) vs COVID PNA (initial swab negative) -started on empiric abx by ID -Rheum consulted -Plan as per N-surgery/IR/ID 4. Thrombocytopenia: may be seen in early sepsis and also be seen in flares of autoimmune diseases -Follow CBC -Rheum consulted. 5. Equivocal TnIs: -flat trend, not c/w ACS -Likely demand ischemia in setting of hypertensive urgency -Echo 07/09 with LVH, EF 50-55% and moderate AR 6. CKD: -Creatinine remains at baseline from admission with initial improvement and now back to 1.6 -Daily BMP 7. Elevated BNP: -Possible acute on chronic diastolic CHF in setting of hypertension and extra volume received -CXR with increased vascular/interstitial markings may represent volume vs atypical or viral infection -defer diuretics -avoid additional IVF unless needed for BP support 8. lower back pain - L4-5 facet joint effusion, ?osteo - neurosurgery/ID/IR plan as they have outlined.
[2020-07-16 06:38] LABS: HEMATOCRIT 28.8 % (35.4-49); HEMOGLOBIN 9.8 GM/dL (11.7-16.9); MCH 22.6 pg (25.7-33.7); MCHC 33.9 g/dl (32.0-35.9); MEAN CELL VOLUME 66.6 fl (80-96); MEAN PLT VOLUME 8.5 fl (7.5-11.1); PLATELET COUNT 190 K/MM3 (134-434); RBC 4.33 M/mm3 (4.00-5.60); RDW 23.9 % (11.9-15.9); WHITE BLOOD COUNT 9.5 K/mm3 (4.0-10.0)
[2020-07-16 07:16] LABS: CALCIUM 8.1 mg/dL (8.5-10.1); CREATININE 1.5 mg/dL (0.55-1.3); MAGNESIUM 1.8 mg/dL (1.8-2.4); POTASSIUM 4.6 mmol/L (3.5-5.1)
--- NOTE | 2020-07-16 08:16 | PN ---
Progress Note, Physician Chief Complaint: AWAKE AND ALERT ON 1:1 FOR AGITATION YESTERDAY WITH ALTERED MENTAL STATUS SECONDARY TO DIAGNOSIS OF INFECTION. - Current Medication List Current Medications: Active Medications Acetaminophen (Tylenol -) 1,000 mg PO Q6H PRN PRN Reason: PAIN LEVEL 1-5 Last Admin: 07/14/20 22:19 Dose: 1,000 mg Documented by: Amlodipine Besylate (Norvasc -) 10 mg PO DAILY [facility] Last Admin: 07/15/20 10:28 Dose: 10 mg Documented by: Docusate Sodium (Colace -) 100 mg PO BID PRN PRN Reason: CONSTIPATION Famotidine (Pepcid -) 20 mg PO DAILY [facility] Last Admin: 07/15/20 10:28 Dose: 20 mg Documented by: Heparin Sodium (Porcine) (Heparin -) 5,000 unit SQ Q8H-IV [facility] Last Admin: 07/16/20 03:59 Dose: 5,000 unit Documented by: Vancomycin HCl (Vancomycin (Pre-Docked)) 1,000 mg in 250 mls @ 166.667 mls/hr IVPB BID@0400,1600 [facility]; Protocol Last Admin: 07/16/20 03:59 Dose: 166.667 mls/hr Documented by: Ceftriaxone Sodium 2 gm/ (Dextrose) 100 mls @ 200 mls/hr IVPB DAILY [facility]; Protocol Last Admin: 07/15/20 10:28 Dose: 200 mls/hr Documented by: Labetalol HCl (Normodyne -) 300 mg PO TID [facility] Last Admin: 07/16/20 05:56 Dose: 300 mg Documented by: Prednisone (Deltasone -) 5 mg PO BID [facility] Last Admin: 07/15/20 21:40 Dose: 5 mg Documented by: - Objective Vital Signs: Vital Signs Temperature 98.5 F 07/16/20 06:00 Pulse Rate 87 07/16/20 06:00 Respiratory Rate 20 07/16/20 06:00 Blood Pressure 136/94 07/16/20 06:00 O2 Sat by Pulse Oximetry (%) 98 07/15/20 22:00 Constitutional: Yes: Mild Distress Cardiovascular: Yes: Regular Rate and Rhythm Respiratory: Yes: WNL Gastrointestinal: Yes: WNL Genitourinary: Yes: Incontinence Musculoskeletal: Yes: Joint Stiffness, Joint Swelling, Muscle Weakness Extremities: Yes: Deformity Integumentary: Yes: WNL Wound/Incision: Yes: Clean/Dry Neurological: Yes: Pre-Existing Deficit ...Motor Strength: LUE, LLE, RUE (RHEUMATOID DEFORMITY TO ALL EXTREMITIES), RLE Psychiatric: Yes: Other Labs: CBC, BMP 07/16/20 05:54 07/16/20 05:54 INR, PTT INR 0.96 (0.83-1.09) 07/09/20 07:52 Problem List - Problems (1) FUO (fever of unknown origin) Code(s): R50.9 - FEVER, UNSPECIFIED (2) Hypertension Code(s): I10 - ESSENTIAL (PRIMARY) HYPERTENSION Qualifiers: Hypertension type: unspecified Qualified Code(s): I10 - Essential (primary) hypertension (3) Abdominal pain Code(s): R10.9 - UNSPECIFIED ABDOMINAL PAIN Qualifiers: Abdominal location: generalized Qualified Code(s): R10.84 - Generalized abdominal pain (4) Arthritis, rheumatoid Code(s): M06.9 - RHEUMATOID ARTHRITIS, UNSPECIFIED (5) Hypertensive emergency Code(s): I16.1 - HYPERTENSIVE EMERGENCY Assessment/Plan iv abx per id dr Forrest for psoas abscess drainage stop heparin for now until procedure complete with Dr Forrest cardio/neurosurgery evals appreciated iv fluids pain control dvt prophylaxis monitor renal function and electrolytes nephrology and neurosurgery evals appreciated htn emergency better controlled
--- NOTE | 2020-07-16 08:29 | PN ---
Progress Note (short form) - Note Progress Note: NEUROSURGERY In telemetry PE: Tmax 98.5, AF, BP better More awake Family at bedsude HEENT- NC/AT; Neck- supple; Cor- RR; lungs- CTA B; Abd- benign; Ext- no sign of DVT CN- grossly intact; Motor- at least 3/5 B UE/LE; Sensation- grossly intact LT; DTR- 2+, no LTS Covid negative Blood culture negative to date; urine culture negative Repeat culture pending Head CT (2): no acute bleed or fx, no large territorial infarcts, calcified dens retropulsed into canal with craniocervical junction stenosis Prior MRI C spine(2013): RA with small panus, retropulsed dens, mild stenosis cranio-cervical junction Prior CT C spine (2017): predentine interval of 6-7 mm, calcified dens; fused cranio-cervical junction and atlanto-axial junction Lumbar x-rays- no acute fx lumbar spine, mildly depressed vertebral heights lower T spine MRI LS spine- mild spondylosis and facet hypertrophy, R L4-5 facet joint effusion, mild enhancement, no epidural enhancement, no osteo of vertebral bodies; R psoas edema RA with documented basilar invagination Hypertensive encephalopathy R/O R L4-5 facet edema/infection with psoas involvement D/w ID yesterday For IR CT guided aspiration/bx of R L4-5 facet joint/psoas (d/w Dr Forrest, who agreed to try, despite low yield) If still not diagnostic could consider microsurgical approach for open bx (larger sample size)
[2020-07-16] MEDS ORDERED: DEXTROSE 5%-WATER 100 ML IVPB ONE (08:51)
[2020-07-16] MEDS: CEFTRIAXONE 2 GM in DEXTROSE 5%-WATER 100 ML IVPB SCH (09:32)
[2020-07-16] MEDS: ACETAMINOPHEN 500 MG TABLET (FP) PO PRN ×2 (09:33→21:30)
[2020-07-16] MEDS: amLODIPine BESYLATE 10 MG TABLET (FP) PO SCH (09:33)
[2020-07-16] MEDS: predniSONE 5 MG TABLET (UD) PO SCH ×2 (09:33→21:32)
[2020-07-16] MEDS: FAMOTIDINE 20 MG TABLET PO SCH (09:33)
--- NOTE | 2020-07-16 13:17 | PN ---
Progress Note, Physician History of Present Illness: Pt seen and examined at bedside. He is awake and alert. He denies shortness of breath. - Current Medication List Current Medications: Active Medications Acetaminophen (Tylenol -) 1,000 mg PO Q6H PRN PRN Reason: PAIN LEVEL 1-5 Last Admin: 07/16/20 09:33 Dose: 1,000 mg Documented by: Amlodipine Besylate (Norvasc -) 10 mg PO DAILY [facility] Last Admin: 07/16/20 09:33 Dose: 10 mg Documented by: Docusate Sodium (Colace -) 100 mg PO BID PRN PRN Reason: CONSTIPATION Famotidine (Pepcid -) 20 mg PO DAILY [facility] Last Admin: 07/16/20 09:33 Dose: 20 mg Documented by: Vancomycin HCl (Vancomycin (Pre-Docked)) 1,000 mg in 250 mls @ 166.667 mls/hr IVPB BID@0400,1600 [facility]; Protocol Last Admin: 07/16/20 03:59 Dose: 166.667 mls/hr Documented by: Ceftriaxone Sodium 2 gm/ (Dextrose) 100 mls @ 200 mls/hr IVPB DAILY [facility]; Protocol Last Admin: 07/16/20 09:32 Dose: 200 mls/hr Documented by: Labetalol HCl (Normodyne -) 300 mg PO TID [facility] Last Admin: 07/16/20 05:56 Dose: 300 mg Documented by: Prednisone (Deltasone -) 5 mg PO BID [facility] Last Admin: 07/16/20 09:33 Dose: 5 mg Documented by: - Objective Vital Signs: Vital Signs Temperature 98.5 F 07/16/20 10:00 Pulse Rate 88 07/16/20 10:00 Respiratory Rate 20 07/16/20 10:00 Blood Pressure 131/77 07/16/20 10:00 O2 Sat by Pulse Oximetry (%) 98 07/16/20 09:00 Constitutional: Yes: Calm Eyes: Yes: Conjunctiva Clear HENT: Yes: Atraumatic Neck: Yes: Supple Cardiovascular: Yes: S1, S2 Respiratory: Yes: CTA Bilaterally Gastrointestinal: Yes: Soft Genitourinary: Yes: WNL Musculoskeletal: Yes: Joint Stiffness Edema: No Neurological: Yes: Oriented Psychiatric: Yes: Oriented Labs: CBC, BMP 07/16/20 05:54 07/16/20 05:54 INR, PTT INR 0.96 (0.83-1.09) 07/09/20 07:52 Assessment/Plan Current Medications Generic Name Dose Route Start Last Admin Trade Name Hailey PRN Reason Stop Dose Admin Acetaminophen 1,000 mg 07/14/20 19:10 07/16/20 09:33 Tylenol - PO 1,000 mg Q6H PRN Administration PAIN LEVEL 1-5 Amlodipine Besylate 10 mg 07/15/20 10:00 07/16/20 09:33 Norvasc - PO 10 mg DAILY [facility] Administration Docusate Sodium 100 mg 07/14/20 19:10 Colace - PO BID PRN CONSTIPATION Famotidine 20 mg 07/15/20 10:00 07/16/20 09:33 Pepcid - PO 20 mg DAILY [facility] Administration Vancomycin HCl 1,000 mg in 250 mls @ 166.667 mls/hr 07/13/20 16:00 07/16/20 03:59 Vancomycin (Pre-Docked) IVPB 166.667 mls/hr BID@0400,1600 [facility] Administration Protocol Ceftriaxone Sodium 2 gm/ 100 mls @ 200 mls/hr 07/15/20 10:00 07/16/20 09:32 Dextrose IVPB 200 mls/hr DAILY [facility] Administration Protocol Labetalol HCl 300 mg 07/12/20 11:14 07/16/20 05:56 Normodyne - PO 300 mg TID [facility] Administration Prednisone 5 mg 07/14/20 22:00 07/16/20 09:33 Deltasone - PO 5 mg BID [facility] Administration Impression 1. CKD 2. BRADLEY 3. HTN 4. RA 5. hx of positive imfx in the past 6. altered mental status 7. proteinuria 8. non compliance Plan - cont to monitor renal function - heme eval for abnormal spep - bp stabilizing - cont labetolol - will start losartan
[2020-07-16] MEDS: LOSARTAN POTASSIUM 50 MG TABLET PO SCH (14:10)
--- NOTE | 2020-07-16 15:36 | PN ---
Progress Note, Physician Chief Complaint: AWAKE, ALERT SUPINE IN BED C/O BACK PAIN TEMPS DOWN WBC WNL BC NO GROWTH MRI SHOWS ? VERTEBRAL OM L4L5 EDEMA L PSOAS MUSCLE ? EARLY ABSCESS - Current Medication List Current Medications: Active Medications Acetaminophen (Tylenol -) 1,000 mg PO Q6H PRN PRN Reason: PAIN LEVEL 1-5 Last Admin: 07/16/20 09:33 Dose: 1,000 mg Documented by: Amlodipine Besylate (Norvasc -) 10 mg PO DAILY [facility] Last Admin: 07/16/20 09:33 Dose: 10 mg Documented by: Docusate Sodium (Colace -) 100 mg PO BID PRN PRN Reason: CONSTIPATION Famotidine (Pepcid -) 20 mg PO DAILY [facility] Last Admin: 07/16/20 09:33 Dose: 20 mg Documented by: Vancomycin HCl (Vancomycin (Pre-Docked)) 1,000 mg in 250 mls @ 166.667 mls/hr IVPB BID@0400,1600 [facility]; Protocol Last Admin: 07/16/20 15:28 Dose: 166.667 mls/hr Documented by: Ceftriaxone Sodium 2 gm/ (Dextrose) 100 mls @ 200 mls/hr IVPB DAILY [facility]; Protocol Last Admin: 07/16/20 09:32 Dose: 200 mls/hr Documented by: Labetalol HCl (Normodyne -) 300 mg PO TID [facility] Last Admin: 07/16/20 14:10 Dose: 300 mg Documented by: Losartan Potassium (Cozaar -) 50 mg PO DAILY [facility] Last Admin: 07/16/20 14:10 Dose: 50 mg Documented by: Prednisone (Deltasone -) 5 mg PO BID [facility] Last Admin: 07/16/20 09:33 Dose: 5 mg Documented by: - Objective Vital Signs: Vital Signs Temperature 98.5 F 07/16/20 10:00 Pulse Rate 92 H 07/16/20 14:00 Respiratory Rate 20 07/16/20 10:00 Blood Pressure 134/70 07/16/20 14:00 O2 Sat by Pulse Oximetry (%) 98 07/16/20 09:00 Constitutional: Yes: No Distress Eyes: Yes: Conjunctiva Clear Cardiovascular: Yes: Regular Rate and Rhythm, S1, S2 Respiratory: Yes: CTA Bilaterally Gastrointestinal: Yes: Normal Bowel Sounds, Soft. No: Tenderness Edema: No Labs: CBC, BMP 07/16/20 05:54 07/16/20 05:54 INR, PTT INR 0.96 (0.83-1.09) 07/09/20 07:52 Assessment/Plan ? HEMATOGENOUS VERTEBRAL OM/ EARLY PSOAS MUSCLE FEVER/ LEUKOCYTOSIS IMPROVED S/P HYPERTENSIVE CRISIS ASPIRATE OF FACET POST PONED DUE TO HEPARIN CONTINUE CEFEPIME/ VANCOMYCIN CHECK VANCOMYCIN LEVEL
[2020-07-17] MEDS: VANCOMYCIN 1 GRAM (PRE-DOCKED) 1,000 MG/250 ML BAG IVPB SCH ×2 (03:24→15:56)
[2020-07-17 07:02] LABS: HEMOGLOBIN 9.4 GM/dL (11.7-16.9); MCH 22.5 pg (25.7-33.7); MCHC 33.7 g/dl (32.0-35.9); MEAN CELL VOLUME 66.8 fl (80-96); MEAN PLT VOLUME 8.7 fl (7.5-11.1); PLATELET COUNT 207 K/MM3 (134-434); RBC 4.19 M/mm3 (4.00-5.60); RDW 23.9 % (11.9-15.9)
[2020-07-17] MEDS ORDERED: DEXTROSE 5%-WATER 100 ML IVPB ONE (07:29)
[2020-07-17 07:34] LABS: ALBUMIN 2.6 g/dl (3.4-5.0); BILIRUBIN,TOTAL 0.6 mg/dL (0.2-1); BLOOD UREA NITROGEN 24.2 mg/dL (7-18); CALCIUM 8.6 mg/dL (8.5-10.1); CREATININE 1.7 mg/dL (0.55-1.3); MAGNESIUM 2.2 mg/dL (1.8-2.4); POTASSIUM 4.6 mmol/L (3.5-5.1); TOT PROT 6.8 g/dl (6.4-8.2)
--- NOTE | 2020-07-17 08:36 | PN ---
Progress Note (short form) - Note Progress Note: NEUROSURGERY In telemetry PE: Tmax 99.4, AF, BP better Being cleaned More awake HEENT- NC/AT; Neck- supple; Cor- RR; lungs- CTA B; Abd- benign; Ext- no sign of DVT CN- grossly intact; Motor- at least 3/5 B UE/LE; Sensation- grossly intact LT; DTR- 2+, no LTS Covid negative Blood culture negative to date; urine culture negative Repeat culture pending CR 1.7; CRP 1.9, ESR 101 Prior MRI C spine(2012): RA with small panus, retropulsed dens, mild stenosis cranio-cervical junction Prior CT C spine (2017): predentine interval of 6-7 mm, calcified dens; fused cranio-cervical junction and atlanto-axial junction Lumbar x-rays- no acute fx lumbar spine, mildly depressed vertebral heights lower T spine MRI LS spine- mild spondylosis and facet hypertrophy, R L4-5 facet joint effusion, mild enhancement, no epidural enhancement, no osteo of vertebral bodies; R medial psoas edema RA with documented basilar invagination Hypertensive encephalopathy R/O R L4-5 facet edema/infection with psoas involvement Care d/w ID previously Repeat MRI with kenan possible but should not be done too frequently given already elevated Cr For IR CT guided aspiration/bx of R L4-5 facet joint/psoas (d/w Dr Forrest, who agreed to try) If still not diagnostic could consider microsurgical approach for open bx (larger sample size), though higher risks with underlying medical conditions including basilar invagination
[2020-07-17] MEDS: CEFTRIAXONE 2 GM in DEXTROSE 5%-WATER 100 ML IVPB SCH (09:44)
[2020-07-17] MEDS: FAMOTIDINE 20 MG TABLET PO SCH (09:44)
[2020-07-17] MEDS: LOSARTAN POTASSIUM 50 MG TABLET PO SCH (09:45)
[2020-07-17] MEDS: predniSONE 5 MG TABLET (UD) PO SCH ×2 (09:45→21:56)
[2020-07-17] MEDS: ACETAMINOPHEN 500 MG TABLET (FP) PO PRN ×2 (09:45→21:55)
[2020-07-17] MEDS: amLODIPine BESYLATE 10 MG TABLET (FP) PO SCH (09:45)
--- NOTE | 2020-07-17 10:18 | PN ---
Progress Note (short form) - Note Progress Note: Chief Complaint: htn, cp s: no cp sob palps dizzy Current Medications Generic Name Dose Route Start Last Admin Trade Name Freq PRN Reason Stop Dose Admin Acetaminophen 1,000 mg 07/14/20 19:10 07/17/20 09:45 Tylenol - PO 1,000 mg Q6H PRN Administration PAIN LEVEL 1-5 Amlodipine Besylate 10 mg 07/15/20 10:00 07/17/20 09:45 Norvasc - PO 10 mg DAILY [facility] Administration Docusate Sodium 100 mg 07/14/20 19:10 Colace - PO BID PRN CONSTIPATION Famotidine 20 mg 07/15/20 10:00 07/17/20 09:44 Pepcid - PO 20 mg DAILY [facility] Administration Vancomycin HCl 1,000 mg in 250 mls @ 166.667 mls/hr 07/13/20 16:00 07/17/20 03:24 Vancomycin (Pre-Docked) IVPB 166.667 mls/hr BID@0400,1600 [facility] Administration Protocol Ceftriaxone Sodium 2 gm/ 100 mls @ 200 mls/hr 07/15/20 10:00 07/17/20 09:44 Dextrose IVPB 200 mls/hr DAILY [facility] Administration Protocol Labetalol HCl 300 mg 07/12/20 11:14 07/16/20 21:31 Normodyne - PO 300 mg TID [facility] Administration Losartan Potassium 50 mg 07/16/20 13:30 07/17/20 09:45 Cozaar - PO 50 mg DAILY [facility] Administration Prednisone 5 mg 07/14/20 22:00 07/17/20 09:45 Deltasone - PO 5 mg BID [facility] Administration Vital Signs Period Temp Pulse Resp BP Sys/Mcgraw Pulse Ox Last 24 Hr 97.8 F-99.4 F 72-92 18-20 126-142/64-88 96-96 Constitutional: Yes: No Distress, Calm Neck: Yes: Supple, Trachea Midline Cardiovascular: Yes: Regular Rate and Rhythm Respiratory: Yes: CTA Bilaterally Gastrointestinal: Yes: Soft (nt) Edema: No Peripheral Pulses WNL: Yes Neurological: awake oriented no jaundice diaphoresis Labs: CBC, BMP 07/17/20 05:30 07/17/20 05:30 - ....Imaging Cat Scan: Report Reviewed Ultrasound: Report Reviewed EKG: Image Reviewed tele: sr Assessment/Plan IMP/PLAN: Hypertensive urgency, hypertensive heart disease secondary to chronic hypertension Sudden onset of severe back pain and upper chest pain, CTA C/A/P Negative for aortic dissection Rheumatoid arthritis, chronic Fever Thrombocytopenia Equivocal TnIs CKD Elevated BNP 1. Hypertensive urgency: -improved, cont current meds 2. Sudden upper back pain/chest pain: -CTA negative for dissection -resolved 3. Fever: unclear source, Vertebral osteo? -Cultures remain NGTD -CAP (atelectasis seen on CT) vs COVID PNA (initial swab negative) -started on empiric abx by ID -Rheum consulted -Plan as per N-surgery/IR/ID 4. Thrombocytopenia: may be seen in early sepsis and also be seen in flares of autoimmune diseases -Follow CBC -Rheum consulted. 5. Equivocal TnIs: -flat trend, not c/w ACS -Likely demand ischemia in setting of hypertensive urgency -Echo 07/09 with LVH, EF 50-55% and moderate AR 6. CKD: -Creatinine remains at baseline from admission with initial improvement and now back to 1.6 -Daily BMP 7. Elevated BNP: -Possible acute on chronic diastolic CHF in setting of hypertension and extra volume received -CXR with increased vascular/interstitial markings may represent volume vs aty pical or viral infection -defer diuretics -avoid additional IVF unless needed for BP support 8. lower back pain - L4-5 facet joint effusion, ?osteo - neurosurgery/ID/IR plan as they have outlined. dc tele
--- NOTE | 2020-07-17 10:21 | PN ---
Progress Note, Physician History of Present Illness: 34 yo male came in to [facility] ER with acute onset sharp lower back pain 05/24. Noted with BP 200s/100s and temp of 103. Non-compliant with meds and not on biologics by report. 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, seen by Rheumatology Originally on Labetolol drip converted to PO now On Vanco + Rocephin IV for FUO- Fevers resolved now, cultres so far negative Echo :07/09/20- moderate conc LVH, LVEF 50-55%, mild mitral and tricuspid regurg, moderate aortic regurg Seen by Cardiology 07/14/20: NAD, lethargic Seen by NS Recommended CT guided aspiration/bx of R L4-5 facet joint -OM by IR - Current Medication List Current Medications: Active Medications Acetaminophen (Tylenol -) 1,000 mg PO Q6H PRN PRN Reason: PAIN LEVEL 1-5 Last Admin: 07/17/20 09:45 Dose: 1,000 mg Documented by: Amlodipine Besylate (Norvasc -) 10 mg PO DAILY [facility] Last Admin: 07/17/20 09:45 Dose: 10 mg Documented by: Docusate Sodium (Colace -) 100 mg PO BID PRN PRN Reason: CONSTIPATION Famotidine (Pepcid -) 20 mg PO DAILY [facility] Last Admin: 07/17/20 09:44 Dose: 20 mg Documented by: Vancomycin HCl (Vancomycin (Pre-Docked)) 1,000 mg in 250 mls @ 166.667 mls/hr IVPB BID@0400,1600 [facility]; Protocol Last Admin: 07/17/20 03:24 Dose: 166.667 mls/hr Documented by: Ceftriaxone Sodium 2 gm/ (Dextrose) 100 mls @ 200 mls/hr IVPB DAILY [facility]; Prot ocol Last Admin: 07/17/20 09:44 Dose: 200 mls/hr Documented by: Labetalol HCl (Normodyne -) 300 mg PO TID [facility] Last Admin: 07/16/20 21:31 Dose: 300 mg Documented by: Losartan Potassium (Cozaar -) 50 mg PO DAILY [facility] Last Admin: 07/17/20 09:45 Dose: 50 mg Documented by: Prednisone (Deltasone -) 5 mg PO BID [facility] Last Admin: 07/17/20 09:45 Dose: 5 mg Documented by: - Objective Vital Signs: Vital Signs Temperature 98.0 F 07/17/20 09:00 Pulse Rate 92 H 07/17/20 09:00 Respiratory Rate 18 07/17/20 09:00 Blood Pressure 142/86 07/17/20 09:00 O2 Sat by Pulse Oximetry (%) 96 07/17/20 09:00 Cardiovascular: Yes: Regular Rate and Rhythm Respiratory: Yes: Regular, CTA Bilaterally Gastrointestinal: Yes: Normal Bowel Sounds, Soft Labs: CBC, BMP 07/17/20 05:30 07/17/20 05:30 INR, PTT INR 0.96 (0.83-1.09) 07/09/20 07:52 Assessment/Plan - Problems (1) FUO (fever of unknown origin) Assessment/Plan: -Cultures: 07/13/20 17:00 Blood - Peripheral Venous Blood Culture - Preliminary NO GROWTH OBTAINED AFTER 72 HOURS, INCUBATION TO CONTINUE FOR 2 DAYS. 07/13/20 17:00 Blood - Peripheral Venous Blood Culture - Preliminary NO GROWTH OBTAINED AFTER 72 HOURS, INCUBATION TO CONTINUE FOR 2 DAYS. 07/09/20 23:20 Blood - Peripheral Venous Blood Culture - Final NO GROWTH AFTER 5 DAYS INCUBATION 07/09/20 23:20 Blood - Peripheral Venous Blood Culture - Final NO GROWTH AFTER 5 DAYS INCUBATION 07/10/20 13:00 Urine For Antigen Detection Legionella Antigen - Final 07/10/20 13:00 Urine For Antigen Detection Streptococcus pneumoniae Antigen (M - Final 07/09/20 07:52 Urine - Urine Clean Catch Urine Culture - Final NO GROWTH OBTAINED -IV rocephin + Vanco -ID consult -Echo: 07/09/20- moderate conc LVH, LVEF 50-55%, mild mitral and tricuspid regurg, moderate aortic regurg -COVID PCR negative -CTA abd/pel/chest: unremarkable -L4-5 bone bx via IR Problems reviewed: Yes Code(s): R50.9 - FEVER, UNSPECIFIED (2) Confusion Assessment/Plan: -resolved -Head CT (2): no acute bleed or fx, no large territorial infarcts, calcified dens retropulsed into canal with craniocervical junction stenosis -Prior MRI C spine(2013): RA with small panus, retropulsed dens, mild stenosis cranio-cervical junction -Prior CT C spine (2017): predentine interval of 6-7 mm, calcified dens; fused cranio-cervical junction and atlanto-axial junction -Lumbar x-rays- no acute fx lumbar spine, mildly depressed vertebral heights lower T spine -Hypertensive encephlopathy Problems reviewed: Yes Code(s): R41.0 - DISORIENTATION, UNSPECIFIED (3) Arthritis, rheumatoid Assessment/Plan: -Rheumatology consult appreciated -Continue prednisone 5 mg po BID -Biologics outpatient -[id number], ESR 69, CRP 15>8.5 Problems reviewed: Yes Code(s): M06.9 - RHEUMATOID ARTHRITIS, UNSPECIFIED (4) Hypertensive emergency Assessment/Plan: -Resolved -Cardiology consult appreciated -Continue Labetalol 300 mg po TID -Continue amlodipine 10 mg po daily -Low sodium diet Problems reviewed: Yes Code(s): I16.1 - HYPERTENSIVE EMERGENCY
--- NOTE | 2020-07-17 14:10 | PN ---
Progress Note, Physician History of Present Illness: Pt seen and examined at bedside. He is awake and appears comfortable. he denies shortness of breath. - Current Medication List Current Medications: Active Medications Acetaminophen (Tylenol -) 1,000 mg PO Q6H PRN PRN Reason: PAIN LEVEL 1-5 Last Admin: 07/17/20 09:45 Dose: 1,000 mg Documented by: Amlodipine Besylate (Norvasc -) 10 mg PO DAILY [facility] Last Admin: 07/17/20 09:45 Dose: 10 mg Documented by: Docusate Sodium (Colace -) 100 mg PO BID PRN PRN Reason: CONSTIPATION Famotidine (Pepcid -) 20 mg PO DAILY [facility] Last Admin: 07/17/20 09:44 Dose: 20 mg Documented by: Vancomycin HCl (Vancomycin (Pre-Docked)) 1,000 mg in 250 mls @ 166.667 mls/hr IVPB BID@0400,1600 [facility]; Protocol Last Admin: 07/17/20 03:24 Dose: 166.667 mls/hr Documented by: Ceftriaxone Sodium 2 gm/ (Dextrose) 100 mls @ 200 mls/hr IVPB DAILY [facility]; Protocol Last Admin: 07/17/20 09:44 Dose: 200 mls/hr Documented by: Labetalol HCl (Normodyne -) 300 mg PO TID [facility] Last Admin: 07/16/20 21:31 Dose: 300 mg Documented by: Losartan Potassium (Cozaar -) 50 mg PO DAILY [facility] Last Admin: 07/17/20 09:45 Dose: 50 mg Documented by: Prednisone (Deltasone -) 5 mg PO BID [facility] Last Admin: 07/17/20 09:45 Dose: 5 mg Documented by: - Objective Vital Signs: Vital Signs Temperature 98.0 F 07/17/20 09:00 Pulse Rate 92 H 07/17/20 09:00 Respiratory Rate 18 07/17/20 09:00 Blood Pressure 142/86 07/17/20 09:00 O2 Sat by Pulse Oximetry (%) 96 07/17/20 09:00 Constitutional: Yes: Calm Eyes: Yes: Conjunctiva Clear HENT: Yes: Atraumatic Cardiovascular: Yes: S1, S2 Respiratory: Yes: CTA Bilaterally Gastrointestinal: Yes: Normal Bowel Sounds, Soft Genitourinary: Yes: WNL Musculoskeletal: Yes: Joint Stiffness Edema: No Neurological: Yes: Oriented Psychiatric: Yes: Oriented Labs: CBC, BMP 07/17/20 05:30 07/17/20 05:30 INR, PTT INR 0.96 (0.83-1.09) 07/09/20 07:52 Assessment/Plan Current Medications Generic Name Dose Route Start Last Admin Trade Name Freq PRN Reason Stop Dose Admin Acetaminophen 1,000 mg 07/14/20 19:10 07/17/20 09:45 Tylenol - PO 1,000 mg Q6H PRN Administration PAIN LEVEL 1-5 Amlodipine Besylate 10 mg 07/15/20 10:00 07/17/20 09:45 Norvasc - PO 10 mg DAILY [facility] Administration Docusate Sodium 100 mg 07/14/20 19:10 Colace - PO BID PRN CONSTIPATION Famotidine 20 mg 07/15/20 10:00 07/17/20 09:44 Pepcid - PO 20 mg DAILY [facility] Administration Vancomycin HCl 1,000 mg in 250 mls @ 166.667 mls/hr 07/13/20 16:00 07/17/20 03:24 Vancomycin (Pre-Docked) IVPB 166.667 mls/hr BID@0400,1600 [facility] Administration Protocol Ceftriaxone Sodium 2 gm/ 100 mls @ 200 mls/hr 07/15/20 10:00 07/17/20 09:44 Dextrose IVPB 200 mls/hr DAILY [facility] Administration Protocol Labetalol HCl 300 mg 07/12/20 11:14 07/16/20 21:31 Normodyne - PO 300 mg TID [facility] Administration Losartan Potassium 50 mg 07/16/20 13:30 07/17/20 09:45 Cozaar - PO 50 mg DAILY [facility] Administration Prednisone 5 mg 07/14/20 22:00 07/17/20 09:45 Deltasone - PO 5 mg BID [facility] Administration Impression 1. CKD 2. BRADLEY 3. HTN 4. RA 5. hx of positive imfx in the past 6. altered mental status 7. proteinuria 8. non compliance Plan - repeat labs in am - losartan started - monitor renal function and lytes - bp stabilizing - cont labetolol
[2020-07-17] MEDS: LABETALOL HCL 200 MG TABLET (FP) PO SCH ×3 (14:16→22:00)
[2020-07-18] MEDS: LABETALOL HCL 200 MG TABLET (FP) PO SCH ×3 (06:41→21:55)
[2020-07-18 07:11] LABS: INR 1.09 (0.83-1.09); PROTHROMBIN TIME (PATIENT) 12.9 SEC (9.7-13.0)
[2020-07-18 07:18] LABS: BLOOD UREA NITROGEN 29.5 mg/dL (7-18); CALCIUM 8.2 mg/dL (8.5-10.1); CREATININE 1.9 mg/dL (0.55-1.3); POTASSIUM 4.9 mmol/L (3.5-5.1)
[2020-07-18] MEDS ORDERED: DEXTROSE 5%-WATER 100 ML IVPB ONE (07:29)
[2020-07-18] MEDS: amLODIPine BESYLATE 10 MG TABLET (FP) PO SCH (09:06)
[2020-07-18] MEDS: CEFTRIAXONE 2 GM in DEXTROSE 5%-WATER 100 ML IVPB SCH (09:06)
[2020-07-18] MEDS: ACETAMINOPHEN 500 MG TABLET (FP) PO PRN (09:06)
[2020-07-18] MEDS: LOSARTAN POTASSIUM 50 MG TABLET PO SCH (09:07)
[2020-07-18] MEDS: FAMOTIDINE 20 MG TABLET PO SCH (09:07)
[2020-07-18] MEDS: predniSONE 5 MG TABLET (UD) PO SCH ×2 (09:07→21:55)
--- NOTE | 2020-07-18 10:09 | PN ---
Progress Note, Physician - Current Medication List Current Medications: Active Medications Acetaminophen (Tylenol -) 1,000 mg PO Q6H PRN PRN Reason: PAIN LEVEL 1-5 Last Admin: 07/18/20 09:06 Dose: 1,000 mg Documented by: Amlodipine Besylate (Norvasc -) 10 mg PO DAILY [facility] Last Admin: 07/18/20 09:06 Dose: 10 mg Documented by: Docusate Sodium (Colace -) 100 mg PO BID PRN PRN Reason: CONSTIPATION Famotidine (Pepcid -) 20 mg PO DAILY [facility] Last Admin: 07/18/20 09:07 Dose: 20 mg Documented by: Ceftriaxone Sodium 2 gm/ (Dextrose) 100 mls @ 200 mls/hr IVPB DAILY [facility]; Protocol Last Admin: 07/18/20 09:06 Dose: 200 mls/hr Documented by: Labetalol HCl (Normodyne -) 300 mg PO TID [facility] Last Admin: 07/18/20 06:41 Dose: 300 mg Documented by: Losartan Potassium (Cozaar -) 50 mg PO DAILY [facility] Last Admin: 07/18/20 09:07 Dose: 50 mg Documented by: Prednisone (Deltasone -) 5 mg PO BID [facility] Last Admin: 07/18/20 09:07 Dose: 5 mg Documented by: - Objective Vital Signs: Vital Signs Temperature 98.2 F 07/18/20 02:00 Pulse Rate 83 07/18/20 08:43 Respiratory Rate 18 07/18/20 08:44 Blood Pressure 140/80 07/18/20 08:43 O2 Sat by Pulse Oximetry (%) 96 07/18/20 08:44 Cardiovascular: Yes: Regular Rate and Rhythm Respiratory: Yes: Regular, CTA Bilaterally Gastrointestinal: Yes: Normal Bowel Sounds, Soft. No: Tenderness Edema: No Labs: CBC, BMP 07/17/20 05:30 07/18/20 05:28 INR, PTT INR 1.09 (0.83-1.09) 07/18/20 05:28 Assessment/Plan - Problems (1) FUO (fever of unknown origin) Assessment/Plan: -Cultures: 07/13/20 17:00 Blood - Peripheral Venous Blood Culture - Preliminary NO GROWTH OBTAINED AFTER 72 HOURS, INCUBATION TO CONTINUE FOR 2 DAYS. 07/13/20 17:00 Blood - Peripheral Venous Blood Culture - Preliminary NO GROWTH OBTAINED AFTER 72 HOURS, INCUBATION TO CONTINUE FOR 2 DAYS. 07/09/20 23:20 Blood - Peripheral Venous Blood Culture - Final NO GROWTH AFTER 5 DAYS INCUBATION 07/09/20 23:20 Blood - Peripheral Venous Blood Culture - Final NO GROWTH AFTER 5 DAYS INCUBATION 07/10/20 13:00 Urine For Antigen Detection Legionella Antigen - Final 07/10/20 13:00 Urine For Antigen Detection Streptococcus pneumoniae Antigen (M - Final 07/09/20 07:52 Urine - Urine Clean Catch Urine Culture - Final NO GROWTH OBTAINED -IV rocephin + Vanco -ID consult -Echo: 07/09/20- moderate conc LVH, LVEF 50-55%, mild mitral and tricuspid regurg, moderate aortic regurg -COVID PCR negative -CTA abd/pel/chest: unremarkable -L4-5 bone bx via IR Problems reviewed: Yes Code(s): R50.9 - FEVER, UNSPECIFIED (2) Confusion Assessment/Plan: -resolved -Head CT (2): no acute bleed or fx, no large territorial infarcts, calcified dens retropulsed into canal with craniocervical junction stenosis -Prior MRI C spine(2013): RA with small panus, retropulsed dens, mild stenosis cranio-cervical junction -Prior CT C spine (2017): predentine interval of 6-7 mm, calcified dens; fused cranio-cervical junction and atlanto-axial junction -Lumbar x-rays- no acute fx lumbar spine, mildly depressed vertebral heights lower T spine -Hypertensive encephlopathy Problems reviewed: Yes Code(s): R41.0 - DISORIENTATION, UNSPECIFIED (3) Arthritis, rheumatoid Assessment/Plan: -Rheumatology consult appreciated -Continue prednisone 5 mg po BID -Biologics outpatient -[id number], ESR 69, CRP 15>8.5 Problems reviewed: Yes Code(s): M06.9 - RHEUMATOID ARTHRITIS, UNSPECIFIED (4) Hypertensive emergency Assessment/Plan: -Resolved -Cardiology consult appreciated -Continue Labetalol 300 mg po TID -Continue amlodipine 10 mg po daily -Low sodium diet Problems reviewed: Yes Code(s): I16.1 - HYPERTENSIVE EMERGENCY
--- NOTE | 2020-07-18 10:15 | PN ---
Progress Note (short form) - Note Progress Note: NEUROSURGERY In telemetry Family at bedside PE: Tmax 98.2, AF, BP 140/80 Awake/alert Denies neck pain; no UE symptoms; some LBP HEENT- NC/AT; Neck- supple; Cor- RR; lungs- CTA B; Abd- benign; Ext- no sign of DVT CN- grossly intact; Motor- at least 4-4+/5 B UE/LE; Sensation- grossly intact LT; DTR- 2+, no LTS Covid negative Blood culture negative to date; urine culture negative Repeat culture pending CR 1.7; CRP 1.9, ESR 101 MRI LS spine- mild spondylosis and facet hypertrophy, R L4-5 facet joint effusion, mild enhancement, no epidural enhancement, no osteo of vertebral bodies; R medial psoas edema RA with documented basilar invagination Hypertensive encephalopathy R/O R L4-5 facet edema/infection with psoas involvement Care d/w ID previously Repeat MRI with kenan possible but should not be done too frequently given already elevated Cr For IR CT guided aspiration/bx of R L4-5 facet joint/psoas (d/w Dr Forrest previously) If still not diagnostic could consider microsurgical approach for open bx (larger sample size), though higher risks with underlying medical conditions including basilar invagination for GA
--- NOTE | 2020-07-18 10:47 | PN ---
Progress Note (short form) - Note Progress Note: Chief Complaint: htn, cp s: no cp sob palps dizzy Current Medications Generic Name Dose Route Start Last Admin Trade Name Freq PRN Reason Stop Dose Admin Acetaminophen 1,000 mg 07/14/20 19:10 07/18/20 09:06 Tylenol - PO 1,000 mg Q6H PRN Administration PAIN LEVEL 1-5 Amlodipine Besylate 10 mg 07/15/20 10:00 07/18/20 09:06 Norvasc - PO 10 mg DAILY [facility] Administration Docusate Sodium 100 mg 07/14/20 19:10 Colace - PO BID PRN CONSTIPATION Famotidine 20 mg 07/15/20 10:00 07/18/20 09:07 Pepcid - PO 20 mg DAILY [facility] Administration Ceftriaxone Sodium 2 gm/ 100 mls @ 200 mls/hr 07/15/20 10:00 07/18/20 09:06 Dextrose IVPB 200 mls/hr DAILY [facility] Administration Protocol Labetalol HCl 300 mg 07/12/20 11:14 07/18/20 06:41 Normodyne - PO 300 mg TID [facility] Administration Losartan Potassium 50 mg 07/16/20 13:30 07/18/20 09:07 Cozaar - PO 50 mg DAILY [facility] Administration Prednisone 5 mg 07/14/20 22:00 07/18/20 09:07 Deltasone - PO 5 mg BID [facility] Administration Vital Signs Period Temp Pulse Resp BP Sys/Mcgraw Pulse Ox Last 24 Hr 98.1 F-98.6 F 75-83 18-18 114-140/72-83 96-96 Constitutional: Yes: No Distress, Calm Neck: Yes: Supple, Trachea Midline Cardiovascular: Yes: Regular Rate and Rhythm Respiratory: Yes: CTA Bilaterally Gastrointestinal: Yes: Soft (nt) Edema: No Peripheral Pulses WNL: Yes Neurological: awake oriented no jaundice diaphoresis Labs: CBC, BMP 07/17/20 05:30 07/18/20 05:28 - ....Imaging Cat Scan: Report Reviewed Ultrasound: Report Reviewed EKG: Image Reviewed tele: sr Assessment/Plan IMP/PLAN: Hypertensive urgency, hypertensive heart disease secondary to chronic hypertension Sudden onset of severe back pain and upper chest pain, CTA C/A/P Negative for aortic dissection Rheumatoid arthritis, chronic Fever Thrombocytopenia Equivocal TnIs CKD Elevated BNP 1. Hypertensive urgency: -improved, cont current meds 2. Sudden upper back pain/chest pain: -CTA negative for dissection -resolved 3. Fever: unclear source, Vertebral osteo? -Cultures remain NGTD -CAP (atelectasis seen on CT) vs COVID PNA (initial swab negative) -started on empiric abx by ID -Rheum consulted -Plan as per N-surgery/IR/ID 4. Thrombocytopenia: may be seen in early sepsis and also be seen in flares of autoimmune diseases -Follow CBC -Rheum consulted. 5. Equivocal TnIs: -flat trend, not c/w ACS -Likely demand ischemia in setting of hypertensive urgency -Echo 07/09 with LVH, EF 50-55% and moderate AR 6. CKD: -Creatinine remains at baseline from admission with initial improvement and now back to 1.6 -Daily BMP 7. Elevated BNP: -Possible acute on chronic diastolic CHF in setting of hypertension and extra volume received -CXR with increased vascular/interstitial markings may represent volume vs atypical or viral infection -defer diuretics -avoid additional IVF unless needed for BP support 8. lower back pain - L4-5 facet joint effusion, ?osteo - neurosurgery/ID/IR plan as they have outlined. dc tele
--- NOTE | 2020-07-18 14:07 | PN ---
Progress Note, Physician History of Present Illness: Pt seen and examined at bedside. He is awake and alert. he denies shortness of breath. - Current Medication List Current Medications: Active Medications Acetaminophen (Tylenol -) 1,000 mg PO Q6H PRN PRN Reason: PAIN LEVEL 1-5 Last Admin: 07/18/20 09:06 Dose: 1,000 mg Documented by: Amlodipine Besylate (Norvasc -) 10 mg PO DAILY [facility] Last Admin: 07/18/20 09:06 Dose: 10 mg Documented by: Docusate Sodium (Colace -) 100 mg PO BID PRN PRN Reason: CONSTIPATION Famotidine (Pepcid -) 20 mg PO DAILY [facility] Last Admin: 07/18/20 09:07 Dose: 20 mg Documented by: Ceftriaxone Sodium 2 gm/ (Dextrose) 100 mls @ 200 mls/hr IVPB DAILY [facility]; Comfort col Last Admin: 07/18/20 09:06 Dose: 200 mls/hr Documented by: Labetalol HCl (Normodyne -) 300 mg PO TID [facility] Last Admin: 07/18/20 06:41 Dose: 300 mg Documented by: Losartan Potassium (Cozaar -) 50 mg PO DAILY [facility] Last Admin: 07/18/20 09:07 Dose: 50 mg Documented by: Prednisone (Deltasone -) 5 mg PO BID [facility] Last Admin: 07/18/20 09:07 Dose: 5 mg Documented by: - Objective Vital Signs: Vital Signs Temperature 98.2 F 07/18/20 02:00 Pulse Rate 83 07/18/20 08:43 Respiratory Rate 18 07/18/20 08:44 Blood Pressure 140/80 07/18/20 08:43 O2 Sat by Pulse Oximetry (%) 96 07/18/20 08:44 Constitutional: Yes: Calm Eyes: Yes: Conjunctiva Clear HENT: Yes: Atraumatic Neck: Yes: Supple Cardiovascular: Yes: S1, S2 Respiratory: Yes: CTA Bilaterally Gastrointestinal: Yes: Soft Genitourinary: Yes: WNL Musculoskeletal: Yes: Joint Stiffness Edema: No Neurological: Yes: Oriented Psychiatric: Yes: Oriented Labs: CBC, BMP 07/17/20 05:30 07/18/20 05:28 INR, PTT INR 1.09 (0.83-1.09) 07/18/20 05:28 Assessment/Plan Current Medications Generic Name Dose Route Start Last Admin Trade Name Ozzyq PRN Reason Stop Dose Admin Acetaminophen 1,000 mg 07/14/20 19:10 07/18/20 09:06 Tylenol - PO 1,000 mg Q6H PRN Administration PAIN LEVEL 1-5 Amlodipine Besylate 10 mg 07/15/20 10:00 07/18/20 09:06 Norvasc - PO 10 mg DAILY [facility] Administration Docusate Sodium 100 mg 07/14/20 19:10 Colace - PO BID PRN CONSTIPATION Famotidine 20 mg 07/15/20 10:00 07/18/20 09:07 Pepcid - PO 20 mg DAILY [facility] Administration Ceftriaxone Sodium 2 gm/ 100 mls @ 200 mls/hr 07/15/20 10:00 07/18/20 09:06 Dextrose IVPB 200 mls/hr DAILY [facility] Administration Protocol Labetalol HCl 300 mg 07/12/20 11:14 07/18/20 06:41 Normodyne - PO 300 mg TID [facility] Administration Losartan Potassium 50 mg 07/16/20 13:30 07/18/20 09:07 Cozaar - PO 50 mg DAILY [facility] Administration Prednisone 5 mg 07/14/20 22:00 07/18/20 09:07 Deltasone - PO 5 mg BID [facility] Administration Impression 1. CKD 2. BRADLEY 3. HTN 4. RA 5. hx of positive imfx in the past 6. altered mental status 7. proteinuria 8. non compliance Plan - cont with losartan - monitor renal function - bp stabilizing - cont labetolol
[2020-07-19] MEDS: LABETALOL HCL 200 MG TABLET (FP) PO SCH ×3 (05:53→21:53)
[2020-07-19 06:51] LABS: BASO % 0.7 % (0-2.0); EOS % 0.3 % (0-4.5); HEMATOCRIT 27.7 % (35.4-49); HEMOGLOBIN 9.4 GM/dL (11.7-16.9); LYMPH % 5.5 % (8-40); MCH 22.5 pg (25.7-33.7); MCHC 33.9 g/dl (32.0-35.9); MEAN CELL VOLUME 66.3 fl (80-96); MEAN PLT VOLUME 8.5 fl (7.5-11.1); NEUT % 79.5 % (42.8-82.8); PLATELET COUNT 244 K/MM3 (134-434); RBC 4.18 M/mm3 (4.00-5.60); RDW 23.2 % (11.9-15.9); WHITE BLOOD COUNT 7.6 K/mm3 (4.0-10.0)
[2020-07-19 07:18] LABS: ALBUMIN 2.6 g/dl (3.4-5.0); BILIRUBIN,TOTAL 0.4 mg/dL (0.2-1); BLOOD UREA NITROGEN 31.4 mg/dL (7-18); CALCIUM 8.4 mg/dL (8.5-10.1); POTASSIUM 4.9 mmol/L (3.5-5.1); TOT PROT 7.1 g/dl (6.4-8.2)
[2020-07-19] MEDS ORDERED: DEXTROSE 5%-WATER 100 ML IVPB ONE (09:49)
[2020-07-19] MEDS: LOSARTAN POTASSIUM 50 MG TABLET PO SCH (09:59)
[2020-07-19] MEDS: FAMOTIDINE 20 MG TABLET PO SCH (10:00)
[2020-07-19] MEDS: amLODIPine BESYLATE 10 MG TABLET (FP) PO SCH (10:00)
[2020-07-19] MEDS: predniSONE 5 MG TABLET (UD) PO SCH ×2 (10:00→21:53)
[2020-07-19 10:23] LABS: ERYTHROCYTE SEDIMENTATION RATE 92 mm/hr (0-10)
--- NOTE | 2020-07-19 11:59 | PN ---
Progress Note (short form) - Note Progress Note: Chief Complaint: htn, cp s: no cp sob palps dizzy Current Medications Generic Name Dose Route Start Last Admin Trade Name Freq PRN Reason Stop Dose Admin Acetaminophen 1,000 mg 07/14/20 19:10 07/18/20 09:06 Tylenol - PO 1,000 mg Q6H PRN Administration PAIN LEVEL 1-5 Amlodipine Besylate 10 mg 07/15/20 10:00 07/19/20 10:00 Norvasc - PO 10 mg DAILY [facility] Administration Docusate Sodium 100 mg 07/14/20 19:10 Colace - PO BID PRN CONSTIPATION Famotidine 20 mg 07/15/20 10:00 07/19/20 10:00 Pepcid - PO 20 mg DAILY [facility] Administration Ceftriaxone Sodium 2 gm/ 100 mls @ 200 mls/hr 07/15/20 10:00 07/18/20 09:06 Dextrose IVPB 200 mls/hr DAILY [facility] Administration Protocol Labetalol HCl 300 mg 07/12/20 11:14 07/19/20 05:53 Normodyne - PO 300 mg TID [facility] Administration Losartan Potassium 50 mg 07/16/20 13:30 07/19/20 09:59 Cozaar - PO 50 mg DAILY [facility] Administration Prednisone 5 mg 07/14/20 22:00 07/19/20 10:00 Deltasone - PO 5 mg BID [facility] Administration Vital Signs Period Temp Pulse Resp BP Sys/Mcgraw Pulse Ox Last 24 Hr 97.9 F-98.8 F 66-99 15-18 112-156/70-103 95-100 Constitutional: Yes: No Distress, Calm Neck: Yes: Supple, Trachea Midline Cardiovascular: Yes: Regular Rate and Rhythm Respiratory: Yes: CTA Bilaterally Gastrointestinal: Yes: Soft (nt) Edema: No Peripheral Pulses WNL: Yes Neurological: awake oriented no jaundice diaphoresis Labs: CBC, BMP 07/19/20 05:35 07/19/20 05:35 - ....Imaging Cat Scan: Report Reviewed Ultrasound: Report Reviewed EKG: Image Reviewed tele: sr Assessment/Plan IMP/PLAN: Hypertensive urgency, hypertensive heart disease secondary to chronic hypertension Sudden onset of severe back pain and upper chest pain, CTA C/A/P Negative for aortic dissection Rheumatoid arthritis, chronic Fever Thrombocytopenia Equivocal TnIs CKD Elevated BNP 1. Hypertensive urgency: -improved, cont current meds 2. Sudden upper back pain/chest pain: -CTA negative for dissection -resolved 3. Fever: unclear source, Vertebral osteo? -CAP (atelectasis seen on CT) vs COVID PNA (initial swab negative) -started on empiric abx by ID -Rheum consulted -Plan as per N-surgery/IR/ID 4. Thrombocytopenia: may be seen in early sepsis and also be seen in flares of autoimmune diseases -Follow CBC -Rheum consulted. 5. Equivocal TnIs: -flat trend, not c/w ACS -Likely demand ischemia in setting of hypertensive urgency -Echo 07/09 with LVH, EF 50-55% and moderate AR 6. CKD: -Creatinine remains at baseline from admission with initial improvement and now back to 1.6 -Daily BMP 7. Elevated BNP: -Possible acute on chronic diastolic CHF in setting of hypertension and extra volume received -CXR with increased vascular/interstitial markings may represent volume vs atypical or viral infection -defer diuretics -avoid additional IVF unless needed for BP support 8. lower back pain - L4-5 facet joint effusion, ?osteo - neurosurgery/ID/IR plan as they have outlined. dc tele
--- NOTE | 2020-07-19 12:04 | PN ---
Progress Note, Physician Chief Complaint: AWAKE ALERT TODAY - Current Medication List Current Medications: Active Medications Acetaminophen (Tylenol -) 1,000 mg PO Q6H PRN PRN Reason: PAIN LEVEL 1-5 Last Admin: 07/18/20 09:06 Dose: 1,000 mg Documented by: Amlodipine Besylate (Norvasc -) 10 mg PO DAILY [facility] Last Admin: 07/19/20 10:00 Dose: 10 mg Documented by: Docusate Sodium (Colace -) 100 mg PO BID PRN PRN Reason: CONSTIPATION Famotidine (Pepcid -) 20 mg PO DAILY [facility] Last Admin: 07/19/20 10:00 Dose: 20 mg Documented by: Ceftriaxone Sodium 2 gm/ (Dextrose) 100 mls @ 200 mls/hr IVPB DAILY [facility]; Protocol Last Admin: 07/18/20 09:06 Dose: 200 mls/hr Documented by: Labetalol HCl (Normodyne -) 300 mg PO TID [facility] Last Admin: 07/19/20 05:53 Dose: 300 mg Documented by: Losartan Potassium (Cozaar -) 50 mg PO DAILY [facility] Last Admin: 07/19/20 09:59 Dose: 50 mg Documented by: Prednisone (Deltasone -) 5 mg PO BID [facility] Last Admin: 07/19/20 10:00 Dose: 5 mg Documented by: - Objective Vital Signs: Vital Signs Temperature 97.9 F 07/19/20 10:00 Pulse Rate 87 07/19/20 11:48 Respiratory Rate 15 07/19/20 11:48 Blood Pressure 142/103 H 07/19/20 11:48 O2 Sat by Pulse Oximetry (%) 100 07/19/20 11:48 Constitutional: Yes: Mild Distress Cardiovascular: Yes: Regular Rate and Rhythm Respiratory: Yes: Regular Gastrointestinal: Yes: Soft Genitourinary: Yes: Other Musculoskeletal: Yes: Joint Stiffness, Muscle Weakness Extremities: Yes: Deformity Neurological: Yes: Pre-Existing Deficit ...Motor Strength: LLE, RLE Labs: CBC, BMP 07/19/20 05:35 07/19/20 05:35 INR, PTT INR 1.09 (0.83-1.09) 07/18/20 05:28 Problem List - Problems (1) FUO (fever of unknown origin) Code(s): R50.9 - FEVER, UNSPECIFIED (2) Hypertension Code(s): I10 - ESSENTIAL (PRIMARY) HYPERTENSION Qualifiers: Hypertension type: unspecified Qualified Code(s): I10 - Essential (primary) hypertension (3) Abdominal pain Code(s): R10.9 - UNSPECIFIED ABDOMINAL PAIN Qualifiers: Abdominal location: generalized Qualified Code(s): R10.84 - Generalized abdominal pain (4) Arthritis, rheumatoid Code(s): M06.9 - RHEUMATOID ARTHRITIS, UNSPECIFIED (5) Hypertensive emergency Code(s): I16.1 - HYPERTENSIVE EMERGENCY Assessment/Plan iv abx per id dr Forrest for psoas abscess drainage stop heparin for now until procedure complete with Dr Forrest cardio/neurosurgery evals appreciated iv fluids pain control dvt prophylaxis monitor renal function and electrolytes nephrology and neurosurgery evals appreciated htn emergency better controlled
[2020-07-19] MEDS: CEFTRIAXONE 2 GM in DEXTROSE 5%-WATER 100 ML IVPB SCH (12:30)
--- NOTE | 2020-07-19 12:46 | PN ---
Progress Note, Physician History of Present Illness: Pt seen and examined at bedside. He is awake and alert. - Current Medication List Current Medications: Active Medications Acetaminophen (Tylenol -) 1,000 mg PO Q6H PRN PRN Reason: PAIN LEVEL 1-5 Last Admin: 07/18/20 09:06 Dose: 1,000 mg Documented by: Amlodipine Besylate (Norvasc -) 10 mg PO DAILY [facility] Last Admin: 07/19/20 10:00 Dose: 10 mg Documented by: Docusate Sodium (Colace -) 100 mg PO BID PRN PRN Reason: CONSTIPATION Famotidine (Pepcid -) 20 mg PO DAILY [facility] Last Admin: 07/19/20 10:00 Dose: 20 mg Documented by: Ceftriaxone Sodium 2 gm/ (Dextrose) 100 mls @ 200 mls/hr IVPB DAILY [facility]; Protocol Last Admin: 07/19/20 12:30 Dose: 200 mls/hr Documented by: Labetalol HCl (Normodyne -) 300 mg PO TID [facility] Last Admin: 07/19/20 05:53 Dose: 300 mg Documented by: Losartan Potassium (Cozaar -) 50 mg PO DAILY [facility] Last Admin: 07/19/20 09:59 Dose: 50 mg Documented by: Prednisone (Deltasone -) 5 mg PO BID [facility] Last Admin: 07/19/20 10:00 Dose: 5 mg Documented by: - Objective Vital Signs: Vital Signs Temperature 97.9 F 07/19/20 10:00 Pulse Rate 82 07/19/20 11:58 Respiratory Rate 15 07/19/20 11:58 Blood Pressure 142/103 H 07/19/20 11:58 O2 Sat by Pulse Oximetry (%) 100 07/19/20 11:58 Constitutional: Yes: Calm Eyes: Yes: Conjunctiva Clear HENT: Yes: Atraumatic Neck: Yes: Supple Cardiovascular: Yes: S1, S2 Respiratory: Yes: CTA Bilaterally Gastrointestinal: Yes: Soft Genitourinary: Yes: WNL Musculoskeletal: Yes: Joint Stiffness Edema: No Neurological: Yes: Oriented Labs: CBC, BMP 07/19/20 05:35 07/19/20 05:35 INR, PTT INR 1.09 (0.83-1.09) 07/18/20 05:28 Assessment/Plan Current Medications Generic Name Dose Route Start Last Admin Trade Name Freq PRN Reason Stop Dose Admin Acetaminophen 1,000 mg 07/14/20 19:10 07/18/20 09:06 Tylenol - PO 1,000 mg Q6H PRN Administration PAIN LEVEL 1-5 Amlodipine Besylate 10 mg 07/15/20 10:00 07/19/20 10:00 Norvasc - PO 10 mg DAILY [facility] Administration Docusate Sodium 100 mg 07/14/20 19:10 Colace - PO BID PRN CONSTIPATION Famotidine 20 mg 07/15/20 10:00 07/19/20 10:00 Pepcid - PO 20 mg DAILY [facility] Administration Ceftriaxone Sodium 2 gm/ 100 mls @ 200 mls/hr 07/15/20 10:00 07/19/20 12:30 Dextrose IVPB 200 mls/hr DAILY [facility] Administration Protocol Labetalol HCl 300 mg 07/12/20 11:14 07/19/20 05:53 Normodyne - PO 300 mg TID [facility] Administration Losartan Potassium 50 mg 07/16/20 13:30 07/19/20 09:59 Cozaar - PO 50 mg DAILY [facility] Administration Prednisone 5 mg 07/14/20 22:00 07/19/20 10:00 Deltasone - PO 5 mg BID [facility] Administration Impression 1. CKD 2. BRADLEY 3. HTN 4. RA 5. hx of positive imfx in the past 6. altered mental status 7. proteinuria 8. 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
[2020-07-19 14:24] LABS: ANISOCYTOSIS 1+; MACROCYTOSIS 0; PLATELET ESTIMATE NORMAL; TARGET CELLS 2+
--- NOTE | 2020-07-19 21:21 | PN ---
Progress Note, Physician Chief Complaint: AWAKE, ALERT SUPINE IN BED S/O NEEDLE ASP CULTURES PENDING AFEBRILE WBC WNL BC NO GROWTH MRI SHOWS ? VERTEBRAL OM L4L5 EDEMA L PSOAS MUSCLE ? EARLY ABSCESS - Current Medication List Current Medications: Active Medications Acetaminophen (Tylenol -) 1,000 mg PO Q6H PRN PRN Reason: PAIN LEVEL 1-5 Last Admin: 07/18/20 09:06 Dose: 1,000 mg Documented by: Amlodipine Besylate (Norvasc -) 10 mg PO DAILY [facility] Last Admin: 07/19/20 10:00 Dose: 10 mg Documented by: Docusate Sodium (Colace -) 100 mg PO BID PRN PRN Reason: CONSTIPATION Famotidine (Pepcid -) 20 mg PO DAILY [facility] Last Admin: 07/19/20 10:00 Dose: 20 mg Documented by: Ceftriaxone Sodium 2 gm/ (Dextrose) 100 mls @ 200 mls/hr IVPB DAILY [facility]; Protocol Last Admin: 07/19/20 12:30 Dose: 200 mls/hr Documented by: Labetalol HCl (Normodyne -) 300 mg PO TID [facility] Last Admin: 07/19/20 14:09 Dose: 300 mg Documented by: Losartan Potassium (Cozaar -) 25 mg PO DAILY [facility] Prednisone (Deltasone -) 5 mg PO BID [facility] Last Admin: 07/19/20 10:00 Dose: 5 mg Documented by: - Objective Vital Signs: Vital Signs Temperature 99.0 F 07/19/20 18:38 Pulse Rate 76 07/19/20 18:38 Respiratory Rate 18 07/19/20 18:38 Blood Pressure 131/87 07/19/20 18:38 O2 Sat by Pulse Oximetry (%) 100 07/19/20 11:58 Constitutional: Yes: No Distress Eyes: Yes: Conjunctiva Clear Cardiovascular: Yes: Regular Rate and Rhythm, S1, S2 Respiratory: Yes: CTA Bilaterally Gastrointestinal: Yes: Normal Bowel Sounds, Soft Edema: No Labs: CBC, BMP 07/19/20 05:35 07/19/20 05:35 INR, PTT INR 1.09 (0.83-1.09) 07/18/20 05:28 Assessment/Plan ? HEMATOGENOUS VERTEBRAL OM/ EARLY PSOAS MUSCLE FEVER/ LEUKOCYTOSIS RESOLVED S/P HYPERTENSIVE CRISIS S/P ASPIRATE OF FACET CONTINUE CEFTRIAXONE REDOSE VANCOMYCIN
[2020-07-19] MEDS ORDERED: VANCOMYCIN 1 GRAM (PRE-DOCKED) 1,000 MG/250 ML BAG IVPB ONE (21:30)
[2020-07-20] MEDS: LABETALOL HCL 200 MG TABLET (FP) PO SCH ×3 (06:24→21:47)
[2020-07-20] MEDS ORDERED: DEXTROSE 5%-WATER 100 ML IVPB ONE (08:49)
[2020-07-20] MEDS: LOSARTAN POTASSIUM 25 MG TABLET PO SCH (09:03)
[2020-07-20] MEDS: predniSONE 5 MG TABLET (UD) PO SCH ×2 (09:03→21:47)
[2020-07-20] MEDS: CEFTRIAXONE 2 GM in DEXTROSE 5%-WATER 100 ML IVPB SCH (09:03)
[2020-07-20] MEDS: amLODIPine BESYLATE 10 MG TABLET (FP) PO SCH (09:03)
[2020-07-20] MEDS: FAMOTIDINE 20 MG TABLET PO SCH (09:03)
--- NOTE | 2020-07-20 09:15 | PN ---
Progress Note (short form) - Note Progress Note: NEUROSURGERY In telemetry Seen yesterday am and today Minimal pain from bx PE: Tmax 99, AF, VSS Awake/alert No C/P, SOB, denies neck pain; no UE symptoms; some LBP HEENT- NC/AT; Neck- supple; Cor- RR; lungs- CTA B; Abd- benign; Ext- no sign of DVT CN- grossly intact; Motor- at least 4-4+/5 B UE/LE; Sensation- grossly intact LT; DTR- 2+, no LTS Covid negative Blood culture negative x4; urine culture negative; Covid negative x2 CR 2.0 last; CRP 1.9. ESR 92 MRI LS spine- mild spondylosis and facet hypertrophy, R L4-5 facet joint effusion, mild enhancement, no epidural enhancement, no osteo of vertebral bodies; R medial psoas edema RA with documented basilar invagination Hypertensive encephalopathy s/p CT guided bx, specimen sent and cultures pending If still not diagnostic could consider microsurgical approach for open bx (larger sample size), though higher risks with underlying medical conditions including basilar invagination for GA IV abx per ID
[2020-07-20] MEDS: ACETAMINOPHEN 500 MG TABLET (FP) PO PRN ×2 (09:29→21:46)
--- NOTE | 2020-07-20 12:53 | PN ---
Progress Note (short form) - Note Progress Note: Chief Complaint: htn, cp s: no cp sob palps dizzy. Current Medications Generic Name Dose Route Start Last Admin Trade Name Hailey PRN Reason Stop Dose Admin Acetaminophen 1,000 mg 07/14/20 19:10 07/20/20 09:29 Tylenol - PO 1,000 mg Q6H PRN Administration PAIN LEVEL 1-5 Amlodipine Besylate 10 mg 07/15/20 10:00 07/20/20 09:03 Norvasc - PO 10 mg DAILY [facility] Administration Docusate Sodium 100 mg 07/14/20 19:10 Colace - PO BID PRN CONSTIPATION Famotidine 20 mg 07/15/20 10:00 07/20/20 09:03 Pepcid - PO 20 mg DAILY [facility] Administration Ceftriaxone Sodium 2 gm/ 100 mls @ 200 mls/hr 07/15/20 10:00 07/20/20 09:03 Dextrose IVPB 200 mls/hr DAILY [facility] Administration Protocol Labetalol HCl 300 mg 07/12/20 11:14 07/20/20 06:24 Normodyne - PO 300 mg TID [facility] Administration Losartan Potassium 25 mg 07/19/20 12:46 07/20/20 09:03 Cozaar - PO 25 mg DAILY [facility] Administration Prednisone 5 mg 07/14/20 22:00 07/20/20 09:03 Deltasone - PO 5 mg BID [facility] Administration Vital Signs Period Temp Pulse Resp BP Sys/Mcgraw Pulse Ox Last 24 Hr 97.9 F-99.0 F 66-85 18-20 126-135/68-92 99-100 Constitutional: Yes: No Distress, Calm Neck: Yes: Supple, Trachea Midline Cardiovascular: Yes: Regular Rate and Rhythm Respiratory: Yes: CTA Bilaterally Gastrointestinal: Yes: Soft (nt) Edema: No Peripheral Pulses WNL: Yes Neurological: awake oriented no jaundice diaphoresis not agitated - ....Imaging Cat Scan: Report Reviewed Ultrasound: Report Reviewed EKG: Image Reviewed tele: sr Assessment/Plan IMP/PLAN: Hypertensive urgency, hypertensive heart disease secondary to chronic hypertension Sudden onset of severe back pain and upper chest pain, CTA C/A/P Negative for aortic dissection Rheumatoid arthritis, chronic Fever Thrombocytopenia Equivocal TnIs CKD Elevated BNP 1. Hypertensive urgency: -improved, cont current meds 2. Sudden upper back pain/chest pain: -CTA negative for dissection -resolved 3. Fever: unclear source, possible vertebral osteo vs psoas abscess -CAP (atelectasis seen on CT) vs COVID PNA (swab neg x 2) -started on empiric abx by ID -Rheum consulted -Plan as per N-surgery/IR/ID 4. Thrombocytopenia: may be seen in early sepsis and also be seen in flares of autoimmune diseases -Follow CBC -Rheum following 5. Equivocal TnIs: -flat trend, not c/w ACS -Likely demand ischemia in setting of hypertensive urgency -Echo 07/09 with LVH, EF 50-55% and moderate AR 6. CKD: -Creatinine remains at baseline from admission with initial improvement, now rising - renal following -Daily BMP 7. Elevated BNP: -Possible acute on chronic diastolic CHF in setting of hypertension and extra volume received -CXR with increased vascular/interstitial markings may represent volume vs atypical or viral infection -defer diuretics -avoid additional IVF unless needed for BP support 8. lower back pain - L4-5 facet joint effusion, ?osteo - neurosurgery/ID/IR plan as they have outlined. dc tele
--- NOTE | 2020-07-20 13:31 | PN ---
Progress Note, Physician History of Present Illness: Pt seen and examined at bedside. He is awake and alert. he denies fevers or chills. - Current Medication List Current Medications: Active Medications Acetaminophen (Tylenol -) 1,000 mg PO Q6H PRN PRN Reason: PAIN LEVEL 1-5 Last Admin: 07/20/20 09:29 Dose: 1,000 mg Documented by: Amlodipine Besylate (Norvasc -) 10 mg PO DAILY [facility] Last Admin: 07/20/20 09:03 Dose: 10 mg Documented by: Docusate Sodium (Colace -) 100 mg PO BID PRN PRN Reason: CONSTIPATION Famotidine (Pepcid -) 20 mg PO DAILY [facility] Last Admin: 07/20/20 09:03 Dose: 20 mg Documented by: Ceftriaxone Sodium 2 gm/ (Dextrose) 100 mls @ 200 mls/hr IVPB DAILY [facility]; Protocol Last Admin: 07/20/20 09:03 Dose: 200 mls/hr Documented by: Labetalol HCl (Normodyne -) 300 mg PO TID [facility] Last Admin: 07/20/20 13:07 Dose: 300 mg Documented by: Losartan Potassium (Cozaar -) 25 mg PO DAILY [facility] Last Admin: 07/20/20 09:03 Dose: 25 mg Documented by: Prednisone (Deltasone -) 5 mg PO BID [facility] Last Admin: 07/20/20 09:03 Dose: 5 mg Documented by: - Objective Vital Signs: Vital Signs Temperature 98.9 F 07/20/20 09:02 Pulse Rate 78 07/20/20 09:02 Respiratory Rate 18 07/20/20 09:02 Blood Pressure 135/84 07/20/20 09:02 O2 Sat by Pulse Oximetry (%) 100 07/20/20 09:02 Constitutional: Yes: Calm Eyes: Yes: Conjunctiva Clear HENT: Yes: Atraumatic Neck: Yes: Supple Cardiovascular: Yes: S1, S2 Respiratory: Yes: CTA Bilaterally Gastrointestinal: Yes: Soft Genitourinary: Yes: WNL Musculoskeletal: Yes: Joint Stiffness Edema: No Neurological: Yes: Oriented Psychiatric: Yes: Oriented Labs: CBC, BMP 07/19/20 05:35 07/19/20 05:35 INR, PTT INR 1.09 (0.83-1.09) 07/18/20 05:28 Assessment/Plan Current Medications Generic Name Dose Route Start Last Admin Trade Name Freq PRN Reason Stop Dose Admin Acetaminophen 1,000 mg 07/14/20 19:10 07/20/20 09:29 Tylenol - PO 1,000 mg Q6H PRN Administration PAIN LEVEL 1-5 Amlodipine Besylate 10 mg 07/15/20 10:00 07/20/20 09:03 Norvasc - PO 10 mg DAILY [facility] Administration Docusate Sodium 100 mg 07/14/20 19:10 Colace - PO BID PRN CONSTIPATION Famotidine 20 mg 07/15/20 10:00 07/20/20 09:03 Pepcid - PO 20 mg DAILY [facility] Administration Ceftriaxone Sodium 2 gm/ 100 mls @ 200 mls/hr 07/15/20 10:00 07/20/20 09:03 Dextrose IVPB 200 mls/hr DAILY [facility] Administration Protocol Labetalol HCl 300 mg 07/12/20 11:14 07/20/20 13:07 Normodyne - PO 300 mg TID [facility] Administration Losartan Potassium 25 mg 07/19/20 12:46 07/20/20 09:03 Cozaar - PO 25 mg DAILY [facility] Administration Prednisone 5 mg 07/14/20 22:00 07/20/20 09:03 Deltasone - PO 5 mg BID [facility] Administration Impression 1. CKD 2. BRADLEY 3. HTN 4. RA 5. hx of positive imfx in the past 6. altered mental status 7. proteinuria 8. non compliance Plan - repeat labs in am - pt on 25 of losartan - would like to keep arb on board if possible to help with proteinuria - follow biopsy - monitor renal function
--- NOTE | 2020-07-20 13:33 | PN ---
Progress Note, Physician Chief Complaint: AWAKE ALERT S/P CT GUIDED PSAOS ABSCESS BX - Current Medication List Current Medications: Active Medications Acetaminophen (Tylenol -) 1,000 mg PO Q6H PRN PRN Reason: PAIN LEVEL 1-5 Last Admin: 07/20/20 09:29 Dose: 1,000 mg Documented by: Amlodipine Besylate (Norvasc -) 10 mg PO DAILY [facility] Last Admin: 07/20/20 09:03 Dose: 10 mg Documented by: Docusate Sodium (Colace -) 100 mg PO BID PRN PRN Reason: CONSTIPATION Famotidine (Pepcid -) 20 mg PO DAILY [facility] Last Admin: 07/20/20 09:03 Dose: 20 mg Documented by: Ceftriaxone Sodium 2 gm/ (Dextrose) 100 mls @ 200 mls/hr IVPB DAILY [facility]; Protocol Last Admin: 07/20/20 09:03 Dose: 200 mls/hr Documented by: Labetalol HCl (Normodyne -) 300 mg PO TID [facility] Last Admin: 07/20/20 13:07 Dose: 300 mg Documented by: Losartan Potassium (Cozaar -) 25 mg PO DAILY [facility] Last Admin: 07/20/20 09:03 Dose: 25 mg Documented by: Prednisone (Deltasone -) 5 mg PO BID [facility] Last Admin: 07/20/20 09:03 Dose: 5 mg Documented by: - Objective Vital Signs: Vital Signs Temperature 98.9 F 07/20/20 09:02 Pulse Rate 78 07/20/20 09:02 Respiratory Rate 18 07/20/20 09:02 Blood Pressure 135/84 07/20/20 09:02 O2 Sat by Pulse Oximetry (%) 100 07/20/20 09:02 Constitutional: Yes: Mild Distress Cardiovascular: Yes: Regular Rate and Rhythm Respiratory: Yes: Diminished Gastrointestinal: Yes: Soft, Other (WOUND CLEAN) Genitourinary: Yes: Incontinence Musculoskeletal: Yes: Muscle Weakness Extremities: Yes: Deformity Neurological: Yes: Pre-Existing Deficit Labs: CBC, BMP 07/19/20 05:35 07/19/20 05:35 INR, PTT INR 1.09 (0.83-1.09) 07/18/20 05:28 Problem List - Problems (1) FUO (fever of unknown origin) Code(s): R50.9 - FEVER, UNSPECIFIED (2) Hypertension Code(s): I10 - ESSENTIAL (PRIMARY) HYPERTENSION Qualifiers: Hypertension type: unspecified Qualified Code(s): I10 - Essential (primary) hypertension (3) Abdominal pain Code(s): R10.9 - UNSPECIFIED ABDOMINAL PAIN Qualifiers: Abdominal location: generalized Qualified Code(s): R10.84 - Generalized abdominal pain (4) Arthritis, rheumatoid Code(s): M06.9 - RHEUMATOID ARTHRITIS, UNSPECIFIED (5) Hypertensive emergency Code(s): I16.1 - HYPERTENSIVE EMERGENCY Assessment/Plan iv abx per id dr Forrest for psoas abscess drainage pod #1 ordering labs today cardio/neurosurgery evals appreciated iv fluids pain control dvt prophylaxis monitor renal function and electrolytes nephrology and neurosurgery evals appreciated htn emergency better controlled
--- NOTE | 2020-07-20 13:59 | PN ---
Progress Note, Physician Chief Complaint: AWAKE, ALERT SUPINE IN BED S/P NEEDLE ASP NO C/O BACK PAIN AMBULATED WITH WALKER CULTURES PENDING AFEBRILE WBC WNL BC NO GROWTH - Current Medication List Current Medications: Active Medications Acetaminophen (Tylenol -) 1,000 mg PO Q6H PRN PRN Reason: PAIN LEVEL 1-5 Last Admin: 07/20/20 09:29 Dose: 1,000 mg Documented by: Amlodipine Besylate (Norvasc -) 10 mg PO DAILY [facility] Last Admin: 07/20/20 09:03 Dose: 10 mg Documented by: Docusate Sodium (Colace -) 100 mg PO BID PRN PRN Reason: CONSTIPATION Famotidine (Pepcid -) 20 mg PO DAILY [facility] Last Admin: 07/20/20 09:03 Dose: 20 mg Documented by: Ceftriaxone Sodium 2 gm/ (Dextrose) 100 mls @ 200 mls/hr IVPB DAILY [facility]; Protocol Last Admin: 07/20/20 09:03 Dose: 200 mls/hr Documented by: Labetalol HCl (Normodyne -) 300 mg PO TID [facility] Last Admin: 07/20/20 13:07 Dose: 300 mg Documented by: Losartan Potassium (Cozaar -) 25 mg PO DAILY [facility] Last Admin: 07/20/20 09:03 Dose: 25 mg Documented by: Prednisone (Deltasone -) 5 mg PO BID [facility] Last Admin: 07/20/20 09:03 Dose: 5 mg Documented by: - Objective Vital Signs: Vital Signs Temperature 98.9 F 07/20/20 09:02 Pulse Rate 78 07/20/20 09:02 Respiratory Rate 18 07/20/20 09:02 Blood Pressure 135/84 07/20/20 09:02 O2 Sat by Pulse Oximetry (%) 100 07/20/20 09:02 Constitutional: Yes: No Distress Eyes: Yes: Conjunctiva Clear Cardiovascular: Yes: Regular Rate and Rhythm, S1, S2 Respiratory: Yes: CTA Bilaterally Gastrointestinal: Yes: Normal Bowel Sounds, Soft Edema: No Labs: CBC, BMP 07/19/20 05:35 07/19/20 05:35 INR, PTT INR 1.09 (0.83-1.09) 07/18/20 05:28 Assessment/Plan R/O OM FACET JOINT FEVER/ LEUKOCYTOSIS RESOLVED S/P HYPERTENSIVE CRISIS S/P ASPIRATE OF FACET CONTINUE CEFEPIME REDOSE VANCOMYCIN
[2020-07-20 14:22] LABS: HEMATOCRIT 26.4 % (35.4-49); MCH 22.9 pg (25.7-33.7); MCHC 33.9 g/dl (32.0-35.9); MEAN CELL VOLUME 67.6 fl (80-96); MEAN PLT VOLUME 8.7 fl (7.5-11.1); PLATELET COUNT 253 K/MM3 (134-434); RBC 3.91 M/mm3 (4.00-5.60); RDW 23.6 % (11.9-15.9); WHITE BLOOD COUNT 7.9 K/mm3 (4.0-10.0)
[2020-07-20] MEDS ORDERED: CEFEPIME HCL 1 GM VIAL (RESTRICTED TO ID) ONE (14:54)
[2020-07-20] MEDS ORDERED: DEXTROSE 5%-WATER - 50 ML IVPB ONE (14:55)
[2020-07-20] MEDS: CEFEPIME 1 GM in DEXTROSE 5%-WATER - 50 ML IVPB SCH ×2 (14:58→23:24)
[2020-07-20] MEDS ORDERED: VANCOMYCIN 1 GRAM (PRE-DOCKED) 1,000 MG/250 ML BAG IVPB ONE (15:00)
[2020-07-20 15:33] LABS: ALBUMIN 2.7 g/dl (3.4-5.0); BILIRUBIN,TOTAL 0.3 mg/dL (0.2-1); BLOOD UREA NITROGEN 30.1 mg/dL (7-18); CALCIUM 8.6 mg/dL (8.5-10.1); CREATININE 1.8 mg/dL (0.55-1.3); POTASSIUM 4.2 mmol/L (3.5-5.1); TOT PROT 7.1 g/dl (6.4-8.2)
--- NOTE | 2020-07-20 17:44 | PATH ---
Cytology Non-Gynecological Report Patient Name: OSCAR DONAHUE Med. Rec. #: [id number] /Age/Gender: 1985 (Age: 34) / M Account: [id number] Location: 4 W TELEMETRY U Taken: 07/19/2020 Received: 07/19/2020 Reported: 07/20/2020 Physicians: Chaka Ortiz M.D. Specimen(s) Received L4/L5 FACET JOINT ASPIRATION FOR CYTOLOGY Clinical History L4/L5 facet joint aspiration for cytology Final Diagnosis L4/L5 FACET JOINT ASPIRATION FOR CYTOLOGY: SATISFACTORY FOR EVALUATION. NEGATIVE FOR MALIGNANT CELLS. CYSTIC LESION WITH RARE MACROPHAGES AND DEGENERATED CELLS. Comment: Suggest clinical and radiologic correlation. Electronically Signed Vani Villalba M.D. Gross Description Approximately 30 cc of white/cloudy fluid received fixed in 50% alcohol. One cytofunnel prepared and Pap stained. One cellblock prepared.
[2020-07-21] MEDS: LABETALOL HCL 200 MG TABLET (FP) PO SCH ×3 (05:38→21:49)
[2020-07-21 07:31] LABS: HEMOGLOBIN 9.3 GM/dL (11.7-16.9); MCH 22.1 pg (25.7-33.7); MCHC 33.1 g/dl (32.0-35.9); MEAN CELL VOLUME 66.5 fl (80-96); MEAN PLT VOLUME 8.5 fl (7.5-11.1); PLATELET COUNT 246 K/MM3 (134-434); RBC 4.21 M/mm3 (4.00-5.60); RDW 23.2 % (11.9-15.9); WHITE BLOOD COUNT 7.5 K/mm3 (4.0-10.0)
--- NOTE | 2020-07-21 08:01 | PN ---
Progress Note, Physician Chief Complaint: AWAKE ALERT DENIES HEADACHE OR DIZZINESS POSITIVE FEVER OVERNIGHT - Current Medication List Current Medications: Active Medications Acetaminophen (Tylenol -) 1,000 mg PO Q6H PRN PRN Reason: PAIN LEVEL 1-5 Last Admin: 07/20/20 21:46 Dose: 1,000 mg Documented by: Amlodipine Besylate (Norvasc -) 10 mg PO DAILY [facility] Last Admin: 07/20/20 09:03 Dose: 10 mg Documented by: Docusate Sodium (Colace -) 100 mg PO BID PRN PRN Reason: CONSTIPATION Famotidine (Pepcid -) 20 mg PO DAILY [facility] Last Admin: 07/20/20 09:03 Dose: 20 mg Documented by: Cefepime HCl 1 gm/ Dextrose 50 mls @ 100 mls/hr IVPB BID [facility]; Protocol Last Admin: 07/20/20 23:24 Dose: 100 mls/hr Documented by: Labetalol HCl (Normodyne -) 300 mg PO TID [facility] Last Admin: 07/21/20 05:38 Dose: 300 mg Documented by: Losartan Potassium (Cozaar -) 25 mg PO DAILY [facility] Last Admin: 07/20/20 09:03 Dose: 25 mg Documented by: Prednisone (Deltasone -) 5 mg PO BID [facility] Last Admin: 07/20/20 21:47 Dose: 5 mg Documented by: - Objective Vital Signs: Vital Signs Temperature 98.1 F 07/21/20 02:00 Pulse Rate 73 07/21/20 02:00 Respiratory Rate 20 07/21/20 02:00 Blood Pressure 130/72 07/21/20 02:00 O2 Sat by Pulse Oximetry (%) 97 07/21/20 02:00 Constitutional: Yes: No Distress Cardiovascular: Yes: Regular Rate and Rhythm Respiratory: Yes: Regular Gastrointestinal: Yes: Soft, Tenderness Genitourinary: Yes: Incontinence Musculoskeletal: Yes: Joint Stiffness, Joint Swelling, Muscle Pain, Muscle Weakness Extremities: Yes: Deformity Wound/Incision: Yes: Dressing Dry and Intact Neurological: Yes: Pre-Existing Deficit Labs: INR, PTT INR 1.09 (0.83-1.09) 07/18/20 05:28 Problem List - Problems (1) FUO (fever of unknown origin) Code(s): R50.9 - FEVER, UNSPECIFIED (2) Hypertension Code(s): I10 - ESSENTIAL (PRIMARY) HYPERTENSION Qualifiers: Hypertension type: unspecified Qualified Code(s): I10 - Essential (primary) hypertension (3) Abdominal pain Code(s): R10.9 - UNSPECIFIED ABDOMINAL PAIN Qualifiers: Abdominal location: generalized Qualified Code(s): R10.84 - Generalized abdominal pain (4) Arthritis, rheumatoid Code(s): M06.9 - RHEUMATOID ARTHRITIS, UNSPECIFIED (5) Hypertensive emergency Code(s): I16.1 - HYPERTENSIVE EMERGENCY Assessment/Plan WILL NEED PICC LINE FOR [facility] ANTIBIOTICS SNF PLACEMENT FOR P.T. AWAIT CULTURES AND SENSITIVITY FOR ANTIBIOTIC OF CHOICE DVT PROPHYLAXIS PREDNISONE THERAPY, RHEUM EVAL AND FOLLOW UP MONITOR LABS RENAL FUNCTION STABLE BUT STILL ELEVATED
[2020-07-21 08:04] LABS: ALBUMIN 2.6 g/dl (3.4-5.0); BILIRUBIN,TOTAL 0.4 mg/dL (0.2-1); BLOOD UREA NITROGEN 28.7 mg/dL (7-18); CALCIUM 8.3 mg/dL (8.5-10.1); CREATININE 1.9 mg/dL (0.55-1.3); POTASSIUM 4.8 mmol/L (3.5-5.1); TOT PROT 7.2 g/dl (6.4-8.2)
[2020-07-21] MEDS ORDERED: CEFEPIME HCL 1 GM VIAL (RESTRICTED TO ID) ONE ×2 (09:31→21:22)
[2020-07-21] MEDS ORDERED: DEXTROSE 5%-WATER - 50 ML IVPB ONE ×2 (09:31→21:22)
[2020-07-21] MEDS: FAMOTIDINE 20 MG TABLET PO SCH (10:01)
[2020-07-21] MEDS: LOSARTAN POTASSIUM 25 MG TABLET PO SCH (10:01)
[2020-07-21] MEDS: predniSONE 5 MG TABLET (UD) PO SCH ×2 (10:01→21:49)
[2020-07-21] MEDS: amLODIPine BESYLATE 10 MG TABLET (FP) PO SCH (10:01)
[2020-07-21] MEDS: CEFEPIME 1 GM in DEXTROSE 5%-WATER - 50 ML IVPB SCH ×2 (10:02→21:49)
--- NOTE | 2020-07-21 12:33 | PN ---
Progress Note (short form) - Note Progress Note: Chief Complaint: htn, cp s: no cp sob palps dizzy. Current Medications Generic Name Dose Route Start Last Admin Trade Name Hailey PRN Reason Stop Dose Admin Acetaminophen 1,000 mg 07/14/20 19:10 07/20/20 21:46 Tylenol - PO 1,000 mg Q6H PRN Administration PAIN LEVEL 1-5 Amlodipine Besylate 10 mg 07/15/20 10:00 07/21/20 10:01 Norvasc - PO 10 mg DAILY TANMAY Administration Docusate Sodium 100 mg 07/14/20 19:10 Colace - PO BID PRN CONSTIPATION Famotidine 20 mg 07/15/20 10:00 07/21/20 10:01 Pepcid - PO 20 mg DAILY TANMAY Administration Cefepime HCl 1 gm/ Dextrose 50 mls @ 100 mls/hr 07/20/20 14:45 07/21/20 10:02 IVPB 100 mls/hr BID TANMAY Administration Protocol Labetalol HCl 300 mg 07/12/20 11:14 07/21/20 05:38 Normodyne - PO 300 mg TID TANMAY Administration Losartan Potassium 25 mg 07/19/20 12:46 07/21/20 10:01 Cozaar - PO 25 mg DAILY TANMAY Administration Prednisone 5 mg 07/14/20 22:00 07/21/20 10:01 Deltasone - PO 5 mg BID TANMAY Administration Vital Signs Period Temp Pulse Resp BP Sys/Mcgraw Pulse Ox Last 24 Hr 98.1 F-101.9 F 69-86 18-20 113-151/68-83 97-100 Constitutional: Yes: No Distress, Calm Neck: Yes: Supple, Trachea Midline Cardiovascular: Yes: Regular Rate and Rhythm Respiratory: Yes: CTA Bilaterally Gastrointestinal: Yes: Soft (nt) Edema: No Peripheral Pulses WNL: Yes Neurological: awake oriented no jaundice diaphoresis not agitated - ....Imaging Cat Scan: Report Reviewed Ultrasound: Report Reviewed EKG: Image Reviewed Assessment/Plan IMP/PLAN: Hypertensive urgency, hypertensive heart disease secondary to chronic hypertension Sudden onset of severe back pain and upper chest pain, CTA C/A/P Negative for aortic dissection Rheumatoid arthritis, chronic Fever Thrombocytopenia Equivocal TnIs CKD Elevated BNP 1. Hypertensive urgency: -improved, cont current meds 2. Sudden upper back pain/chest pain: -CTA negative for dissection -resolved 3. Fever: unclear source, possible vertebral osteo vs psoas abscess -CAP (atelectasis seen on CT) vs COVID PNA (swab neg x 2) -on empiric abx per ID -Rheum consulted -Plan as per N-surgery/IR/ID 4. Thrombocytopenia: may be seen in early sepsis and also be seen in flares of autoimmune diseases -Follow CBC -Rheum following 5. Equivocal TnIs: -flat trend, not c/w ACS -Likely demand ischemia in setting of hypertensive urgency -Echo 07/09 with LVH, EF 50-55% and moderate AR 6. CKD: -Creatinine remains at baseline from admission with initial improvement, now rising - renal following -Daily BMP 7. Elevated BNP: -Possible acute on chronic diastolic CHF in setting of hypertension and extra volume received -CXR with increased vascular/interstitial markings may represent volume vs atypical or viral infection -defer diuretics -avoid additional IVF unless needed for BP support 8. lower back pain - L4-5 facet joint effusion, ?osteo - neurosurgery/ID/IR plan
--- NOTE | 2020-07-21 14:32 | PN ---
Progress Note (short form) - Note Progress Note: NEUROSURGERY In telemetry Minimal pain Wants to go home PE: AF, VSS Awake/alert No C/P, SOB, denies neck pain; no UE symptoms; some LBP HEENT- NC/AT; Neck- supple; Cor- RR; lungs- CTA B; Abd- benign; Ext- no sign of DVT CN- grossly intact; Motor- at least 4-4+/5 B UE/LE; Sensation- grossly intact LT; DTR- 2+, no LTS Covid negative Biopsy gram stain negative, culture still pending Blood culture negative x4; urine culture negative; Covid negative x2 CR 1.9 last; CRP 1.9. ESR 92 R L4-5 facet joint effusion with mild enhancement, and R medial psoas edema RA with documented basilar invagination Hypertensive encephalopathy s/p CT guided bx, specimen sent and cultures pending If still not diagnostic could consider microsurgical approach for open bx (larger sample size), though higher risks with underlying medical conditions including basilar invagination for GA IV abx course per ID
--- NOTE | 2020-07-21 19:10 | PN ---
Progress Note, Physician History of Present Illness: Pt seen and examined at bedside. He is awake and alert. He denies fevers or chills. He denies dysuria. - Current Medication List Current Medications: Active Medications Acetaminophen (Tylenol -) 1,000 mg PO Q6H PRN PRN Reason: PAIN LEVEL 1-5 Last Admin: 07/20/20 21:46 Dose: 1,000 mg Documented by: Amlodipine Besylate (Norvasc -) 10 mg PO DAILY [facility] Last Admin: 07/21/20 10:01 Dose: 10 mg Documented by: Docusate Sodium (Colace -) 100 mg PO BID PRN PRN Reason: CONSTIPATION Famotidine (Pepcid -) 20 mg PO DAILY [facility] Last Admin: 07/21/20 10:01 Dose: 20 mg Documented by: Cefepime HCl 1 gm/ Dextrose 50 mls @ 100 mls/hr IVPB BID [facility]; Protocol Last Admin: 07/21/20 10:02 Dose: 100 mls/hr Documented by: Labetalol HCl (Normodyne -) 300 mg PO TID [facility] Last Admin: 07/21/20 13:56 Dose: 300 mg Documented by: Losartan Potassium (Cozaar -) 25 mg PO DAILY [facility] Last Admin: 07/21/20 10:01 Dose: 25 mg Documented by: Prednisone (Deltasone -) 5 mg PO BID [facility] Last Admin: 07/21/20 10:01 Dose: 5 mg Documented by: - Objective Vital Signs: Vital Signs Temperature 98.5 F 07/21/20 18:00 Pulse Rate 72 07/21/20 18:00 Respiratory Rate 20 07/21/20 18:00 Blood Pressure 125/75 07/21/20 18:00 O2 Sat by Pulse Oximetry (%) 97 07/21/20 18:00 Constitutional: Yes: Calm Eyes: Yes: Conjunctiva Clear HENT: Yes: Atraumatic Neck: Yes: Supple Cardiovascular: Yes: S1, S2 Respiratory: Yes: CTA Bilaterally Gastrointestinal: Yes: Soft Genitourinary: Yes: WNL Musculoskeletal: Yes: Joint Stiffness Edema: No Neurological: Yes: Oriented Psychiatric: Yes: Oriented Labs: CBC, BMP 07/21/20 05:40 07/21/20 05:40 INR, PTT INR 1.09 (0.83-1.09) 07/18/20 05:28 Assessment/Plan Current Medications Generic Name Dose Route Start Last Admin Trade Name Hailey PRN Reason Stop Dose Admin Acetaminophen 1,000 mg 07/14/20 19:10 07/20/20 21:46 Tylenol - PO 1,000 mg Q6H PRN Administration PAIN LEVEL 1-5 Amlodipine Besylate 10 mg 07/15/20 10:00 07/21/20 10:01 Norvasc - PO 10 mg DAILY TANMAY Administration Docusate Sodium 100 mg 07/14/20 19:10 Colace - PO BID PRN CONSTIPATION Famotidine 20 mg 07/15/20 10:00 07/21/20 10:01 Pepcid - PO 20 mg DAILY TANMAY Administration Cefepime HCl 1 gm/ Dextrose 50 mls @ 100 mls/hr 07/20/20 14:45 07/21/20 10:02 IVPB 100 mls/hr BID TANMAY Administration Protocol Labetalol HCl 300 mg 07/12/20 11:14 07/21/20 13:56 Normodyne - PO 300 mg TID TANMAY Administration Losartan Potassium 25 mg 07/19/20 12:46 07/21/20 10:01 Cozaar - PO 25 mg DAILY TANMAY Administration Prednisone 5 mg 07/14/20 22:00 07/21/20 10:01 Deltasone - PO 5 mg BID TANMAY Administration Impression 1. CKD 2. BRADLEY 3. HTN 4. RA 5. hx of positive imfx in the past 6. altered mental status 7. proteinuria 8. non compliance Plan - cont to monitor renal function - cont losartan - follow biopsy result - cont arb to help with proteinuria - will follow
[2020-07-22] MEDS: LABETALOL HCL 200 MG TABLET (FP) PO SCH ×3 (06:40→21:33)
[2020-07-22] MEDS ORDERED: DEXTROSE 5%-WATER - 50 ML IVPB ONE ×2 (09:09→21:21)
[2020-07-22] MEDS ORDERED: CEFEPIME HCL 1 GM VIAL (RESTRICTED TO ID) ONE ×2 (09:09→21:21)
[2020-07-22] MEDS: predniSONE 5 MG TABLET (UD) PO SCH ×2 (09:24→21:33)
[2020-07-22] MEDS: LOSARTAN POTASSIUM 25 MG TABLET PO SCH (09:24)
[2020-07-22] MEDS: FAMOTIDINE 20 MG TABLET PO SCH (09:24)
[2020-07-22] MEDS: amLODIPine BESYLATE 10 MG TABLET (FP) PO SCH (09:24)
[2020-07-22] MEDS: CEFEPIME 1 GM in DEXTROSE 5%-WATER - 50 ML IVPB SCH ×2 (09:25→21:33)
--- NOTE | 2020-07-22 10:36 | PN ---
Progress Note (short form) - Note Progress Note: NEUROSURGERY In telemetry Minimal pain Wants to go home PE: Tmax 99.2, AF, VSS Awake/alert No C/P, SOB, denies neck pain; no UE symptoms; some LBP HEENT- NC/AT; Neck- supple; Cor- RR; lungs- CTA B; Abd- benign; Ext- no sign of DVT CN- grossly intact; Motor- at least 4-4+/5 B UE/LE; Sensation- grossly intact LT; DTR- 2+, no LTS Covid negative Biopsy gram stain negative, culture negative to date Blood culture negative x4; urine culture negative; Covid negative x2 R L4-5 facet joint effusion with mild enhancement, and R medial psoas edema RA with documented basilar invagination Hypertensive encephalopathy s/p CT guided bx, specimen sent and cultures pending As needle biopsy is still not diagnostic could consider microsurgical approach for open bx (larger sample size), though higher risks with underlying medical conditions including basilar invagination for GA, and may still be non- diagnostic after 2 weeks of iv abx IV abx course per ID D/w Dr Membreno, who recommends an open bx The above discussed in detail with patient: pros and cons, risks and benefits of additional bx. Pt understands that if it is a different organism than what are being covered the infection could progress, potentially causing neurological and other systemic infectious issues Pt will d/w his family re: the above.
--- NOTE | 2020-07-22 12:05 | PN ---
Progress Note (short form) - Note Progress Note: Chief Complaint: htn, cp s: no cp sob palps dizzy, +mild back pain Current Medications Generic Name Dose Route Start Last Admin Trade Name Hailey PRN Reason Stop Dose Admin Acetaminophen 1,000 mg 07/14/20 19:10 07/20/20 21:46 Tylenol - PO 1,000 mg Q6H PRN Administration PAIN LEVEL 1-5 Amlodipine Besylate 10 mg 07/15/20 10:00 07/22/20 09:24 Norvasc - PO 10 mg DAILY TANMAY Administration Docusate Sodium 100 mg 07/14/20 19:10 Colace - PO BID PRN CONSTIPATION Famotidine 20 mg 07/15/20 10:00 07/22/20 09:24 Pepcid - PO 20 mg DAILY TANMAY Administration Cefepime HCl 1 gm/ Dextrose 50 mls @ 100 mls/hr 07/20/20 14:45 07/22/20 09:25 IVPB 100 mls/hr BID TANMAY Administration Protocol Labetalol HCl 300 mg 07/12/20 11:14 07/22/20 06:40 Normodyne - PO 300 mg TID TANMAY Administration Losartan Potassium 25 mg 07/19/20 12:46 07/22/20 09:24 Cozaar - PO 25 mg DAILY TANMAY Administration Prednisone 5 mg 07/14/20 22:00 07/22/20 09:24 Deltasone - PO 5 mg BID TANMAY Administration Vital Signs Period Temp Pulse Resp BP Sys/Mcgraw Pulse Ox Last 24 Hr 97.8 F-99 F 68-81 20-20 125-137/72-84 97-98 Constitutional: Yes: No Distress, Calm Neck: Yes: Supple, Trachea Midline Cardiovascular: Yes: Regular Rate and Rhythm Respiratory: Yes: CTA Bilaterally Gastrointestinal: Yes: Soft (nt) Edema: No Peripheral Pulses WNL: Yes Neurological: awake oriented no jaundice diaphoresis Labs: CBC, BMP 07/21/20 05:40 07/21/20 05:40 - ....Imaging Cat Scan: Report Reviewed Ultrasound: Report Reviewed EKG: Image Reviewed Assessment/Plan IMP/PLAN: Hypertensive urgency, hypertensive heart disease secondary to chronic hypertension Sudden onset of severe back pain and upper chest pain, CTA C/A/P Negative for aortic dissection Rheumatoid arthritis, chronic Fever Thrombocytopenia Equivocal TnIs CKD Elevated BNP 1. Hypertensive urgency: -improved, cont current meds 2. Sudden upper back pain/chest pain: -CTA negative for dissection -resolved 3. Fever: unclear source, Vertebral osteo? -CAP (atelectasis seen on CT) vs COVID PNA (initial swab negative) -started on empiric abx by ID -Rheum consulted -Plan as per N-surgery/IR/ID 4. Thrombocytopenia: may be seen in early sepsis and also be seen in flares of autoimmune diseases -Follow CBC -Rheum consulted. 5. Equivocal TnIs: -flat trend, not c/w ACS -Likely demand ischemia in setting of hypertensive urgency -Echo 07/09 with LVH, EF 50-55% and moderate AR 6. CKD: -Creatinine remains at baseline from admission with initial improvement and now back to 1.6 -Daily BMP 7. Elevated BNP: -Possible acute on chronic diastolic CHF in setting of hypertension and extra volume received -CXR with increased vascular/interstitial markings may represent volume vs atypical or viral infection -defer diuretics -avoid additional IVF unless needed for BP support 8. lower back pain - L4-5 facet joint effusion, ?osteo - neurosurgery/ID/IR plan as they have outlined.
[2020-07-22] MEDS ORDERED: FLU VACCINE (FLULAVAL) PF 60 MCG/0.5 ML SYRINGE 2020-2021 IM ONE (13:17)
--- NOTE | 2020-07-22 14:25 | PN ---
Progress Note, Physician History of Present Illness: Pt seen and examined at bedside. He is out of bed to chair. - Current Medication List Current Medications: Active Medications Acetaminophen (Tylenol -) 1,000 mg PO Q6H PRN PRN Reason: PAIN LEVEL 1-5 Last Admin: 07/20/20 21:46 Dose: 1,000 mg Documented by: Amlodipine Besylate (Norvasc -) 10 mg PO DAILY [facility] Last Admin: 07/22/20 09:24 Dose: 10 mg Documented by: Docusate Sodium (Colace -) 100 mg PO BID PRN PRN Reason: CONSTIPATION Famotidine (Pepcid -) 20 mg PO DAILY [facility] Last Admin: 07/22/20 09:24 Dose: 20 mg Documented by: Cefepime HCl 1 gm/ Dextrose 50 mls @ 100 mls/hr IVPB BID [facility]; Protocol Last Admin: 07/22/20 09:25 Dose: 100 mls/hr Documented by: Influenza Virus Vaccine (Flulaval Quad Syr) 60 mcg IM .ONCE ONE Stop: 07/22/20 13:18 Labetalol HCl (Normodyne -) 300 mg PO TID [facility] Last Admin: 07/22/20 13:32 Dose: 300 mg Documented by: Losartan Potassium (Cozaar -) 25 mg PO DAILY [facility] Last Admin: 07/22/20 09:24 Dose: 25 mg Documented by: Prednisone (Deltasone -) 5 mg PO BID [facility] Last Admin: 07/22/20 09:24 Dose: 5 mg Documented by: - Objective Vital Signs: Vital Signs Temperature 98.2 F 07/22/20 08:18 Pulse Rate 76 07/22/20 08:18 Respiratory Rate 20 07/22/20 08:25 Blood Pressure 132/72 07/22/20 08:18 O2 Sat by Pulse Oximetry (%) 98 07/22/20 08:25 Constitutional: Yes: Calm Eyes: Yes: Conjunctiva Clear HENT: Yes: Atraumatic Neck: Yes: Supple Cardiovascular: Yes: S1, S2 Respiratory: Yes: CTA Bilaterally Gastrointestinal: Yes: Normal Bowel Sounds, Soft Genitourinary: Yes: WNL Musculoskeletal: Yes: Joint Stiffness Neurological: Yes: Oriented Psychiatric: Yes: Oriented Labs: CBC, BMP 07/21/20 05:40 07/21/20 05:40 INR, PTT INR 1.09 (0.83-1.09) 07/18/20 05:28 Assessment/Plan Current Medications Generic Name Dose Route Start Last Admin Trade Name Hailey PRN Reason Stop Dose Admin Acetaminophen 1,000 mg 07/14/20 19:10 07/20/20 21:46 Tylenol - PO 1,000 mg Q6H PRN Administration PAIN LEVEL 1-5 Amlodipine Besylate 10 mg 07/15/20 10:00 07/22/20 09:24 Norvasc - PO 10 mg DAILY TANMAY Administration Docusate Sodium 100 mg 07/14/20 19:10 Colace - PO BID PRN CONSTIPATION Famotidine 20 mg 07/15/20 10:00 07/22/20 09:24 Pepcid - PO 20 mg DAILY TANMAY Administration Cefepime HCl 1 gm/ Dextrose 50 mls @ 100 mls/hr 07/20/20 14:45 07/22/20 09:25 IVPB 100 mls/hr BID TANMAY Administration Protocol Influenza Virus Vaccine 60 mcg 07/22/20 13:17 Flulaval Quad [id number] Syr IM 07/22/20 13:18 .ONCE ONE Labetalol HCl 300 mg 07/12/20 11:14 07/22/20 13:32 Normodyne - PO 300 mg TID TANMAY Administration Losartan Potassium 25 mg 07/19/20 12:46 07/22/20 09:24 Cozaar - PO 25 mg DAILY TANMAY Administration Prednisone 5 mg 07/14/20 22:00 07/22/20 09:24 Deltasone - PO 5 mg BID TANMAY Administration Impression 1. CKD 2. BRADLEY 3. HTN 4. RA 5. hx of positive imfx in the past 6. altered mental status 7. proteinuria 8. non compliance Plan - repeat labs in am - avoid nsaids - cont losartan at 25 mg - will monitor renal function - cardio input appreciated - cont arb to help with proteinuria - will follow
[2020-07-22] MEDS: ACETAMINOPHEN 500 MG TABLET (FP) PO PRN (16:09)
--- NOTE | 2020-07-22 22:28 | PN ---
Progress Note, Physician Chief Complaint: AWAKE, ALERT IN BED MOTHER IN ATTENDANCE SUPINE IN BED S/P NEEDLE ASP NO C/O BACK PAIN AMBULATED WITH WALKER GRAM STAIN, CULTURES NEGATIVE AFEBRILE WBC WNL BC NO GROWTH - Current Medication List Current Medications: Active Medications Acetaminophen (Tylenol -) 1,000 mg PO Q6H PRN PRN Reason: PAIN LEVEL 1-5 Last Admin: 07/22/20 16:09 Dose: 1,000 mg Documented by: Amlodipine Besylate (Norvasc -) 10 mg PO DAILY [facility] Last Admin: 07/22/20 09:24 Dose: 10 mg Documented by: Docusate Sodium (Colace -) 100 mg PO BID PRN PRN Reason: CONSTIPATION Famotidine (Pepcid -) 20 mg PO DAILY [facility] Last Admin: 07/22/20 09:24 Dose: 20 mg Documented by: Cefepime HCl 1 gm/ Dextrose 50 mls @ 100 mls/hr IVPB BID [facility]; Protocol Last Admin: 07/22/20 21:33 Dose: 100 mls/hr Documented by: Labetalol HCl (Normodyne -) 300 mg PO TID [facility] Last Admin: 07/22/20 21:33 Dose: 300 mg Documented by: Losartan Potassium (Cozaar -) 25 mg PO DAILY [facility] Last Admin: 07/22/20 09:24 Dose: 25 mg Documented by: Prednisone (Deltasone -) 5 mg PO BID [facility] Last Admin: 07/22/20 21:33 Dose: 5 mg Documented by: - Objective Vital Signs: Vital Signs Temperature 98.6 F 07/22/20 21:40 Pulse Rate 65 07/22/20 21:40 Respiratory Rate 18 07/22/20 21:40 Blood Pressure 132/65 07/22/20 21:40 O2 Sat by Pulse Oximetry (%) 100 07/22/20 21:40 Constitutional: Yes: No Distress Eyes: Yes: Conjunctiva Clear Cardiovascular: Yes: Regular Rate and Rhythm, S1, S2 Respiratory: Yes: CTA Bilaterally Gastrointestinal: Yes: Normal Bowel Sounds, Soft. No: Tenderness Edema: No Labs: CBC, BMP 07/21/20 05:40 07/21/20 05:40 INR, PTT INR 1.09 (0.83-1.09) 07/18/20 05:28 Assessment/Plan R/O OM FACET JOINT FEVER/ LEUKOCYTOSIS RESOLVED S/P HYPERTENSIVE CRISIS S/P ASPIRATE OF FACET HAD DISCUSSION WITH PATIENT AND MOTHER THEY DO NOT WISH TO HAVE ANY MORE DIAGNOSTIC PROCEDURES IN THE ABSENCE OF DEFINITIVE CULTURES I HAVE ADVISED [facility] TERM EMPIRIC ANTIBIOTIC COVERAGE WITH VANCOMYCIN AND CEFEPIME AT A [facility] THEY ARE IN AGREEMENT WITH THIS PLAN ACCORDINGLY, ADVISE PICC INSERTION FOR SENIOR LIVING OUTPATIENT ANTIBIOTIC [place]
[2020-07-22] MEDS ORDERED: VANCOMYCIN 1 GRAM (PRE-DOCKED) 1,000 MG/250 ML BAG IVPB ONE (22:29)
[2020-07-23] MEDS: LABETALOL HCL 200 MG TABLET (FP) PO SCH ×2 (06:35→14:30)
[2020-07-23 08:28] LABS: ALBUMIN 2.8 g/dl (3.4-5.0); BILIRUBIN,TOTAL 0.6 mg/dL (0.2-1); BLOOD UREA NITROGEN 28.7 mg/dL (7-18); CALCIUM 8.3 mg/dL (8.5-10.1); CREATININE 1.9 mg/dL (0.55-1.3); POTASSIUM 4.4 mmol/L (3.5-5.1)
--- NOTE | 2020-07-23 08:42 | PN ---
Progress Note (short form) - Note Progress Note: NEUROSURGERY In telemetry Minimal pain Wants to go home IV access established for home iv abx PE: Tmax 99.2, VSS Awake/alert HEENT- NC/AT; Neck- supple; Cor- RR; lungs- CTA B; Abd- benign; Ext- no sign of DVT CN- grossly intact; Motor- at least 4-4+/5 B UE/LE; Sensation- grossly intact LT Covid negative Biopsy gram stain negative, culture negative to date Blood culture negative x4; urine culture negative; Covid negative x2 R L4-5 facet joint effusion with mild enhancement, and R medial psoas edema RA with documented basilar invagination As needle biopsy is still not diagnostic could consider microsurgical approach for open bx (larger sample size), though higher risks with underlying medical conditions including basilar invagination for GA, and may still be non- diagnostic after being on 2 weeks of iv abx IV abx course per ID Care d/w Dr Membreno, who recommends an open bx The above discussed in detail with patient: pros and cons, risks and benefits of additional bx. Pt understands that if it is a different organism than what are being covered the infection could progress, potentially causing neurological and other systemic infectious issues Pt expresses understanding of the above and decides against any additional biopsy Home iv abx Proceed to ER if recurrent signs of infection or worsening low back symptoms and leg/sphinchter symptoms
--- NOTE | 2020-07-23 10:00 | DS ---
Physical Examination Vital Signs: Vital Signs Temperature 98.9 F 07/23/20 08:48 Pulse Rate 75 07/23/20 08:48 Respiratory Rate 16 07/23/20 08:48 Blood Pressure 128/73 07/23/20 08:48 O2 Sat by Pulse Oximetry (%) 100 07/23/20 08:48 Cardiovascular: Yes: Regular Rate and Rhythm Respiratory: Yes: Regular, CTA Bilaterally Gastrointestinal: Yes: Normal Bowel Sounds, Soft Labs: CBC, BMP 07/21/20 05:40 07/23/20 06:50 Discharge Summary Problems reviewed: Yes Reason For Visit: HYPERTENSIVE EMERGENCY Current Active Problems Confusion (Acute) Elevated troponin (Acute) FUO (fever of unknown origin) (Acute) Fever (Acute) Hypertension (Acute) Hospital Course: - Problems (1) FUO (fever of unknown origin) Assessment/Plan: -R/O OM FACET JOINT -Iv abx per id --6Weeks -ID consult -Echo: 07/09/20- moderate conc LVH, LVEF 50-55%, mild mitral and tricuspid regurg, moderate aortic regurg -COVID PCR negative -CTA abd/pel/chest: unremarkable -L4-5 bone bx done via IR--refuses further testing(open Biopsy) Problems reviewed: Yes Code(s): R50.9 - FEVER, UNSPECIFIED (2) Confusion Assessment/Plan: -resolved -Head CT (2): no acute bleed or fx, no large territorial infarcts, calcified dens retropulsed into canal with craniocervical junction stenosis -Prior MRI C spine(2013): RA with small panus, retropulsed dens, mild stenosis cranio-cervical junction -Prior CT C spine (2017): predentine interval of 6-7 mm, calcified dens; fused cranio-cervical junction and atlanto-axial junction -Lumbar x-rays- no acute fx lumbar spine, mildly depressed vertebral heights lower T spine -Hypertensive encephlopathy Problems reviewed: Yes Code(s): R41.0 - DISORIENTATION, UNSPECIFIED (3) Arthritis, rheumatoid Assessment/Plan: -Rheumatology consult appreciated -Continue prednisone 5 mg po BID -Biologics outpatient -[id number], ESR 69, CRP 15>8.5 Problems reviewed: Yes Code(s): M06.9 - RHEUMATOID ARTHRITIS, UNSPECIFIED (4) Hypertensive emergency Assessment/Plan: -Resolved -Cardiology consult appreciated -Continue Labetalol 300 mg po TID -Continue amlodipine 10 mg po daily -Low sodium diet Problems reviewed: Yes Code(s): I16.1 - HYPERTENSIVE EMERGENCY Condition: Stable - Instructions Diet, Activity, Other Instructions: antibiotics per dr gutierrez Referrals: Deacon Zavala MD [Primary Care Provider] - - Home Medications Comprehensive Discharge Medication List: Ambulatory Orders Acetaminophen [Tylenol] 500 mg PO BID 05/02/17 predniSONE [Deltasone -] 5 mg PO BID 05/02/17 Amlodipine Besylate [Norvasc -] 10 mg PO DAILY #30 tablet 05/06/17 Cefepime [Maxipime (Restricted To Id) -] 1 gm IVPB BID vial 07/23/20 Docusate Sodium [Colace -] 100 mg PO BID PRN capsule 07/23/20 Famotidine [Pepcid -] 20 mg PO DAILY tablet 07/23/20 Losartan Potassium [Cozaar -] 25 mg PO DAILY tablet 07/23/20
[2020-07-23] MEDS ORDERED: DEXTROSE 5%-WATER - 50 ML IVPB ONE (10:41)
[2020-07-23] MEDS ORDERED: CEFEPIME HCL 1 GM VIAL (RESTRICTED TO ID) ONE (10:41)
[2020-07-23] MEDS: CEFEPIME 1 GM in DEXTROSE 5%-WATER - 50 ML IVPB SCH (11:05)
[2020-07-23] MEDS: amLODIPine BESYLATE 10 MG TABLET (FP) PO SCH (11:06)
[2020-07-23] MEDS: predniSONE 5 MG TABLET (UD) PO SCH (11:06)
[2020-07-23] MEDS: FAMOTIDINE 20 MG TABLET PO SCH (11:06)
[2020-07-23] MEDS: LOSARTAN POTASSIUM 25 MG TABLET PO SCH (11:06)
[2020-07-23] MEDS: ACETAMINOPHEN 500 MG TABLET (FP) PO PRN (11:09)
[2020-07-23 14:21] VITALS: BP 110/62; PULSE 73; TEMP 98.7
--- NOTE | 2020-07-23 15:19 | PN ---
Progress Note, Physician History of Present Illness: Pt seen and examined at bedside. He is awake and alert. He denies shortness of breath. He denies dysuria. - Current Medication List Current Medications: Active Medications Acetaminophen (Tylenol -) 1,000 mg PO Q6H PRN PRN Reason: PAIN LEVEL 1-5 Last Admin: 07/23/20 11:09 Dose: 1,000 mg Documented by: Amlodipine Besylate (Norvasc -) 10 mg PO DAILY [facility] Last Admin: 07/23/20 11:06 Dose: 10 mg Documented by: Docusate Sodium (Colace -) 100 mg PO BID PRN PRN Reason: CONSTIPATION Famotidine (Pepcid -) 20 mg PO DAILY [facility] Last Admin: 07/23/20 11:06 Dose: 20 mg Documented by: Cefepime HCl 1 gm/ Dextrose 50 mls @ 100 mls/hr IVPB BID [facility]; Protocol Last Admin: 07/23/20 11:05 Dose: 100 mls/hr Documented by: Labetalol HCl (Normodyne -) 300 mg PO TID [facility] Last Admin: 07/23/20 14:30 Dose: 300 mg Documented by: Losartan Potassium (Cozaar -) 25 mg PO DAILY [facility] Last Admin: 07/23/20 11:06 Dose: 25 mg Documented by: Prednisone (Deltasone -) 5 mg PO BID [facility] Last Admin: 07/23/20 11:06 Dose: 5 mg Documented by: - Objective Vital Signs: Vital Signs Temperature 98.7 F 07/23/20 14:18 Pulse Rate 73 07/23/20 14:18 Respiratory Rate 20 07/23/20 14:18 Blood Pressure 110/62 07/23/20 14:18 O2 Sat by Pulse Oximetry (%) 98 07/23/20 14:18 Constitutional: Yes: Calm Eyes: Yes: Conjunctiva Clear HENT: Yes: Atraumatic Neck: Yes: Supple Cardiovascular: Yes: S1, S2 Respiratory: Yes: CTA Bilaterally Gastrointestinal: Yes: Normal Bowel Sounds, Soft Genitourinary: Yes: WNL Musculoskeletal: Yes: Joint Stiffness Edema: No Neurological: Yes: Oriented Psychiatric: Yes: Oriented Labs: CBC, BMP 07/21/20 05:40 07/23/20 06:50 INR, PTT INR 1.09 (0.83-1.09) 07/18/20 05:28 Assessment/Plan Current Medications Generic Name Dose Route Start Last Admin Trade Name Hailey PRN Reason Stop Dose Admin Acetaminophen 1,000 mg 07/14/20 19:10 07/23/20 11:09 Tylenol - PO 1,000 mg Q6H PRN Administration PAIN LEVEL 1-5 Amlodipine Besylate 10 mg 07/15/20 10:00 07/23/20 11:06 Norvasc - PO 10 mg DAILY [facility] Administration Docusate Sodium 100 mg 07/14/20 19:10 Colace - PO BID PRN CONSTIPATION Famotidine 20 mg 07/15/20 10:00 07/23/20 11:06 Pepcid - PO 20 mg DAILY [facility] Administration Cefepime HCl 1 gm/ Dextrose 50 mls @ 100 mls/hr 07/20/20 14:45 07/23/20 11:05 IVPB 100 mls/hr BID [facility] Administration Protocol Labetalol HCl 300 mg 07/12/20 11:14 07/23/20 14:30 Normodyne - PO 300 mg TID [facility] Administration Losartan Potassium 25 mg 07/19/20 12:46 07/23/20 11:06 Cozaar - PO 25 mg DAILY [facility] Administration Prednisone 5 mg 07/14/20 22:00 07/23/20 11:06 Deltasone - PO 5 mg BID [facility] Administration Impression 1. CKD 2. BRADLEY 3. HTN 4. RA 5. hx of positive imfx in the past 6. altered mental status 7. proteinuria 8. non compliance Plan - cont losartan - outpt follow up - will also need heme eval as outpt as well - will monitor renal function - cont arb to help with proteinuria - will follow
--- NOTE | 2020-07-23 23:27 | PN ---
Progress Note, Physician - Objective Vital Signs: Vital Signs Temperature 98.7 F 07/23/20 14:18 Pulse Rate 73 07/23/20 14:18 Respiratory Rate 20 07/23/20 14:18 Blood Pressure 110/62 07/23/20 14:18 O2 Sat by Pulse Oximetry (%) 98 07/23/20 14:18 Labs: CBC, BMP 07/21/20 05:40 07/23/20 06:50 INR, PTT INR 1.09 (0.83-1.09) 07/18/20 05:28
== END 2020-07-23 17:38 | DRG 77 ==
LOC: JER 06:14 → JERBED 09:24 → JICU 11:31 → J4W 07-14 15:36 → J7W 07-22 15:13
PROVIDERS: ADMIT Family Medicine; ATTEND Family Medicine
PROC: 0S9 Lower Joints, Drainage (ICD-10-PCS; principal; 2020-07-19)
PROC: 02HV33Z Insertion of Infusion Device into Superior Vena Cava, Percutaneous Approach (ICD-10-PCS; 2020-07-22)
PROC: B548ZZA Ultrasonography of Superior Vena Cava, Guidance (ICD-10-PCS; 2020-07-22)
DX: I67.4 Hypertensive encephalopathy (principal); K68.12 Psoas muscle abscess; I16.1 Hypertensive emergency; N17.9 Acute kidney failure, unspecified; J98.11 Atelectasis; I24.8 Other forms of acute ischemic heart disease; Z91.14 Patient's other noncompliance with medication regimen; M06.9 Rheumatoid arthritis, unspecified; D69.6 Thrombocytopenia, unspecified; D64.9 Anemia, unspecified; I12.9 Hypertensive chronic kidney disease with stage 1 through stage 4 chronic kidney disease, or unspecified chronic kidney disease; N18.9 Chronic kidney disease, unspecified; M54.9 Dorsalgia, unspecified; K80.20 Calculus of gallbladder without cholecystitis without obstruction; R50.9 Fever, unspecified; R41.0 Disorientation, unspecified; I35.1 Nonrheumatic aortic (valve) insufficiency
CPT/HCPCS: 36415; 36558; 36600; 49406; 70450-TC; 71045-TC-FY; 71275-TC; 72100-TC-FY; 72149-TC; 74174-TC; 76700-TC; 77001-TC-FY; 80048; 80053; 80074; 80307; 81003; 82550; 82565; 82728; 82784; 82803; 83540; 83550; 83605; 83690; 83735; 83880; 84100; 84155; 84156; 84165; 84300; 84484; 85025; 85027; 85610; 85651; 85730; 86038; 86140; 86431; 87040; 87070; 87075; 87081; 87086; 87102; 87116; 87205; 87206; 87210; 87899; 88108; 88305-TC; 93005; 93010; 93306-TC; 97116-GP; 97161-GP; 99285-25; A9579; C1751; G0480; J0131; J1644; U0003

== ENCOUNTER → 2020-09-06 | Day surgery (SDC) | payer BC | END | disposition home or self-care (01) | LOC: JRADIR 10:14 | PROVIDERS: ATTEND Physician Assistant | PROC: 02PY03Z Removal of Infusion Device from Great Vessel, Open Approach (ICD-10-PCS; principal; 2020-09-06) | DX: Z45.2 Encounter for adjustment and management of vascular access device (principal) | CPT/HCPCS: 36589 ==